=== PATIENT | male | born 1930 | race Caucasian/White ===

== ENCOUNTER 2017-02-18 14:34 | Inpatient (IN) | payer MEDICARE, OTHER ==
[2017-02-18] VITALS (7 sets, daily range): BP systolic 105–139; BP diastolic 53–68; PULSE 63–108; RESP 12–18; TEMP 96.6–98.9; O2SAT 97–100
[~2017-02-18] VITALS: Ht 165.1 cm; Wt 69.3 kg
[~2017-02-18 14:34] MED LIST: FURO20 PO; LEVO75TA3 PO; METO25CR OR; OMEP20CA5 PO
--- NOTE | 2017-02-18 15:27 | PD ---
HPI Chief Complaint: Cardiac Complaint Time Seen by Provider: 15:05 Travel History International Travel<30 days: No Contact w/Intl Traveler<30days: No Traveled to known affect area: No History of Present Illness HPI 86-year-old male with history of A. fib and myelodysplastic anemia followed by Dr. Chapman is his scrap iron cutter, as well as Dr. Shoemaker as his hematology oncologist, presents the emergency department with his daughter with significant lower extremity swelling and probable ascites which has gotten worse over the past week. Patient attempted to call his scrap iron cutter, but he is on vacation. Patient scheduled to see Dr. Shoemaker on as she gets weekly transfusions for his wound with dysplastic anemia. He states yesterday his hemoglobin was 7.9. Patient denies pain, fever, but has decreased appetite increased dyspnea with exertion. He states he is on amiodarone for his A. fib. Patient denies liver or renal problems in the past. Patient denies history of CHF. He is currently pain-free. He is allergic to hydrocodone and codeine. PFSH Past Medical History Anemia: Yes (myelodysplastic syndrome) Arthritis: Yes Atrial Fibrillation: Yes Blood Disorders: Yes (myelodysplastic syndrome) Heart Rhythm Problems: Yes (a fib ) Cancer: Yes (PROSTATE/BLADDER CANCER) Cardiac Catheterization: Yes (x2) Cardiovascular Problems: Yes High Cholesterol: Yes Chemotherapy: Yes Chest Pain: Yes Congestive Heart Failure: No Cerebrovascular Accident: No Diabetes: No Diminished Hearing: Yes (bilateral hearing aids) Endocrine: Yes Gastrointestinal Disorders: Yes (bleeding ulcer @ 37yo, GERD) GERD: Yes Genitourinary: Yes (bladder cancer ) Hepatitis: No Hiatal Hernia: No Hypertension: Yes Immune Disorder: No Musculoskeletal: Yes (pelvis fracture 01/2014) Neurologic: Yes (migraines in past ) Psychiatric: No Reproductive: No Respiratory: No Immunizations Current: Yes Radiation Therapy: Yes Thyroid Disease: Yes Ulcer: Yes ?: Not Past Surgical History AICD: No Cardiac Surgery: Yes (HEART CATH X2) Endocrine Surgery: No Eye Surgery: Yes (ZECHARIAH CATARACT IMPLANT) Genitourinary Surgery: Yes (BLADDER, URETHRAL STRICTURE) Joint Replacement: No Pacemaker: No Thoracic Surgery: Yes (PORT PLACEMENT LEFT CHEST) Tonsillectomy: Yes Other Surgery: Yes (TONSILLECTOMY at the age of 4, cataract sx OU ) Social History Alcohol Use: No Tobacco Use: No Substance Use: No Allergies-Medications (Allergen,Severity, Reaction): Coded Allergies: codeine (Unverified Allergy, Severe, Hallucinations, 02/18/17) hydrocodone (Unverified Allergy, Mild, Hallucinations, 02/18/17) Reported Meds & Prescriptions Reported Meds & Active Scripts Active Reported Procrit Inj (Epoetin Caleb) 40,000 Unit/Ml Inj 60,000 Units SQ PRN Given at [facility] Amiodarone (Amiodarone HCl) 200 Mg Tab 100 Mg PO DAILY Levothyroxine (Levothyroxine Sodium) 75 Mcg Tab 75 Mcg PO DAILY Metoprolol Tartrate 25 Mg Tab 12.5 Mg PO BID Lasix (Furosemide) 20 Mg Tab 20 Mg PO DAILY Omeprazole 20 Mg Tab 20 Mg PO BID Artificial Tears Drops (Dextran 70/Hypromellose/Pf) 0.1 %-0.3 % Droperette 1 Drop EACH EYE DAILY PRN Tylenol (Acetaminophen) 325 Mg Tab 325-650 Mg PO Q4H PRN Pepcid Complete Tablet Chew (Famotidine/Ca Carb/Mag Hydrox) 10 Mg-800 Mg-165 Mg Tab.chew 1 Tab PO BID PRN Zzzquil Liq (Diphenhydramine (Sleep) Liq) 50 Mg/30 Ml Liq 25 Mg PO HS PRN Glycerin Adult Supp (Glycerin) 2 Gm Supp 2 Gm RECTAL DAILY PRN Miralax Powder (Polyethylene Glycol 3350 Powder) 17 Gm Powd 17 Gm PO HS Mix and dissolve one measuring cap-ful (17 grams) in water or juice. Metamucil Original Texture (Psyllium Hydrophilic Mucilloid) 3.4 Gram/7 Gram Pow PO HS 1 rounded TEASPOONFUL in 8 oz of water Ibuprofen 200 Mg Cap 400 Mg PO DAILY Fluticasone Nasal Lester 50 Mcg/Act Naspr 2 Lester EACH NARE DAILY 50 mcg/spray Exjade (Deferasirox) 500 Mg Tab 1,000 Mg PO DAILY Dissolve 2 tablets (1,000mg) in 7 ounces of apple juice-wait 30 min before eating or taking other medication [Cranberry] 4,200 Mg PO DAILY Review of Systems Except as stated in HPI: all other systems reviewed are Neg General / Constitutional: No: Fever Eyes: No: Visual changes HENT: No: Headaches Cardiovascular: Positive: Dyspnea on exertion, No: Chest Pain or Discomfort Respiratory: No: Shortness of Breath Gastrointestinal: Positive: Loss of Appetite, Other (feels bloated and distended), No: Nausea, Vomiting, Diarrhea, Abdominal Pain, Hematemesis, Hematochezia, Constipation, Changes in Bowel Habits, Indigestion, Dysphagia Genitourinary: No: Dysuria Musculoskeletal: Positive: Edema, No: Myalgias, Arthralgias, Limited ROM, Pain Skin: No Rash Neurologic: No: Weakness Psychiatric: No: Depression Endocrine: No: Polydipsia Hematologic/Lymphatic: No: Easy Bruising Physical Exam Narrative GENERAL: Patient appears in no acute distress. SKIN: Warm and dry. Decreased pallor. Normal turgor. 3+ bilateral pitting edema extending into the thighs, and possibly abdomen. HEAD: Atraumatic. Normocephalic. EYES: Pupils equal and round. No scleral icterus. No injection or drainage. ENT: No nasal bleeding or discharge. Mucous membranes pink and moist. Pharynx is clear. Airway is patent NECK: Trachea midline. Supple nontender CARDIOVASCULAR: Regular rate and rhythm. RESPIRATORY: No accessory muscle use. Clear to auscultation. No wheezes, crackles, rhonchi, or rales. Breath sounds equal bilaterally. GASTROINTESTINAL: Abdomen soft, non-tender, mildly. Normal bowel sounds quadrants. Hepatic and splenic margins not palpable. MUSCULOSKELETAL: Extremities without clubbing, cyanosis, or edema. No obvious deformities. NEUROLOGICAL: Awake and alert. No obvious cranial nerve deficits. Motor grossly within normal limits. Five out of 5 muscle strength in the arms and legs. Normal speech. PSYCHIATRIC: Appropriate mood and affect; insight and judgment normal. Data Data Last Documented VS Vital Signs Date Time Temp Pulse Resp B/P (MAP) Pulse Ox O2 Delivery O2 Flow Rate FiO2 02/18/17 16:21 65 15 139/64 (89) 100 Room Air 02/18/17 14:36 98.9 Orders Orders Complete Blood Count With Diff (02/18/17 15:18) Comprehensive Metabolic Panel (02/18/17 15:18) B-Type Natriuretic Peptide (02/18/17 15:18) Act Partial Throm Time (Ptt) (02/18/17 15:18) Prothrombin Time / Inr (Pt) (02/18/17 15:18) Magnesium (Mg) (02/18/17 15:18) Ckmb (Isoenzyme) Profile (02/18/17 15:18) Troponin I (02/18/17 15:18) Urinalysis - C+S If Indicated (02/18/17 15:18) Iv Access Insert/Monitor (02/18/17 15:18) Electrocardiogram (02/18/17 15:18) Ecg Monitoring (02/18/17 15:18) Oximetry (02/18/17 15:18) Oxygen Administration (02/18/17 15:18) Chest, Single Ap (02/18/17 15:18) Sodium Chloride 0.9% Flush (Ns Flush) (02/18/17 15:30) Furosemide Inj (Lasix Inj) (02/18/17 15:30) Us Leg Venous Doppler Bilat (02/18/17 15:18) Type And Screen (02/18/17 15:18) Us Abdomen Lower Limited (02/18/17 ) Ceftriaxone Inj (Rocephin Inj) (02/18/17 16:45) Azithromycin (Zithromax) (02/18/17 16:45) Red Blood Cells (Rbc) (02/18/17 17:12) Blood Product Administration (02/18/17 17:12) Sodium Chlor 0.9% 250 Ml Inj (Ns 250 Ml (02/18/17 17:15) Diphenhydramine (Benadryl) (02/18/17 17:15) Acetaminophen (Tylenol) (02/18/17 17:15) Furosemide Inj (Lasix Inj) (02/18/17 17:15) Admit Order (Ed Use Only) (02/18/17 ) Literacy Education Professor / Telemetry SILVIA.Q8H (02/18/17 17:47) Vital Signs (Adult) Q4H (02/18/17 17:47) Diet Heart Healthy (02/18/17 Dinner) Activity Oob With Assistance (02/18/17 17:47) Notify Dr: Other (02/18/17 17:47) Labs Laboratory Tests Test 02/18/17 16:15 02/18/17 16:50 White Blood Count 5.8 TH/MM3 Red Blood Count 2.32 MIL/MM3 Hemoglobin 7.1 GM/DL Hematocrit 20.7 % Mean Corpuscular Volume 89.2 FL Mean Corpuscular Hemoglobin 30.5 PG Mean Corpuscular Hemoglobin Concent 34.1 % Red Cell Distribution Width 16.8 % Platelet Count 255 TH/MM3 Mean Platelet Volume 9.0 FL Neutrophils (%) (Auto) 67.5 % Lymphocytes (%) (Auto) 19.3 % Monocytes (%) (Auto) 12.8 % Eosinophils (%) (Auto) 0.1 % Basophils (%) (Auto) 0.3 % Neutrophils # (Auto) 3.9 TH/MM3 Lymphocytes # (Auto) 1.1 TH/MM3 Monocytes # (Auto) 0.7 TH/MM3 Eosinophils # (Auto) 0.0 TH/MM3 Basophils # (Auto) 0.0 TH/MM3 CBC Comment DIFF FINAL Differential Comment Prothrombin Time 13.1 SEC Prothromb Time International Ratio 1.2 RATIO Activated Partial Thromboplast Time 27.3 SEC Blood Urea Nitrogen 31 MG/DL Creatinine 1.87 MG/DL Random Glucose 104 MG/DL Total Protein 6.1 GM/DL Albumin 3.6 GM/DL Calcium Level 8.3 MG/DL Magnesium Level 2.2 MG/DL Alkaline Phosphatase 43 U/L Aspartate Amino Transf (AST/SGOT) 3 U/L Alanine Aminotransferase (ALT/SGPT) 15 U/L Total Bilirubin 1.2 MG/DL Sodium Level 131 MEQ/L Potassium Level 4.2 MEQ/L Chloride Level 98 MEQ/L Carbon Dioxide Level 24.1 MEQ/L Anion Gap 9 MEQ/L Estimat Glomerular Filtration Rate 34 ML/MIN Iron Level 212 MCG/DL Total Iron Binding Capacity 176 MCG/DL Percent Iron Saturation % Ferritin 367 NG/ML Total Creatine Kinase 24 U/L Troponin I 0.07 NG/ML B-Type Natriuretic Peptide 201 PG/ML Thyroid Stimulating Hormone 3rd Gen 4.370 uIU/ML Urine Color LIGHT-YELLOW Urine Turbidity CLEAR Urine pH 5.5 Urine Specific [place] 1.009 Urine Protein TRACE mg/dL Urine Glucose (UA) NEG mg/dL Urine Ketones NEG mg/dL Urine Occult Blood NEG Urine Nitrite NEG Urine Bilirubin NEG Urine Urobilinogen LESS THAN 2.0 MG/DL Urine Leukocyte Esterase NEG Urine RBC LESS THAN 1 /hpf Urine WBC 1 /hpf Microscopic Urinalysis Comment CULT NOT INDICATED MDM Medical Decision Making Medical Screen Exam Complete: Yes Emergency Medical Condition: Yes Medical Record Reviewed: Yes Differential Diagnosis Myelodysplastic anemia. Fluid overload. CHF. Low albumin. Ascites. Renal insufficiency. Lower extremity edema. Narrative Course Patient appears medically stable at time of exam. EKG and chest x-ray is ordered. Labs ordered including CBC, CMP, proBNP, cardiac panel, magnesium, and urinalysis. Ultrasound of both lower extremities and abdomen are ordered. EKG shows normal sinus rhythm at [address] changes. Chest x-ray shows new patchy infiltrate and effusion in the right lower lung with suggestion of pneumonia per the radiologist. Lower extremity ultrasound shows no evidence of DVT. Ultrasound abdomen shows no ascites. CBC significant for an RBC of 2.32, hemoglobin of 7.1, hematocrit 20.7. Coagulation studies shows a PT of 13.1, INR 1.2. PTT of 27.3. Chemistry shows sodium 131, normal potassium of 4.2, BUN 31, creatinine 1.87, GFR of 34. Calcium is 8.3, total bili is 1.2, AST 3, ALT 15, alkaline phosphatase is 43. Total creatinine kinase is 24, and troponin is slightly elevated at 0.07. ProBNP is 201. Total protein is 6.1 and albumin is 3.6. Urinalysis is unremarkable. Call was placed to Dr. Shoemaker, and 2 units of RBCs are ordered. Patient is given 1 g Rocephin IV as well as 500 mg az[address]romycin by mouth. Dr. Shoemaker agreed with the plan in regards to the blood replacement. Lasix 20 mg to be given between the 2 bags of RBCs. Call was placed to Dr. Amanda for admission. Diagnosis Primary Impression: Symptomatic anemia Additional Impressions: Bilateral lower extremity edema Right pulmonary infiltrate on CXR Pleural effusion associated with pulmonary infection Admitting Information Admitting Physician Requests: Admit Condition: Stable Shakir Mcclain Feb 18, 2017 15:27
[2017-02-18] MEDS ORDERED: SODIUM CHLORIDE 0.9% FLUSH 10 ML FLUSH IVF PRN (15:30)
[2017-02-18] MEDS ORDERED: FUROSEMIDE 40 MG/4 ML VIAL IVP ONE (15:30)
--- NOTE | 2017-02-18 15:43 | RADRPT ---
EXAM DATE/TIME: 02/18/2017 15:22 [facility] COMPARISON: CHEST SINGLE AP, February 08, 2015, 12:16. INDICATIONS : Shortness of breath and bilateral leg swelling. MEDICAL HISTORY : Myelodysplastic syndrome. SURGICAL HISTORY : Infusaport. ENCOUNTER: Initial ACUITY: 1 week PAIN SCORE: 0/10 LOCATION: Bilateral chest FINDINGS: A single view of the chest demonstrates an infiltrate and effusion involving the right lower lung. Th e left lung is grossly clear. Heart size is upper limits of normal. There is a left [id number] in place. There is no pneumothorax. The bony structures are grossly intact and stable.. CONCLUSION: There is a new patchy infiltrate and effusion in the right lower lung. Right lower lung pneumonia wou ld be the primary consideration. Leo Montoya MD on February 18, 2017 at 15:40 Board Certified Radiologist. This report was verified electronically.
--- NOTE | 2017-02-18 16:12 | RADRPT ---
EXAM DATE/TIME: 02/18/2017 15:43 [facility] COMPARISON: No previous studies available for comparison. INDICATIONS : Bilateral lower extremity edema. MEDICAL HISTORY : Hypertension. Hypercholesterolemia. Gastroesophageal reflux disease. Thyroid disease. Migraine. Atria l fibrillation. Bladder cancer. Urethral stricture. Myelodysplastic syndrome. Prostate cancer. Chemot herapy. SURGICAL HISTORY : Tonsillectomy. Cardiac catheterization. ENCOUNTER: Initial ACUITY: 1 week PAIN SCORE: 0/10 LOCATION: Bilateral legs. TECHNIQUE: Venous ultrasound of the left and right leg was performed from the inguinal ligament to the proximal calf. Real-time, color Doppler and spectral tracing, compression and augmentation techniques were us ed. FINDINGS: RIGHT LEG: There is normal compressibility of the deep venous system from the inguinal region to the proximal ca lf. No echogenic clot is seen in the lumen of the common femoral, femoral, popliteal, and posterior tibial veins. There is a normal response of the venous system to proximal and distal augmentation an d respiration. There is edema in the subcutaneous soft tissues. LEFT LEG: There is normal compressibility of the deep venous system from the inguinal region to the proximal ca lf. No echogenic clot is seen in the lumen of the common femoral, femoral, popliteal, and posterior tibial veins. There is a normal response of the venous system to proximal and distal augmentation an d respiration. There is edema in the subcutaneous soft tissues. CONCLUSION: No evidence of DVT. Leo Montoya MD on February 18, 2017 at 16:10 Board Certified Radiologist. This report was verified electronically.
--- NOTE | 2017-02-18 16:23 | RADRPT ---
EXAM DATE/TIME: 02/18/2017 15:36 [facility] COMPARISON: No previous studies available for comparison. INDICATIONS : Abdominal distension. MEDICAL HISTORY : Hypertension. Hypercholesterolemia. Gastroesophageal reflux disease. Thyroid disease. Migraine. Atria l fibrillation. Bladder cancer. Urethral stricture. Myelodysplastic syndrome. Prostate cancer. Chemot herapy. SURGICAL HISTORY : Tonsillectomy. Cardiac catheterization. ENCOUNTER: Initial ACUITY: 1 day PAIN SCORE: 0/10 LOCATION: Abdomen. AREA EVALUATED: Abdominal quadrants. FINDINGS: Imaging of the abdomen and pelvis was performed to evaluate for ascites for possible paracentesis. No ascites observed. Visceral evaluation not performed at this time. CONCLUSION: No ascites. George Arellano Jr., MD on February 18, 2017 at 16:21 Board Certified Radiologist. This report was verified electronically.
[2017-02-18 16:36] LABS: AUTOMATED NEUTROPHIL # 3.9 TH/MM3 (1.8-7.7); BASOPHIL % 0.3 % (0.0-2.0); EOSINOPHIL % 0.1 % (0.0-4.0); LYMPH % 19.3 % (9.0-44.0); LYMPHOCYTE # 1.1 TH/MM3 (1.0-4.8); MEAN CELL VOLUME 89.2 FL (80.0-100.0); MEAN CORPUSCULAR HEMOGLOBIN 30.5 PG (27.0-34.0); MEAN CORPUSCULAR HGB CONC 34.1 % (32.0-36.0); MONO % 12.8 % (0.0-8.0); NEUT % 67.5 % (16.0-70.0); PLATELET COUNT 255 TH/MM3 (150-450); RED BLOOD COUNT 2.32 MIL/MM3 (4.50-5.90); RED CELL DISTRIBUTION WIDTH 16.8 % (11.6-17.2); WHITE BLOOD COUNT 5.8 TH/MM3 (4.0-11.0)
[2017-02-18 16:38] LABS: HEMO FLAGS DIFF FINAL
[2017-02-18 16:42] LABS: HEMATOCRIT 20.7 % (39.0-51.0)
[2017-02-18] MEDS ORDERED: cefTRIAXone INJ 1,000 MG in SODIUM CHLORIDE 0.9% INJ 100 ML IV ONE (16:45)
[2017-02-18] MEDS ORDERED: AZITHROMYCIN 250 MG TAB PO ONE (16:45)
[2017-02-18 16:46] LABS: APTT (PATIENT) 27.3 SEC (24.3-30.1); INTERNATIONAL NORMALIZED RATIO 1.2 RATIO; PROTHROMBIN TIME - PATIENT 13.1 SEC (9.8-11.6)
[2017-02-18 16:59] LABS: ANION GAP 9 MEQ/L (5-15); AST (GOT) 3 U/L (15-37); BICARBONATE 24.1 MEQ/L (21.0-32.0); BLOOD UREA NITROGEN 31 MG/DL (7-18); CHLORIDE 98 MEQ/L (98-107); GLOMERULAR FILTRATION RATE 34 ML/MIN (>89); MAGNESIUM 2.2 MG/DL (1.5-2.5); POTASSIUM 4.2 MEQ/L (3.5-5.1); SODIUM (NA) 131 MEQ/L (136-145)
[2017-02-18 17:00] LABS: ALT (GPT) 15 U/L (12-78)
[2017-02-18 17:02] LABS: BLOOD, URINE NEG (NEG); COMMENT (UR) CULT NOT INDICATED; CULTURE IF INDICATED CULT NOT INDICATED; GLUCOSE,URINE NEG (NEG); KETONE, URINE NEG (NEG); NITRITE,URINE NEG (NEG); PH, URINE 5.5 (5.0-8.5); URINE COLOR LIGHT-YELLOW (YELLW/STRAW)
[2017-02-18 17:04] LABS: ALKALINE PHOSPHATASE 43 U/L (45-117); TOTAL BILIRUBIN ADULT 1.2 MG/DL (0.2-1.0)
[2017-02-18 17:06] LABS: CREATINE KINASE 24 U/L (39-308)
[2017-02-18] MEDS ORDERED: ACETAMINOPHEN 325 MG TAB PO ONE (17:15)
[2017-02-18] MEDS ORDERED: diphenhydrAMINE HCL 25 MG CAP PO ONE (17:15)
[2017-02-18] MEDS ORDERED: SODIUM CHLOR 0.9% 250 ML INJ 250 ML IV ONE (17:15)
[2017-02-18] MEDS ORDERED: CRANPOW2 PO (17:19)
[2017-02-18] MEDS ORDERED: PEPCCHW8 PO (17:19)
[2017-02-18] MEDS ORDERED: GLYC2SUP RECTAL (17:19)
[2017-02-18] MEDS ORDERED: META48.53 PO (17:19)
[2017-02-18] MEDS ORDERED: DIPH50LI PO (17:19)
[2017-02-18] MEDS ORDERED: METO25TA3 PO (17:19)
[2017-02-18] MEDS ORDERED: FURO1TAB62 PO (17:19)
[2017-02-18] MEDS ORDERED: ARTISOL EACH EYE (17:19)
[2017-02-18] MEDS ORDERED: EXJA500T PO (17:19)
[2017-02-18] MEDS ORDERED: [UNRECOGNIZED DRUG - CODE] SQ (17:19)
[2017-02-18] MEDS ORDERED: MIRA3350 PO (17:19)
[2017-02-18] MEDS ORDERED: FLUT50SP EACH NARE (17:19)
[2017-02-18] MEDS ORDERED: TYLE325T PO (17:19)
[2017-02-18] MEDS ORDERED: OMEP20TA PO (17:19)
[2017-02-18] MEDS ORDERED: IBUP200C PO (17:19)
[2017-02-18] MEDS ORDERED: LEVO75TA3 PO (17:19)
[2017-02-18] MEDS ORDERED: AMIO200T PO (17:19)
--- NOTE | 2017-02-18 18:56 | HHI.HP ---
HPI Service [facility] Hospitalists Primary Care Physician Jovan Vora M.D. Admission Diagnosis Anemia/Pnuemonia/Edema/Effusion Chief Complaint: Increased Swelling in lower extremities, mild shortness of breath Travel History International Travel<30 Days: No Contact w/Intl Traveler <30 Da: No Traveled to Known Affected Are: No History of Present Illness 86-year-old male with history of A. fib and myelodysplastic disorder with refractory anemia followed Dr. Kohler as his hematology oncologist, presents the emergency department with his daughter with significant lower extremity swelling and which has gotten worse over the past week. Patient reports he has chronic lower extremity edema particularly in the right leg but over the last 4-5 days it has worsened even being noted up to his lower back and abdomen. Patient scheduled to see Dr. Kohler on as he gets weekly transfusions of red blood cells regarding his dysplastic anemia. Patient denies pain, fever, but has decreased appetite and slight increased dyspnea with exertion. He states he is on amiodarone for his A. fib. Patient denies liver or renal problems in the past. Patient denies history of CHF. He is currently pain-free. He denies any new medications of late but takes Exjade due to recurrent iron overload secondary to packed red blood cell transfusions. He denies any hemoptysis or hematemesis. Denies any fevers. Has had no recent foreign travel. He has minimal cough and notes that his shortness of breath although he appreciated if he tries to take a deep breath or overexert himself. Review of Systems Constitutional: COMPLAINS OF: Fatigue, Change in appetite, DENIES: Diaphoretic episodes, Fever, Weight gain, Weight loss, Chills, Dizziness, Night Sweats Endocrine: DENIES: Heat/cold intolerance, Polydipsia, Polyuria, Polyphagia Eyes: DENIES: Blurred vision, Diplopia, Eye inflammation, Eye pain, Vision loss , Photosensitivity, Double Vision Ears, nose, mouth, throat: DENIES: Tinnitus, Hearing loss, Vertigo, Nasal discharge, Oral lesions, Throat pain, Hoarseness, Ear Pain, Running Nose, Epistaxis, Sinus Pain, Toothache, Odynophagia Respiratory: COMPLAINS OF: Cough, Shortness of breath, DENIES: Apneas, Snoring , Wheezing, Hemoptysis, Sputum production Cardiovascular: COMPLAINS OF: Lower Extremity Edema, DENIES: Chest pain, Palpitations, Syncope, Dyspnea on Exertion, PND, Orthopnea, Claudication Gastrointestinal: COMPLAINS OF: Abdominal pain Musculoskeletal: COMPLAINS OF: Joint pain Integumentary: DENIES: Abnormal pigmentation, Nail changes, Pruritus, Rash Hematologic/lymphatic: DENIES: Bruising, Lymphadenopathy Immunologic/allergic: DENIES: Eczema, Urticaria Neurologic: COMPLAINS OF: Abnormal gait, DENIES: Headache, Localized weakness, Paresthesias, Seizures, Speech Problems, Tremor, Poor Balance Psychiatric: DENIES: Anxiety, Confusion, Mood changes, Depression, Hallucinations, Agitation, Suicidal Ideation, Homicidal Ideation, Delusions, History of Bipolar, History of Schizophrenia Past Family Social History Past Medical History Hx of pelvic fx AAA Paroxysmal atrial fibrillation Myelodysplasia with refractory anemia Hx of bladder cancer 6 years ago Hx of prostate cancer 5 years ago COPD GERD HTN Hyperlipidemia Hypothyroidism Past Surgical History Multiple cystoscopies with tumor removal Cataract surgery Bone Marrow Bx T&A Cardiac cath x 2 Reported Medications Procrit Inj (Epoetin Caleb) 40,000 Unit/Ml Inj 60,000 Units SQ PRN Given at [facility] Amiodarone (Amiodarone HCl) 200 Mg Tab 100 Mg PO DAILY Levothyroxine (Levothyroxine Sodium) 75 Mcg Tab 75 Mcg PO DAILY Metoprolol Tartrate 25 Mg Tab 12.5 Mg PO BID Lasix (Furosemide) 20 Mg Tab 20 Mg PO DAILY Omeprazole 20 Mg Tab 20 Mg PO BID Artificial Tears Drops (Dextran 70/Hypromellose/Pf) 0.1 %-0.3 % Droperette 1 Drop EACH EYE DAILY PRN Tylenol (Acetaminophen) 325 Mg Tab 325-650 Mg PO Q4H PRN Pepcid Complete Tablet Chew (Famotidine/Ca Carb/Mag Hydrox) 10 Mg-800 Mg-165 Mg Tab.chew 1 Tab PO BID PRN Zzzquil Liq (Diphenhydramine (Sleep) Liq) 50 Mg/30 Ml Liq 25 Mg PO HS PRN Glycerin Adult Supp (Glycerin) 2 Gm Supp 2 Gm RECTAL DAILY PRN Miralax Powder (Polyethylene Glycol 3350 Powder) 17 Gm Powd 17 Gm PO HS Mix and dissolve one measuring cap-ful (17 grams) in water or juice. Metamucil Original Texture (Psyllium Hydrophilic Mucilloid) 3.4 Gram/7 Gram Pow PO HS 1 rounded TEASPOONFUL in 8 oz of water Ibuprofen 200 Mg Cap 400 Mg PO DAILY Fluticasone Nasal [place] 50 Mcg/Act Naspr 2 [place] EACH NARE DAILY 50 mcg/spray Exjade (Deferasirox) 500 Mg Tab 1,000 Mg PO DAILY Dissolve 2 tablets (1,000mg) in 7 ounces of apple juice-wait 30 min before eating or taking other medication [Cranberry] 4,200 Mg PO DAILY Allergies: Coded Allergies: codeine (Unverified Allergy, Severe, Hallucinations, 02/18/17) hydrocodone (Unverified Allergy, Mild, Hallucinations, 02/18/17) Family History N/C Social History No tobacco in 25 years but prior to that smoked 2-3 packs per day for probably 40 years No alcohol in several years and did not drink heavily in the past Previous he worked as a construction scheduler Born and raised locally now for 4-5 years and was for 64 years prior. Physical Exam Vital Signs Vital Signs Date Time Temp Pulse Resp B/P (MAP) Pulse Ox O2 Delivery O2 Flow Rate FiO2 02/18/17 16:21 65 15 139/64 (89) 100 Room Air 02/18/17 16:20 100 Room Air 02/18/17 15:01 68 100 Room Air 02/18/17 14:36 98.9 67 16 126/62 (83) 99 Room Air Physical Exam GENERAL: This is a well-nourished, well-developed patient, in no apparent distress. Alert and oriented. SKIN: No rashes, ecchymoses or lesions. Cool and dry. HEAD: Atraumatic. Normocephalic. No temporal or scalp tenderness. EYES: Pupils equal round and reactive. Extraocular motions intact. No scleral icterus. No injection or drainage. ENT: Nose without bleeding, purulent drainage or septal hematoma. Airway patent. NECK: Trachea midline. No JVD or lymphadenopathy. Supple, nontender, no meningeal signs. CARDIOVASCULAR: Regular rate and rhythm without gallops or rubs. Distant heart sounds. Slight flow murmur 2/6 systolic in aortic space. RESPIRATORY: Clear to auscultation. Slight decreased breath sounds in right base but no fine crackles. Overall fair air movement. No wheezes, rales, or rhonchi. GASTROINTESTINAL: Abdomen soft, minimally distended. Slight tenderness to palpation in left lower quadrant with slight fullness in the inguinal area. No guarding. MUSCULOSKELETAL: Extremities without clubbing or cyanosis. 2-3+ edema bilateral lower extremities up to lower thigh and 2+ edema up to groin bilaterally. No joint tenderness, effusion, or edema noted. No calf tenderness. NEUROLOGICAL: Awake and alert. Cranial nerves II through XII intact. Motor and sensory grossly within normal limits. Five out of 5 muscle strength in all muscle groups. Normal speech. Laboratory Laboratory Tests Test 02/18/17 16:15 02/18/17 16:50 White Blood Count 5.8 Red Blood Count 2.32 Hemoglobin 7.1 Hematocrit 20.7 Mean Corpuscular Volume 89.2 Mean Corpuscular Hemoglobin 30.5 Mean Corpuscular Hemoglobin Concent 34.1 Red Cell Distribution Width 16.8 Platelet Count 255 Mean Platelet Volume 9.0 Neutrophils (%) (Auto) 67.5 Lymphocytes (%) (Auto) 19.3 Monocytes (%) (Auto) 12.8 Eosinophils (%) (Auto) 0.1 Basophils (%) (Auto) 0.3 Neutrophils # (Auto) 3.9 Lymphocytes # (Auto) 1.1 Monocytes # (Auto) 0.7 Eosinophils # (Auto) 0.0 Basophils # (Auto) 0.0 CBC Comment DIFF FINAL Differential Comment Prothrombin Time 13.1 Prothromb Time International Ratio 1.2 Activated Partial Thromboplast Time 27.3 Blood Urea Nitrogen 31 Creatinine 1.87 Random Glucose 104 Total Protein 6.1 Albumin 3.6 Calcium Level 8.3 Magnesium Level 2.2 Alkaline Phosphatase 43 Aspartate Amino Transf (AST/SGOT) 3 Alanine Aminotransferase (ALT/SGPT) 15 Total Bilirubin 1.2 Sodium Level 131 Potassium Level 4.2 Chloride Level 98 Carbon Dioxide Level 24.1 Anion Gap 9 Estimat Glomerular Filtration Rate 34 Total Creatine Kinase 24 Troponin I 0.07 B-Type Natriuretic Peptide 201 Urine Color LIGHT-YELLOW Urine Turbidity CLEAR Urine pH 5.5 Urine Specific [place] 1.009 Urine Protein TRACE Urine Glucose (UA) NEG Urine Ketones NEG Urine Occult Blood NEG Urine Nitrite NEG Urine Bilirubin NEG Urine Urobilinogen LESS THAN 2.0 Urine Leukocyte Esterase NEG Urine RBC LESS THAN 1 Urine WBC 1 Microscopic Urinalysis Comment CULT NOT INDICATED Result Diagram: 02/18/17 1615 02/18/17 1615 Imaging Last 72 hours Impressions Lower Extremity Ultrasound 02/18/17 1518 Signed Impressions: Service Date/Time: Saturday, February 18, 2017 15:43 - CONCLUSION: No evidence of DVT. Leo Montoya MD Chest X-Ray 02/18/17 1518 Signed Impressions: Service Date/Time: Saturday, February 18, 2017 15:22 - CONCLUSION: There is a new patchy infiltrate and effusion in the right lower lung. Right lower lung pneumonia would be the primary consideration. Leo Montoya MD Abdomen Ultrasound 02/18/17 0000 Signed Impressions: Service Date/Time: Saturday, February 18, 2017 15:36 - CONCLUSION: No ascites. George Arellano Jr., MD Caprinmarcos VTE Risk Assessment Caprini VTE Risk Assessment: Mod/High Risk (score >= 2) Caprini Risk Assessment Model Point Value = 1 Point Value = 2 Point Value = 3 Point Value = 5 Age 41-60 Minor surgery BMI > 25 kg/m2 Swollen legs Varicose veins or History of unexplained or recurrent spontaneous Oral contraceptives or hormone replacement Sepsis (< 1 month) Serious lung disease, including pneumonia (< 1 month) Abnormal pulmonary function Acute myocardial infarction Congestive heart failure (< 1 month) History of inflammatory bowel disease Medical patient at bed rest Age 61-74 Arthroscopic surgery Major open surgery (> 45 min) Laparoscopic surgery (> 45 min) Malignancy Confined to bed (> 72 hours) Immobilizing plaster cast Central venous access Age >= 75 History of VTE Family history of VTE Factor V Leiden Prothrombin [id number] Lupus anticoagulant Anticardiolipin antibodies Elevated serum homocysteine Heparin-induced thrombocytopenia Other congenital or acquired thrombophilia Stroke (< 1 month) Elective arthroplasty Hip, pelvis, or leg fracture Acute spinal cord injury (< 1 month) Prophylaxis Regimen Total Risk Factor Score Risk Level Prophylaxis Regimen 0-1 Low Early ambulation 2 Moderate Order ONE of the following: *Sequential Compression Device (SCD) *Heparin 5000 units SQ BID 3-4 Higher Order ONE of the following medications: *Heparin 5000 units SQ TID *Enoxaparin/Lovenox 40 mg SQ daily (WT < 150 kg, CrCl > 30 mL/min) *Enoxaparin/Lovenox 30 mg SQ daily (WT < 150 kg, CrCl > 10-29 mL/min) *Enoxaparin/Lovenox 30 mg SQ BID (WT < 150 kg, CrCl > 30 mL/min) AND/OR *Sequential Compression Device (SCD) 5 or more Highest Order ONE of the following medications: *Heparin 5000 units SQ TID (Preferred with Epidurals) *Enoxaparin/Lovenox 40 mg SQ daily (WT < 150 kg, CrCl > 30 mL/min) *Enoxaparin/Lovenox 30 mg SQ daily (WT < 150 kg, CrCl > 10-29 mL/min) *Enoxaparin/Lovenox 30 mg SQ BID (WT < 150 kg, CrCl > 30 mL/min) AND *Sequential Compression Device (SCD) Assessment and Plan Problem List: (1) Right pulmonary infiltrate on CXR ICD Codes: R91.8 - Other nonspecific abnormal finding of lung field Status: Acute Plan: Doubt significant infectious etiology given lack of symptoms, lack of fever and normal white count. He has been given 1 dose of IV antibiotics. We'll hold off on additional antibiotics at this point and monitor. May need thoracentesis depending on effusion and symptomatology. Ental diuresis will be employed. (2) Bilateral lower extremity edema ICD Codes: R60.0 - Localized edema; J91.8 - Pleural effusion in other conditions classified elsewhere Status: Chronic Plan: Chronic issue which is worse of late. Gentle diuresis. TEMO hose. Elevate lower extremities. BNP is relatively low. (3) Myelodysplastic syndrome ICD Codes: D46.9 - Myelodysplastic syndrome Status: Chronic Plan: We'll have oncology see the patient. Would provide packed red blood cells. Check iron levels. May need to resume Exjade. Check an echocardiogram Given his history of elevated transfusions iron levels and recurrent PRBC transfusions. (4) Anemia ICD Codes: D64.9 - Anemia Status: Chronic Plan: Chronic issue. As noted above. Hematology will see the patient. PRBCs will be transfused. (5) Hypertension ICD Codes: I10 - Hypertension Status: Chronic (6) Paroxysmal atrial fibrillation ICD Codes: I48.0 - Paroxysmal atrial fibrillation Status: Chronic Plan: Rate is controlled. (7) Hypothyroidism ICD Codes: E03.9 - Hypothyroidism Status: Chronic Plan: Check TSH. Code Status Full Discussed Condition With Pt, his daughter, ER provider and nurse Physician Certification 2 Midnight Certification Type: Admission for Inpatient Services Order for Inpatient Services The services are ordered in accordance with Medicare regulations or non- Medicare payer requirements, as applicable. In the case of services not specified as inpatient-only, they are appropriately provided as inpatient services in accordance with the 2-midnight benchmark. Estimated LOS (days): 2 days is the estimated time the patient will need to remain in the hospital, assuming treatment plan goals are met and no additional complications. Post-Hospital Plan: Home Problem Qualifiers (1) Anemia: (2) Hypertension: Qualified Codes: I10 - Essential (primary) hypertension Edinson Amanda MD PhD Feb 18, 2017 18:56
[2017-02-18] MEDS ORDERED: DIPHENHYDRAMINE 25 MG PO PRN (20:45)
[2017-02-18] MEDS ORDERED: ACETAMINOPHEN 325 MG TAB PO PRN (20:45)
[2017-02-18] MEDS ORDERED: DEXTRAN EACH EYE PRN (20:45)
[2017-02-18] MEDS ORDERED: HYPROMELLOSE EACH EYE PRN (20:45)
[2017-02-18] MEDS: POLYETHYLENE GLYCOL 17 GM PKG PO SCH (20:54)
[2017-02-18] MEDS: METOPROLOL TARTRATE 25 MG TAB PO SCH (20:57)
[2017-02-18] MEDS ORDERED: ARTIFICIAL TEARS OPTH SOLN 15 ML BTL EACH EYE PRN ×2 (21:00)
[2017-02-18] MEDS ORDERED: NON-FORMULARY DRUG (Omeprazole 20 MG) PO SCH (21:00)
[2017-02-18] MEDS ORDERED: PILL SPLITTER OTHER PRN (21:00)
[2017-02-18] MEDS ORDERED: diphenhydrAMINE HCL ELIXIR 12.5 MG/5 ML CUP PO PRN (21:00)
[2017-02-18] MEDS: PANTOPRAZOLE SOD 20 MG DELAYED RELEASE TAB PO SCH (21:52)
[2017-02-18 22:03] LABS: TRANSFERRIN IRON PROFILE 126 MG/DL (200-360)
[2017-02-18 22:12] LABS: FERRITIN 367 NG/ML (26-388)
[2017-02-19] VITALS (11 sets, daily range): BP systolic 89–117; BP diastolic 50–61; PULSE 85–111; RESP 12–18; TEMP 96.7–98.4; O2SAT 93–99
[2017-02-19] MEDS: FUROSEMIDE 20 MG/2 ML VIAL IV PUSH SCH ×2 (00:41→10:25)
[2017-02-19] MEDS: LEVOTHYROXINE SODIUM 75 MCG TAB PO SCH (06:13)
[2017-02-19] MEDS: AMIODARONE 200 MG TAB PO SCH (08:13)
[2017-02-19] MEDS: FLUTICASONE PROPIONATE 50 MCG/ACT 16 GM NASAL SPRAY EACH NARE SCH (08:13)
[2017-02-19] MEDS: PANTOPRAZOLE SOD 20 MG DELAYED RELEASE TAB PO SCH ×2 (08:13→21:18)
[2017-02-19] MEDS: METOPROLOL TARTRATE 25 MG TAB PO SCH ×2 (08:16→21:18)
--- NOTE | 2017-02-19 09:40 | RADRPT ---
EXAM DATE/TIME: 02/19/2017 08:33 [place] COMPARISON: CT ABDOMEN & PELVIS W/O CONTRAST, February 08, 2015, 13:20. INDICATIONS : Swelling to lower abdomen and back, left lower quadrant pain. ORAL CONTRAST: No oral contrast ingested. RADIATION DOSE: 6.64 CTDIvol (mGy) MEDICAL HISTORY : Gastroesophageal reflux disease. Ulcers. Carcinoma, bladder.Prostate cancer, hypertension. SURGICAL HISTORY : None. ENCOUNTER: Initial ACUITY: 2 days PAIN SCALE: 4/10 LOCATION: Left lower quadrant TECHNIQUE: Volumetric scanning of the abdomen and pelvis was performed. Using automated exposure control and ad justment of the mA and/or kV according to patient size, radiation dose was kept as low as reasonably achievable to obtain optimal diagnostic quality images. DICOM format image data is available electro nically for review and comparison. FINDINGS: LOWER LUNGS: Mild cardiomegaly with moderate sized pericardial effusion. A moderate size right pleural effusion wi th associated consolidation involving the right lower lobe. Tiny left effusion. LIVER: Homogeneous density without lesion. There is no dilation of the biliary tree. No calcified gallston es. A trace amount of fluid is seen adjacent to the right lobe of the liver. SPLEEN: Normal size without lesion. PANCREAS: Within normal limits. KIDNEYS: Normal in size and shape. There is no mass, stone, or hydronephrosis. A sub-1 cm hyperdense cyst is long-term stable involving the lateral margin of the midpole the right kidney. ADRENAL GLANDS: A 2 cm lipid rich adenoma is seen involving the left adrenal gland. On this unenhanced study the Houn sfield units are -18. It is stable. Right adrenal gland is normal. VASCULAR: There is no aortic aneurysm. BOWEL/MESENTERY: The stomach, small bowel, and colon demonstrate no acute abnormality. There is no free intraperitone al air or fluid. ABDOMINAL WALL: Within normal limits. RETROPERITONEUM: There is no lymphadenopathy. BLADDER: No wall thickening or mass. REPRODUCTIVE: Within normal limits. INGUINAL: There is no lymphadenopathy or hernia. MUSCULOSKELETAL: Diffuse osteopenia. Old trauma involving the superior and inferior pubic rami on the right. CONCLUSION: 1. No acute abnormality involving the abdomen or pelvis. 2. Moderate size right pleural effusion with consolidation of the right lower lobe. Tiny left pleural effusion. 3. Moderate sized pericardial effusion. 4. Trace amount of ascites. 5. 2 cm lipid rich adenoma involving the left adrenal gland. George Green Jr., MD on February 19, 2017 at 9:32 Board Certified Radiologist. This report was verified electronically.
--- NOTE | 2017-02-19 10:40 | HHI.PR ---
Subjective Remarks pt doing ok. concerned about leg swelling. Objective Vitals heart reg lung cta abd s/nt ext edema zachary LE Vital Signs Date Time Temp Pulse Resp B/P (MAP) Pulse Ox O2 Delivery O2 Flow Rate FiO2 02/19/17 08:40 98.4 111 18 95/54 (68) 93 02/19/17 04:12 97.6 86 12 95/58 95 02/19/17 04:00 97.6 100 18 117/57 (77) 93 02/19/17 03:06 97.1 88 12 89/51 96 02/19/17 02:27 97.1 85 12 99/50 96 02/19/17 01:20 96.7 97 12 101/59 99 02/19/17 00:27 96.9 89 12 97/61 96 02/19/17 00:00 97.4 88 18 99/55 (70) 96 02/19/17 00:00 97.6 100 18 117/57 (77) 93 02/18/17 21:30 96.9 97 12 105/58 97 02/18/17 21:02 96.6 108 12 137/68 100 02/18/17 20:45 96.9 63 12 112/53 98 02/18/17 20:26 97.5 68 14 116/53 02/18/17 20:00 97.4 65 18 138/68 (91) 97 02/18/17 16:21 65 15 139/64 (89) 100 Room Air 02/18/17 16:20 100 Room Air 02/18/17 15:01 68 100 Room Air 02/18/17 14:36 98.9 67 16 126/62 (83) 99 Room Air 02/19/17 02/19/17 02/20/17 15:00 23:00 07:00 # Voids 4 Result Diagram: 02/18/175 02/18/171614 Imaging Last 72 hours Impressions Lower Extremity Ultrasound 02/18/171517 Signed Impressions: Service Date/Time: Saturday, February 18, 2017 15:43 - CONCLUSION: No evidence of DVT. Leo Montoya MD Chest X-Ray 02/18/171517 Signed Impressions: Service Date/Time: Saturday, February 18, 2017 15:22 - CONCLUSION: There is a new patchy infiltrate and effusion in the right lower lung. Right lower lung pneumonia would be the primary consideration. Leo Montoya MD Abdomen Ultrasound 02/18/17 0000 Signed Impressions: Service Date/Time: Saturday, February 18, 2017 15:36 - CONCLUSION: No ascites. George Arellano Jr., MD A/P Problem List: (1) Myelodysplastic syndrome ICD Codes: D46.9 - Myelodysplastic syndrome Status: Acute Plan: 1. MDS with refractory anemia. acute worsening. 2. volume overload concerning for chf mod right pleural effusion/consolidation. mod pericardial effusion noted on CT. 3. ckd 3 given 2 units prbc iv lasix overnight......continue lasix as bp allows echo pending monitor cr, na discussed with Dr Kohler. Pt and his friend. (2) Volume overload ICD Codes: E87.70 - Fluid overload, unspecified Status: Acute (3) Anemia ICD Codes: D64.9 - Anemia Status: Chronic Plan: as above (4) Hypertension ICD Codes: I10 - Hypertension Status: Chronic (5) Paroxysmal atrial fibrillation ICD Codes: I48.0 - Paroxysmal atrial fibrillation Status: Chronic Plan: Rate is controlled. (6) Hypothyroidism ICD Codes: E03.9 - Hypothyroidism Status: Chronic Problem Qualifiers (1) Anemia: (2) Hypertension: Qualified Codes: I10 - Essential (primary) hypertension Clarke Cheng MD Feb 19, 2017 10:40
[2017-02-19] MEDS ORDERED: FUROSEMIDE 20 MG TAB PO ONE (11:15)
[2017-02-19 12:54] LABS: BICARBONATE 27.3 MEQ/L (21.0-32.0); POTASSIUM 3.8 MEQ/L (3.5-5.1)
[2017-02-19 13:25] LABS: AUTOMATED NEUTROPHIL # 3.7 TH/MM3 (1.8-7.7); BASOPHIL % 0.5 % (0.0-2.0); EOSINOPHIL % 0.2 % (0.0-4.0); HEMATOCRIT 29.2 % (39.0-51.0); HEMO FLAGS DIFF FINAL; LYMPH % 20.4 % (9.0-44.0); LYMPHOCYTE # 1.2 TH/MM3 (1.0-4.8); MEAN CELL VOLUME 86.4 FL (80.0-100.0); MEAN CORPUSCULAR HEMOGLOBIN 29.5 PG (27.0-34.0); MEAN CORPUSCULAR HGB CONC 34.2 % (32.0-36.0); MONO % 13.7 % (0.0-8.0); NEUT % 65.2 % (16.0-70.0); PLATELET COUNT 288 TH/MM3 (150-450); RED BLOOD COUNT 3.38 MIL/MM3 (4.50-5.90); RED CELL DISTRIBUTION WIDTH 16.7 % (11.6-17.2); WHITE BLOOD COUNT 5.6 TH/MM3 (4.0-11.0)
--- NOTE | 2017-02-19 14:16 | EKG ---
Date Performed: 02/18/2017 Time Performed: 16:42:50 PTAGE: 86 years EKG: Sinus rhythm NORMAL ECG PREVIOUS TRACING : 02/08/2015 11.34 DOCTOR: Gilbert Robins Interpretating Date/Time 02/19/2017 14:13:41
--- NOTE | 2017-02-19 14:18 | EKG ---
Date Performed: 02/18/2017 Time Performed: 15:19:11 PTAGE: 86 years EKG: SUPRAVENTRICULAR RHYTHM LOW QRS VOLTAGE IN EXTREMITY LEADS ABNORMAL QRS-T ANGLE ABNORMAL EC G NO PREVIOUS TRACING DOCTOR: Gilbert Robins Interpretating Date/Time 02/19/2017 14:15:14
--- NOTE | 2017-02-19 17:30 | ECHRPT ---
Indication: SHORTNESS OF BREATH CONCLUSIONS Normal left ventricular size and wall thickness. The left ventricular systolic function is normal wi th an estimated ejection fraction in the range of 60-65%. No definite regional wall motion abnormalities. There is mild tricuspid valve regurgitation. The estimated pulmonary arterial pressure is 50 mmHg. BP: 95 / 58 HR: 86 Rhythm: Sinus MEASUREMENTS (Male / Female) Normal Values Technical Quality:Fair 2D ECHO LV Diastolic Diameter PLAX 4.7 cm 4.2 - 5.9 / 3.9 - 5.3 cm LV Systolic Diameter PLAX 3.2 cm IVS Diastolic Thickness 0.9 cm 0.6 - 1.0 / 0.6 - 0.9 cm LVPW Diastolic Thickness 0.8 cm 0.6 - 1.0 / 0.6 - 0.9 cm LV Relative Wall Thickness 0.4 LVOT Diameter 1.6 cm Aortic Root Diameter 2.8 cm LA Systolic Diameter LX 3.4 cm 3.0 - 4.0 / 2.7 - 3.8 cm M-MODE AV Cusp Separation MM 1.7 cm DOPPLER AV Peak Velocity 163.0 cm/s AV Peak Gradient 10.6 mmHg AV Mean Gradient 5.7 mmHg AV Velocity Time Integral 24.6 cm LVOT Peak Velocity 99.4 cm/s LVOT Peak Gradient 4.0 mmHg LVOT Velocity Time Integral 16.8 cm LVOT Cardiac Index 1552.8 cm/minm AV Area Cont Eq vti 1.4 cm AV Area Cont Eq pk 1.2 cm Mitral E Point Velocity 98.9 cm/s LV E' Lateral Velocity 9.0 cm/s Mitral E to LV E' Lateral Ratio 11.0 LV E' Septal Velocity 9.6 cm/s Mitral E to LV E' Septal Ratio 10.3 TR Peak Velocity 322.0 cm/s TR Peak Gradient 41.5 mmHg Right Atrial Pressure 10.0 mmHg Pulmonary Artery Systolic Pressu 51.5 mmHg Right Ventricular Systolic Press 51.5 mmHg PV Peak Velocity 69.2 cm/s PV Peak Gradient 1.9 mmHg FINDINGS LEFT VENTRICLE Normal left ventricular size and wall thickness. The left ventricular systolic function is normal wi th an estimated ejection fraction in the range of 60-65%. Left ventricular diastolic function parameters a re normal. RIGHT VENTRICLE Normal right ventricular size and systolic function. LEFT ATRIUM The left atrial size is normal. RIGHT ATRIUM The right atrial size is normal. ATRIAL SEPTUM Normal atrial septal thickness without atrial level shunting by limited color doppler interrogation. AORTA The aortic root and proximal ascending aorta are normal in size on limited imaging. MITRAL VALVE Structurally normal mitral valve. No mitral valve stenosis or regurgitation. TRICUSPID VALVE There is mild tricuspid valve regurgitation. The estimated pulmonary arterial pressure is 50 mmHg. PULMONARY VALVE No pulmonary valve regurgitation or stenosis. VESSELS The inferior vena cava is normal in size. PERICARDIUM There is a small pericardial effusion present. Austin Hicks MD (Electronically Signed) Final Date:19 February 2017 17:28
[2017-02-19] MEDS ORDERED: FUROSEMIDE 20 MG TAB PO SCH (18:00)
[2017-02-19] MEDS: FUROSEMIDE 20 MG TAB PO SCH (18:06)
[2017-02-19] MEDS: POLYETHYLENE GLYCOL 17 GM PKG PO SCH (21:17)
[2017-02-20] VITALS (10 sets, daily range): BP systolic 96–125; BP diastolic 52–63; PULSE 82–130; RESP 16–18; TEMP 97.6–98.6; O2SAT 95–96
[2017-02-20] MEDS: LEVOTHYROXINE SODIUM 75 MCG TAB PO SCH (05:43)
[2017-02-20 07:17] LABS: BICARBONATE 27.6 MEQ/L (21.0-32.0); POTASSIUM 3.8 MEQ/L (3.5-5.1)
--- NOTE | 2017-02-20 08:21 | HHI.PR ---
Subjective Remarks on edge bed eating breakfast. Objective Vitals heart reg lung cta abd s/nt ext pitting edema feet/legs mikayla hose Vital Signs Date Time Temp Pulse Resp B/P (MAP) Pulse Ox O2 Delivery O2 Flow Rate FiO2 02/20/17 06:00 97.8 86 16 96/55 (69) 95 02/20/17 00:58 107 02/20/17 00:32 97.6 87 16 100/58 (72) 95 02/19/17 20:30 97.4 89 18 104/58 (73) 95 02/19/17 16:34 97.6 96 17 108/58 (75) 96 02/19/17 12:48 98.2 96 18 101/57 (72) 95 02/19/17 08:40 98.4 111 18 95/54 (68) 93 Result Diagram: 02/19/17 1215 02/20/17 0555 Imaging Last 72 hours Impressions Lower Extremity Ultrasound 02/18/17 1518 Signed Impressions: Service Date/Time: Saturday, February 18, 2017 15:43 - CONCLUSION: No evidence of DVT. Leo Montoya MD Chest X-Ray 02/18/178 Signed Impressions: Service Date/Time: Saturday, February 18, 2017 15:22 - CONCLUSION: There is a new patchy infiltrate and effusion in the right lower lung. Right lower lung pneumonia would be the primary consideration. Leo Montoya MD Abdomen Ultrasound 02/18/17 0000 Signed Impressions: Service Date/Time: Saturday, February 18, 2017 15:36 - CONCLUSION: No ascites. George Arellano Jr., MD A/P Problem List: (1) Myelodysplastic syndrome ICD Codes: D46.9 - Myelodysplastic syndrome Status: Acute Plan: 1. MDS with refractory anemia. acute worsening. 2. volume overload mod right pleural effusion/consolidation. mod pericardial effusion noted on CT. but mild on echo echo neg for systolic or diastolic dysfunction 3. ckd 3 given 2 units prbc discussed with Dr Kohler. Pt and his friend. cont lasix and monitor his cr elevate legs. mikayla hose (2) Volume overload ICD Codes: E87.70 - Fluid overload, unspecified Status: Acute (3) Anemia ICD Codes: D64.9 - Anemia Status: Chronic Plan: as above (4) Hypertension ICD Codes: I10 - Hypertension Status: Chronic (5) Paroxysmal atrial fibrillation ICD Codes: I48.0 - Paroxysmal atrial fibrillation Status: Chronic Plan: Rate is controlled. (6) Hypothyroidism ICD Codes: E03.9 - Hypothyroidism Status: Chronic Problem Qualifiers (1) Anemia: (2) Hypertension: Qualified Codes: I10 - Essential (primary) hypertension Clarke Cheng MD Feb 20, 2017 08:21
[2017-02-20] MEDS: FUROSEMIDE 20 MG TAB PO SCH ×2 (08:25→17:02)
[2017-02-20] MEDS: AMIODARONE 200 MG TAB PO SCH (08:25)
[2017-02-20] MEDS: METOPROLOL TARTRATE 25 MG TAB PO SCH ×2 (08:25→21:00)
[2017-02-20] MEDS: PANTOPRAZOLE SOD 20 MG DELAYED RELEASE TAB PO SCH ×2 (08:25→21:19)
[2017-02-20] MEDS: FLUTICASONE PROPIONATE 50 MCG/ACT 16 GM NASAL SPRAY EACH NARE SCH (08:26)
[2017-02-20] MEDS ORDERED: INFLUENZA VIRUS VACCINE (QUADRIVALENT) 0.5 ML SYR IM ONE (10:00)
[2017-02-20] MEDS: POLYETHYLENE GLYCOL 17 GM PKG PO SCH (21:19)
[2017-02-21] VITALS (9 sets, daily range): BP systolic 95–142; BP diastolic 54–70; PULSE 67–131; RESP 16–18; TEMP 97.9–98.4; O2SAT 95–99
[2017-02-21] MEDS: LEVOTHYROXINE SODIUM 75 MCG TAB PO SCH (05:35)
[2017-02-21] MEDS: FLUTICASONE PROPIONATE 50 MCG/ACT 16 GM NASAL SPRAY EACH NARE SCH (09:00)
[2017-02-21] MEDS: AMIODARONE 200 MG TAB PO SCH (09:00)
[2017-02-21] MEDS: PANTOPRAZOLE SOD 20 MG DELAYED RELEASE TAB PO SCH ×2 (09:01→22:06)
[2017-02-21] MEDS: FUROSEMIDE 20 MG TAB PO SCH ×2 (09:01→17:29)
[2017-02-21] MEDS: METOPROLOL TARTRATE 25 MG TAB PO SCH ×3 (09:25→22:00)
--- NOTE | 2017-02-21 09:46 | HHI.PR ---
Subjective Remarks alot of palpitations. he has these at home also. thinks the swelling is better. Objective Vitals heart irreg lung cta abd s/nt ext 1 plus edema/mikayla hose Vital Signs Date Time Temp Pulse Resp B/P (MAP) Pulse Ox O2 Delivery O2 Flow Rate FiO2 02/21/17 09:25 142/69 (93) 02/21/17 09:06 131 02/21/17 09:01 98.2 117 18 99/62 (74) 97 02/21/17 05:47 98.4 124 18 108/60 (76) 95 02/21/17 00:53 98.3 125 16 95/59 (71) 95 02/20/17 20:51 98.2 105 16 103/63 (76) 96 02/20/17 18:00 130 02/20/17 16:26 97.9 124 18 125/62 (83) 95 02/20/17 12:00 98.6 82 18 96/52 (67) 96 Result Diagram: 02/19/17 1215 02/20/17 0555 Imaging Last 72 hours Impressions Lower Extremity Ultrasound 02/18/178 Signed Impressions: Service Date/Time: Saturday, February 18, 2017 15:43 - CONCLUSION: No evidence of DVT. Leo Montoya MD Chest X-Ray 02/18/171517 Signed Impressions: Service Date/Time: Saturday, February 18, 2017 15:22 - CONCLUSION: There is a new patchy infiltrate and effusion in the right lower lung. Right lower lung pneumonia would be the primary consideration. Leo Montoya MD Abdomen Ultrasound 02/18/17 0000 Signed Impressions: Service Date/Time: Saturday, February 18, 2017 15:36 - CONCLUSION: No ascites. George Arellano Jr., MD A/P Problem List: (1) Myelodysplastic syndrome ICD Codes: D46.9 - Myelodysplastic syndrome Status: Acute Plan: 1. MDS with refractory anemia. acute worsening. 2. volume overload mod right pleural effusion/consolidation. mod pericardial effusion noted on CT. but mild on echo echo neg for systolic or diastolic dysfunction 3. ckd 3 4. afib/rvr. I wonder if this is uncontrolled at home and reponsible for his fluid retention. pt admits to lowering his amiodarone w/out consulting his doctor given 2 units prbc discussed with Dr Kohler. Pt and his friend. cont lasix and monitor his cr elevate legs. mikayla hose increase bb as tolerated. and amio back to original dose. (2) Volume overload ICD Codes: E87.70 - Fluid overload, unspecified Status: Acute (3) Anemia ICD Codes: D64.9 - Anemia Status: Chronic Plan: as above (4) Hypertension ICD Codes: I10 - Hypertension Status: Chronic (5) Paroxysmal atrial fibrillation ICD Codes: I48.0 - Paroxysmal atrial fibrillation Status: Chronic Plan: Rate is controlled. (6) Hypothyroidism ICD Codes: E03.9 - Hypothyroidism Status: Chronic Problem Qualifiers (1) Anemia: (2) Hypertension: Qualified Codes: I10 - Essential (primary) hypertension Clarke Cheng MD Feb 21, 2017 09:46
[2017-02-21 14:41] LABS: BICARBONATE 26.1 MEQ/L (21.0-32.0); POTASSIUM 3.6 MEQ/L (3.5-5.1)
[2017-02-21] MEDS: POLYETHYLENE GLYCOL 17 GM PKG PO SCH (22:06)
[2017-02-22] VITALS (8 sets, daily range): BP systolic 108–138; BP diastolic 55–63; PULSE 57–70; RESP 17–20; TEMP 97.4–98.4; O2SAT 95–98
[2017-02-22] MEDS: METOPROLOL TARTRATE 25 MG TAB PO SCH ×3 (05:28→20:32)
[2017-02-22] MEDS: LEVOTHYROXINE SODIUM 75 MCG TAB PO SCH (05:28)
[2017-02-22 07:08] LABS: BICARBONATE 29.3 MEQ/L (21.0-32.0); POTASSIUM 3.8 MEQ/L (3.5-5.1)
[2017-02-22] MEDS: AMIODARONE 200 MG TAB PO SCH (08:31)
[2017-02-22] MEDS: PANTOPRAZOLE SOD 20 MG DELAYED RELEASE TAB PO SCH ×2 (08:31→20:32)
[2017-02-22] MEDS: FLUTICASONE PROPIONATE 50 MCG/ACT 16 GM NASAL SPRAY EACH NARE SCH (09:00)
--- NOTE | 2017-02-22 10:05 | HHI.PR ---
Subjective Remarks doing well. Objective Vitals heart irreg lung cta abd s/nt ext trace pedal edema Vital Signs Date Time Temp Pulse Resp B/P (MAP) Pulse Ox O2 Delivery O2 Flow Rate FiO2 02/22/17 08:00 97.4 58 20 122/57 (78) 97 02/22/17 04:43 98.0 65 18 120/56 (77) 96 02/22/17 00:00 98.1 66 17 119/56 (77) 96 02/21/17 20:00 98.1 68 17 107/54 (71) 97 02/21/17 18:00 67 02/21/17 17:12 97.9 71 16 120/58 (78) 98 02/21/17 12:51 98.2 108 16 107/70 (82) 99 Result Diagram: 02/19/17 1215 02/22/17 0550 Imaging Last 72 hours Impressions Lower Extremity Ultrasound 02/18/17 1518 Signed Impressions: Service Date/Time: Saturday, February 18, 2017 15:43 - CONCLUSION: No evidence of DVT. Leo Montoya MD Chest X-Ray 02/18/17 1518 Signed Impressions: Service Date/Time: Saturday, February 18, 2017 15:22 - CONCLUSION: There is a new patchy infiltrate and effusion in the right lower lung. Right lower lung pneumonia would be the primary consideration. Leo Montoya MD Abdomen Ultrasound 02/18/17 0000 Signed Impressions: Service Date/Time: Saturday, February 18, 2017 15:36 - CONCLUSION: No ascites. George Arellano Jr., MD A/P Problem List: (1) Myelodysplastic syndrome ICD Codes: D46.9 - Myelodysplastic syndrome Status: Acute Plan: 1. MDS with refractory anemia. acute worsening. 2. volume overload mod right pleural effusion/consolidation. mod pericardial effusion noted on CT. but mild on echo echo neg for systolic or diastolic dysfunction 3. ckd 3 4. afib/rvr. I wonder if this is uncontrolled at home and reponsible for his fluid retention. pt admits to lowering his amiodarone w/out consulting his doctor given 2 units prbc discussed with Dr Kohler. Pt and his friend. hold lasix today. pt has diuresed 15 pounds elevate legs. mikayla hose increased bb and amio back to 200mg daily. HR tightly controlled. If doing well then d/c in AM (2) Volume overload ICD Codes: E87.70 - Fluid overload, unspecified Status: Acute (3) Anemia ICD Codes: D64.9 - Anemia Status: Chronic Plan: as above (4) Hypertension ICD Codes: I10 - Hypertension Status: Chronic (5) Paroxysmal atrial fibrillation ICD Codes: I48.0 - Paroxysmal atrial fibrillation Status: Chronic Plan: Rate is controlled. (6) Hypothyroidism ICD Codes: E03.9 - Hypothyroidism Status: Chronic Problem Qualifiers (1) Anemia: (2) Hypertension: Qualified Codes: I10 - Essential (primary) hypertension Clarke Cheng MD Feb 22, 2017 10:05
[2017-02-22] MEDS: POLYETHYLENE GLYCOL 17 GM PKG PO SCH (20:32)
[2017-02-23 04:00] VITALS: BP 107/53; PULSE 60; RESP 20; TEMP 97.5; O2SAT 96
[2017-02-23] MEDS: LEVOTHYROXINE SODIUM 75 MCG TAB PO SCH (05:30)
[2017-02-23] MEDS: METOPROLOL TARTRATE 25 MG TAB PO SCH ×2 (05:30→13:37)
[2017-02-23 07:52] VITALS: BP 133/63; PULSE 53; RESP 18; TEMP 97.8; O2SAT 98
[2017-02-23] MEDS: PANTOPRAZOLE SOD 20 MG DELAYED RELEASE TAB PO SCH (08:11)
[2017-02-23] MEDS: AMIODARONE 200 MG TAB PO SCH (08:11)
[2017-02-23] MEDS: FLUTICASONE PROPIONATE 50 MCG/ACT 16 GM NASAL SPRAY EACH NARE SCH (08:11)
[2017-02-23 09:49] VITALS: PULSE 60
[2017-02-23 09:51] VITALS: PULSE 60
[2017-02-23] MEDS ORDERED: AMIO200T PO ×2 (11:13→11:18)
[2017-02-23] MEDS ORDERED: METO25TA3 PO ×2 (11:13→11:18)
--- NOTE | 2017-02-23 11:14 | HHI.DCPOC ---
Discharge Care Plan Diagnosis: (1) Atrial fibrillation with RVR (2) Myelodysplastic syndrome (3) Symptomatic anemia (4) Bilateral lower extremity edema Goals to Promote Your Health * To prevent worsening of your condition and complications * To maintain your health at the optimal level Directions to Meet Your Goals Take your medications as prescribed Follow your dietary instruction Follow activity as directed Keep your appointments as scheduled Take your immunizations and boosters as scheduled If your symptoms worsen call your PCP, if no PCP go to Urgent Care Center or Emergency Room Smoking is Dangerous to Your Health. Avoid second hand smoke Call the 24-hour hour crisis hotline for domestic abuse at Clarke Cheng MD Feb 23, 2017 11:14
--- NOTE | 2017-02-23 11:28 | HHI.DS ---
Discharge Summary Admission Date Feb 18, 2017 at 17:50 Discharge Date: Feb 23, 2017 Admitting Diagnosis Anemia/Pnuemonia/Edema/Effusion (1) Atrial fibrillation with RVR Diagnosis: Principal ICD Codes: I48.91 - Unspecified atrial fibrillation (2) Myelodysplastic syndrome Diagnosis: Principal ICD Codes: D46.9 - Myelodysplastic syndrome Status: Acute (3) Volume overload Diagnosis: Principal ICD Codes: E87.70 - Fluid overload, unspecified Status: Acute (4) Anemia Diagnosis: Principal ICD Codes: D64.9 - Anemia Status: Chronic (5) Hypertension Diagnosis: Secondary ICD Codes: I10 - Hypertension Status: Chronic (6) Hypothyroidism Diagnosis: Secondary ICD Codes: E03.9 - Hypothyroidism Status: Chronic Brief History 86-year-old male with history of A. fib and myelodysplastic disorder with refractory anemia followed Dr. Kohler as his hematology oncologist, presents the emergency department with his daughter with significant lower extremity swelling and which has gotten worse over the past week. Patient reports he has chronic lower extremity edema particularly in the right leg but over the last 4-5 days it has worsened even being noted up to his lower back and abdomen. Patient scheduled to see Dr. Kohler on as he gets weekly transfusions of red blood cells regarding his dysplastic anemia. Patient denies pain, fever, but has decreased appetite and slight increased dyspnea with exertion. He states he is on amiodarone for his A. fib. Patient denies liver or renal problems in the past. Patient denies history of CHF. He is currently pain-free. He denies any new medications of late but takes Exjade due to recurrent iron overload secondary to packed red blood cell transfusions. He denies any hemoptysis or hematemesis. Denies any fevers. Has had no recent foreign travel. He has minimal cough and notes that his shortness of breath although he appreciated if he tries to take a deep breath or overexert himself. CBC/BMP: 02/19/17 1215 02/22/17 0550 Significant Findings Laboratory Tests Test 02/21/17 13:35 02/22/17 05:50 Blood Urea Nitrogen 34 MG/DL (7-18) 42 MG/DL (7-18) Creatinine 1.58 MG/DL (0.60-1.30) 1.78 MG/DL (0.60-1.30) Random Glucose 161 MG/DL (74-106) Calcium Level 8.4 MG/DL (8.5-10.1) Sodium Level 131 MEQ/L (136-145) 132 MEQ/L (136-145) Chloride Level 96 MEQ/L (98-107) 96 MEQ/L (98-107) Estimat Glomerular Filtration Rate 42 ML/MIN (>89) 36 ML/MIN (>89) Hospital Course (1) Myelodysplastic syndrome 1. MDS with refractory anemia. acute worsening. 2. volume overload mod right pleural effusion/consolidation. mod pericardial effusion noted on CT. but mild on echo echo neg for systolic or diastolic dysfunction 3. ckd 3 4. afib/rvr. I wonder if this is uncontrolled at home and reponsible for his fluid retention. pt admits to lowering his amiodarone w/out consulting his doctor given 2 units prbc discussed with Dr Kohler. Pt and his friend. pt has diuresed 15 pounds elevate legs. mikayla hose increased bb and amio back to 200mg daily. HR tightly controlled. has f/u this week with cardiology and hem/onc (2) Volume overload ICD Codes: E87.70 - Fluid overload, unspecified Status: Acute (3) Anemia ICD Codes: D64.9 - Anemia Status: Chronic Plan: as above (4) Hypertension ICD Codes: I10 - Hypertension Status: Chronic (5) Paroxysmal atrial fibrillation ICD Codes: I48.0 - Paroxysmal atrial fibrillation Status: Chronic Plan: Rate is controlled. (6) Hypothyroidism ICD Codes: E03.9 - Hypothyroidism Status: Chronic Pt Condition on Discharge: Stable Discharge Disposition: Discharge Home Discharge Instructions DIET: Follow Instructions for: Heart Healthy Diet Activities you can perform: Regular-No Restrictions Follow up Referrals: Cardiology - 02/26/[address] arredondo Oncology/Hematology - 02/27/17 with Jorge Kohler MD New Medications: Amiodarone (Amiodarone) 200 Mg Tab 200 MG PO DAILY for afib, #30 TAB 3 Refills Metoprolol Tartrate (Metoprolol Tartrate) 25 Mg Tab 12.5 MG PO Q8HR for afib for 30 Days, TAB 3 Refills Continued Medications: Acetaminophen (Tylenol) 325 Mg Tab 325-650 MG PO Q4H PRN for MILD PAIN/ELEVATED TEMP, TAB 0 Refills Deferasirox (Exjade) 500 Mg Tab 1000 MG PO DAILY Dissolve 2 tablets (1,000mg) in 7 ounces of apple juice-wait 30 min before eating or taking other medication Dextran 70/Hypromellose/Pf (Artificial Tears Drops) 0.1 %-0.3 % Droperette 1 DROP EACH EYE DAILY PRN for DRY EYE Diphenhydramine (Sleep) Liq (Zzzquil Liq) 50 Mg/30 Ml Liq 25 MG PO HS PRN for SLEEP, #1 BOTTLE Epoetin Inj (Procrit Inj) 40,000 Unit/Ml Inj 32882 UNITS SQ PRN for IF HGB LESS THAN 10, #12 VIAL 0 Refills Given at [facility] Famotidine/Ca Carb/Mag Hydrox (Pepcid Complete Tablet Chew) 10 Mg-800 Mg-165 Mg Tab.chew 1 TAB PO BID PRN for HEARTBURN Fluticasone Nasal Portal (Fluticasone Nasal Portal) 50 Mcg/Act Naspr 2 SPRAY EACH NARE DAILY for Allergy Management, #1 BOTTLE 0 Refills 50 mcg/spray Furosemide (Lasix) 20 Mg Tab 20 MG PO DAILY, #30 TAB 0 Refills Glycerin Adult Supp (Glycerin Adult Supp) 2 Gm Supp 2 GM RECTAL DAILY PRN for CONSTIPATION, SUPP 0 Refills Ibuprofen (Ibuprofen) 200 Mg Cap 400 MG PO DAILY, CAP 0 Refills Levothyroxine (Levothyroxine) 75 Mcg Tab 75 MCG PO DAILY for Thyroid, #30 TAB 0 Refills Omeprazole (Omeprazole) 20 Mg Tab 20 MG PO BID for Reflux, #30 TAB 0 Refills Polyethylene Glycol 3350 Powder (Miralax Powder) 17 Gm Powd 17 GM PO HS for Constipation, #1 CAN 0 Refills Mix and dissolve one measuring cap-ful (17 grams) in water or juice. Psyllium Powder (Metamucil Original Texture) 3.4 Gram/7 Gram Pow PO HS, CONTAINER 0 Refills 1 rounded TEASPOONFUL in 8 oz of water [Cranberry] () 4200 MG PO DAILY Discontinued Medications: Amiodarone (Amiodarone) 200 Mg Tab 100 MG PO DAILY for Regulate Heart Beat, #30 TAB 0 Refills Metoprolol Tartrate (Metoprolol Tartrate) 25 Mg Tab 12.5 MG PO BID, #60 TAB 0 Refills Clarke Cheng MD Feb 23, 2017 11:28
[2017-02-23] MEDS ORDERED: SODIUM CHLORIDE 0.9% FLUSH 10 ML FLUSH IV FLUSH PRN (12:15)
== END 2017-02-23 14:02 | DRG 812 ==
LOC: NEPC 14:34 → NEDA 17:50 → N05A 18:57
PROVIDERS: ADMIT Hospitalist; ATTEND Hospitalist
PROC: 30233N1 Transfusion of Nonautologous Red Blood Cells into Peripheral Vein, Percutaneous Approach (ICD-10-PCS; principal; 2017-02-18)
DX: D46.4 Refractory anemia, unspecified (principal); J90 Pleural effusion, not elsewhere classified; I31.3 Pericardial effusion (noninflammatory); E87.70 Fluid overload, unspecified; I48.0 Paroxysmal atrial fibrillation; R60.0 Localized edema; N18.3 Chronic kidney disease, stage 3 (moderate); E03.9 Hypothyroidism, unspecified; I12.9 Hypertensive chronic kidney disease with stage 1 through stage 4 chronic kidney disease, or unspecified chronic kidney disease; E78.5 Hyperlipidemia, unspecified; K21.9 Gastro-esophageal reflux disease without esophagitis; J44.9 Chronic obstructive pulmonary disease, unspecified; Z85.46 Personal history of malignant neoplasm of prostate; Z85.51 Personal history of malignant neoplasm of bladder; Z87.891 Personal history of nicotine dependence; Z88.5 Allergy status to narcotic agent
CPT/HCPCS: 36430; 36591; 71010; 74176; 76705; 80048; 80053; 81001; 82550; 82728; 83540; 83550; 83735; 83880; 84443; 84484; 85025; 85610; 85730; 86850; 86900; 86901; 86920; 93005; 93306; 93970; 96372; 96374; 96375; J0696; J0885; J1940; J7050; P9016

== ENCOUNTER 2017-03-06 16:12 | Inpatient (IN) | payer MEDICARE ==
[~2017-03-06] VITALS: Ht 165.1 cm; Wt 71.3 kg
[~2017-03-06 16:12] MED LIST changes: +AMIO200T PO; +ARTISOL EACH EYE; +CRANPOW2 PO; +DIPH50LI PO; +EXJA500T PO; +FLUT50SP EACH NARE; +FURO1TAB62 PO; -FURO20 PO; +GLYC2SUP RECTAL; +IBUP200C PO; +META48.53 PO; -METO25CR OR; +METO25TA3 PO; +MIRA3350 PO; -OMEP20CA5 PO; +OMEP20TA93 PO; +PEPCCHW8 PO; +TYLE325T PO; +[UNRECOGNIZED DRUG - CODE] SQ
[2017-03-06 16:13] VITALS: BP 129/60; PULSE 60; RESP 14; TEMP 97.9; O2SAT 95
[2017-03-06 17:18] VITALS: BP 112/54; PULSE 60; RESP 18; O2SAT 100
[2017-03-06] MEDS ORDERED: ONDA8TAB7 PO (17:27)
[2017-03-06 17:53] VITALS: BP 131/63; PULSE 94; RESP 18; O2SAT 98
[2017-03-06 18:06] LABS: AUTOMATED NEUTROPHIL # 3.1 TH/MM3 (1.8-7.7); BASOPHIL % 0.4 % (0.0-2.0); EOSINOPHIL % 0.3 % (0.0-4.0); HEMATOCRIT 22.4 % (39.0-51.0); HEMOGLOBIN 7.7 GM/DL (13.0-17.0); LYMPH % 24.1 % (9.0-44.0); LYMPHOCYTE # 1.2 TH/MM3 (1.0-4.8); MEAN CELL VOLUME 87.7 FL (80.0-100.0); MEAN CORPUSCULAR HEMOGLOBIN 30.1 PG (27.0-34.0); MEAN CORPUSCULAR HGB CONC 34.3 % (32.0-36.0); MEAN PLATELET VOLUME 9.5 FL (7.0-11.0); MONO % 11.2 % (0.0-8.0); MONOCYTE # 0.5 TH/MM3 (0-0.9); PLATELET COUNT 237 TH/MM3 (150-450); RED BLOOD COUNT 2.56 MIL/MM3 (4.50-5.90); RED CELL DISTRIBUTION WIDTH 16.4 % (11.6-17.2); WHITE BLOOD COUNT 4.9 TH/MM3 (4.0-11.0)
--- NOTE | 2017-03-06 18:17 | RADRPT ---
EXAM DATE/TIME: 03/06/2017 17:59 [facility] COMPARISON: CHEST SINGLE AP, February 18, 2017, 15:22. INDICATIONS : Short of breath since this morning. MEDICAL HISTORY : Hypertension. Hypercholesterolemia. Gastroesophageal reflux disease. Thy roiddisease. Migraine. Atrial fibrillation. Bladder cancer. Urethral stricture. Myelodysplastic syndr ome.Prostate cancer. Chemotherapy SURGICAL HISTORY : Tonsillectomy. Cardiac catheterization ENCOUNTER: Initial ACUITY: 1 day PAIN SCORE: 0/10 LOCATION: Bilateral chest FINDINGS: A single AP erect portable view of the chest was obtained and again demonstrates dense consolidation in the right lung base with blunting of the right costophrenic angle. The left lung remains clear. Th e heart size is enlarged. The left internal jugular central venous line remains in place. The bony th orax is intact with overlying electrocardiogram leads. CONCLUSION: Stable appearance with dense consolidation of the right lung base and apparent effusi on. Jovan Boudreaux MD on March 06, 2017 at 18:14 Board Certified Radiologist. This report was verified electronically.
[2017-03-06 18:21] LABS: ALBUMIN 3.5 GM/DL (3.4-5.0); ALT (GPT) 11 U/L (12-78); AST (GOT) 7 U/L (15-37); BLOOD UREA NITROGEN 36 MG/DL (7-18); CALCIUM 8.1 MG/DL (8.5-10.1); CHLORIDE 98 MEQ/L (98-107); CREATININE 1.92 MG/DL (0.60-1.30); GLOMERULAR FILTRATION RATE 33 ML/MIN (>89); GLUCOSE,RANDOM 95 MG/DL (74-106); SODIUM (NA) 133 MEQ/L (136-145)
[2017-03-06 18:22] LABS: INTERNATIONAL NORMALIZED RATIO 1.2 RATIO; PROTHROMBIN TIME - PATIENT 13.2 SEC (9.8-11.6)
[2017-03-06 18:25] LABS: ALKALINE PHOSPHATASE 47 U/L (45-117); TOTAL BILIRUBIN ADULT 1.1 MG/DL (0.2-1.0); TOTAL PROTEIN 6.3 GM/DL (6.4-8.2); TROPONIN I 0.09 NG/ML (0.02-0.05)
--- NOTE | 2017-03-06 18:39 | PD ---
HPI Chief Complaint: Respiratory Symptoms Time Seen by Provider: 17:40 Travel History International Travel<30 days: No Contact w/Intl Traveler<30days: No Traveled to known affect area: No History of Present Illness HPI Our patient is a 86 yo M with a hx of Afib, Myelodysplasia and Pneumonia successfully treated with antibiotics 2-3 weeks ago presenting with dyspnea that began this morning upon waking up. He scheduled an appointment with Dr. Chapman who noted a possible fluid collection in his right abdominal area. Afterwards, he sent him to the ED. He does not note any inciting or alleviating factors. He has noticed his dyspnea is worse with deep breaths. He has associated weakness, palpitations and swelling in both of his legs. However, he denies associated pain, nausea, vomiting, chest pain, or change in urine/bowel habits. He says his dyspnea is non-worsening but constant since it's onset. He further notes this has not happened to him before. Denies alcohol, smoking and illicit drug use. He is not on any blood thinners as is has a history of GI ulcers, but takes amiodarone and a beta kala for A Fib. Allergic to codeine and hydrocodone. He has a port in his left upper chest and receives EPO injections weekly. The patient states he is not on any other treatment for myelodysplasia. This condition is being managed by Dr. Kohler. History Social History Alcohol Use: No Tobacco Use: No Allergies-Medications (Allergen,Severity, Reaction): Coded Allergies: codeine (Unverified Allergy, Severe, Hallucinations, 03/06/17) hydrocodone (Unverified Allergy, Mild, Hallucinations, 03/06/17) Reported Meds & Prescriptions Reported Meds & Active Scripts Active Metoprolol Tartrate 25 Mg Tab 12.5 Mg PO Q8HR 30 Days Amiodarone (Amiodarone HCl) 200 Mg Tab 200 Mg PO DAILY Reported Ondansetron (Ondansetron HCl) 8 Mg Tab 8 Mg PO TID Procrit Inj (Epoetin Caleb) 40,000 Unit/Ml Inj 60,000 Units SQ PRN Given at [facility] Levothyroxine (Levothyroxine Sodium) 75 Mcg Tab 75 Mcg PO DAILY Lasix (Furosemide) 20 Mg Tab 20 Mg PO DAILY Omeprazole 20 Mg Tab 20 Mg PO BID Artificial Tears Drops (Dextran 70/Hypromellose/Pf) 0.1 %-0.3 % Droperette 1 Drop EACH EYE DAILY PRN Tylenol (Acetaminophen) 325 Mg Tab 325-650 Mg PO Q4H PRN Pepcid Complete Tablet Chew (Famotidine/Ca Carb/Mag Hydrox) 10 Mg-800 Mg-165 Mg Tab.chew 1 Tab PO BID PRN Zzzquil Liq (Diphenhydramine (Sleep) Liq) 50 Mg/30 Ml Liq 25 Mg PO HS PRN Glycerin Adult Supp (Glycerin) 2 Gm Supp 2 Gm RECTAL DAILY PRN Miralax Powder (Polyethylene Glycol 3350 Powder) 17 Gm Powd 17 Gm PO HS Mix and dissolve one measuring cap-ful (17 grams) in water or juice. Metamucil Original Texture (Psyllium Hydrophilic Mucilloid) 3.4 Gram/7 Gram Pow PO HS 1 rounded TEASPOONFUL in 8 oz of water Ibuprofen 200 Mg Cap 400 Mg PO DAILY Fluticasone Nasal [place] 50 Mcg/Act Naspr 2 [place] EACH NARE DAILY 50 mcg/spray Exjade (Deferasirox) 500 Mg Tab 1,000 Mg PO DAILY Dissolve 2 tablets (1,000mg) in 7 ounces of apple juice-wait 30 min before eating or taking other medication [Cranberry] 4,200 Mg PO DAILY Review of Systems Except as stated in HPI: all other systems reviewed are Neg Physical Exam Narrative GENERAL: Alert and oriented, in no acute distress. Speaks in full sentences and is cooperative during exam. SKIN: Warm and dry. HEAD: Atraumatic. Normocephalic. EYES: Pupils equal and round. No scleral icterus. No injection or drainage. ENT: No nasal bleeding or discharge. Mucous membranes pink and moist. NECK: Trachea midline. No JVD. CARDIOVASCULAR: Regular rate and rhythm. No rubs, murmurs or gallops. RESPIRATORY: No accessory muscle use. Breath sounds diminished at right lung base. GASTROINTESTINAL: Abdomen soft, mildly tender and distended RUQ > epigastric region. Hepatic and splenic margins not palpable. MUSCULOSKELETAL: Extremities without clubbing, cyanosis, or edema. No obvious deformities. NEUROLOGICAL: Awake and alert. No obvious cranial nerve deficits. Motor grossly within normal limits. Five out of 5 muscle strength in the arms and legs. Normal speech. PSYCHIATRIC: Appropriate mood and affect; insight and judgment normal. Data Data Last Documented VS Vital Signs Date Time Temp Pulse Resp B/P (MAP) Pulse Ox O2 Delivery O2 Flow Rate FiO2 03/06/17 19:21 88 17 110/58 (75) 98 Room Air 03/06/17 16:13 97.9 Orders Orders Electrocardiogram (03/06/17 ) Complete Blood Count With Diff (03/06/17 17:40) Comprehensive Metabolic Panel (03/06/17 17:40) Ckmb (Isoenzyme) Profile (03/06/17 17:40) Troponin I (03/06/17 17:40) B-Type Natriuretic Peptide (03/06/17 17:40) Prothrombin Time / Inr (Pt) (03/06/17 17:40) Act Partial Throm Time (Ptt) (03/06/17 17:40) Chest, Single Ap (03/06/17 17:40) Iv Access Insert/Monitor (03/06/17 17:40) Ecg Monitoring (03/06/17 17:40) Oximetry (03/06/17 17:40) Type And Screen (03/06/17 18:56) Red Blood Cells (Rbc) (03/06/17 18:56) Admit Order (Ed Use Only) (03/06/17 19:22) Labs Laboratory Tests Test 03/06/17 17:47 White Blood Count 4.9 TH/MM3 Red Blood Count 2.56 MIL/MM3 Hemoglobin 7.7 GM/DL Hematocrit 22.4 % Mean Corpuscular Volume 87.7 FL Mean Corpuscular Hemoglobin 30.1 PG Mean Corpuscular Hemoglobin Concent 34.3 % Red Cell Distribution Width 16.4 % Platelet Count 237 TH/MM3 Mean Platelet Volume 9.5 FL Neutrophils (%) (Auto) 64.0 % Lymphocytes (%) (Auto) 24.1 % Monocytes (%) (Auto) 11.2 % Eosinophils (%) (Auto) 0.3 % Basophils (%) (Auto) 0.4 % Neutrophils # (Auto) 3.1 TH/MM3 Lymphocytes # (Auto) 1.2 TH/MM3 Monocytes # (Auto) 0.5 TH/MM3 Eosinophils # (Auto) 0.0 TH/MM3 Basophils # (Auto) 0.0 TH/MM3 CBC Comment DIFF FINAL Differential Comment Prothrombin Time 13.2 SEC Prothromb Time International Ratio 1.2 RATIO Activated Partial Thromboplast Time 28.3 SEC Blood Urea Nitrogen 36 MG/DL Creatinine 1.92 MG/DL Random Glucose 95 MG/DL Total Protein 6.3 GM/DL Albumin 3.5 GM/DL Calcium Level 8.1 MG/DL Alkaline Phosphatase 47 U/L Aspartate Amino Transf (AST/SGOT) 7 U/L Alanine Aminotransferase (ALT/SGPT) 11 U/L Total Bilirubin 1.1 MG/DL Sodium Level 133 MEQ/L Potassium Level 4.3 MEQ/L Chloride Level 98 MEQ/L Carbon Dioxide Level 26.0 MEQ/L Anion Gap 9 MEQ/L Estimat Glomerular Filtration Rate 33 ML/MIN Total Creatine Kinase 17 U/L Troponin I 0.09 NG/ML B-Type Natriuretic Peptide 389 PG/ML MDM Medical Decision Making Medical Screen Exam Complete: Yes Emergency Medical Condition: Yes Differential Diagnosis Pleural effusion vs Pneumonia vs Ascites vs CHF Narrative Course Our patient presents with a hx of AFib, myelodysplasia and dyspnea that started this morning. He was seen by Dr. Chapman who directed him to the ER. He says was treated for pneumonia a few weeks ago. He is well appearing, stable and non- toxic. PE notable for diminished breath sounds at the right lower lung base, tenderness/fullness in the RUQ > epigastric region and 2+ edema that extends to the knee bilaterally. These findings are suspicious for pleural effusion/ anasarca. Plan is to order blood work and CXR to for possible IR referral to drain the fluid. Patient was discussed with Dr. Edinson Amanda, who will admit the patient for Dr. Clarke Cheng. The patient has been typed and screened for 1 unit of packed red blood cells. Dr. Amanda will place a consults in for interventional radiology to drain the pleural effusion. Diagnosis Primary Impression: Respiratory distress Additional Impressions: Pleural effusion, right Myelodysplasia (myelodysplastic syndrome) Anemia Peripheral edema Admitting Information Admitting Physician Requests: Admit Derek Kincaid MD Mar 06, 2017 18:39
[2017-03-06 19:21] VITALS: BP 110/58; PULSE 88; RESP 17; O2SAT 98
[2017-03-06] MEDS ORDERED: cefTRIAXone INJ 1,000 MG in SODIUM CHLORIDE 0.9% INJ 100 ML IV ONE (20:00)
[2017-03-06] MEDS ORDERED: FUROSEMIDE 20 MG/2 ML VIAL IV PUSH ONE (20:00)
[2017-03-06] MEDS ORDERED: methylPREDNISolone SOD SUCC 40 MG/1 ML VIAL IV PUSH ONE (20:15)
[2017-03-06] MEDS ORDERED: PILL SPLITTER OTHER PRN (20:30)
[2017-03-06] MEDS ORDERED: FAMOTIDINE 20 MG TAB PO PRN (20:30)
--- NOTE | 2017-03-06 20:35 | HHI.HP ---
HPI Service [facility] Hospitalists Primary Care Physician Jovan Vora M.D. Admission Diagnosis respiratory distress, right pleural effusion, myelodyspasia, anemia Chief Complaint: Shortness of breath, sent here by his artist mannequin coloring Travel History International Travel<30 Days: No Contact w/Intl Traveler <30 Da: No Traveled to Known Affected Are: No Sepsis Criteria SIRS Criteria (2 or more): Heart rate over 90 History of Present Illness 86 yo WM known to me from previous admission with a hx of Afib, Myelodysplasia and Pneumonia successfully treated with antibiotics 2-3 weeks ago presenting with dyspnea that began yesterday but worsened this morning. He actually saw his artist mannequin coloring Dr. Chapman yesterday and Dr. Chapman apparently ordered chest x-ray. When he contacted Dr. Chapman office today he was directed to the ER based on apparently the abnormal chest x-ray demonstrating a fluid collection in the right lung. With that he has had an effusion in his right lung before but the shortness of breath was worse according to the patient. He has noticed his dyspnea is worse with deep breaths. He has associated weakness, palpitations and swelling in both of his legs which is chronic. He has noted some increase in abdominal girth as well but not as "tight as last time". He denies associated pain, nausea, vomiting, chest pain, or change in urine/bowel habits. He notes that he has had similar dyspnea before but not as prolonged. Denies alcohol, smoking and illicit drug use. He is not on any blood thinners as he has a history of recurrent bleeding GI ulcers, but takes amiodarone and a beta kala for A Fib. He has a port in his left upper chest and receives EPO injections weekly. The patient states he is not on any other treatment for myelodysplasia. He typically receives packed red blood cell transfusion each Friday and attempts to keep his hemoglobin above 8. This condition is being managed by Dr. Kohler. Review of Systems Constitutional: COMPLAINS OF: Fatigue, Weight gain Endocrine: DENIES: Heat/cold intolerance, Polydipsia, Polyuria, Polyphagia Eyes: DENIES: Blurred vision, Diplopia, Eye inflammation, Eye pain, Vision loss , Photosensitivity, Double Vision Ears, nose, mouth, throat: DENIES: Tinnitus, Hearing loss, Vertigo, Nasal discharge, Oral lesions, Throat pain, Hoarseness, Ear Pain, Running Nose, Epistaxis, Sinus Pain, Toothache, Odynophagia Respiratory: COMPLAINS OF: Shortness of breath, DENIES: Apneas, Cough, Snoring , Wheezing, Hemoptysis, Sputum production Cardiovascular: COMPLAINS OF: Palpitations, Lower Extremity Edema, DENIES: Chest pain, Syncope, Dyspnea on Exertion, PND, Orthopnea, Claudication Gastrointestinal: COMPLAINS OF: GERD Musculoskeletal: COMPLAINS OF: Joint pain, Back pain Hematologic/lymphatic: COMPLAINS OF: Bruising Immunologic/allergic: DENIES: Eczema, Urticaria Psychiatric: DENIES: Anxiety, Confusion, Mood changes, Depression, Hallucinations, Agitation, Suicidal Ideation, Homicidal Ideation, Delusions, History of Bipolar, History of Schizophrenia Past Family Social History Past Medical History Hx of pelvic fx AAA Paroxysmal atrial fibrillation Myelodysplasia with refractory anemia Hx of bladder cancer 6 years ago Hx of prostate cancer 5 years ago COPD GERD HTN Hyperlipidemia Hypothyroidism Past Surgical History Multiple cystoscopies with tumor removal Cataract surgery Bone Marrow Bx T&A Cardiac cath x 2 Reported Medications Metoprolol Tartrate 25 Mg twice a day. Amiodarone (Amiodarone HCl) 200 Mg Tab 200 Mg PO DAILY Ondansetron (Ondansetron HCl) 8 Mg Tab 8 Mg PO TID Procrit Inj (Epoetin Caleb) 40,000 Unit/Ml Inj 60,000 Units SQ PRN Given at [facility] Levothyroxine (Levothyroxine Sodium) 75 Mcg Tab 75 Mcg PO DAILY Lasix (Furosemide) 40 Mg PO DAILY Omeprazole 20 Mg Tab 20 Mg PO BID Artificial Tears Drops (Dextran 70/Hypromellose/Pf) 0.1 %-0.3 % Droperette 1 Drop EACH EYE DAILY PRN Tylenol (Acetaminophen) 325 Mg Tab 325-650 Mg PO Q4H PRN Pepcid Complete Tablet Chew (Famotidine/Ca Carb/Mag Hydrox) 10 Mg-800 Mg-165 Mg Tab.chew 1 Tab PO BID PRN Zzzquil Liq (Diphenhydramine (Sleep) Liq) 50 Mg/30 Ml Liq 25 Mg PO HS PRN Glycerin Adult Supp (Glycerin) 2 Gm Supp 2 Gm RECTAL DAILY PRN Miralax Powder (Polyethylene Glycol 3350 Powder) 17 Gm Powd 17 Gm PO HS Mix and dissolve one measuring cap-ful (17 grams) in water or juice. Metamucil Original Texture (Psyllium Hydrophilic Mucilloid) 3.4 Gram/7 Gram Pow PO HS 1 rounded TEASPOONFUL in 8 oz of water Ibuprofen 200 Mg Cap 400 Mg PO DAILY Fluticasone Nasal [place] 50 Mcg/Act Naspr 2 [place] EACH NARE DAILY 50 mcg/spray Exjade (Deferasirox) 500 Mg Tab 1,000 Mg PO DAILY Dissolve 2 tablets (1,000mg) in 7 ounces of apple juice-wait 30 min before eating or taking other medication [Cranberry] 4,200 Mg PO DAILY Allergies: Coded Allergies: codeine (Unverified Allergy, Severe, Hallucinations, 03/06/17) hydrocodone (Unverified Allergy, Mild, Hallucinations, 03/06/17) Family History nc Social History No tobacco in 25 years but prior to that smoked 2-3 packs per day for probably 40 years No alcohol in several years and reportedly never drank heavily in the past Previous he worked as a director construction services Born and raised locally now for 4-5 years and was for 64 years prior. Currently living in an [facility] facility. Physical Exam Vital Signs Vital Signs Date Time Temp Pulse Resp B/P (MAP) Pulse Ox O2 Delivery O2 Flow Rate FiO2 03/06/17 19:22 96 18 98 Room Air 03/06/17 19:21 88 17 110/58 (75) 98 Room Air 03/06/17 17:53 94 18 131/63 (85) 98 Room Air 03/06/17 17:28 100 03/06/17 17:18 60 18 112/54 (73) 100 Room Air 03/06/17 16:13 97.9 60 14 129/60 (83) 95 Physical Exam GENERAL: This is a well-nourished, well-developed patient, in no apparent distress. Alert and oriented. He recognizes me from previous visit. SKIN: Somewhat xerotic. Few purpuric lesions on forearms. HEAD: Atraumatic. Normocephalic. No temporal or scalp tenderness. EYES: Pupils equal round and reactive. Extraocular motions intact. No scleral icterus. No injection or drainage. ENT: Nose without bleeding, purulent drainage or septal hematoma. Airway patent. NECK: Trachea midline. No JVD or lymphadenopathy. Supple, nontender, no meningeal signs. CARDIOVASCULAR: Irregularly irregular with rate in 90s on my exam. Distant heart sounds. No significant appreciated murmur on exam. RESPIRATORY: Decreased breath sounds in right mid and lower lung otherwise relatively good air movement bilaterally. No wheezes, rales, or rhonchi. GASTROINTESTINAL: Abdomen soft, non-tender, mildly distended. No hepato- splenomegaly, or palpable masses. No guarding or rebound. Bowel sounds normal. MUSCULOSKELETAL: Extremities noted for 2+ edema up to medial thigh bilaterally. He also has some apparent subcutaneous edema and left lower back which she says is chronic. No joint tenderness, effusion, or edema noted. No calf tenderness. NEUROLOGICAL: Awake and alert. Cranial nerves II through XII intact. Motor and sensory grossly within normal limits. Five out of 5 muscle strength in all muscle groups. Normal speech. Laboratory Laboratory Tests Test 03/06/17 17:47 White Blood Count 4.9 Red Blood Count 2.56 Hemoglobin 7.7 Hematocrit 22.4 Mean Corpuscular Volume 87.7 Mean Corpuscular Hemoglobin 30.1 Mean Corpuscular Hemoglobin Concent 34.3 Red Cell Distribution Width 16.4 Platelet Count 237 Mean Platelet Volume 9.5 Neutrophils (%) (Auto) 64.0 Lymphocytes (%) (Auto) 24.1 Monocytes (%) (Auto) 11.2 Eosinophils (%) (Auto) 0.3 Basophils (%) (Auto) 0.4 Neutrophils # (Auto) 3.1 Lymphocytes # (Auto) 1.2 Monocytes # (Auto) 0.5 Eosinophils # (Auto) 0.0 Basophils # (Auto) 0.0 CBC Comment DIFF FINAL Differential Comment Prothrombin Time 13.2 Prothromb Time International Ratio 1.2 Activated Partial Thromboplast Time 28.3 Blood Urea Nitrogen 36 Creatinine 1.92 Random Glucose 95 Total Protein 6.3 Albumin 3.5 Calcium Level 8.1 Alkaline Phosphatase 47 Aspartate Amino Transf (AST/SGOT) 7 Alanine Aminotransferase (ALT/SGPT) 11 Total Bilirubin 1.1 Sodium Level 133 Potassium Level 4.3 Chloride Level 98 Carbon Dioxide Level 26.0 Anion Gap 9 Estimat Glomerular Filtration Rate 33 Total Creatine Kinase 17 Troponin I 0.09 B-Type Natriuretic Peptide 389 Result Diagram: 03/06/17174603/06/171746 Imaging Last Impressions Chest X-Ray 03/06/171739 Signed Impressions: Service Date/Time: Thursday, March 06, 2017 17:59 - CONCLUSION: Stable appearance with dense consolidation of the right lung base and apparent effusion. MD Mary Mercer VTE Risk Assessment Caprinmarcos VTE Risk Assessment: Mod/High Risk (score >= 2) VTE Pharm Contraindication: High risk for bleeding Caprini Risk Assessment Model Point Value = 1 Point Value = 2 Point Value = 3 Point Value = 5 Age 41-60 Minor surgery BMI > 25 kg/m2 Swollen legs Varicose veins or History of unexplained or recurrent spontaneous Oral contraceptives or hormone replacement Sepsis (< 1 month) Serious lung disease, including pneumonia (< 1 month) Abnormal pulmonary function Acute myocardial infarction Congestive heart failure (< 1 month) History of inflammatory bowel disease Medical patient at bed rest Age 61-74 Arthroscopic surgery Major open surgery (> 45 min) Laparoscopic surgery (> 45 min) Malignancy Confined to bed (> 72 hours) Immobilizing plaster cast Central venous access Age >= 75 History of VTE Family history of VTE Factor V Leiden Prothrombin [id number] Lupus anticoagulant Anticardiolipin antibodies Elevated serum homocysteine Heparin-induced thrombocytopenia Other congenital or acquired thrombophilia Stroke (< 1 month) Elective arthroplasty Hip, pelvis, or leg fracture Acute spinal cord injury (< 1 month) Prophylaxis Regimen Total Risk Factor Score Risk Level Prophylaxis Regimen 0-1 Low Early ambulation 2 Moderate Order ONE of the following: *Sequential Compression Device (SCD) *Heparin 5000 units SQ BID 3-4 Higher Order ONE of the following medications: *Heparin 5000 units SQ TID *Enoxaparin/Lovenox 40 mg SQ daily (WT < 150 kg, CrCl > 30 mL/min) *Enoxaparin/Lovenox 30 mg SQ daily (WT < 150 kg, CrCl > 10-29 mL/min) *Enoxaparin/Lovenox 30 mg SQ BID (WT < 150 kg, CrCl > 30 mL/min) AND/OR *Sequential Compression Device (SCD) 5 or more Highest Order ONE of the following medications: *Heparin 5000 units SQ TID (Preferred with Epidurals) *Enoxaparin/Lovenox 40 mg SQ daily (WT < 150 kg, CrCl > 30 mL/min) *Enoxaparin/Lovenox 30 mg SQ daily (WT < 150 kg, CrCl > 10-29 mL/min) *Enoxaparin/Lovenox 30 mg SQ BID (WT < 150 kg, CrCl > 30 mL/min) AND *Sequential Compression Device (SCD) Assessment and Plan Problem List: (1) Pleural effusion, right ICD Codes: J90 - Pleural effusion, not elsewhere classified Status: Acute Plan: Patient appears to be mildly symptomatic but had reported moderate symptoms this morning. This is a recurrent issue. Will involve interventional radiology for likely thoracentesis. Continue diuretics. I'll give one-time dose of ceftriaxone although I do not strongly suspect infectious etiology, it is more of a prophylaxis for the planned intervention. (2) Elevated troponin ICD Codes: R77.8 - Other specified abnormalities of plasma proteins Status: Acute Plan: Actually lower than some previous values. Likely demand mediated associated with some elevated heart rates as well as chronic renal insufficiency. Would not be overly aggressive at this point. No overt signs of acute coronary syndrome. (3) Myelodysplastic syndrome ICD Codes: D46.9 - Myelodysplastic syndrome Status: Acute Plan: Interview outpatient management with Dr. Kohler. We'll quit and give 1 unit of packed red cells here in attempts to keep his hemoglobin above 8. (4) Paroxysmal atrial fibrillation ICD Codes: I48.0 - Paroxysmal atrial fibrillation Status: Chronic Plan: Patient is not on any anticoagulant agents given his history of multiple gastric ulcers and bleeding. He is also quite anemic much of the time and doesn't have much reserve. We'll continue rate control efforts. Follow outpatient by cardiology. (5) Anemia ICD Codes: D64.9 - Anemia Status: Chronic Plan: As noted above. (6) Hyperlipidemia ICD Codes: E78.5 - Hyperlipidemia Status: Acute Plan: Continue outpatient therapy. Would not be overly aggressive. (7) Hypertension ICD Codes: I10 - Hypertension Status: Chronic Plan: Good control presently. Continue medication as tolerated. (8) Hypothyroidism ICD Codes: E03.9 - Hypothyroidism Status: Chronic Plan: Continue medication. TSH was 4.3 a few weeks ago. Outpatient management. Code Status DNR Discussed Condition With Patient and ER physician. Physician Certification 2 Midnight Certification Type: Admission for Inpatient Services Order for Inpatient Services The services are ordered in accordance with Medicare regulations or non- Medicare payer requirements, as applicable. In the case of services not specified as inpatient-only, they are appropriately provided as inpatient services in accordance with the 2-midnight benchmark. Estimated LOS (days): 2 days is the estimated time the patient will need to remain in the hospital, assuming treatment plan goals are met and no additional complications. Post-Hospital Plan: Detention/[facility] Problem Qualifiers (1) Anemia: Qualified Codes: D61.89 - Other specified aplastic anemias and other bone marrow failure syndromes (2) Hyperlipidemia: Qualified Codes: E78.00 - Pure hypercholesterolemia, unspecified (3) Hypertension: Qualified Codes: I10 - Essential (primary) hypertension Edinson Amanda MD PhD Mar 06, 2017 20:35
[2017-03-06] MEDS ORDERED: TEMAZEPAM 7.5 MG CAP PO PRN (20:45)
[2017-03-06 21:00] VITALS: BP 116/62; PULSE 100; RESP 16; TEMP 97.9; O2SAT 95
[2017-03-06] MEDS: METOPROLOL TARTRATE 25 MG TAB PO SCH (22:57)
[2017-03-06] MEDS: PANTOPRAZOLE SOD 20 MG DELAYED RELEASE TAB PO SCH (22:57)
[2017-03-06] MEDS: POLYETHYLENE GLYCOL 17 GM PKG PO SCH (22:58)
[2017-03-06] MEDS ORDERED: LACTATED RINGER'S 1000 ML IV PRN (23:45)
[2017-03-06] MEDS ORDERED: INSULIN HUMAN REGULAR 1,000 UNITS/10 ML VIAL SQ PRN (23:45)
[2017-03-06] MEDS ORDERED: POVIDONE IODINE 5% (ANTISEPSIS KIT) 4 APPLICATIONS EACH NARE PRN (23:45)
[2017-03-06] MEDS ORDERED: CHLORHEXIDINE GLUCONATE 2 % 1 PACK (2 CLOTHS) TOPICAL PRN (23:45)
[2017-03-06] MEDS ORDERED: METOPROLOL TARTRATE 25 MG TAB PO PRN (23:45)
[2017-03-06] MEDS ORDERED: SODIUM CHLORID 0.9% 500 ML IV PRN (23:45)
[2017-03-07] VITALS (9 sets, daily range): BP systolic 97–149; BP diastolic 47–73; PULSE 53–114; RESP 15–20; TEMP 96.4–98.1; O2SAT 92–100
[2017-03-07] MEDS: LEVOTHYROXINE SODIUM 75 MCG TAB PO SCH (04:29)
[2017-03-07 06:27] LABS: AUTOMATED NEUTROPHIL # 4.9 TH/MM3 (1.8-7.7); BASOPHIL % 0.3 % (0.0-2.0); HEMATOCRIT 26.6 % (39.0-51.0); LYMPH % 12.9 % (9.0-44.0); LYMPHOCYTE # 0.7 TH/MM3 (1.0-4.8); MEAN CELL VOLUME 87.9 FL (80.0-100.0); MEAN CORPUSCULAR HEMOGLOBIN 29.7 PG (27.0-34.0); MEAN CORPUSCULAR HGB CONC 33.8 % (32.0-36.0); MEAN PLATELET VOLUME 9.6 FL (7.0-11.0); MONOCYTE # 0.1 TH/MM3 (0-0.9); NEUT % 84.8 % (16.0-70.0); PLATELET COUNT 264 TH/MM3 (150-450); RED BLOOD COUNT 3.03 MIL/MM3 (4.50-5.90); RED CELL DISTRIBUTION WIDTH 16.1 % (11.6-17.2); WHITE BLOOD COUNT 5.7 TH/MM3 (4.0-11.0)
[2017-03-07 07:04] LABS: BICARBONATE 27.8 MEQ/L (21.0-32.0); CALCIUM 8.4 MG/DL (8.5-10.1); CREATININE 1.78 MG/DL (0.60-1.30)
[2017-03-07] MEDS: PANTOPRAZOLE SOD 20 MG DELAYED RELEASE TAB PO SCH ×2 (09:00→22:41)
[2017-03-07] MEDS ORDERED: DEFERASIROX PO SCH (09:00)
[2017-03-07] MEDS: AMIODARONE 200 MG TAB PO SCH (09:05)
[2017-03-07] MEDS: ONDANSETRON ODT 4 MG TAB PO SCH ×3 (09:05→17:31)
[2017-03-07] MEDS: METOPROLOL TARTRATE 25 MG TAB PO SCH ×2 (09:05→21:00)
[2017-03-07] MEDS: SODIUM CHLORIDE 0.9% FLUSH 10 ML FLUSH IV FLUSH PRN (09:07)
--- NOTE | 2017-03-07 09:23 | EKG ---
Date Performed: 03/06/2017 Time Performed: 16:43:20 PTAGE: 86 years EKG: SINUS BRADYCARDIA BORDERLINE ECG Compared to prior tracing no significant change PREVIOUS TRACING : 02/18/2017 16.42 DOCTOR: Reid Alvarado Interpretating Date/Time 03/07/2017 09:20:14
--- NOTE | 2017-03-07 09:32 | HHI.PR ---
Subjective Remarks Pt feels that his breathing is much better today and is off supplemental O2 He feels that his LE edema is improving Objective Vitals Vital Signs Date Time Temp Pulse Resp B/P (MAP) Pulse Ox O2 Delivery O2 Flow Rate FiO2 03/07/17 08:49 Nasal Cannula 2.00 03/07/17 08:00 96.4 59 17 149/73 (98) 99 03/07/17 03:05 97.0 59 16 135/61 98 03/07/17 01:12 Nasal Cannula 2.00 03/07/17 00:47 96.7 57 16 98/47 100 03/07/17 00:31 96.4 57 15 98/48 99 03/06/17 21:00 97.9 100 16 116/62 (80) 95 03/06/17 19:22 96 18 98 Room Air 03/06/17 19:21 88 17 110/58 (75) 98 Room Air 03/06/17 17:53 94 18 131/63 (85) 98 Room Air 03/06/17 17:28 100 03/06/17 17:18 60 18 112/54 (73) 100 Room Air 03/06/17 16:13 97.9 60 14 129/60 (83) 95 Result Diagram: 03/07/17 0615 03/07/17 0615 Other Results Laboratory Tests Test 03/06/17 17:47 03/07/17 06:15 White Blood Count 4.9 TH/MM3 5.7 TH/MM3 Red Blood Count 2.56 MIL/MM3 3.03 MIL/MM3 Hemoglobin 7.7 GM/DL 9.0 GM/DL Hematocrit 22.4 % 26.6 % Mean Corpuscular Volume 87.7 FL 87.9 FL Mean Corpuscular Hemoglobin 30.1 PG 29.7 PG Mean Corpuscular Hemoglobin Concent 34.3 % 33.8 % Red Cell Distribution Width 16.4 % 16.1 % Platelet Count 237 TH/MM3 264 TH/MM3 Mean Platelet Volume 9.5 FL 9.6 FL Neutrophils (%) (Auto) 64.0 % 84.8 % Lymphocytes (%) (Auto) 24.1 % 12.9 % Monocytes (%) (Auto) 11.2 % 2.0 % Eosinophils (%) (Auto) 0.3 % 0.0 % Basophils (%) (Auto) 0.4 % 0.3 % Neutrophils # (Auto) 3.1 TH/MM3 4.9 TH/MM3 Lymphocytes # (Auto) 1.2 TH/MM3 0.7 TH/MM3 Monocytes # (Auto) 0.5 TH/MM3 0.1 TH/MM3 Eosinophils # (Auto) 0.0 TH/MM3 0.0 TH/MM3 Basophils # (Auto) 0.0 TH/MM3 0.0 TH/MM3 CBC Comment DIFF FINAL DIFF FINAL Differential Comment Prothrombin Time 13.2 SEC Prothromb Time International Ratio 1.2 RATIO Activated Partial Thromboplast Time 28.3 SEC Blood Urea Nitrogen 36 MG/DL 36 MG/DL Creatinine 1.92 MG/DL 1.78 MG/DL Random Glucose 95 MG/DL 136 MG/DL Total Protein 6.3 GM/DL Albumin 3.5 GM/DL Calcium Level 8.1 MG/DL 8.4 MG/DL Alkaline Phosphatase 47 U/L Aspartate Amino Transf (AST/SGOT) 7 U/L Alanine Aminotransferase (ALT/SGPT) 11 U/L Total Bilirubin 1.1 MG/DL Sodium Level 133 MEQ/L 133 MEQ/L Potassium Level 4.3 MEQ/L 4.2 MEQ/L Chloride Level 98 MEQ/L 99 MEQ/L Carbon Dioxide Level 26.0 MEQ/L 27.8 MEQ/L Anion Gap 9 MEQ/L 6 MEQ/L Estimat Glomerular Filtration Rate 33 ML/MIN 36 ML/MIN Total Creatine Kinase 17 U/L Troponin I 0.09 NG/ML B-Type Natriuretic Peptide 389 PG/ML Imaging Last Impressions Chest X-Ray 03/06/17 1740 Signed Impressions: Service Date/Time: March 17:59 - CONCLUSION: Stable appearance with dense consolidation of the right lung base and apparent effusion. Jovan Boudreaux MD Objective Remarks General: NAD, AAox3 Chest: Improved aeration bilaterally Cardiac: Irregular Abd:+BS, soft ND/NT Ext: Mild bilateral LE pitting edema A/P Problem List: (1) Pleural effusion, right ICD Codes: J90 - Pleural effusion, not elsewhere classified Status: Acute Plan: - Pt is an 86 y/o male with atrial fibrillation, myelodysplastic syndrome, HTN and hypothyroidism. - Pt was recently admitted to 02/18/17-02/23/17 with increased LE edema and was found to be in volume overload with a moderate right pleural effusion on CT, worsening anemia related to MDS and A. fib RVR. 2D echo during that admission noted EF 60-65% and no evidence of diastolic dysfunction. He had symptomatic improvement with diuresis. - Pt was discharged on Amiodarone 200mg daily, Metoprolol 12.5mg Q8H and Lasix 20mg po daily. - He was seen as an outpt for worsening SOB by his Airframe And Powerplant Mechanic, Dr. Chapman, 2 days prior to admission, and his Lasix was increased to 40mg po daily and the Metoprolol was increased to 25mg po BID. He had an outpt CXR which noted fluid collection in the right lung, and was sent to the ED for further evaluation. - Pt was given a dose of IV Lasix 20mg on 03/06 as well as Solu-Medrol 40mg and Ceftriaxone in the ED - Pt has had symptomatic improvement today and states that he did have a good amount of urine output last night. - IR has been consulted for likely thoracentesis today - Fluid studies ordered - Continue diuretics - Monitor HR on telemetry (2) Elevated troponin ICD Codes: R77.8 - Other specified abnormalities of plasma proteins Status: Acute Plan: - Actually lower than some previous values. - Likely demand mediated associated with some elevated heart rates as well as chronic renal insufficiency. - Would not be overly aggressive at this point. No overt signs of acute coronary syndrome. (3) Myelodysplastic syndrome ICD Codes: D46.9 - Myelodysplastic syndrome Status: Acute Plan: - Outpatient management with Dr. Kohler. - Pt was given 1 unit of PRBCs on 03/07 to keep hemoglobin above 8. - Repeat labs today with Hgb 9.0 - Monitor (4) Paroxysmal atrial fibrillation ICD Codes: I48.0 - Paroxysmal atrial fibrillation Status: Chronic Plan: - Patient is not on any anticoagulant agents given his history of multiple gastric ulcers and bleeding. - He is also anemic and doesn't have much reserve. - We'll continue rate control efforts. - Telemetry - Follow outpatient by cardiology. (5) Anemia ICD Codes: D64.9 - Anemia Status: Chronic Plan: - As noted above. (6) Hyperlipidemia ICD Codes: E78.5 - Hyperlipidemia Status: Acute Plan: Continue outpatient therapy. Would not be overly aggressive. (7) Hypertension ICD Codes: I10 - Hypertension Status: Chronic Plan: - Good control presently. - Continue medication as tolerated. (8) Hypothyroidism ICD Codes: E03.9 - Hypothyroidism Status: Chronic Plan: - Continue medication. - TSH was 4.3 a few weeks ago. Outpatient management. Assessment and Plan Patient examined. Assessment and plan formulated with Irasema Young PA-C. I agree with the above. right pleural effusion/consolidation await right thoracentesis. resume bb/amio for afib and lasix. Problem Qualifiers (1) Anemia: Qualified Codes: D61.89 - Other specified aplastic anemias and other bone marrow failure syndromes (2) Hyperlipidemia: Qualified Codes: E78.00 - Pure hypercholesterolemia, unspecified (3) Hypertension: Qualified Codes: I10 - Essential (primary) hypertension Irasema Young Mar 07, 2017 09:32 Clarke Cheng MD Mar 07, 2017 10:17
--- NOTE | 2017-03-07 10:27 | RADRPT ---
EXAM DATE/TIME: 03/07/2017 08:59 [facility] COMPARISON: CHEST SINGLE AP, March 06, 2017, 17:59. INDICATIONS : Short of breath. MEDICAL HISTORY : Gastroesophageal reflux disease. Carcinoma, bladder. Carcinoma, prostatic. ulcers, hypertension SURGICAL HISTORY : None. ENCOUNTER: Initial ACUITY: 2 days PAIN SCORE: 0/10 LOCATION: Bilateral chest FINDINGS: There is a stable right pleural effusion. The heart remains enlarged. A left internal jugular Infus e-A-Port has its tip in the right atrium. There is no pneumothorax. Right basilar consolidation is unchanged. CONCLUSION: 1. Stable right basilar consolidation and pleural effusion. 2. Cardiomegaly. Lamine Bajwa MD on March 07, 2017 at 10:15 Board Certified Radiologist. This report was verified electronically.
--- NOTE | 2017-03-07 11:55 | RADRPT ---
EXAM DATE/TIME: 03/07/2017 11:23 [facility] COMPARISON: No previous studies available for comparison. INDICATIONS : Post right thoracentesis. Evaluate for pneumothorax. MEDICAL HISTORY : Gastroesophageal reflux disease. Carcinoma, bladder. Carcinoma, prostatic. SURGICAL HISTORY : None. ENCOUNTER: Subsequent ACUITY: 1 day PAIN SCORE: 0/10 LOCATION: Right FINDINGS: [id number] in good position. Heart is enlarged. Minimal blunting right costly sulcus. There is no pneumothorax. CONCLUSION: Negative for pneumothorax following thoracentesis. Shiv Cat MD FACR on March 07, 2017 at 11:52 Board Certified Radiologist. This report was verified electronically.
--- NOTE | 2017-03-07 11:55 | RADRPT ---
EXAM DATE/TIME: 03/07/2017 11:23 [facility] COMPARISON: No previous studies available for comparison. INDICATIONS : Post right thoracentesis. Evaluate for pneumothorax. MEDICAL HISTORY : Gastroesophageal reflux disease. Carcinoma, bladder. Carcinoma, prostatic. SURGICAL HISTORY : None. ENCOUNTER: Subsequent ACUITY: 1 day PAIN SCORE: 0/10 LOCATION: Right FINDINGS: [id number] in good position. Heart is enlarged. Minimal blunting right costly sulcus. There is no pneumothorax. CONCLUSION: Negative for pneumothorax following thoracentesis. Shiv Cat MD FACR on March 07, 2017 at 11:52 Board Certified Radiologist. This report was verified electronically.
--- NOTE | 2017-03-07 11:55 | RADRPT ---
EXAM DATE/TIME: 03/07/2017 11:23 [facility] COMPARISON: No previous studies available for comparison. INDICATIONS : Post right thoracentesis. Evaluate for pneumothorax. MEDICAL HISTORY : Gastroesophageal reflux disease. Carcinoma, bladder. Carcinoma, prostatic. SURGICAL HISTORY : None. ENCOUNTER: Subsequent ACUITY: 1 day PAIN SCORE: 0/10 LOCATION: Right FINDINGS: [id number] in good position. Heart is enlarged. Minimal blunting right costly sulcus. There is no pneumothorax. CONCLUSION: Negative for pneumothorax following thoracentesis. Shiv Cat MD FACR on March 07, 2017 at 11:52 Board Certified Radiologist. This report was verified electronically.
[2017-03-07 12:13] LABS: TOTAL PROTEIN,PLEURAL FLUID 3.3 GM/DL
--- NOTE | 2017-03-07 12:43 | RADRPT ---
EXAM DATE/TIME: 03/07/2017 10:05 [facility] COMPARISON: No previous studies available for comparison. INDICATIONS : Right pleural effusion. Vancomycin within 2 hrs of procedure, Ancef (or alternative) within 1 hr of procedure start. MEDICAL HISTORY : Hypercholesterolemia. Hypertension. Gastroesophageal reflux disease. Congestive heart failure. Atria l fibrillation. Arthritis. Carcinoma, bladder and prostate. Chemotherapy. Blood transfusion. Ane radha. SURGICAL HISTORY : Tonsillectomy. Cardiac catheterization. Left chest port placement. ENCOUNTER: Initial ACUITY: 1 day PAIN SCORE: 2/10 LOCATION: Right chest. FLUID: Total volume of 1350 cc of clear, yellow fluid was removed. Fluid was sent to lab for ordered studies. TECHNIQUE: 1. Ultrasound guidance for thoracentesis. 2. Thoracentesis. The risks, benefits, and alternatives to ultrasound guided thoracentesis were explained to the patien t in lay simple terms, including the risk of bleeding and infection. Written and verbal informed con sent was obtained. Appropriate area for thoracentesis was marked under ultrasound guidance with the patient in the uprig ht position. Overlying skin was prepped and draped in the usual sterile fashion and with local anest hetic, a dermatotomy was made with an 11 blade scalpel. A 6 [place] thoracentesis catheter was placed in the pleural space and fluid was removed. Catheter was then removed and a sterile dressing applie d. There were no immediate complications. The patient tolerated the procedure well and the left the ultrasound suite in stable condition. Chest radiograph is to be obtained. CONCLUSION: Uncomplicated ultrasound guided thoracentesis. Lamine Bajwa MD on March 07, 2017 at 12:40 Board Certified Radiologist. This report was verified electronically.
[2017-03-07 13:24] LABS: PLEURAL FLUID HISTIOCYTES 3 %; PLEURAL FLUID LYMPHS 91 %; PLEURAL FLUID MONOS 3 %; PLEURAL FLUID PLASMA CELLS 3 %; PLEURAL FLUID POLYS (SEGS) 0 %; PLEURAL FLUID RBC 30 /MM3 (0-0); PLEURAL FLUID WBC 59 /MM3 (0-10)
[2017-03-07] MEDS: POLYETHYLENE GLYCOL 17 GM PKG PO SCH (22:37)
[2017-03-08] VITALS: BP 110/55; PULSE 55; RESP 16; TEMP 97.2; O2SAT 100
[2017-03-08 03:48] VITALS: BP 117/55; PULSE 59; RESP 16; TEMP 95.8; O2SAT 100
[2017-03-08] MEDS: LEVOTHYROXINE SODIUM 75 MCG TAB PO SCH (06:00)
[2017-03-08 07:49] VITALS: BP 116/58; PULSE 92; RESP 18; TEMP 96; O2SAT 96
[2017-03-08] MEDS: AMIODARONE 200 MG TAB PO SCH (09:17)
[2017-03-08] MEDS: ONDANSETRON ODT 4 MG TAB PO SCH ×2 (09:17→11:52)
[2017-03-08] MEDS: PANTOPRAZOLE SOD 20 MG DELAYED RELEASE TAB PO SCH (09:18)
[2017-03-08] MEDS: METOPROLOL TARTRATE 25 MG TAB PO SCH (09:18)
[2017-03-08 09:30] LABS: AUTOMATED NEUTROPHIL # 2.7 TH/MM3 (1.8-7.7); BASOPHIL % 0.3 % (0.0-2.0); EOSINOPHIL % 0.2 % (0.0-4.0); HEMATOCRIT 26.9 % (39.0-51.0); LYMPH % 23.4 % (9.0-44.0); MEAN CELL VOLUME 86.9 FL (80.0-100.0); MEAN CORPUSCULAR HEMOGLOBIN 29.2 PG (27.0-34.0); MEAN CORPUSCULAR HGB CONC 33.6 % (32.0-36.0); MEAN PLATELET VOLUME 9.6 FL (7.0-11.0); MONO % 11.4 % (0.0-8.0); MONOCYTE # 0.5 TH/MM3 (0-0.9); NEUT % 64.7 % (16.0-70.0); PLATELET COUNT 292 TH/MM3 (150-450); RED CELL DISTRIBUTION WIDTH 15.7 % (11.6-17.2); WHITE BLOOD COUNT 4.2 TH/MM3 (4.0-11.0)
[2017-03-08 09:53] LABS: CALCIUM 8.4 MG/DL (8.5-10.1); CREATININE 1.81 MG/DL (0.60-1.30); MAGNESIUM 2.6 MG/DL (1.5-2.5)
[2017-03-08] MEDS ORDERED: INFLUENZA VIRUS VACCINE (QUADRIVALENT) 0.5 ML SYR IM ONE (10:00)
--- NOTE | 2017-03-08 10:21 | HHI.PR ---
Subjective Remarks doing well. eager for d/c says leg swelling is better. no sob Objective Vitals heart reg lung cta abd s/nt ext 1 plus edema legs. Vital Signs Date Time Temp Pulse Resp B/P (MAP) Pulse Ox O2 Delivery O2 Flow Rate FiO2 03/08/17 07:49 96.0 92 18 116/58 (77) 96 03/08/17 03:48 95.8 59 16 117/55 (75) 100 03/08/17 00:00 97.2 55 16 110/55 (73) 100 03/07/17 20:00 96.9 58 18 125/60 (81) 100 03/07/17 16:00 97.3 114 17 97/55 (69) 100 03/07/17 12:25 95 Nasal Cannula 2.00 03/07/17 11:50 92 18 115/52 (73) 92 03/07/17 11:35 98.1 53 18 114/56 (75) 92 03/07/17 11:18 97.9 53 20 122/67 (85) 95 Result Diagram: 03/08/1715 03/08/17 0815 Imaging Last Impressions Chest X-Ray 03/06/17 1740 Signed Impressions: Service Date/Time: March 17:59 - CONCLUSION: Stable appearance with dense consolidation of the right lung base and apparent effusion. Jovan Boudreaux MD Objective Remarks G A/P Problem List: (1) Pleural effusion, right ICD Codes: J90 - Pleural effusion, not elsewhere classified Status: Acute Plan: - Pt is an 86 y/o male with atrial fibrillation, myelodysplastic syndrome, HTN and hypothyroidism. - Pt was recently admitted to 02/18/17-02/23/17 with increased LE edema and was found to be in volume overload with a moderate right pleural effusion on CT, worsening anemia related to MDS and A. fib RVR. 2D echo during that admission noted EF 60-65% and no evidence of diastolic dysfunction. He had symptomatic improvement with diuresis. - Pt was discharged on Amiodarone 200mg daily, Metoprolol 12.5mg Q8H and Lasix 20mg po daily. - He was seen as an outpt for worsening SOB by his Watch Repair Person, Dr. Chapman, 2 days prior to admission, and his Lasix was increased to 40mg po daily and the Metoprolol was increased to 25mg po BID. He had an outpt CXR which noted fluid collection in the right lung, and was sent to the ED for further evaluation. s/p 1.3L thoracentesis right lung. most likely transudate. E/S prot .52 doubt infection. gs neg and cx pending. path pending. feels well. d/c and f/u in clinic. (2) Elevated troponin ICD Codes: R77.8 - Other specified abnormalities of plasma proteins Status: Acute Plan: - Actually lower than some previous values. - Likely demand mediated associated with some elevated heart rates as well as chronic renal insufficiency. - Would not be overly aggressive at this point. No overt signs of acute coronary syndrome. (3) Myelodysplastic syndrome ICD Codes: D46.9 - Myelodysplastic syndrome Status: Acute Plan: - Outpatient management with Dr. Kohler. - Pt was given 1 unit of PRBCs on 03/07 to keep hemoglobin above 8. - Repeat labs today with Hgb 9.0 - Monitor (4) Paroxysmal atrial fibrillation ICD Codes: I48.0 - Paroxysmal atrial fibrillation Status: Chronic Plan: - Patient is not on any anticoagulant agents given his history of multiple gastric ulcers and bleeding. - He is also anemic and doesn't have much reserve. - We'll continue rate control efforts. - Telemetry - Follow outpatient by cardiology. (5) Anemia ICD Codes: D64.9 - Anemia Status: Chronic Plan: - As noted above. (6) Hyperlipidemia ICD Codes: E78.5 - Hyperlipidemia Status: Acute Plan: Continue outpatient therapy. Would not be overly aggressive. (7) Hypertension ICD Codes: I10 - Hypertension Status: Chronic Plan: - Good control presently. - Continue medication as tolerated. (8) Hypothyroidism ICD Codes: E03.9 - Hypothyroidism Status: Chronic Plan: - Continue medication. - TSH was 4.3 a few weeks ago. Outpatient management. Problem Qualifiers (1) Anemia: Qualified Codes: D61.89 - Other specified aplastic anemias and other bone marrow failure syndromes (2) Hyperlipidemia: Qualified Codes: E78.00 - Pure hypercholesterolemia, unspecified (3) Hypertension: Qualified Codes: I10 - Essential (primary) hypertension Clarke Cheng MD Mar 08, 2017 10:21
[2017-03-08] MEDS ORDERED: FURO1TAB62 PO (10:24)
[2017-03-08] MEDS ORDERED: METO25TA3 PO (10:26)
--- NOTE | 2017-03-08 10:26 | HHI.DCPOC ---
Discharge Care Plan Diagnosis: (1) Pleural effusion, right (2) Atrial fibrillation with RVR Goals to Promote Your Health * To prevent worsening of your condition and complications * To maintain your health at the optimal level Directions to Meet Your Goals Take your medications as prescribed Follow your dietary instruction Follow activity as directed Keep your appointments as scheduled Take your immunizations and boosters as scheduled If your symptoms worsen call your PCP, if no PCP go to Urgent Care Center or Emergency Room Smoking is Dangerous to Your Health. Avoid second hand smoke Call the 24-hour hour crisis hotline for domestic abuse at Clarke Cheng MD Mar 08, 2017 10:26
--- NOTE | 2017-03-08 10:26 | HHI.DCPOC ---
Discharge Care Plan Diagnosis: (1) Pleural effusion, right (2) Atrial fibrillation with RVR Goals to Promote Your Health * To prevent worsening of your condition and complications * To maintain your health at the optimal level Directions to Meet Your Goals Take your medications as prescribed Follow your dietary instruction Follow activity as directed Keep your appointments as scheduled Take your immunizations and boosters as scheduled If your symptoms worsen call your PCP, if no PCP go to Urgent Care Center or Emergency Room Smoking is Dangerous to Your Health. Avoid second hand smoke Call the 24-hour hour crisis hotline for domestic abuse at Clarke Cheng MD Mar 08, 2017 10:26
--- NOTE | 2017-03-08 10:26 | HHI.DCPOC ---
Discharge Care Plan Diagnosis: (1) Pleural effusion, right (2) Atrial fibrillation with RVR Goals to Promote Your Health * To prevent worsening of your condition and complications * To maintain your health at the optimal level Directions to Meet Your Goals Take your medications as prescribed Follow your dietary instruction Follow activity as directed Keep your appointments as scheduled Take your immunizations and boosters as scheduled If your symptoms worsen call your PCP, if no PCP go to Urgent Care Center or Emergency Room Smoking is Dangerous to Your Health. Avoid second hand smoke Call the 24-hour hour crisis hotline for domestic abuse at Clarke Cheng MD Mar 08, 2017 10:26
[2017-03-08] MEDS ORDERED: FUROSEMIDE 20 MG/2 ML VIAL IV PUSH ONE (10:30)
[2017-03-08 11:57] VITALS: BP 104/52; PULSE 52; RESP 18; TEMP 96.3; O2SAT 100
[2017-03-08] MEDS ORDERED: SODIUM CHLORIDE 0.9% FLUSH 10 ML FLUSH IV FLUSH PRN (13:15)
[2017-03-08] MEDS: SODIUM CHLORIDE 0.9% FLUSH 10 ML FLUSH IV FLUSH PRN (13:20)
== END 2017-03-08 14:13 | DRG 187 ==
LOC: NEPC 16:12 → NEDA 19:24 → N06B 20:51
PROVIDERS: ADMIT Hospitalist; ATTEND Hospitalist
PROC: 0W993ZZ Drainage of Right Pleural Cavity, Percutaneous Approach (ICD-10-PCS; principal; 2017-03-07)
PROC: 30253N1 (ICD-10-PCS; 2017-03-07)
DX: J90 Pleural effusion, not elsewhere classified (principal); D61.9 Aplastic anemia, unspecified; I48.0 Paroxysmal atrial fibrillation; J44.9 Chronic obstructive pulmonary disease, unspecified; I12.9 Hypertensive chronic kidney disease with stage 1 through stage 4 chronic kidney disease, or unspecified chronic kidney disease; E03.9 Hypothyroidism, unspecified; D46.9 Myelodysplastic syndrome, unspecified; K21.9 Gastro-esophageal reflux disease without esophagitis; E78.5 Hyperlipidemia, unspecified; N18.9 Chronic kidney disease, unspecified; R74.8 Abnormal levels of other serum enzymes; Z66 Do not resuscitate; Z85.46 Personal history of malignant neoplasm of prostate; Z85.51 Personal history of malignant neoplasm of bladder; Z87.11 Personal history of peptic ulcer disease; Z88.5 Allergy status to narcotic agent
CPT/HCPCS: 32555; 36430; 71010; 80048; 80053; 82550; 82945; 83615; 83735; 83880; 83986; 84157; 84484; 85025; 85610; 85730; 86850; 86900; 86901; 86920; 87070; 87205; 89051; 93005; C1729; J0696; J1642; J1940; J2920; J7120; P9016

== ENCOUNTER 2017-04-01 14:27 | Inpatient (IN) | payer MEDICARE ==
[~2017-04-01] VITALS: Ht 165.1 cm; Wt 66.8 kg
[2017-04-01] VITALS (10 sets, daily range): BP systolic 93–134; BP diastolic 44–64; PULSE 57–63; RESP 12–20; TEMP 98.2–99.6; O2SAT 95–97
[~2017-04-01 14:27] MED LIST changes: +ONDA8TAB7 PO
--- NOTE | 2017-04-01 15:18 | PD ---
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 Ortez, presents to the ER today sent in by him for several days of bilateral leg swelling, shortness of breath, coughing, chest discomfort. He states that he also had a low blood count of hemoglobin 7 today, but was told to come in because his usual transfusion can be done properly because of other respiratory symptoms. He denies any fevers or any other issues. Modifying Factors: Worse with activity Associated Signs & Symptoms: Dyspnea, bilateral leg swelling, coughing, chest discomfort Risk Factors: Chronic anemia PFSH Past Medical History Anemia: Yes (myelodysplastic syndrome) Arthritis: Yes Atrial Fibrillation: Yes Blood Disorders: Yes (myelodysplastic syndrome) Heart Rhythm Problems: Yes Cancer: Yes (PROSTATE/BLADDER CANCER) Cardiac Catheterization: Yes (x2) Cardiovascular Problems: Yes High Cholesterol: Yes Chemotherapy: Yes Chest Pain: Yes Congestive Heart Failure: Yes Cerebrovascular Accident: No Diabetes: No Diminished Hearing: Yes (bilateral hearing aids) Endocrine: Yes Gastrointestinal Disorders: Yes (bleeding ulcer @ 37yo, GERD) GERD: Yes Genitourinary: Yes Hepatitis: No Hiatal Hernia: No Hypertension: Yes Immune Disorder: No Implanted Vascular Access Dvce: Yes Musculoskeletal: Yes Neurologic: No Psychiatric: No Reproductive: No Respiratory: Yes Immunizations Current: Yes Radiation Therapy: Yes Thyroid Disease: Yes Ulcer: Yes Past Surgical History AICD: No Cardiac Surgery: Yes (HEART CATH X2) Endocrine Surgery: No Eye Surgery: Yes (cataracts) Genitourinary Surgery: Yes (BLADDER, URETHRAL STRICTURE) Joint Replacement: No Pacemaker: No Thoracic Surgery: Yes (PORT PLACEMENT LEFT CHEST) Tonsillectomy: Yes Other Surgery: Yes Social History Alcohol Use: No Tobacco Use: No Substance Use: No Allergies-Medications (Allergen,Severity, Reaction): Coded Allergies: codeine (Unverified Allergy, Severe, Hallucinations, 03/06/17) hydrocodone (Unverified Allergy, Mild, Hallucinations, 03/06/17) Reported Meds & Prescriptions Reported Meds & Active Scripts Active Metoprolol Tartrate 25 Mg Tab 25 Mg PO BID 30 Days Lasix (Furosemide) 20 Mg Tab 20 Mg PO BID Amiodarone (Amiodarone HCl) 200 Mg Tab 200 Mg PO DAILY Reported Ondansetron (Ondansetron HCl) 8 Mg Tab 8 Mg PO TID Procrit Inj (Epoetin Caleb) 40,000 Unit/Ml Inj 60,000 Units SQ PRN Given at [facility] Levothyroxine (Levothyroxine Sodium) 75 Mcg Tab 75 Mcg PO DAILY Omeprazole 20 Mg Tab 20 Mg PO BID Artificial Tears Drops (Dextran 70/Hypromellose/Pf) 0.1 %-0.3 % Droperette 1 Drop EACH EYE DAILY PRN Tylenol (Acetaminophen) 325 Mg Tab 325-650 Mg PO Q4H PRN Pepcid Complete Tablet Chew (Famotidine/Ca Carb/Mag Hydrox) 10 Mg-800 Mg-165 Mg Tab.chew 1 Tab PO BID PRN Zzzquil Liq (Diphenhydramine (Sleep) Liq) 50 Mg/30 Ml Liq 25 Mg PO HS PRN Glycerin Adult Supp (Glycerin) 2 Gm Supp 2 Gm RECTAL DAILY PRN Miralax Powder (Polyethylene Glycol 3350 Powder) 17 Gm Powd 17 Gm PO HS Mix and dissolve one measuring cap-ful (17 grams) in water or juice. Metamucil Original Texture (Psyllium Hydrophilic Mucilloid) 3.4 Gram/7 Gram Pow PO HS 1 rounded TEASPOONFUL in 8 oz of water Ibuprofen 200 Mg Cap 400 Mg PO DAILY Fluticasone Nasal [place] 50 Mcg/Act Naspr 2 [place] EACH NARE DAILY 50 mcg/spray Exjade (Deferasirox) 500 Mg Tab 1,000 Mg PO DAILY Dissolve 2 tablets (1,000mg) in 7 ounces of apple juice-wait 30 min before eating or taking other medication [Cranberry] 4,200 Mg PO DAILY Review of Systems Except as stated in HPI: all other systems reviewed are Neg Physical Exam Narrative GENERAL: Well-developed elderly white male patient currently in mild respiratory distress. Awake and oriented 3 SKIN: Focused skin assessment warm/dry. HEAD: Atraumatic. Normocephalic. EYES: Pupils equal and round. No scleral icterus. No injection or drainage. Pale. ENT: No nasal bleeding or discharge. Mucous membranes pink and moist. NECK: Trachea midline. No JVD. CARDIOVASCULAR: Regular rate and rhythm. No murmur appreciated. RESPIRATORY: No accessory muscle use. Decreased breath sounds at the right base. Breath sounds equal bilaterally. GASTROINTESTINAL: Abdomen soft, non-tender, nondistended. Hepatic and splenic margins not palpable. MUSCULOSKELETAL: No obvious deformities. No clubbing. No cyanosis. Bilateral + 3 pitting edema of both legs. NEUROLOGICAL: Awake and alert. No obvious cranial nerve deficits. Motor grossly within normal limits. Normal speech. PSYCHIATRIC: Appropriate mood and affect; insight and judgment normal. Data Data Last Documented VS Vital Signs Date Time Temp Pulse Resp B/P (MAP) Pulse Ox O2 Delivery O2 Flow Rate FiO2 04/01/17 15:30 18 97 Room Air 04/01/17 14:30 98.2 58 Orders Orders Complete Blood Count With Diff (04/01/17 14:45) Comprehensive Metabolic Panel (04/01/17 14:45) B-Type Natriuretic Peptide (04/01/17 14:45) Act Partial Throm Time (Ptt) (04/01/17 14:45) Prothrombin Time / Inr (Pt) (04/01/17 14:45) Ckmb (Isoenzyme) Profile (04/01/17 14:45) Troponin I (04/01/17 14:45) Iv Access Insert/Monitor (04/01/17 14:45) Electrocardiogram (04/01/17 14:45) Ecg Monitoring (04/01/17 14:45) Oximetry (04/01/17 14:45) Oxygen Administration (04/01/17 14:45) Chest, Single Ap (04/01/17 14:45) Sodium Chloride 0.9% Flush (Ns Flush) (04/01/17 14:45) Furosemide Inj (Lasix Inj) (04/01/17 16:15) Red Blood Cells (Rbc) (04/01/17 16:01) Blood Product Administration (04/01/17 16:01) Sodium Chlor 0.9% 250 Ml Inj (Ns 250 Ml (04/01/17 16:15) Red Blood Cells (Rbc) (03/31/17 12:25) Type And Screen (03/31/17 12:25) Admit Order (Ed Use Only) (04/01/17 16:14) Labs Laboratory Tests Test 04/01/17 14:55 White Blood Count 3.9 TH/MM3 Red Blood Count 2.85 MIL/MM3 Hemoglobin 7.8 GM/DL Hematocrit 23.8 % Mean Corpuscular Volume 83.5 FL Mean Corpuscular Hemoglobin 27.6 PG Mean Corpuscular Hemoglobin Concent 33.0 % Red Cell Distribution Width 15.4 % Platelet Count 192 TH/MM3 Mean Platelet Volume 9.4 FL Neutrophils (%) (Auto) 61.3 % Lymphocytes (%) (Auto) 20.9 % Monocytes (%) (Auto) 17.1 % Eosinophils (%) (Auto) 0.2 % Basophils (%) (Auto) 0.5 % Neutrophils # (Auto) 2.4 TH/MM3 Lymphocytes # (Auto) 0.8 TH/MM3 Monocytes # (Auto) 0.7 TH/MM3 Eosinophils # (Auto) 0.0 TH/MM3 Basophils # (Auto) 0.0 TH/MM3 CBC Comment DIFF FINAL Differential Comment Prothrombin Time 13.5 SEC Prothromb Time International Ratio 1.2 RATIO Activated Partial Thromboplast Time 38.7 SEC Blood Urea Nitrogen 37 MG/DL Creatinine 2.07 MG/DL Random Glucose 101 MG/DL Total Protein 6.2 GM/DL Albumin 3.5 GM/DL Calcium Level 8.4 MG/DL Alkaline Phosphatase 44 U/L Aspartate Amino Transf (AST/SGOT) 7 U/L Alanine Aminotransferase (ALT/SGPT) 11 U/L Total Bilirubin 1.1 MG/DL Sodium Level 131 MEQ/L Potassium Level 4.1 MEQ/L Chloride Level 99 MEQ/L Carbon Dioxide Level 24.8 MEQ/L Anion Gap 7 MEQ/L Estimat Glomerular Filtration Rate 30 ML/MIN Total Creatine Kinase 22 U/L Troponin I 0.11 NG/ML B-Type Natriuretic Peptide 552 PG/ML MDM Medical Decision Making Medical Screen Exam Complete: Yes Emergency Medical Condition: Yes Medical Record Reviewed: Yes Interpretation(s) EKG shows sinus bradycardia rate 55 bpm with no signs of acute ST changes. Laboratory Tests Test 04/01/17 14:55 White Blood Count 3.9 TH/MM3 (4.0-11.0) Red Blood Count 2.85 MIL/MM3 (4.50-5.90) Hemoglobin 7.8 GM/DL (13.0-17.0) Hematocrit 23.8 % (39.0-51.0) Monocytes (%) (Auto) 17.1 % (0.0-8.0) Lymphocytes # (Auto) 0.8 TH/MM3 (1.0-4.8) Prothrombin Time 13.5 SEC (9.8-11.6) Activated Partial Thromboplast Time 38.7 SEC (24.3-30.1) Blood Urea Nitrogen 37 MG/DL (7-18) Creatinine 2.07 MG/DL (0.60-1.30) Total Protein 6.2 GM/DL (6.4-8.2) Calcium Level 8.4 MG/DL (8.5-10.1) Alkaline Phosphatase 44 U/L (45-117) Aspartate Amino Transf (AST/SGOT) 7 U/L (15-37) Alanine Aminotransferase (ALT/SGPT) 11 U/L (12-78) Total Bilirubin 1.1 MG/DL (0.2-1.0) Sodium Level 131 MEQ/L (136-145) Estimat Glomerular Filtration Rate 30 ML/MIN (>89) Total Creatine Kinase 22 U/L (39-308) Troponin I 0.11 NG/ML (0.02-0.05) B-Type Natriuretic Peptide 552 PG/ML (0-100) Last 24 hours Impressions Chest X-Ray 04/01/17 1445 Signed Impressions: Service Date/Time: Saturday, April 01, 2017 15:14 - CONCLUSION: 1. Right basilar consolidation/effusion. 2. Prominent heart with mild interstitial prominence possibly representing some degree of vascular congestion or volume overload Carlos Boyd MD Differential Diagnosis Shortness of breath, chest discomfort, leg edema: CHF exacerbation versus lower effusion versus pneumonia versus symptomatic anemia versus COPD Narrative Course Chest x-ray shows right sided pleural effusion. EKG did not show significant ST changes. His hemoglobin is low at 7.8. His BNP is elevated. He looks like he has some underlying fluid overload or CHF. IV Lasix was initiated in the ER. In addition, patient does need blood and transfusion was ordered for the patient. Case was discussed with Dr. Cheng for admission for further treatment. Diagnosis Primary Impression: Anemia Additional Impression: Volume overload Admitting Information Admitting Physician Requests: Admit Brittaney Lewis MD Apr 01, 2017 15:18
[2017-04-01 15:23] LABS: AUTOMATED NEUTROPHIL # 2.4 TH/MM3 (1.8-7.7); BASOPHIL % 0.5 % (0.0-2.0); EOSINOPHIL % 0.2 % (0.0-4.0); HEMATOCRIT 23.8 % (39.0-51.0); HEMO FLAGS DIFF FINAL; LYMPH % 20.9 % (9.0-44.0); LYMPHOCYTE # 0.8 TH/MM3 (1.0-4.8); MEAN CELL VOLUME 83.5 FL (80.0-100.0); MEAN CORPUSCULAR HEMOGLOBIN 27.6 PG (27.0-34.0); MONO % 17.1 % (0.0-8.0); NEUT % 61.3 % (16.0-70.0); PLATELET COUNT 192 TH/MM3 (150-450); RED BLOOD COUNT 2.85 MIL/MM3 (4.50-5.90); RED CELL DISTRIBUTION WIDTH 15.4 % (11.6-17.2); WHITE BLOOD COUNT 3.9 TH/MM3 (4.0-11.0)
[2017-04-01 15:35] LABS: APTT (PATIENT) 38.7 SEC (24.3-30.1); INTERNATIONAL NORMALIZED RATIO 1.2 RATIO; PROTHROMBIN TIME - PATIENT 13.5 SEC (9.8-11.6)
[2017-04-01 15:40] LABS: ANION GAP 7 MEQ/L (5-15); AST (GOT) 7 U/L (15-37); BICARBONATE 24.8 MEQ/L (21.0-32.0); BLOOD UREA NITROGEN 37 MG/DL (7-18); CHLORIDE 99 MEQ/L (98-107); GLOMERULAR FILTRATION RATE 30 ML/MIN (>89); POTASSIUM 4.1 MEQ/L (3.5-5.1); SODIUM (NA) 131 MEQ/L (136-145)
--- NOTE | 2017-04-01 15:40 | RADRPT ---
EXAM DATE/TIME: 04/01/2017 15:14 [facility] COMPARISON: CHEST SINGLE AP, March 07, 2017, 8:59. INDICATIONS : Short of breath, lower extremity edema, history of pleural effusion with thoracentesis MEDICAL HISTORY : Congestive heart failure. Gastroesophageal reflux disease. Hypertension. bladder and prostate ca, A-fib SURGICAL HISTORY : Tonsillectomy. infusaport, cardiac cath, right thoracentesis ENCOUNTER: Initial ACUITY: 1 day PAIN SCORE: 0/10 LOCATION: Bilateral chest FINDINGS: A single view of the chest demonstrates persistent right basilar consolidation/effusion. Left lung is grossly clear. Heart size is prominent with mild interstitial prominence possibly representing some degree of vascular congestion or volume overload. Left IJ [id number] catheter with the tip project ing over the central venous system. Osseous structures are intact. CONCLUSION: 1. Right basilar consolidation/effusion. 2. Prominent heart with mild interstitial prominence possibly representing some degree of vascular co ngestion or volume overload Carlos Boyd MD on April 01, 2017 at 15:36 Board Certified Radiologist. This report was verified electronically.
[2017-04-01 15:44] LABS: ALKALINE PHOSPHATASE 44 U/L (45-117); ALT (GPT) 11 U/L (12-78); TOTAL BILIRUBIN ADULT 1.1 MG/DL (0.2-1.0)
[2017-04-01 15:45] LABS: CREATINE KINASE 22 U/L (39-308)
[2017-04-01] MEDS ORDERED: SODIUM CHLOR 0.9% 250 ML INJ 250 ML IV ONE (16:15)
[2017-04-01] MEDS ORDERED: FUROSEMIDE 20 MG/2 ML VIAL IV PUSH ONE ×2 (16:15→16:30)
--- NOTE | 2017-04-01 16:24 | HHI.HP ---
HPI Service [facility] Hospitalists Primary Care Physician Jovan Vora M.D. Admission Diagnosis CHF exacerbation/symptomatic anemia/ right pleural effusion Chief Complaint: sob, edema Travel History International Travel<30 Days: No Contact w/Intl Traveler <30 Da: No Traveled to Known Affected Are: No History of Present Illness Pt is an 86 y/o male with atrial fibrillation, myelodysplastic syndrome, recurrent symptomatic anemia and volume overload with preserved EF on echo noted EF 60-65% and no evidence of diastolic dysfunction. S/p 1.3L thoracentesis right lung on recent admission.Pt was sent to ED on by oncology for symptomatic anemia and again volume overload/weight gain of about 15-20pounds..with some sob again as well. ED has begun to transfuse with 2 units blood and iv lasix. Denies any cp and has been compliant with his cardiac meds. He is transfusion dependent and has received about 90 units blood. 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 recurrent admission for volume overload/chf preserved ef Hx of bladder cancer 6 years ago Hx of prostate cancer 5 years ago. S/P XRT COPD GERD HTN Hyperlipidemia Hypothyroidism Multiple cystoscopies with tumor removal Cataract surgery Reported Medications Amiodarone (Amiodarone HCl) 200 Mg Tab 200 Mg PO SANDRA Lasix (Furosemide) 40 Mg Tab 40 Mg PO DAILY Tylenol Arthritis (Acetaminophen) 650 Mg Tablet.er 1,300 Mg PO BID Metoprolol Succinate ER 24 HR (Metoprolol Succinate) 25 Mg Tab 25 Mg PO DAILY Loperamide (Loperamide HCl) 2 Mg Tablet 2 Mg PO PRN Ondansetron (Ondansetron HCl) 8 Mg Tab 8 Mg PO TID Procrit Inj (Epoetin Caleb) 40,000 Unit/Ml Inj 60,000 Units SQ PRN Given at [facility] Levothyroxine (Levothyroxine Sodium) 75 Mcg Tab 75 Mcg PO DAILY Omeprazole 20 Mg Tab 20 Mg PO BID Artificial Tears Drops (Dextran 70/Hypromellose/Pf) 0.1 %-0.3 % Droperette 1 Drop EACH EYE DAILY PRN Pepcid Complete Tablet Chew (Famotidine/Ca Carb/Mag Hydrox) 10 Mg-800 Mg-165 Mg Tab.chew 1 Tab PO BID PRN Zzzquil Liq (Diphenhydramine (Sleep) Liq) 50 Mg/30 Ml Liq 25 Mg PO HS PRN Glycerin Adult Supp (Glycerin) 2 Gm Supp 2 Gm RECTAL DAILY PRN Miralax Powder (Polyethylene Glycol 3350 Powder) 17 Gm Powd 17 Gm PO HS Mix and dissolve one measuring cap-ful (17 grams) in water or juice. Metamucil Original Texture (Psyllium Hydrophilic Mucilloid) 3.4 Gram/7 Gram Pow PO HS 1 rounded TEASPOONFUL in 8 oz of water Fluticasone Nasal [place] 50 Mcg/Act Naspr 2 [place] EACH NARE DAILY 50 mcg/spray Exjade (Deferasirox) 500 Mg Tab 1,000 Mg PO DAILY Dissolve 2 tablets (1,000mg) in 7 ounces of apple juice-wait 30 min before eating or taking other medication [Cranberry] 4,200 Mg PO DAILY Allergies: Coded Allergies: codeine (Verified Allergy, Severe, Hallucinations, 04/02/17) hydrocodone (Verified Allergy, Mild, Hallucinations, 04/02/17) Family History nc Social History no current etoh/tob Physical Exam Vital Signs heart reg lung diminished right base abd s/nt ext 2-3plus edema Vital Signs Date Time Temp Pulse Resp B/P (MAP) Pulse Ox O2 Delivery O2 Flow Rate FiO2 04/01/17 15:30 18 97 Room Air 04/01/17 15:30 97 Room Air 04/01/17 14:30 98.2 58 16 93/44 (60) 96 Room Air Laboratory Laboratory Tests Test 04/01/17 14:55 White Blood Count 3.9 Red Blood Count 2.85 Hemoglobin 7.8 Hematocrit 23.8 Mean Corpuscular Volume 83.5 Mean Corpuscular Hemoglobin 27.6 Mean Corpuscular Hemoglobin Concent 33.0 Red Cell Distribution Width 15.4 Platelet Count 192 Mean Platelet Volume 9.4 Neutrophils (%) (Auto) 61.3 Lymphocytes (%) (Auto) 20.9 Monocytes (%) (Auto) 17.1 Eosinophils (%) (Auto) 0.2 Basophils (%) (Auto) 0.5 Neutrophils # (Auto) 2.4 Lymphocytes # (Auto) 0.8 Monocytes # (Auto) 0.7 Eosinophils # (Auto) 0.0 Basophils # (Auto) 0.0 CBC Comment DIFF FINAL Differential Comment Prothrombin Time 13.5 Prothromb Time International Ratio 1.2 Activated Partial Thromboplast Time 38.7 Blood Urea Nitrogen 37 Creatinine 2.07 Random Glucose 101 Total Protein 6.2 Albumin 3.5 Calcium Level 8.4 Alkaline Phosphatase 44 Aspartate Amino Transf (AST/SGOT) 7 Alanine Aminotransferase (ALT/SGPT) 11 Total Bilirubin 1.1 Sodium Level 131 Potassium Level 4.1 Chloride Level 99 Carbon Dioxide Level 24.8 Anion Gap 7 Estimat Glomerular Filtration Rate 30 Total Creatine Kinase 22 Troponin I 0.11 B-Type Natriuretic Peptide 552 Result Diagram: 04/01/17145404/01/17 145 Caprini VTE Risk Assessment Caprini VTE Risk Assessment: Mod/High Risk (score >= 2) Caprini Risk Assessment Model Point Value = 1 Point Value = 2 Point Value = 3 Point Value = 5 Age 41-60 Minor surgery BMI > 25 kg/m2 Swollen legs Varicose veins or History of unexplained or recurrent spontaneous Oral contraceptives or hormone replacement Sepsis (< 1 month) Serious lung disease, including pneumonia (< 1 month) Abnormal pulmonary function Acute myocardial infarction Congestive heart failure (< 1 month) History of inflammatory bowel disease Medical patient at bed rest Age 61-74 Arthroscopic surgery Major open surgery (> 45 min) Laparoscopic surgery (> 45 min) Malignancy Confined to bed (> 72 hours) Immobilizing plaster cast Central venous access Age >= 75 History of VTE Family history of VTE Factor V Leiden Prothrombin [id number] Lupus anticoagulant Anticardiolipin antibodies Elevated serum homocysteine Heparin-induced thrombocytopenia Other congenital or acquired thrombophilia Stroke (< 1 month) Elective arthroplasty Hip, pelvis, or leg fracture Acute spinal cord injury (< 1 month) Prophylaxis Regimen Total Risk Factor Score Risk Level Prophylaxis Regimen 0-1 Low Early ambulation 2 Moderate Order ONE of the following: *Sequential Compression Device (SCD) *Heparin 5000 units SQ BID 3-4 Higher Order ONE of the following medications: *Heparin 5000 units SQ TID *Enoxaparin/Lovenox 40 mg SQ daily (WT < 150 kg, CrCl > 30 mL/min) *Enoxaparin/Lovenox 30 mg SQ daily (WT < 150 kg, CrCl > 10-29 mL/min) *Enoxaparin/Lovenox 30 mg SQ BID (WT < 150 kg, CrCl > 30 mL/min) AND/OR *Sequential Compression Device (SCD) 5 or more Highest Order ONE of the following medications: *Heparin 5000 units SQ TID (Preferred with Epidurals) *Enoxaparin/Lovenox 40 mg SQ daily (WT < 150 kg, CrCl > 30 mL/min) *Enoxaparin/Lovenox 30 mg SQ daily (WT < 150 kg, CrCl > 10-29 mL/min) *Enoxaparin/Lovenox 30 mg SQ BID (WT < 150 kg, CrCl > 30 mL/min) AND *Sequential Compression Device (SCD) Assessment and Plan Problem List: (1) Symptomatic anemia ICD Codes: D64.9 - Symptomatic anemia Status: Acute Plan: - Pt is an 86 y/o male with atrial fibrillation, myelodysplastic syndrome, recurrent symptomatic anemia and volume overload with preserved EF on echo noted EF 60-65% and no evidence of diastolic dysfunction. s/p 1.3L thoracentesis right lung. on recent admission -Pt was sent to ED on 04/01 by oncology for symptomatic anemia and again volume overload/weight gain of about 15-20pounds..with some sob again as well. 2 units blood ordered by ED cont diuresis iv/po as bp allows daily weight monitor bmp dvt prophylaxis PT elevate legs/..mikayla hose/scd (2) Volume overload ICD Codes: E87.70 - Fluid overload, unspecified Status: Acute (3) Myelodysplastic syndrome ICD Codes: D46.9 - Myelodysplastic syndrome Status: Chronic (4) Hypothyroidism ICD Codes: E03.9 - Hypothyroidism Status: Chronic Physician Certification 2 Midnight Certification Type: Admission for Inpatient Services Order for Inpatient Services 3The services are ordered in accordance with Medicare regulations or non- Medicare payer requirements, as applicable. In the case of services not specified as inpatient-only, they are appropriately provided as inpatient services in accordance with the 2-midnight benchmark. Estimated LOS (days): 3 3 days is the estimated time the patient will need to remain in the hospital, assuming treatment plan goals are met and no additional complications. Post-Hospital Plan: Home Clarke Cheng MD Apr 01, 2017 16:24
[2017-04-01] MEDS ORDERED: DEXTRAN EACH EYE PRN (16:30)
[2017-04-01] MEDS ORDERED: HYPROMELLOSE EACH EYE PRN (16:30)
[2017-04-01] MEDS ORDERED: ACETAMINOPHEN 325 MG TAB PO PRN (16:30)
[2017-04-01] MEDS ORDERED: METO1TAB42 PO (17:06)
[2017-04-01] MEDS ORDERED: LOPE2TAB21 PO (17:06)
[2017-04-01] MEDS ORDERED: FURO1TAB60 PO (17:06)
[2017-04-01] MEDS ORDERED: ACET650T67 PO (17:06)
[2017-04-01] MEDS: PANTOPRAZOLE SOD 20 MG DELAYED RELEASE TAB PO SCH (21:20)
[2017-04-01] MEDS: METOPROLOL TARTRATE 25 MG TAB PO SCH (21:20)
[2017-04-01] MEDS: POLYETHYLENE GLYCOL 17 GM PKG PO SCH (21:21)
[2017-04-01] MEDS: SODIUM CHLORIDE 0.9% FLUSH 10 ML FLUSH IVF PRN (21:22)
[2017-04-02] VITALS (10 sets, daily range): BP systolic 94–123; BP diastolic 50–66; PULSE 54–101; RESP 16–19; TEMP 98.1–99.4; O2SAT 92–96
[2017-04-02] MEDS: LEVOTHYROXINE SODIUM 75 MCG TAB PO SCH (05:00)
--- NOTE | 2017-04-02 05:17 | EKG ---
Date Performed: 04/01/2017 Time Performed: 15:10:11 PTAGE: 86 years EKG: SINUS BRADYCARDIA BORDERLINE ECG No significant change from prior electrocardiogram. PREVIOUS TRACING : 03/06/2017 16.43 DOCTOR: Damian Taylor Interpretating Date/Time 04/02/2017 05:16:37
[2017-04-02 06:30] LABS: AUTOMATED NEUTROPHIL # 1.8 TH/MM3 (1.8-7.7); BASOPHIL % 0.7 % (0.0-2.0); EOSINOPHIL % 0.4 % (0.0-4.0); HEMATOCRIT 23.9 % (39.0-51.0); HEMO FLAGS DIFF FINAL; LYMPHOCYTE # 0.8 TH/MM3 (1.0-4.8); MEAN CELL VOLUME 83.2 FL (80.0-100.0); MEAN CORPUSCULAR HEMOGLOBIN 28.6 PG (27.0-34.0); MEAN CORPUSCULAR HGB CONC 34.4 % (32.0-36.0); MONO % 17.3 % (0.0-8.0); NEUT % 55.6 % (16.0-70.0); PLATELET COUNT 177 TH/MM3 (150-450); RED BLOOD COUNT 2.87 MIL/MM3 (4.50-5.90); RED CELL DISTRIBUTION WIDTH 15.2 % (11.6-17.2); WHITE BLOOD COUNT 3.2 TH/MM3 (4.0-11.0)
[2017-04-02 06:59] LABS: BICARBONATE 28.6 MEQ/L (21.0-32.0); MAGNESIUM 2.2 MG/DL (1.5-2.5); POTASSIUM 3.7 MEQ/L (3.5-5.1)
[2017-04-02] MEDS ORDERED: FUROSEMIDE 20 MG/2 ML VIAL IV PUSH ONE (07:45)
[2017-04-02] MEDS: METOPROLOL TARTRATE 25 MG TAB PO SCH ×2 (08:10→20:49)
[2017-04-02] MEDS: PANTOPRAZOLE SOD 20 MG DELAYED RELEASE TAB PO SCH ×2 (08:10→20:49)
[2017-04-02] MEDS: AMIODARONE 200 MG TAB PO SCH (08:10)
[2017-04-02] MEDS: FLUTICASONE PROPIONATE 50 MCG/ACT 16 GM NASAL SPRAY EACH NARE SCH (09:00)
--- NOTE | 2017-04-02 09:27 | HHI.PR ---
Subjective Remarks doing a little better. Objective Vitals heart irreg lung course bs abd s/nt ext 3plus pitting. Vital Signs Date Time Temp Pulse Resp B/P (MAP) Pulse Ox O2 Delivery O2 Flow Rate FiO2 04/02/17 08:00 98.1 67 18 98/50 (66) 96 04/02/17 08:00 Room Air 04/02/17 04:05 62 04/02/17 04:00 Room Air 04/02/17 04:00 99.2 61 18 101/51 (68) 92 04/02/17 00:00 99.4 62 16 102/51 (68) 93 04/02/17 00:00 Room Air 04/01/17 23:45 57 04/01/17 21:28 99.6 62 12 112/55 95 04/01/17 21:26 99.6 62 12 112/55 95 04/01/17 20:00 99.3 63 16 118/56 (76) 97 04/01/17 20:00 Room Air 04/01/17 19:54 63 04/01/17 18:35 98.5 60 20 134/64 (87) 95 04/01/17 17:38 04/01/17 17:35 98.4 61 16 119/56 97 04/01/17 17:12 98.4 58 16 129/61 97 04/01/17 15:30 18 97 Room Air 04/01/17 15:30 97 Room Air 04/01/17 14:30 98.2 58 16 93/44 (60) 96 Room Air Result Diagram: 04/02/17 0615 04/02/17 0615 A/P Problem List: (1) Symptomatic anemia ICD Codes: D64.9 - Symptomatic anemia Status: Acute Plan: - Pt is an 86 y/o male with atrial fibrillation, myelodysplastic syndrome, recurrent symptomatic anemia and volume overload with preserved EF on echo noted EF 60-65% and no evidence of diastolic dysfunction. s/p 1.3L thoracentesis right lung. on recent admission -Pt was sent to ED on 04/01 by oncology for symptomatic anemia and again volume overload/weight gain of about 15-20pounds..with some sob again as well. -s/p 2 units prbc on 04/01 will continue diuresis as bp allows mikayla hose/scd's monitor renal function. PT (2) Volume overload ICD Codes: E87.70 - Fluid overload, unspecified Status: Acute (3) Myelodysplastic syndrome ICD Codes: D46.9 - Myelodysplastic syndrome Status: Chronic (4) Paroxysmal atrial fibrillation ICD Codes: I48.0 - Paroxysmal atrial fibrillation Status: Chronic Clarke Cheng MD Apr 02, 2017 09:27
[2017-04-02] MEDS: FUROSEMIDE 40 MG TAB PO SCH (18:00)
[2017-04-02] MEDS: POLYETHYLENE GLYCOL 17 GM PKG PO SCH (20:49)
[2017-04-02] MEDS: SODIUM CHLORIDE 0.9% FLUSH 10 ML FLUSH IVF PRN (20:49)
[2017-04-03] VITALS (9 sets, daily range): BP systolic 96–124; BP diastolic 53–62; PULSE 58–88; RESP 18–21; TEMP 98.1–98.5; O2SAT 92–99
[2017-04-03] MEDS: TEMAZEPAM 15 MG CAP PO PRN (01:05)
[2017-04-03] MEDS: LEVOTHYROXINE SODIUM 75 MCG TAB PO SCH (05:31)
[2017-04-03 06:14] LABS: BICARBONATE 29.8 MEQ/L (21.0-32.0); POTASSIUM 3.5 MEQ/L (3.5-5.1)
[2017-04-03] MEDS: METOPROLOL TARTRATE 25 MG TAB PO SCH ×2 (08:53→20:16)
[2017-04-03] MEDS: FUROSEMIDE 40 MG TAB PO SCH (08:53)
[2017-04-03] MEDS: PANTOPRAZOLE SOD 20 MG DELAYED RELEASE TAB PO SCH ×2 (08:53→20:15)
[2017-04-03] MEDS: AMIODARONE 200 MG TAB PO SCH (08:53)
[2017-04-03] MEDS: FLUTICASONE PROPIONATE 50 MCG/ACT 16 GM NASAL SPRAY EACH NARE SCH (09:00)
--- NOTE | 2017-04-03 10:12 | HHI.PR ---
Subjective Remarks still swollen. maybe a little better Objective Vitals heart reg lung course bs abd s/nt ext 2 plus pitting edema to above the knees Vital Signs Date Time Temp Pulse Resp B/P (MAP) Pulse Ox O2 Delivery O2 Flow Rate FiO2 04/03/17 08:16 98.5 65 18 109/54 (72) 92 04/03/17 04:49 98.4 59 18 96/53 (67) 93 04/03/17 04:00 59 04/03/17 00:00 78 04/03/17 00:00 Room Air 04/02/17 23:24 98.6 84 18 94/55 (68) 94 04/02/17 20:05 98.8 66 19 106/51 (69) 95 04/02/17 20:00 60 04/02/17 20:00 Room Air 04/02/17 16:00 98.1 101 18 123/66 (85) 95 04/02/17 12:30 54 04/02/17 12:00 98.6 93 18 113/59 (77) 92 Result Diagram: 04/02/17 0615 04/03/17 0530 A/P Problem List: (1) Symptomatic anemia ICD Codes: D64.9 - Symptomatic anemia Status: Acute Plan: - Pt is an 86 y/o male with atrial fibrillation, myelodysplastic syndrome, recurrent symptomatic anemia and volume overload with preserved EF on echo noted EF 60-65% and no evidence of diastolic dysfunction. s/p 1.3L thoracentesis right lung. on recent admission -Pt was sent to ED on 04/01 by oncology for symptomatic anemia and again volume overload/weight gain of about 15-20pounds..with some sob again as well. -s/p 2 units prbc on 04/01 cont diuresis cautiously given his lower bp. try iv this evening. monitor bmp replace kcl consider iv albumen if unable to get more volume off. hose and scd's ordered (2) Volume overload ICD Codes: E87.70 - Fluid overload, unspecified Status: Acute (3) Myelodysplastic syndrome ICD Codes: D46.9 - Myelodysplastic syndrome Status: Chronic (4) Paroxysmal atrial fibrillation ICD Codes: I48.0 - Paroxysmal atrial fibrillation Status: Chronic Clarke Cheng MD Apr 03, 2017 10:12
[2017-04-03] MEDS ORDERED: POTASSIUM CHLORIDE 20 MEQ CONTROLLED RELEASE TAB PO ONE (10:30)
[2017-04-03] MEDS: FUROSEMIDE 20 MG/2 ML VIAL IV PUSH SCH (18:09)
[2017-04-03] MEDS: POTASSIUM CHLORIDE 20 MEQ CONTROLLED RELEASE TAB PO SCH (20:16)
[2017-04-03] MEDS: POLYETHYLENE GLYCOL 17 GM PKG PO SCH (20:16)
[2017-04-04] VITALS (9 sets, daily range): BP systolic 93–131; BP diastolic 55–66; PULSE 51–86; RESP 18–20; TEMP 97.3–98.6; O2SAT 93–100
[2017-04-04] MEDS: LEVOTHYROXINE SODIUM 75 MCG TAB PO SCH (06:00)
[2017-04-04] MEDS: FUROSEMIDE 20 MG/2 ML VIAL IV PUSH SCH (09:00)
[2017-04-04] MEDS: FLUTICASONE PROPIONATE 50 MCG/ACT 16 GM NASAL SPRAY EACH NARE SCH (09:00)
[2017-04-04 09:06] LABS: BICARBONATE 26.8 MEQ/L (21.0-32.0); POTASSIUM 4.2 MEQ/L (3.5-5.1)
--- NOTE | 2017-04-04 09:20 | HHI.PR ---
Subjective Remarks abdomen distends after meals and gets sob. Objective Vitals haert reg lung course bs abd distended. bs ext 2 plus pitting to knees Vital Signs Date Time Temp Pulse Resp B/P (MAP) Pulse Ox O2 Delivery O2 Flow Rate FiO2 04/04/17 05:14 55 04/04/17 04:00 98.4 62 20 93/56 (68) 96 04/04/17 00:01 51 04/04/17 00:00 98.6 82 19 102/66 (78) 94 04/03/17 20:20 61 04/03/17 20:00 98.3 88 21 98/62 (74) 98 04/03/17 19:15 96 Nasal Cannula 2.50 04/03/17 16:11 98.3 58 19 124/60 (81) 99 04/03/17 12:26 98.1 63 18 115/55 (75) 97 Result Diagram: 04/02/17 0615 04/04/17 0815 A/P Problem List: (1) Symptomatic anemia ICD Codes: D64.9 - Symptomatic anemia Status: Acute Plan: - Pt is an 86 y/o male with atrial fibrillation, myelodysplastic syndrome, recurrent symptomatic anemia and volume overload with preserved EF on echo noted EF 60-65% and no evidence of diastolic dysfunction. s/p 1.3L thoracentesis right lung. on recent admission -Pt was sent to ED on 04/01 by oncology for symptomatic anemia and again volume overload/weight gain of about 15-20pounds..with some sob again as well. -s/p 2 units prbc on 04/01 diuresing as bp allows. not dropping the pounds as before. na trending down. cont po lasix cautiously. kub and then abd u/s as needed. (2) Volume overload ICD Codes: E87.70 - Fluid overload, unspecified Status: Acute (3) Myelodysplastic syndrome ICD Codes: D46.9 - Myelodysplastic syndrome Status: Chronic (4) Paroxysmal atrial fibrillation ICD Codes: I48.0 - Paroxysmal atrial fibrillation Status: Chronic Clarke Cheng MD Apr 04, 2017 09:20
[2017-04-04] MEDS: METOPROLOL TARTRATE 25 MG TAB PO SCH ×2 (09:26→20:08)
[2017-04-04] MEDS: PANTOPRAZOLE SOD 20 MG DELAYED RELEASE TAB PO SCH ×2 (09:26→20:08)
[2017-04-04] MEDS: POTASSIUM CHLORIDE 20 MEQ CONTROLLED RELEASE TAB PO SCH ×2 (09:26→20:09)
[2017-04-04] MEDS: AMIODARONE 200 MG TAB PO SCH (09:27)
--- NOTE | 2017-04-04 10:44 | RADRPT ---
EXAM DATE/TIME: 04/04/2017 10:09 [facility] COMPARISON: CHEST SINGLE AP, April 01, 2017, 15:14. INDICATIONS : Abdominal pain and distention. MEDICAL HISTORY : Congestive heart failure. Gastroesophageal reflux disease. Hypertension. bladder and prostate ca, A-f ib SURGICAL HISTORY : Tonsillectomy. infusaport, cardiac cath, right thoracentesis. ENCOUNTER: Subsequent ACUITY: 1 day PAIN SCORE: 1/10 LOCATION: abdomen FINDINGS: There is an unusual triangular shaped lucency seen over the visualized lowermost chest and right uppe r quadrant of the abdomen which is of undetermined origin. This may be related to orientation of the soft tissues of the body wall. Thin linear lucencies in a more medial location roughly correlating wi th the liver dome and diaphragm level are also noted. I cannot entirely exclude pneumoperitoneum and or pneumothorax or retroperitoneal air. Further evaluation with CT examination would be suggested. El sewhere, the bowel structures appear grossly nondilated. There are fiducials noted of the prostate be d. Degenerative changes are present in the spine and hips. Consolidative changes in the right lung ba se and effusion is present. CONCLUSION: Abnormal KUB appearance. Further evaluation with CT examination of the abdomen suggested Dino Davis MD on April 04, 2017 at 10:35 Board Certified Radiologist. This report was verified electronically.
[2017-04-04] MEDS ORDERED: DIATRIZOATE MEGLUM/DIATRIZOATE SOD 9 ML CUP PO ONE (11:15)
--- NOTE | 2017-04-04 16:44 | RADRPT ---
EXAM DATE/TIME: 04/04/2017 15:05 [facility] COMPARISON: CT ABDOMEN & PELVIS W/O CONTRAST, February 19, 2017, 8:33. INDICATIONS : Abdominal pain ORAL CONTRAST: Partial prescribed oral contrast ingested. RADIATION DOSE: 7.85 CTDIvol (mGy) MEDICAL HISTORY : Cardiovascular disease. Congestive heart failure. Hypertension.Afib, GERD, prostate ca, ca bladder, r ad therapy SURGICAL HISTORY : None. ENCOUNTER: Initial ACUITY: 2 days PAIN SCALE: 7/10 LOCATION: Bilateral middle abdomen TECHNIQUE: Volumetric scanning of the abdomen and pelvis was performed. Using automated exposure control and ad justment of the mA and/or kV according to patient size, radiation dose was kept as low as reasonably achievable to obtain optimal diagnostic quality images. DICOM format image data is available electro nically for review and comparison. FINDINGS: Consolidation changes in the right lung base with air bronchograms with moderate right pleural effus ion. Small left pleural effusion is evident. Liver, spleen, pancreas are unremarkable. Prominent g allbladder Low-density 2 cm left adrenal mass Normal right adrenal 1 cm high density cyst right kidney Left kidney unremarkable Trace ascites is evident There is no free air In the pelvis trace ascites is present. Prostate seeds are evident. Review of bone windows reveals degenerative changes in the lumbar spine with an old right pubic ramus fracture. CONCLUSION: 1. Consolidative changes left lower lobe with moderate left pleural effusion 2. Trace ascites 3. Negative for free air or obstruction 4. Prominent gallbladder Shiv Cat MD FACR on April 04, 2017 at 16:39 Board Certified Radiologist. This report was verified electronically.
[2017-04-04] MEDS: FUROSEMIDE 40 MG TAB PO SCH (17:17)
[2017-04-04] MEDS: POLYETHYLENE GLYCOL 17 GM PKG PO SCH (20:09)
[2017-04-04] MEDS: TEMAZEPAM 15 MG CAP PO PRN (22:15)
[2017-04-05] VITALS (7 sets, daily range): BP systolic 106–134; BP diastolic 56–85; PULSE 50–63; RESP 18–22; TEMP 98–98.3; O2SAT 95–100
[2017-04-05] MEDS: LEVOTHYROXINE SODIUM 75 MCG TAB PO SCH (05:28)
[2017-04-05 06:38] LABS: BICARBONATE 27.8 MEQ/L (21.0-32.0); POTASSIUM 4.3 MEQ/L (3.5-5.1)
[2017-04-05] MEDS: FLUTICASONE PROPIONATE 50 MCG/ACT 16 GM NASAL SPRAY EACH NARE SCH (09:00)
[2017-04-05] MEDS: PANTOPRAZOLE SOD 20 MG DELAYED RELEASE TAB PO SCH ×2 (09:50→22:27)
[2017-04-05] MEDS: AMIODARONE 200 MG TAB PO SCH (09:50)
[2017-04-05] MEDS: POTASSIUM CHLORIDE 20 MEQ CONTROLLED RELEASE TAB PO SCH ×2 (09:50→22:27)
[2017-04-05] MEDS: FUROSEMIDE 40 MG TAB PO SCH (09:50)
[2017-04-05] MEDS: METOPROLOL TARTRATE 25 MG TAB PO SCH ×2 (09:51→22:27)
--- NOTE | 2017-04-05 15:01 | HHI.PR ---
Subjective Remarks No new complaints. No chest pain. No palpitations. Pt denies fever, chills, sweats, or cough. No dysuria. Objective Vitals Vital Signs Date Time Temp Pulse Resp B/P (MAP) Pulse Ox O2 Delivery O2 Flow Rate FiO2 04/05/17 12:00 98.2 59 20 129/85 (100) 96 04/05/17 08:00 98.3 60 20 134/62 (86) 98 04/05/17 04:00 Nasal Cannula 2.00 04/05/17 04:00 98.0 58 20 119/58 (78) 95 04/05/17 00:00 98.2 54 22 117/57 (77) 98 04/05/17 00:00 Nasal Cannula 2.00 04/04/17 20:00 Nasal Cannula 2.00 04/04/17 20:00 54 04/04/17 20:00 97.6 60 20 131/59 (83) 100 04/04/17 17:04 57 04/04/17 16:00 98.3 86 18 116/56 (76) 98 Result Diagram: 04/02/17 0615 04/05/17 0534 Imaging Last Impressions Abdomen/Pelvis CT 04/04/17 0000 Signed Impressions: Service Date/Time: Tuesday, April 04, 2017 15:05 - CONCLUSION: 1. Consolidative changes left lower lobe with moderate left pleural effusion 2. Trace ascites 3. Negative for free air or obstruction 4. Prominent gallbladder Shiv Cat MD FACR Abdomen X-Ray 04/04/17 0000 Signed Impressions: Service Date/Time: Tuesday, April 04, 2017 10:09 - CONCLUSION: Abnormal KUB appearance. Further evaluation with CT examination of the abdomen suggested Dino Davis MD Chest X-Ray 04/01/17 1445 Signed Impressions: Service Date/Time: Saturday, April 01, 2017 15:14 - CONCLUSION: 1. Right basilar consolidation/effusion. 2. Prominent heart with mild interstitial prominence possibly representing some degree of vascular congestion or volume overload Carlos Boyd MD Objective Remarks GENERAL: This is a well-nourished, well-developed patient, in no apparent distress. CARDIOVASCULAR: Regular rate and rhythm without murmurs, gallops, or rubs. RESPIRATORY: Clear to auscultation. Breath sounds equal bilaterally. No wheezes , rales, or rhonchi. GASTROINTESTINAL: Abdomen soft, non-tender, nondistended. Normal active bowel sounds MUSCULOSKELETAL: Extremities without clubbing, cyanosis, or edema. NEURO: Alert & Oriented x4 to person, place, time, situation. Moves all ext x4 A/P Problem List: (1) Symptomatic anemia ICD Codes: D64.9 - Symptomatic anemia Status: Acute Plan: - Pt is an 86 y/o male with atrial fibrillation, myelodysplastic syndrome, recurrent symptomatic anemia and volume overload with preserved EF on echo noted EF 60-65% and no evidence of diastolic dysfunction. s/p 1.3L thoracentesis right lung. on recent admission -Pt was sent to ED on 04/01 by oncology for symptomatic anemia and again volume overload/weight gain of about 15-20pounds..with some sob again as well. - s/p 2 PRBC transfusion - weight gain, increased oxygen requirements - change lasix to IV/PO KCL - DVT prophylaxis - elevate legs/..mikayla hose/scd - anticipate d/c to home in next 2-3 days (2) Volume overload ICD Codes: E87.70 - Fluid overload, unspecified Status: Acute Plan: - see above (3) Myelodysplastic syndrome ICD Codes: D46.9 - Myelodysplastic syndrome Status: Chronic Plan: - see above (4) Hypothyroidism ICD Codes: E03.9 - Hypothyroidism Status: Chronic Plan: - levothyroxine Kevin Gill DO Apr 05, 2017 15:01
[2017-04-05] MEDS: FUROSEMIDE 40 MG/4 ML VIAL IV PUSH SCH (16:20)
[2017-04-05] MEDS: POLYETHYLENE GLYCOL 17 GM PKG PO SCH (22:27)
[2017-04-06] VITALS (12 sets, daily range): BP systolic 97–138; BP diastolic 51–74; PULSE 48–90; RESP 16–20; TEMP 97.5–98.2; O2SAT 94–100
[2017-04-06] MEDS: TEMAZEPAM 15 MG CAP PO PRN (00:52)
[2017-04-06] MEDS: LEVOTHYROXINE SODIUM 75 MCG TAB PO SCH (06:28)
[2017-04-06 08:05] LABS: AUTOMATED NEUTROPHIL # 1.7 TH/MM3 (1.8-7.7); BASOPHIL % 0.3 % (0.0-2.0); EOSINOPHIL % 0.2 % (0.0-4.0); HEMATOCRIT 22.6 % (39.0-51.0); HEMO FLAGS DIFF FINAL; LYMPH % 30.2 % (9.0-44.0); LYMPHOCYTE # 0.9 TH/MM3 (1.0-4.8); MEAN CELL VOLUME 82.5 FL (80.0-100.0); MEAN CORPUSCULAR HEMOGLOBIN 28.7 PG (27.0-34.0); MEAN CORPUSCULAR HGB CONC 34.7 % (32.0-36.0); MONO % 11.8 % (0.0-8.0); NEUT % 57.5 % (16.0-70.0); PLATELET COUNT 136 TH/MM3 (150-450); RED BLOOD COUNT 2.74 MIL/MM3 (4.50-5.90); RED CELL DISTRIBUTION WIDTH 15.4 % (11.6-17.2)
[2017-04-06 08:30] LABS: BICARBONATE 29.6 MEQ/L (21.0-32.0); POTASSIUM 4.2 MEQ/L (3.5-5.1)
[2017-04-06] MEDS: PANTOPRAZOLE SOD 20 MG DELAYED RELEASE TAB PO SCH ×2 (08:42→20:59)
[2017-04-06] MEDS: POTASSIUM CHLORIDE 20 MEQ CONTROLLED RELEASE TAB PO SCH ×2 (08:42→20:59)
[2017-04-06] MEDS: AMIODARONE 200 MG TAB PO SCH (08:42)
[2017-04-06] MEDS: METOPROLOL TARTRATE 25 MG TAB PO SCH ×2 (08:42→20:59)
[2017-04-06] MEDS: FUROSEMIDE 40 MG/4 ML VIAL IV PUSH SCH ×2 (08:43→18:24)
[2017-04-06] MEDS: DEFERASIROX PO SCH (08:44)
[2017-04-06] MEDS: FLUTICASONE PROPIONATE 50 MCG/ACT 16 GM NASAL SPRAY EACH NARE SCH (09:36)
[2017-04-06] MEDS ORDERED: SODIUM CHLOR 0.9% 250 ML INJ 250 ML IV ONE (13:00)
[2017-04-06] MEDS ORDERED: FUROSEMIDE 20 MG/2 ML VIAL IV PUSH ONE (13:30)
[2017-04-06] MEDS: POLYETHYLENE GLYCOL 17 GM PKG PO SCH (21:00)
[2017-04-07] VITALS (12 sets, daily range): BP systolic 118–155; BP diastolic 53–73; PULSE 50–88; RESP 16–20; TEMP 97.3–98.6; O2SAT 92–98
[2017-04-07] MEDS: LEVOTHYROXINE SODIUM 75 MCG TAB PO SCH (05:30)
[2017-04-07 06:07] LABS: AUTOMATED NEUTROPHIL # 2.3 TH/MM3 (1.8-7.7); BASOPHIL % 0.7 % (0.0-2.0); EOSINOPHIL % 0.4 % (0.0-4.0); HEMATOCRIT 29.8 % (39.0-51.0); LYMPH % 30.8 % (9.0-44.0); LYMPHOCYTE # 1.2 TH/MM3 (1.0-4.8); MEAN CELL VOLUME 82.4 FL (80.0-100.0); MEAN CORPUSCULAR HEMOGLOBIN 28.4 PG (27.0-34.0); MEAN CORPUSCULAR HGB CONC 34.5 % (32.0-36.0); MONO % 9.3 % (0.0-8.0); NEUT % 58.8 % (16.0-70.0); PLATELET COUNT 139 TH/MM3 (150-450); RED BLOOD COUNT 3.61 MIL/MM3 (4.50-5.90); WHITE BLOOD COUNT 3.9 TH/MM3 (4.0-11.0)
[2017-04-07 06:09] LABS: HEMO FLAGS AUTO DIFF
[2017-04-07 06:27] LABS: BICARBONATE 31.3 MEQ/L (21.0-32.0); MAGNESIUM 2.1 MG/DL (1.5-2.5)
[2017-04-07 07:04] LABS: BANDS 11 % (0-6); CORRECTED NUCLEATED RBC 1 /100 WBC (0-0); EOSINOPHILS 1 % (0-4); NEUTROPHIL # MANUAL DIFF 2.8 TH/MM3 (1.8-7.7); PLATELET ESTIMATE SMEAR LOW (NORMAL); PLATELET MORPHOLOGY NORMAL (NORMAL); POLYS (SEG NEUTROPHILS) 61 % (16-70); SCAN/DIFF FINAL DIFF MANUAL; WBC DIFF SAMPLE 100
[2017-04-07 07:05] LABS: ACANTHOCYTES OCC (NORMAL)
[2017-04-07] MEDS: DEFERASIROX PO SCH (07:42)
[2017-04-07] MEDS: PANTOPRAZOLE SOD 20 MG DELAYED RELEASE TAB PO SCH ×2 (07:44→21:34)
[2017-04-07] MEDS: AMIODARONE 200 MG TAB PO SCH (07:44)
[2017-04-07] MEDS: FUROSEMIDE 40 MG/4 ML VIAL IV PUSH SCH ×2 (07:44→17:35)
[2017-04-07] MEDS: FLUTICASONE PROPIONATE 50 MCG/ACT 16 GM NASAL SPRAY EACH NARE SCH (07:44)
[2017-04-07] MEDS: POTASSIUM CHLORIDE 20 MEQ CONTROLLED RELEASE TAB PO SCH ×2 (07:44→21:34)
[2017-04-07] MEDS: METOPROLOL TARTRATE 25 MG TAB PO SCH ×2 (07:44→21:33)
--- NOTE | 2017-04-07 15:24 | RADRPT ---
EXAM DATE/TIME: 04/07/2017 15:03 [facility] COMPARISON: CHEST SINGLE AP, April 01, 2017, 15:14. CHEST EXPIRATION ONLY, March 07, 2017, 11:23. INDICATIONS : Post right side thoracentesis. MEDICAL HISTORY : Congestive heart failure. Gastroesophageal reflux disease. Hypertension. bladder and prostate ca, A-f ib. SURGICAL HISTORY : Tonsillectomy. infusaport, cardiac cath, right thoracentesis. ENCOUNTER: Initial ACUITY: 1 day PAIN SCORE: 0/10 LOCATION: Right chest FINDINGS: A single frontal expiratory view of the chest was performed. Previous right-sided effusion shows pat ed interval improvement post thoracentesis. No pneumothorax. Heart size is prominent. Bibasilar atele ctatic changes. Left IJ [id number] catheter with the tip projecting over the central venous system . Osseous structures are intact. CONCLUSION: 1. Marked improvement in the right-sided pleural effusion seen previously. No pneumothorax post thora centesis. 2. Cardiomegaly with bibasilar atelectatic changes. No overt failure. 3. Stable position of left IJ Uifwha-i-Cmir catheter with the tip projecting over the central venous system. Carlos Boyd MD on April 07, 2017 at 15:17 Board Certified Radiologist. This report was verified electronically.
--- NOTE | 2017-04-07 15:39 | HHI.PR ---
Subjective Remarks Less SOB today. Objective Vitals Vital Signs Date Time Temp Pulse Resp B/P (MAP) Pulse Ox O2 Delivery O2 Flow Rate FiO2 04/07/17 15:20 98.3 71 18 125/71 (89) 92 04/07/17 14:08 97.7 56 20 138/65 (89) 95 04/07/17 12:00 53 04/07/17 12:00 98.4 53 20 138/64 (88) 95 04/07/17 08:00 97.6 52 20 155/70 (98) 98 04/07/17 08:00 61 04/07/17 04:00 Room Air 04/07/17 04:00 97.8 53 19 125/58 (80) 93 04/07/17 03:43 51 04/07/17 01:05 97.7 54 16 134/62 93 04/07/17 00:50 97.3 53 16 133/63 93 04/07/17 00:00 Room Air 04/07/17 00:00 97.6 50 19 118/53 (74) 93 04/06/17 23:56 55 04/06/17 22:27 97.6 48 20 132/63 100 04/06/17 22:12 97.5 73 17 114/55 96 04/06/17 21:23 97.9 78 16 119/56 95 04/06/17 20:00 Room Air 04/06/17 20:00 97.6 89 20 107/55 (72) 96 04/06/17 19:59 75 04/06/17 18:46 97.6 90 18 128/58 94 04/06/17 16:00 61 04/06/17 16:00 98.2 57 20 138/60 (86) 99 04/07/17 04/07/17 04/08/17 15:00 23:00 07:00 Intake Total 620 ml Output Total 250 ml Balance 370 ml Intake Oral 620 ml Output Urine Total 250 ml # Voids 3 # Bowel Movements 1 Result Diagram: 04/07/17 0555 04/07/17 0555 Imaging Last Impressions Abdomen/Pelvis CT 04/04/17 0000 Signed Impressions: Service Date/Time: Tuesday, April 04, 2017 15:05 - CONCLUSION: 1. Consolidative changes left lower lobe with moderate left pleural effusion 2. Trace ascites 3. Negative for free air or obstruction 4. Prominent gallbladder Shiv Cat MD FACR Abdomen X-Ray 04/04/17 0000 Signed Impressions: Service Date/Time: Tuesday, April 04, 2017 10:09 - CONCLUSION: Abnormal KUB appearance. Further evaluation with CT examination of the abdomen suggested Dino Davis MD Chest X-Ray 04/01/17 1445 Signed Impressions: Service Date/Time: Saturday, April 01, 2017 15:14 - CONCLUSION: 1. Right basilar consolidation/effusion. 2. Prominent heart with mild interstitial prominence possibly representing some degree of vascular congestion or volume overload Carlos Boyd MD Objective Remarks GENERAL: This is a well-nourished, well-developed patient, in no apparent distress. CARDIOVASCULAR: Regular rate and rhythm without murmurs, gallops, or rubs. RESPIRATORY: Clear to auscultation. Breath sounds equal bilaterally. No wheezes , rales, or rhonchi. GASTROINTESTINAL: Abdomen soft, non-tender, nondistended. Normal active bowel sounds MUSCULOSKELETAL: Extremities without clubbing, cyanosis, or edema. NEURO: Alert & Oriented x4 to person, place, time, situation. Moves all ext x4 A/P Problem List: (1) Symptomatic anemia ICD Codes: D64.9 - Symptomatic anemia Status: Acute Plan: - Pt is an 86 y/o male with atrial fibrillation, myelodysplastic syndrome, recurrent symptomatic anemia and volume overload with preserved EF on echo noted EF 60-65% and no evidence of diastolic dysfunction. s/p 1.3L thoracentesis right lung. on recent admission -Pt was sent to ED on 04/01 by oncology for symptomatic anemia and again volume overload/weight gain of about 15-20pounds..with some sob again as well. - s/p 1 PRBC transfusion - repeat transfusion 2 units PRBCs (04/06/17) - Hg 7.8 (04/01), 7.8 (04/06), 10.3 (04/07) - weight gain, increased oxygen requirements - change lasix to IV/PO KCL - Pt underwent right thoracentesis (04/07/17) with removal of 1,600ml fluid - DVT prophylaxis - elevate legs/..mikayla hose/scd - repeat labs in AM - anticipate d/c to home in next 2-3 days (2) Volume overload ICD Codes: E87.70 - Fluid overload, unspecified Status: Acute Plan: - see above (3) Myelodysplastic syndrome ICD Codes: D46.9 - Myelodysplastic syndrome Status: Chronic Plan: - see above (4) Hypothyroidism ICD Codes: E03.9 - Hypothyroidism Status: Chronic Plan: - levothyroxine Kevin Gill DO Apr 07, 2017 15:39
--- NOTE | 2017-04-07 15:45 | HHI.PR ---
Subjective Remarks LATE ENTRY NOTE FROM 04/06 FAILED TO SAVE IN [employer]. Pt less SOB since starting IV lasix Objective Vitals Vital Signs Date Time Temp Pulse Resp B/P (MAP) Pulse Ox O2 Delivery O2 Flow Rate FiO2 04/07/17 15:20 98.3 71 18 125/71 (89) 92 04/07/17 14:08 97.7 56 20 138/65 (89) 95 04/07/17 12:00 53 04/07/17 12:00 98.4 53 20 138/64 (88) 95 04/07/17 08:00 97.6 52 20 155/70 (98) 98 04/07/17 08:00 61 04/07/17 04:00 Room Air 04/07/17 04:00 97.8 53 19 125/58 (80) 93 04/07/17 03:43 51 04/07/17 01:05 97.7 54 16 134/62 93 04/07/17 00:50 97.3 53 16 133/63 93 04/07/17 00:00 Room Air 04/07/17 00:00 97.6 50 19 118/53 (74) 93 04/06/17 23:56 55 04/06/17 22:27 97.6 48 20 132/63 100 04/06/17 22:12 97.5 73 17 114/55 96 04/06/17 21:23 97.9 78 16 119/56 95 04/06/17 20:00 Room Air 04/06/17 20:00 97.6 89 20 107/55 (72) 96 04/06/17 19:59 75 04/06/17 18:46 97.6 90 18 128/58 94 04/06/17 16:00 61 04/06/17 16:00 98.2 57 20 138/60 (86) 99 04/07/17 04/07/17 04/08/17 15:00 23:00 07:00 Intake Total 620 ml Output Total 250 ml Balance 370 ml Intake Oral 620 ml Output Urine Total 250 ml # Voids 3 # Bowel Movements 1 Result Diagram: 04/07/17 0555 04/07/17 0555 Imaging Last Impressions Abdomen/Pelvis CT 04/04/17 0000 Signed Impressions: Service Date/Time: Tuesday, April 04, 2017 15:05 - CONCLUSION: 1. Consolidative changes left lower lobe with moderate left pleural effusion 2. Trace ascites 3. Negative for free air or obstruction 4. Prominent gallbladder Shiv Cat MD FACR Abdomen X-Ray 04/04/17 0000 Signed Impressions: Service Date/Time: Tuesday, April 04, 2017 10:09 - CONCLUSION: Abnormal KUB appearance. Further evaluation with CT examination of the abdomen suggested Dino Davis MD Chest X-Ray 04/01/17 1445 Signed Impressions: Service Date/Time: Saturday, April 01, 2017 15:14 - CONCLUSION: 1. Right basilar consolidation/effusion. 2. Prominent heart with mild interstitial prominence possibly representing some degree of vascular congestion or volume overload Carlos Boyd MD Objective Remarks GENERAL: This is a well-nourished, well-developed patient, in no apparent distress. CARDIOVASCULAR: Regular rate and rhythm without murmurs, gallops, or rubs. RESPIRATORY: Clear to auscultation. Breath sounds equal bilaterally. No wheezes , rales, or rhonchi. GASTROINTESTINAL: Abdomen soft, non-tender, nondistended. Normal active bowel sounds MUSCULOSKELETAL: Extremities without clubbing, cyanosis, or edema. NEURO: Alert & Oriented x4 to person, place, time, situation. Moves all ext x4 A/P Problem List: (1) Symptomatic anemia ICD Codes: D64.9 - Symptomatic anemia Status: Acute Plan: - Pt is an 86 y/o male with atrial fibrillation, myelodysplastic syndrome, recurrent symptomatic anemia and volume overload with preserved EF on echo noted EF 60-65% and no evidence of diastolic dysfunction. s/p 1.3L thoracentesis right lung. on recent admission -Pt was sent to ED on 04/01 by oncology for symptomatic anemia and again volume overload/weight gain of about 15-20pounds..with some sob again as well. - s/p 1 PRBC transfusion - will need additional 2 units PRBCs - Hg 7.8 (04/01), 7.8 (04/06) - weight gain, increased oxygen requirements - change lasix to IV/PO KCL - Pt will require thoracentesis - DVT prophylaxis - elevate legs/..mikayla hose/scd - repeat labs in AM - anticipate d/c to home in next 2-3 days (2) Volume overload ICD Codes: E87.70 - Fluid overload, unspecified Status: Acute Plan: - see above (3) Myelodysplastic syndrome ICD Codes: D46.9 - Myelodysplastic syndrome Status: Chronic Plan: - see above (4) Hypothyroidism ICD Codes: E03.9 - Hypothyroidism Status: Chronic Plan: - levothyroxine Kevin Gill DO Apr 07, 2017 15:45
--- NOTE | 2017-04-07 16:36 | RADRPT ---
EXAM DATE/TIME: 04/07/2017 13:56 [facility] COMPARISON: US GUIDED THORACENTESIS RIGHT, March 07, 2017, 10:05. INDICATIONS : Right pleural effusion. MEDICAL HISTORY : Gastroesophageal reflux disease. Congestive heart failure. Bladder and prostate cancer. Radiation t herapy. Atrial fibrillation. SURGICAL HISTORY : Tonsillectomy. Cardiac catheterization. Port placement, left chest. Right thoracentesis. ENCOUNTER: Subsequent ACUITY: 1 month PAIN SCORE: 0/10 LOCATION: Right chest FLUID: Total volume of 1,600 cc of clear, yellow fluid was removed. Fluid was sent to lab for ordered studies. TECHNIQUE: 1. Ultrasound guidance for thoracentesis. 2. Thoracentesis. The risks, benefits, and alternatives to ultrasound guided thoracentesis were explained to the patien t in lay simple terms, including the risk of bleeding and infection. Written and verbal informed con sent was obtained. Appropriate area for thoracentesis was marked under ultrasound guidance with the patient in the uprig ht position. Overlying skin was prepped and draped in the usual sterile fashion and with local anest hetic, a dermatotomy was made with an 11 blade scalpel. A 6 [place] thoracentesis catheter was placed in the pleural space and fluid was removed. Catheter was then removed and a sterile dressing applie d. There were no immediate complications. The patient tolerated the procedure well and the left the ultrasound suite in stable condition. Chest radiograph is to be obtained. CONCLUSION: Uncomplicated ultrasound guided thoracentesis. Carlos Boyd MD on April 07, 2017 at 16:34 Board Certified Radiologist. This report was verified electronically.
[2017-04-07 17:17] LABS: TOTAL PROTEIN,PLEURAL FLUID 3.3 GM/DL
[2017-04-07 18:26] LABS: PLEURAL FLUID LYMPHS 78 %
[2017-04-07] MEDS: POLYETHYLENE GLYCOL 17 GM PKG PO SCH (21:00)
[2017-04-08] VITALS (8 sets, daily range): BP systolic 109–148; BP diastolic 55–69; PULSE 46–90; RESP 16–20; TEMP 97.5–98.2; O2SAT 94–97
[2017-04-08] MEDS: LEVOTHYROXINE SODIUM 75 MCG TAB PO SCH (05:48)
[2017-04-08] MEDS: POTASSIUM CHLORIDE 20 MEQ CONTROLLED RELEASE TAB PO SCH ×2 (08:01→20:58)
[2017-04-08] MEDS: PANTOPRAZOLE SOD 20 MG DELAYED RELEASE TAB PO SCH ×2 (08:02→20:58)
[2017-04-08] MEDS: FUROSEMIDE 40 MG/4 ML VIAL IV PUSH SCH (08:02)
[2017-04-08] MEDS: DEFERASIROX PO SCH (08:02)
[2017-04-08] MEDS: AMIODARONE 200 MG TAB PO SCH (08:02)
[2017-04-08] MEDS: METOPROLOL TARTRATE 25 MG TAB PO SCH ×2 (08:03→20:59)
[2017-04-08] MEDS: FLUTICASONE PROPIONATE 50 MCG/ACT 16 GM NASAL SPRAY EACH NARE SCH (08:03)
--- NOTE | 2017-04-08 14:38 | HHI.PR ---
Subjective Remarks Pt feeling much better from admission. Pt ambulating in the room Objective Vitals Vital Signs Date Time Temp Pulse Resp B/P (MAP) Pulse Ox O2 Delivery O2 Flow Rate FiO2 04/08/17 12:00 97.7 49 20 133/69 (90) 96 04/08/17 12:00 96 Room Air 04/08/17 08:00 98.2 51 20 135/63 (87) 97 04/08/17 08:00 98.2 51 20 135/63 (87) 97 04/08/17 08:00 97 Room Air 04/08/17 07:58 49 04/08/17 04:00 48 04/08/17 04:00 97.5 51 16 148/65 (92) 95 04/08/17 00:00 46 04/08/17 00:00 97.5 50 18 109/55 (73) 94 04/07/17 20:00 Nasal Cannula 2.00 04/07/17 20:00 98.6 88 18 132/73 (92) 96 04/07/17 20:00 83 04/07/17 16:00 84 04/07/17 16:00 98.0 53 20 154/73 (100) 98 04/07/17 15:35 74 19 124/72 (89) 98 04/07/17 15:20 98.3 71 18 125/71 (89) 92 Result Diagram: 04/07/17 0555 04/07/17 0555 Imaging Last Impressions Abdomen/Pelvis CT 04/04/17 0000 Signed Impressions: Service Date/Time: Tuesday, April 04, 2017 15:05 - CONCLUSION: 1. Consolidative changes left lower lobe with moderate left pleural effusion 2. Trace ascites 3. Negative for free air or obstruction 4. Prominent gallbladder Shiv Cat MD FACR Abdomen X-Ray 04/04/17 0000 Signed Impressions: Service Date/Time: Tuesday, April 04, 2017 10:09 - CONCLUSION: Abnormal KUB appearance. Further evaluation with CT examination of the abdomen suggested Dino Davis MD Chest X-Ray 04/01/17 1445 Signed Impressions: Service Date/Time: Saturday, April 01, 2017 15:14 - CONCLUSION: 1. Right basilar consolidation/effusion. 2. Prominent heart with mild interstitial prominence possibly representing some degree of vascular congestion or volume overload Carlos Boyd MD Objective Remarks GENERAL: This is a well-nourished, well-developed patient, in no apparent distress. CARDIOVASCULAR: Regular rate and rhythm without murmurs, gallops, or rubs. RESPIRATORY: Clear to auscultation. Breath sounds equal bilaterally. No wheezes , rales, or rhonchi. GASTROINTESTINAL: Abdomen soft, non-tender, nondistended. Normal active bowel sounds MUSCULOSKELETAL: Extremities without clubbing, cyanosis, or edema. NEURO: Alert & Oriented x4 to person, place, time, situation. Moves all ext x4 A/P Problem List: (1) Symptomatic anemia ICD Codes: D64.9 - Symptomatic anemia Status: Acute Plan: - Pt is an 86 y/o male with atrial fibrillation, myelodysplastic syndrome, recurrent symptomatic anemia and volume overload with preserved EF on echo noted EF 60-65% and no evidence of diastolic dysfunction. s/p 1.3L thoracentesis right lung. on recent admission -Pt was sent to ED on 04/01 by oncology for symptomatic anemia and again volume overload/weight gain of about 15-20pounds..with some sob again as well. - s/p 1 PRBC transfusion - additional 2 units PRBCs - Hg 7.8 (04/01), 7.8 (04/06), 10.3 (04/07) - s/p thoracentesis (04/07) with removal of 1.6 liters - change lasix back to PO/KCL - DVT prophylaxis - elevate legs/..mikayla hose/scd - repeat labs in AM - anticipate d/c to home 04/09 with C (2) Volume overload ICD Codes: E87.70 - Fluid overload, unspecified Status: Acute Plan: - see above (3) Myelodysplastic syndrome ICD Codes: D46.9 - Myelodysplastic syndrome Status: Chronic Plan: - see above (4) Hypothyroidism ICD Codes: E03.9 - Hypothyroidism Status: Chronic Plan: - levothyroxine Kevin Gill DO Apr 08, 2017 14:38
--- NOTE | 2017-04-08 14:44 | HHI.FF ---
Face to Face Verification Diagnosis: (1) Volume overload (2) Myelodysplastic syndrome (3) Anemia Physical Therapy Order: Evaluate and Treat, Improve ambulation, Strength and gait training Home Health Nursing Order: Medical education Signs/symptoms of disease process CHF education Medication education-adverse effect Nursing assessment with vital signs I have seen patient Lamine Peck on 04/08/17. My clinical findings support the need for the requested home health care services because: Patient has SOB Deconditioned w/ increased weakness Med compliance is questionable Limited ability to care for self Need for psychosocial assistance I certify that my clinical findings support that this patient is homebound because: Impaired cognitive ability/safety Unsafe to leave home unassisted Need for psychosocial assistance Unable to use public transportation Kevin Gill DO Apr 08, 2017 14:44
--- NOTE | 2017-04-08 15:54 | RADRPT ---
EXAM DATE/TIME: 04/08/2017 15:15 [facility] COMPARISON: CHEST EXPIRATION ONLY, April 07, 2017, 15:03. CHEST SINGLE AP, April 01, 2017, 15:14. INDICATIONS : Shortness of breath. MEDICAL HISTORY : Congestive heart failure. Gastroesophageal reflux disease. Hypertension. SURGICAL HISTORY : Tonsillectomy. infusaport, cardiac cath, right thoracentesis. ENCOUNTER: Subsequent ACUITY: 2 days PAIN SCORE: 0/10 LOCATION: Bilateral chest FINDINGS: Stable left IJ [id number]. There is a small right-sided pleural effusion with minimal right basila r airspace disease. No significant pneumothorax. Cardiomediastinal contours are stable. Remainder of exam is unchanged. CONCLUSION: 1. Small right-sided pleural effusion with minimal associated basilar atelectasis. Maverick Rico MD on April 08, 2017 at 15:50 Board Certified Radiologist. This report was verified electronically.
[2017-04-08] MEDS: FUROSEMIDE 40 MG TAB PO SCH (17:16)
[2017-04-08] MEDS: TEMAZEPAM 15 MG CAP PO PRN (20:58)
[2017-04-08] MEDS: POLYETHYLENE GLYCOL 17 GM PKG PO SCH (20:58)
[2017-04-09] VITALS: BP 97/55; PULSE 81; PULSE 91; RESP 16; TEMP 97.9; O2SAT 93
[2017-04-09 04:00] VITALS: BP 109/59; PULSE 48; PULSE 51; RESP 17; TEMP 97.4; O2SAT 93
[2017-04-09] MEDS: LEVOTHYROXINE SODIUM 75 MCG TAB PO SCH (05:02)
[2017-04-09 06:27] LABS: AUTOMATED NEUTROPHIL # 1.9 TH/MM3 (1.8-7.7); BASOPHIL % 0.2 % (0.0-2.0); EOSINOPHIL % 0.6 % (0.0-4.0); HEMATOCRIT 30.6 % (39.0-51.0); HEMO FLAGS DIFF FINAL; LYMPH % 28.9 % (9.0-44.0); MEAN CELL VOLUME 83.6 FL (80.0-100.0); MEAN CORPUSCULAR HEMOGLOBIN 28.5 PG (27.0-34.0); MEAN CORPUSCULAR HGB CONC 34.1 % (32.0-36.0); MONO % 11.3 % (0.0-8.0); PLATELET COUNT 149 TH/MM3 (150-450); RED BLOOD COUNT 3.66 MIL/MM3 (4.50-5.90); RED CELL DISTRIBUTION WIDTH 15.9 % (11.6-17.2); WHITE BLOOD COUNT 3.3 TH/MM3 (4.0-11.0)
[2017-04-09 06:51] LABS: BICARBONATE 32.8 MEQ/L (21.0-32.0); MAGNESIUM 2.2 MG/DL (1.5-2.5); POTASSIUM 4.1 MEQ/L (3.5-5.1)
[2017-04-09] MEDS ORDERED: FURO40TA PO (07:16)
[2017-04-09] MEDS ORDERED: POTA20TA5 PO (07:16)
--- NOTE | 2017-04-09 07:19 | HHI.DCPOC ---
Discharge Care Plan Diagnosis: (1) Myelodysplastic syndrome (2) Volume overload (3) Symptomatic anemia (4) Pleural effusion on right Goals to Promote Your Health * To prevent worsening of your condition and complications * To maintain your health at the optimal level Directions to Meet Your Goals Take your medications as prescribed Follow your dietary instruction Follow activity as directed Keep your appointments as scheduled Take your immunizations and boosters as scheduled If your symptoms worsen call your PCP, if no PCP go to Urgent Care Center or Emergency Room Smoking is Dangerous to Your Health. Avoid second hand smoke Call the 24-hour hour crisis hotline for domestic abuse at Alexandrea Ortiz Apr 09, 2017 07:19 Kevin Gill DO Apr 09, 2017 23:35
--- NOTE | 2017-04-09 07:22 | HHI.DS ---
Discharge Summary Admission Date Apr 01, 2017 at 16:27 Discharge Date: Apr 09, 2017 Admitting Diagnosis CHF exacerbation/symptomatic anemia/ right pleural effusion (1) Symptomatic anemia Diagnosis: Principal ICD Codes: D64.9 - Symptomatic anemia Status: Acute (2) Volume overload Diagnosis: Principal ICD Codes: E87.70 - Fluid overload, unspecified Status: Acute (3) Myelodysplastic syndrome Diagnosis: Principal ICD Codes: D46.9 - Myelodysplastic syndrome Status: Chronic (4) Hypothyroidism Diagnosis: Secondary ICD Codes: E03.9 - Hypothyroidism Status: Chronic Consultants none Procedures US guided R thoracentesis 04/07 with 1.6L removed by IR Brief History Pt is an 86 y/o male with atrial fibrillation, myelodysplastic syndrome, recurrent symptomatic anemia and volume overload with preserved EF on echo noted EF 60-65% and no evidence of diastolic dysfunction. S/p 1.3L thoracentesis right lung on recent admission.Pt was sent to ED on by oncology for symptomatic anemia and again volume overload/weight gain of about 15-20pounds..with some sob again as well. ED has begun to transfuse with 2 units blood and iv lasix. Denies any cp and has been compliant with his cardiac meds. He is transfusion dependent and has received about 90 units blood. CBC/BMP: 04/09/17 0600 04/09/17 0600 Significant Findings Laboratory Tests Test 04/06/17 07:33 04/07/17 05:55 04/07/17 14:35 04/09/17 06:00 White Blood Count 3.0 TH/MM3 (4.0-11.0) 3.9 TH/MM3 (4.0-11.0) 3.3 TH/MM3 (4.0-11.0) Red Blood Count 2.74 MIL/MM3 (4.50-5.90) 3.61 MIL/MM3 (4.50-5.90) 3.66 MIL/MM3 (4.50-5.90) Hemoglobin 7.8 GM/DL (13.0-17.0) 10.3 GM/DL (13.0-17.0) 10.4 GM/DL (13.0-17.0) Hematocrit 22.6 % (39.0-51.0) 29.8 % (39.0-51.0) 30.6 % (39.0-51.0) Platelet Count 136 TH/MM3 (150-450) 139 TH/MM3 (150-450) 149 TH/MM3 (150-450) Monocytes (%) (Auto) 11.8 % (0.0-8.0) 9.3 % (0.0-8.0) 11.3 % (0.0-8.0) Neutrophils # (Auto) 1.7 TH/MM3 (1.8-7.7) Lymphocytes # (Auto) 0.9 TH/MM3 (1.0-4.8) Blood Urea Nitrogen 35 MG/DL (7-18) 35 MG/DL (7-18) 31 MG/DL (7-18) Creatinine 1.78 MG/DL (0.60-1.30) 1.79 MG/DL (0.60-1.30) 1.69 MG/DL (0.60-1.30) Calcium Level 8.0 MG/DL (8.5-10.1) 8.1 MG/DL (8.5-10.1) 8.4 MG/DL (8.5-10.1) Sodium Level 128 MEQ/L (136-145) 130 MEQ/L (136-145) 133 MEQ/L (136-145) Chloride Level 92 MEQ/L (98-107) 93 MEQ/L (98-107) 96 MEQ/L (98-107) Estimat Glomerular Filtration Rate 36 ML/MIN (>89) 36 ML/MIN (>89) 38 ML/MIN (>89) Band Neutrophils % 11 % (0-6) Nucleated Red Blood Cells 1 /100 WBC (0-0) Platelet Estimate LOW (NORMAL) Pleural Fluid WBC 100 /MM3 (0-10) Pleural Fluid RBC 100 /MM3 (0-0) Carbon Dioxide Level 32.8 MEQ/L (21.0-32.0) Anion Gap 4 MEQ/L (5-15) Imaging Last Impressions Chest X-Ray 04/08/17 Signed Impressions: Service Date/Time: Saturday, April 08, 2017 15:15 - CONCLUSION: 1. Small right-sided pleural effusion with minimal associated basilar atelectasis. Maverick Rico MD Thoracentesis Ultrasound 04/07/17 Signed Impressions: Service Date/Time: Friday, April 07, 2017 13:56 - CONCLUSION: Uncomplicated ultrasound guided thoracentesis. Carlos Boyd MD Abdomen/Pelvis CT 04/04/17 0000 Signed Impressions: Service Date/Time: Tuesday, April 04, 2017 15:05 - CONCLUSION: 1. Consolidative changes left lower lobe with moderate left pleural effusion 2. Trace ascites 3. Negative for free air or obstruction 4. Prominent gallbladder Shiv Cat MD FACR Abdomen X-Ray 04/04/17 0000 Signed Impressions: Service Date/Time: Tuesday, April 04, 2017 10:09 - CONCLUSION: Abnormal KUB appearance. Further evaluation with CT examination of the abdomen suggested Dino Davis MD PE at Discharge GENERAL: This is a well-nourished, well-developed patient, in no apparent distress. CARDIOVASCULAR: Regular rate and rhythm without murmurs, gallops, or rubs. RESPIRATORY: Clear to auscultation. Breath sounds equal bilaterally. No wheezes , rales, or rhonchi. GASTROINTESTINAL: Abdomen soft, non-tender, nondistended. Normal active bowel sounds MUSCULOSKELETAL: Extremities without clubbing, cyanosis, or edema. NEURO: Alert & Oriented x4 to person, place, time, situation. Moves all ext x4 Hospital Course Symptomatic anemia - Pt is an 86 y/o male with atrial fibrillation, myelodysplastic syndrome, recurrent symptomatic anemia and volume overload with preserved EF on echo noted EF 60-65% and no evidence of diastolic dysfunction. s/p 1.3L thoracentesis right lung. on recent admission -Pt was sent to ED on 04/01 by oncology for symptomatic anemia and again volume overload/weight gain of about 15-20pounds..with some sob again as well. - s/p 1 PRBC transfusion - additional 2 units PRBCs - Hg 7.8 (04/01), 7.8 (04/06), 10.3 (04/07) - s/p R thoracentesis (04/07) with removal of 1.6 liters - change lasix back to PO/KCL - DVT prophylaxis - elevate legs/..mikayla hose/scd - repeat labs in AM - anticipate d/c to home 04/09 with [facility] Volume overload Acute see above Myelodysplastic syndrome Chronic see above Hypothyroidism Chronic continue home levothyroxine Pt Condition on Discharge: Stable Discharge Disposition: Disch w/ Home Health Serv Discharge Instructions DIET: Follow Instructions for: As Tolerated, No Restrictions Activities you can perform: Regular-No Restrictions Follow up Referrals: Cardiology - [address] Vimal Chapman PCP Follow-up - [address] Mayo New Orders: BASIC METABOLIC PROF - 3-5 Days New Medications: Furosemide (Furosemide) 40 Mg Tab 40 MG PO BID@09,18 for fluid retention, #60 TAB 0 Refills Potassium Chloride Microencaps (Potassium Chloride Microencaps) 20 Meq Tab 20 MEQ PO Q12HR for potassium supplement, #60 TAB 0 Refills Continued Medications: Acetaminophen (Tylenol Arthritis) 650 Mg Tablet.er 1300 MG PO BID Amiodarone (Amiodarone) 200 Mg Tab 200 MG PO DAILY for afib, #30 TAB 3 Refills Deferasirox (Exjade) 500 Mg Tab 1000 MG PO DAILY Dissolve 2 tablets (1,000mg) in 7 ounces of apple juice-wait 30 min before eating or taking other medication Dextran 70/Hypromellose/Pf (Artificial Tears Drops) 0.1 %-0.3 % Droperette 1 DROP EACH EYE DAILY PRN for DRY EYE Diphenhydramine (Sleep) Liq (Zzzquil Liq) 50 Mg/30 Ml Liq 25 MG PO HS PRN for SLEEP, #1 BOTTLE Epoetin Inj (Procrit Inj) 40,000 Unit/Ml Inj 54689 UNITS SQ PRN for IF HGB LESS THAN 10, #12 VIAL 0 Refills Given at [facility] Famotidine/Ca Carb/Mag Hydrox (Pepcid Complete Tablet Chew) 10 Mg-800 Mg-165 Mg Tab.chew 1 TAB PO BID PRN for HEARTBURN Fluticasone Nasal [place] (Fluticasone Nasal [place]) 50 Mcg/Act Naspr 2 SPRAY EACH NARE DAILY for Allergy Management, #1 BOTTLE 0 Refills 50 mcg/spray Glycerin Adult Supp (Glycerin Adult Supp) 2 Gm Supp 2 GM RECTAL DAILY PRN for CONSTIPATION, SUPP 0 Refills Levothyroxine (Levothyroxine) 75 Mcg Tab 75 MCG PO DAILY for Thyroid, #30 TAB 0 Refills Loperamide HCl (Loperamide) 2 Mg Tablet 2 MG PO PRN for DIARRHEA Metoprolol Succinate ER 24 HR (Metoprolol Succinate ER 24 HR) 25 Mg Tab 25 MG PO DAILY, #30 TAB 0 Refills Omeprazole (Omeprazole) 20 Mg Tab 20 MG PO BID for Reflux, #30 TAB 0 Refills Ondansetron (Ondansetron) 8 Mg Tab 8 MG PO TID for Nausea/Vomiting, TAB 0 Refills Polyethylene Glycol 3350 Powder (Miralax Powder) 17 Gm Powd 17 GM PO HS for Constipation, #1 CAN 0 Refills Mix and dissolve one measuring cap-ful (17 grams) in water or juice. Psyllium Powder (Metamucil Original Texture) 3.4 Gram/7 Gram Pow PO HS, CONTAINER 0 Refills 1 rounded TEASPOONFUL in 8 oz of water [Cranberry] () 4200 MG PO DAILY Discontinued Medications: Furosemide (Lasix) 40 Mg Tab 40 MG PO DAILY, #30 TAB 0 Refills Additional Information Patient examined. Assessment and plan formulated with Alexandrea Ortiz PA-C. I agree with the above. Alexandrea Ortiz Apr 09, 2017 07:22 Kevin Gill DO Apr 09, 2017 23:35
[2017-04-09 08:00] VITALS: BP 139/96; PULSE 55; PULSE 56; RESP 16; TEMP 97.3; O2SAT 96
[2017-04-09] MEDS: DEFERASIROX PO SCH (08:04)
[2017-04-09] MEDS: POTASSIUM CHLORIDE 20 MEQ CONTROLLED RELEASE TAB PO SCH (09:28)
[2017-04-09] MEDS: FUROSEMIDE 40 MG TAB PO SCH (09:28)
[2017-04-09] MEDS: PANTOPRAZOLE SOD 20 MG DELAYED RELEASE TAB PO SCH (09:28)
[2017-04-09] MEDS: AMIODARONE 200 MG TAB PO SCH (09:28)
[2017-04-09] MEDS: METOPROLOL TARTRATE 25 MG TAB PO SCH (09:28)
[2017-04-09] MEDS: FLUTICASONE PROPIONATE 50 MCG/ACT 16 GM NASAL SPRAY EACH NARE SCH (09:29)
[2017-04-09 09:31] VITALS: PULSE 84
[2017-04-09 12:00] VITALS: BP 157/74; PULSE 50; RESP 16; TEMP 97.6; O2SAT 96
== END 2017-04-09 13:48 | DRG 812 ==
LOC: NEPE 14:27 → NEDA 16:17 → OBSVTOIN 16:27 → N04B 17:51
PROVIDERS: ADMIT Hospitalist; ATTEND Hospitalist
PROC: 30233N1 Transfusion of Nonautologous Red Blood Cells into Peripheral Vein, Percutaneous Approach (ICD-10-PCS; 2017-04-01)
PROC: 0W993ZZ Drainage of Right Pleural Cavity, Percutaneous Approach (ICD-10-PCS; principal; 2017-04-07)
DX: D46.9 Myelodysplastic syndrome, unspecified (principal); J90 Pleural effusion, not elsewhere classified; I48.0 Paroxysmal atrial fibrillation; I11.0 Hypertensive heart disease with heart failure; I50.9 Heart failure, unspecified; D46.4 Refractory anemia, unspecified; E03.9 Hypothyroidism, unspecified; H91.90 Unspecified hearing loss, unspecified ear; Z85.51 Personal history of malignant neoplasm of bladder; Z85.46 Personal history of malignant neoplasm of prostate; K21.9 Gastro-esophageal reflux disease without esophagitis
CPT/HCPCS: 32555; 36430; 36591; 71010; 74000; 74176; 80048; 80053; 82150; 82550; 82945; 83615; 83735; 83880; 83986; 84157; 84484; 85007; 85025; 85027; 85610; 85730; 86850; 86900; 86901; 86920; 87015; 87070; 87102; 87116; 87205; 87206; 88112; 88305; 89051; 93005; 96372; 99285; C1729; J0885; J1642; J1940; J7050; P9016; Q9963

== ENCOUNTER 2017-05-19 21:12 | Inpatient (IN) | payer MEDICARE ==
[~2017-05-19] VITALS: Ht 162.6 cm; Wt 65.4 kg
[~2017-05-19 21:12] MED LIST changes: +ACET650T67 PO; -FURO1TAB62 PO; +FURO40TA PO; -IBUP200C PO; +LOPE2TAB21 PO; +METO1TAB42 PO; -METO25TA3 PO; +POTA20TA5 PO; -TYLE325T PO
[2017-05-19 21:19] VITALS: BP 137/63; PULSE 79; RESP 18; TEMP 100.2; O2SAT 98
[2017-05-19 21:24] VITALS: O2SAT 98
[2017-05-19] MEDS ORDERED: PIPERACIL-TAZO 3.375 GM PREMIX 50 ML IV ONE (21:30)
[2017-05-19] MEDS ORDERED: SODIUM CHLORIDE 0.9% FLUSH 10 ML FLUSH IVF PRN (21:30)
--- NOTE | 2017-05-19 21:48 | RADRPT ---
EXAM DATE/TIME: 05/19/2017 21:26 [facility] COMPARISON: CHEST SINGLE AP, April 08, 2017, 15:15. INDICATIONS : Short of breath. MEDICAL HISTORY : Congestive heart failure. Gastroesophageal reflux disease. Hypertension. SURGICAL HISTORY : Tonsillectomy. Infusaport. Cardiac cath. Right thoracentesis. ENCOUNTER: Subsequent ACUITY: 2 days PAIN SCORE: 1/10 LOCATION: Bilateral chest FINDINGS: A single portable frontal view the chest is a small right pleural effusion and right basilar consolid ation. This is more pronounced than the prior study. Left lung is clear. Heart is mildly enlarged. Po rt-A-Cath overlies the left chest. CONCLUSION: Slight enlargement of a right pleural effusion and right lower lobe infiltrate relative to the prior study. George Arellano Jr., MD on May 19, 2017 at 21:44 Board Certified Radiologist. This report was verified electronically.
--- NOTE | 2017-05-19 21:59 | PD ---
HPI . Respiratory symptoms Chief Complaint: Respiratory Symptoms Time Seen by Provider: 21:18 Travel History International Travel<30 days: No Contact w/Intl Traveler<30days: No Traveled to known affect area: No History of Present Illness HPI 86-year-old male complains of orthopnea, associated with fever and shaking chills today. Denies cough or night sweats. Patient had a recent admission to the hospital for pleural effusion with pleurocentesis as per patient. Patient also had a recent transfusion for chronic anemia. Patient states she's never had a fever post transfusion to date. Patient denies any headache, visual changes, stiff neck, rashes, chest pain, abdominal pain, nausea vomiting diarrhea, dysuria frequency frequency, focal weakness numbness or tingling. PFSH Past Medical History Narrative Medical Past medical history reviewed Anemia: Yes (myelodysplastic syndrome) Arthritis: Yes Atrial Fibrillation: Yes Blood Disorders: Yes (myelodysplastic syndrome) Heart Rhythm Problems: Yes Cancer: Yes (PROSTATE/BLADDER CANCER) Cardiac Catheterization: Yes (x2) Cardiovascular Problems: Yes High Cholesterol: Yes Chemotherapy: Yes Chest Pain: Yes Congestive Heart Failure: Yes Cerebrovascular Accident: No Diabetes: No Diminished Hearing: Yes (bilateral hearing aids) Endocrine: Yes Gastrointestinal Disorders: Yes (bleeding ulcer @ 37yo, GERD) GERD: Yes Genitourinary: Yes Hepatitis: No Hiatal Hernia: No Hypertension: Yes Immune Disorder: No Implanted Vascular Access Dvce: Yes Musculoskeletal: Yes Neurologic: No Psychiatric: No Reproductive: No (prostrate abnd bladder ca..radiation 2008) Respiratory: Yes (hx rt thoracentesis feb 2017 =3 weeks ago 1l off) Immunizations Current: Yes Radiation Therapy: Yes (2008) Thyroid Disease: Yes Ulcer: Yes Past Surgical History AICD: No Cardiac Surgery: Yes (HEART CATH X2) Endocrine Surgery: No Eye Surgery: Yes (cataracts) Genitourinary Surgery: Yes (BLADDER, URETHRAL STRICTURE) Joint Replacement: No Pacemaker: No Thoracic Surgery: Yes (PORT PLACEMENT LEFT CHEST) Tonsillectomy: Yes Other Surgery: Yes Social History Alcohol Use: No Tobacco Use: No Substance Use: No Allergies-Medications (Allergen,Severity, Reaction): Coded Allergies: codeine (Verified Allergy, Severe, Hallucinations, 05/19/17) hydrocodone (Verified Allergy, Mild, Hallucinations, 05/19/17) Reported Meds & Prescriptions Reported Meds & Active Scripts Active Potassium Chloride Microencaps 20 Meq Tab 20 Meq PO Q12HR Furosemide 40 Mg Tab 40 Mg PO BID@,18 Amiodarone (Amiodarone HCl) 200 Mg Tab 200 Mg PO DAILY Reported Tylenol Arthritis (Acetaminophen) 650 Mg Tablet.er 1,300 Mg PO BID Metoprolol Succinate ER 24 HR (Metoprolol Succinate) 25 Mg Tab 25 Mg PO DAILY Loperamide (Loperamide HCl) 2 Mg Tablet 2 Mg PO PRN Ondansetron (Ondansetron HCl) 8 Mg Tab 8 Mg PO TID Procrit Inj (Epoetin Caleb) 40,000 Unit/Ml Inj 60,000 Units SQ PRN Given at [facility] Levothyroxine (Levothyroxine Sodium) 75 Mcg Tab 75 Mcg PO DAILY Omeprazole 20 Mg Tab 20 Mg PO BID Artificial Tears Drops (Dextran 70/Hypromellose/Pf) 0.1 %-0.3 % Droperette 1 Drop EACH EYE DAILY PRN Pepcid Complete Tablet Chew (Famotidine/Ca Carb/Mag Hydrox) 10 Mg-800 Mg-165 Mg Tab.chew 1 Tab PO BID PRN Zzzquil Liq (Diphenhydramine (Sleep) Liq) 50 Mg/30 Ml Liq 25 Mg PO HS PRN Glycerin Adult Supp (Glycerin) 2 Gm Supp 2 Gm RECTAL DAILY PRN Miralax Powder (Polyethylene Glycol 3350 Powder) 17 Gm Powd 17 Gm PO HS Mix and dissolve one measuring cap-ful (17 grams) in water or juice. Metamucil Original Texture (Psyllium Hydrophilic Mucilloid) 3.4 Gram/7 Gram Pow PO HS 1 rounded TEASPOONFUL in 8 oz of water Fluticasone Nasal [place] 50 Mcg/Act Naspr 2 [place] EACH NARE DAILY 50 mcg/spray Exjade (Deferasirox) 500 Mg Tab 1,000 Mg PO DAILY Dissolve 2 tablets (1,000mg) in 7 ounces of apple juice-wait 30 min before eating or taking other medication [Cranberry] 4,200 Mg PO DAILY Narrative Medication Allergies and medications reviewed Review of Systems Except as stated in HPI: all other systems reviewed are Neg General / Constitutional: Positive: Fever, Chills Eyes: No: Diploplia, Visual changes HENT: No: Headaches, Sore Throat, Rhinitis, Rhinorrhea, Neck Stiffness, Neck Pain, Earache Cardiovascular: Positive: Dyspnea on exertion, Edema, No: Chest Pain or Discomfort, Palpitations, Irregular Rhythm, Tachycardia, Diaphoresis, Syncope, Varicosities, Varicosities Respiratory: Positive: Shortness of Breath, Orthopnea, No: Cough, Wheezing, Hemoptysis, Stridor, Night Sweats, Pleuritic Pain Gastrointestinal: No: Nausea, Vomiting, Diarrhea, Abdominal Pain, Hematemesis, Hematochezia Genitourinary: No: Urgency, Frequency, Dysuria, Hematuria, Flank Pain Musculoskeletal: No: Myalgias, Arthralgias, Limited ROM, Pain Skin: No Rash Neurologic: No: Weakness Psychiatric: No: Depression Endocrine: No: Polydipsia Hematologic/Lymphatic: No: Easy Bruising Physical Exam Narrative GENERAL: Awake and alert oriented 3 no acute distress. Patient does present with shaking chills. Febrile SKIN: Warm and dry. Color is normal no diaphoresis cyanosis or pallor HEAD: Atraumatic. Normocephalic. EYES: Pupils equal and round. No scleral icterus. No injection or drainage. ENT: No nasal bleeding or discharge. Mucous membranes pink and moist. NECK: Trachea midline. No JVD. Supple for range of motion CARDIOVASCULAR: Regular rate and rhythm. S1-S2 no murmurs rubs or gallops RESPIRATORY: Crackles right base. No audible wheezing or rhonchi. Equal bilateral excursions. No dullness to percussion GASTROINTESTINAL: Abdomen soft, non-tender, nondistended. Hepatic and splenic margins not palpable. MUSCULOSKELETAL: Extremities without clubbing, cyanosis, or edema. No obvious deformities. NEUROLOGICAL: Awake and alert. No obvious cranial nerve deficits. Motor grossly within normal limits. Five out of 5 muscle strength in the arms and legs. Normal speech. PSYCHIATRIC: Appropriate mood and affect; insight and judgment normal. Data Data Last Documented VS Vital Signs Date Time Temp Pulse Resp B/P (MAP) Pulse Ox O2 Delivery O2 Flow Rate FiO2 05/19/17 22:59 71 18 111/55 (73) 95 Nasal Cannula 2.00 05/19/17 21:19 100.2 Orders Orders Complete Blood Count With Diff (05/19/17 21:19) Comprehensive Metabolic Panel (05/19/17 21:19) B-Type Natriuretic Peptide (05/19/17 21:19) Act Partial Throm Time (Ptt) (05/19/17 21:19) Prothrombin Time / Inr (Pt) (05/19/17 21:19) Magnesium (Mg) (05/19/17 21:19) Ckmb (Isoenzyme) Profile (05/19/17 21:19) Troponin I (05/19/17 21:19) Urinalysis - C+S If Indicated (05/19/17 21:19) Influenzae A/B Antigen (05/19/17 21:19) Blood Culture (05/19/17 21:19) Iv Access Insert/Monitor (05/19/17 21:19) Electrocardiogram (05/19/17 21:19) Ecg Monitoring (05/19/17 21:) Oximetry (05/19/17 21:) Oxygen Administration (05/19/17 21:19) Chest, Single Ap (05/19/17 21:19) Sodium Chloride 0.9% Flush (Ns Flush) (05/19/17 21:30) Piperacil-Tazo 3.375 Gm Premix (Zosyn 3. (05/19/17 21:30) Admit Order (Ed Use Only) (05/19/17 23:09) Ns (Bolus) Inj (05/19/17 23:15) Labs Laboratory Tests Test 05/19/17 21:52 White Blood Count 9.0 TH/MM3 Red Blood Count 2.53 MIL/MM3 Hemoglobin 7.7 GM/DL Hematocrit 21.5 % Mean Corpuscular Volume 84.8 FL Mean Corpuscular Hemoglobin 30.4 PG Mean Corpuscular Hemoglobin Concent 35.8 % Red Cell Distribution Width 17.6 % Platelet Count 260 TH/MM3 Mean Platelet Volume 9.9 FL Neutrophils (%) (Auto) 97.5 % Lymphocytes (%) (Auto) 1.3 % Monocytes (%) (Auto) 1.0 % Eosinophils (%) (Auto) 0.0 % Basophils (%) (Auto) 0.2 % Neutrophils # (Auto) 8.7 TH/MM3 Lymphocytes # (Auto) 0.1 TH/MM3 Monocytes # (Auto) 0.1 TH/MM3 Eosinophils # (Auto) 0.0 TH/MM3 Basophils # (Auto) 0.0 TH/MM3 CBC Comment DIFF FINAL Differential Comment Prothrombin Time 12.9 SEC Prothromb Time International Ratio 1.3 RATIO Activated Partial Thromboplast Time 23.3 SEC Urine Color LIGHT-YELLOW Urine Turbidity CLEAR Urine pH 6.0 Urine Specific [place] 1.008 Urine Protein TRACE mg/dL Urine Glucose (UA) NEG mg/dL Urine Ketones NEG mg/dL Urine Occult Blood NEG Urine Nitrite NEG Urine Bilirubin NEG Urine Urobilinogen LESS THAN 2.0 MG/DL Urine Leukocyte Esterase NEG Urine RBC 1 /hpf Urine WBC LESS THAN 1 /hpf Urine Squamous Epithelial Cells <1 /hpf Urine Mucus FEW /lpf Microscopic Urinalysis Comment CULT NOT INDICATED Blood Urea Nitrogen 55 MG/DL Creatinine 2.93 MG/DL Random Glucose 106 MG/DL Total Protein 7.1 GM/DL Albumin 3.8 GM/DL Calcium Level 8.2 MG/DL Magnesium Level 2.0 MG/DL Alkaline Phosphatase 56 U/L Aspartate Amino Transf (AST/SGOT) 13 U/L Alanine Aminotransferase (ALT/SGPT) 14 U/L Total Bilirubin 3.3 MG/DL Sodium Level 133 MEQ/L Potassium Level 4.2 MEQ/L Chloride Level 99 MEQ/L Carbon Dioxide Level 23.6 MEQ/L Anion Gap 10 MEQ/L Estimat Glomerular Filtration Rate 20 ML/MIN Total Creatine Kinase 28 U/L Troponin I 0.09 NG/ML B-Type Natriuretic Peptide 433 PG/ML [facility] Medical Decision Making Medical Screen Exam Complete: Yes Emergency Medical Condition: Yes Medical Record Reviewed: Yes Differential Diagnosis Pneumonia, effusion, CHF Narrative Course Chest x-ray consistent with right-sided pneumonia. Patient was pancultured and broad-spectrum antibiotics ordered and started at presentation. Care plan developed, admission to hospital to continue IV antibiotics All laboratory examinations reviewed, patient has normal white blood cell count 9.0, elevated creatinine of 2.93 which is above his prior in the lower 2's Troponin 0.09. EKG normal sinus rhythm at 80 bpm nonischemic intervals normal. Case discussed with Dr. Luis Alberto nugent for [facility], admitted to Dr. Latrell Gill's service [facility] telemetry Diagnosis Primary Impression: Pneumonia Qualified Codes: J18.1 - Lobar pneumonia, unspecified organism Additional Impressions: Pleural effusion on right Acute renal insufficiency Admitting Information Admitting Physician Requests: Admit Colton Krause MD May 19, 2017 21:59
[2017-05-19 22:22] LABS: AUTOMATED NEUTROPHIL # 8.7 TH/MM3 (1.8-7.7); BASOPHIL % 0.2 % (0.0-2.0); HEMATOCRIT 21.5 % (39.0-51.0); HEMOGLOBIN 7.7 GM/DL (13.0-17.0); LYMPH % 1.3 % (9.0-44.0); LYMPHOCYTE # 0.1 TH/MM3 (1.0-4.8); MEAN CELL VOLUME 84.8 FL (80.0-100.0); MEAN CORPUSCULAR HEMOGLOBIN 30.4 PG (27.0-34.0); MEAN CORPUSCULAR HGB CONC 35.8 % (32.0-36.0); MEAN PLATELET VOLUME 9.9 FL (7.0-11.0); MONOCYTE # 0.1 TH/MM3 (0-0.9); NEUT % 97.5 % (16.0-70.0); PLATELET COUNT 260 TH/MM3 (150-450); RED BLOOD COUNT 2.53 MIL/MM3 (4.50-5.90); RED CELL DISTRIBUTION WIDTH 17.6 % (11.6-17.2)
[2017-05-19 22:27] LABS: BILIRUBIN, URINE NEG (NEG); BLOOD, URINE NEG (NEG); GLUCOSE,URINE NEG (NEG); KETONE, URINE NEG (NEG); MUCUS URINE FEW /lpf (OCC); NITRITE,URINE NEG (NEG); SQUAMOUS EPITHELIAL CELL URINE <1 /hpf (0-5); URINE COLOR LIGHT-YELLOW (YELLW/STRAW); URINE LEUKOCYTE ESTERASE NEG (NEG)
[2017-05-19 22:38] LABS: INTERNATIONAL NORMALIZED RATIO 1.3 RATIO; PROTHROMBIN TIME - PATIENT 12.9 SEC (9.8-11.6)
[2017-05-19 22:44] LABS: ALBUMIN 3.8 GM/DL (3.4-5.0); ALT (GPT) 14 U/L (12-78); AST (GOT) 13 U/L (15-37); BICARBONATE 23.6 MEQ/L (21.0-32.0); BLOOD UREA NITROGEN 55 MG/DL (7-18); CALCIUM 8.2 MG/DL (8.5-10.1); CHLORIDE 99 MEQ/L (98-107); CREATININE 2.93 MG/DL (0.60-1.30); GLOMERULAR FILTRATION RATE 20 ML/MIN (>89); GLUCOSE,RANDOM 106 MG/DL (74-106); SODIUM (NA) 133 MEQ/L (136-145)
[2017-05-19 22:48] LABS: ALKALINE PHOSPHATASE 56 U/L (45-117); TOTAL BILIRUBIN ADULT 3.3 MG/DL (0.2-1.0); TOTAL PROTEIN 7.1 GM/DL (6.4-8.2); TROPONIN I 0.09 NG/ML (0.02-0.05)
[2017-05-19 22:59] VITALS: BP 111/55; PULSE 71; RESP 18; O2SAT 95
[2017-05-19] MEDS ORDERED: SODIUM CHLOR 0.9% 250 ML INJ 250 ML IV ONE (23:15)
[2017-05-19] MEDS ORDERED: PIPERACIL-TAZO 2.25 GM PREMIX 50 ML IV SCH (23:30)
[2017-05-20] VITALS (21 sets, daily range): BP systolic 81–105; BP diastolic 40–53; PULSE 62–115; RESP 15–27; TEMP 97.4–100.8; O2SAT 90–100
[2017-05-20] MEDS: SODIUM CHLOR 0.45% 1000 ML INJ 1,000 ML IV SCH (00:06)
[2017-05-20] MEDS: AZITHROMYCIN INJ 500 MG in SODIUM CHLOR 0.9% 250 ML INJ 250 ML IV SCH ×2 (00:07→22:42)
[2017-05-20] MEDS: PIPERACIL-TAZO 2.25 GM PREMIX 50 ML IV SCH ×3 (06:13→21:33)
[2017-05-20] MEDS ORDERED: FURO20TA PO (06:17)
[2017-05-20] MEDS ORDERED: IBUP1TAB5 PO (06:18)
[2017-05-20 06:40] LABS: BASOPHIL % 0.2 % (0.0-2.0); EOSINOPHIL % 0.1 % (0.0-4.0); LYMPH % 2.5 % (9.0-44.0); LYMPHOCYTE # 0.6 TH/MM3 (1.0-4.8); MEAN CELL VOLUME 86.2 FL (80.0-100.0); MEAN CORPUSCULAR HEMOGLOBIN 28.5 PG (27.0-34.0); MEAN CORPUSCULAR HGB CONC 33.1 % (32.0-36.0); MONO % 5.2 % (0.0-8.0); MONOCYTE # 1.2 TH/MM3 (0-0.9); PLATELET COUNT 209 TH/MM3 (150-450); RED BLOOD COUNT 2.36 MIL/MM3 (4.50-5.90); RED CELL DISTRIBUTION WIDTH 17.6 % (11.6-17.2); WHITE BLOOD COUNT 23.9 TH/MM3 (4.0-11.0)
[2017-05-20 06:56] LABS: BICARBONATE 19.9 MEQ/L (21.0-32.0); CALCIUM 7.9 MG/DL (8.5-10.1); CREATININE 3.04 MG/DL (0.60-1.30)
[2017-05-20 07:00] LABS: TROPONIN I 0.12 NG/ML (0.02-0.05)
[2017-05-20 07:06] LABS: HEMATOCRIT 20.3 % (39.0-51.0); HEMOGLOBIN 6.7 GM/DL (13.0-17.0)
[2017-05-20] MEDS ORDERED: ONDANSETRON HCL 4 MG/2 ML VIAL IV PRN (13:15)
[2017-05-20] MEDS ORDERED: FAMOTIDINE 20 MG TAB PO PRN (13:15)
--- NOTE | 2017-05-20 13:19 | HHI.HP ---
HPI Service [facility] Hospitalists Primary Care Physician Jovan Vora M.D. Admission Diagnosis Pneumonia, Pleural Effusion, Acute Renal Insufficiency Chief Complaint: Fevers Travel History International Travel<30 Days: No Contact w/Intl Traveler <30 Da: No Traveled to Known Affected Are: No History of Present Illness Mr. Peck is a pleasant 86 y/o WM with paroxysmal atrial fibrillation, myelodysplasia with refractory anemia, prostate cancer s/p XRT 5 years ago, bladder cancer s/p tumor resection 6 years ago, HTN, and GERD. Pt had been receiving frequent blood transfusions and has subsequently developed iron overload. Pt has been on iron chelation therapy with Exjade for this. He was started on Vidaza in 2016 for his myelodysplastic syndrome and his transfusion needs have decreased since initiation of that. He follows with Dr. Kohler for this. Pt [place] [facility] [place] with complaints of orthopnea, associated with fever and shaking chills. Denies cough or night sweats. Patient had a few recent admissions in 03/2017 and 04/2017 to the hospital for volume overload and required thoracentesis twice for pleural effusion. 2D echo ( 02/2017) with preserved EF 60-65% and no evidence of diastolic dysfunction. Patient also had a transfusion on the afternoon of 05/19 for chronic anemia. Patient states he's never had a fever post transfusion to date. His max tem in the ED was 100.8 degrees last night. Blood cultures were drawn in the ED and there is now growth x 1 day. He tested negative for influenza. His labs in the ED noted Hgb 7.7/Hct 21.5. Repeat labs this morning noted a decrease in his H/H to 6.7/20.3 and his WBC count increased to 23.9. Pt was started on IVF, Zosyn and Azithromycin last night in the ED. His renal function was worse than baseline with Cr 2.93/BUN 55, GFR 20 and repeat labs this morning with Cr 3.04/ BUN 58, GFR 20. His troponin I is elevated at 0.09 --> 0.12 and BNP is elevated at 433 --> 1233 today. CXR in the ED noted slight enlargement of a right pleural effusion and right lower lobe infiltrate relative to the prior study. He denies any exertional chest pain, SOB, palpitations or diaphoresis. Denies any nausea, vomiting, constipation, melena or BRBPR. No urinary symptoms. This morning in the ED he has had 3 loose BMs and has some left sided tenderness. He is currently getting his second unit of PRBCs Review of Systems Constitutional: COMPLAINS OF: Fever, Chills Respiratory: DENIES: Cough, Shortness of breath Cardiovascular: COMPLAINS OF: Lower Extremity Edema, DENIES: Chest pain, Palpitations Gastrointestinal: COMPLAINS OF: Abdominal pain, Diarrhea Genitourinary: DENIES: Urinary incontinence, Urgency Past Family Social History Past Medical History Hx of pelvic fx AAA Paroxysmal atrial fibrillation Myelodysplasia with refractory anemia Hx of bladder cancer 8 years ago Hx of prostate cancer 7 years ago COPD GERD HTN Hyperlipidemia Hypothyroidism 2D echo (02/19/17) - Estimated EF 60-65% - No evidence of diastolic dysfunction - Mild tricuspid valve regurg - Estimated PA pressure 50mmHg Past Surgical History Multiple cystoscopies with tumor removal Cataract surgery Reported Medications Potassium Chloride Microencaps 20 Meq Tab 20 Meq PO Q12HR Furosemide 40 Mg Tab 40 Mg PO BID@ Amiodarone (Amiodarone HCl) 200 Mg Tab 200 Mg PO DAILY Ibuprofen 400 Mg Tab 400 Mg PO DAILY Furosemide 20 Mg Tab 20 Mg PO DAILY Tylenol Arthritis (Acetaminophen) 650 Mg Tablet.er 1,300 Mg PO BID Metoprolol Succinate ER 24 HR (Metoprolol Succinate) 25 Mg Tab 25 Mg PO DAILY Loperamide (Loperamide HCl) 2 Mg Tablet 2 Mg PO PRN Ondansetron (Ondansetron HCl) 8 Mg Tab 8 Mg PO TID Procrit Inj (Epoetin Caleb) 40,000 Unit/Ml Inj 60,000 Units SQ PRN Given at [facility] Levothyroxine (Levothyroxine Sodium) 75 Mcg Tab 75 Mcg PO DAILY Omeprazole 20 Mg Tab 20 Mg PO BID Artificial Tears Drops (Dextran 70/Hypromellose/Pf) 0.1 %-0.3 % Droperette 1 Drop EACH EYE DAILY PRN Pepcid Complete Tablet Chew (Famotidine/Ca Carb/Mag Hydrox) 10 Mg-800 Mg-165 Mg Tab.chew 1 Tab PO BID PRN Zzzquil Liq (Diphenhydramine (Sleep) Liq) 50 Mg/30 Ml Liq 25 Mg PO HS PRN Glycerin Adult Supp (Glycerin) 2 Gm Supp 2 Gm RECTAL DAILY PRN Miralax Powder (Polyethylene Glycol 3350 Powder) 17 Gm Powd 17 Gm PO HS Mix and dissolve one measuring cap-ful (17 grams) in water or juice. Metamucil Original Texture (Psyllium Hydrophilic Mucilloid) 3.4 Gram/7 Gram Pow PO HS 1 rounded TEASPOONFUL in 8 oz of water Fluticasone Nasal [place] 50 Mcg/Act Naspr 2 [place] EACH NARE DAILY 50 mcg/spray Exjade (Deferasirox) 500 Mg Tab 1,000 Mg PO DAILY Dissolve 2 tablets (1,000mg) in 7 ounces of apple juice-wait 30 min before eating or taking other medication [Cranberry] 4,200 Mg PO DAILY Allergies: Coded Allergies: codeine (Verified Allergy, Severe, Hallucinations, 05/19/17) hydrocodone (Verified Allergy, Mild, Hallucinations, 05/19/17) Family History Noncontributory Social History Denies any alcohol, tobacco or illicit drug use Pt has a hx of tobacco use, quit over 20 years ago. He lives at a local [facility] Pt has 3 children who live locally Physical Exam Vital Signs Vital Signs Date Time Temp Pulse Resp B/P (MAP) Pulse Ox O2 Delivery O2 Flow Rate FiO2 05/20/17 12:30 98.0 66 18 96/48 (64) 97 Nasal Cannula 2.00 05/20/17 12:29 98.0 70 17 96/48 99 05/20/17 12:15 97.8 68 18 81/40 99 05/20/17 11:00 69 24 91/51 (64) 98 Nasal Cannula 2.00 05/20/17 10:00 81 27 97/48 (64) 99 Nasal Cannula 2.00 05/20/17 09:26 97.8 62 18 83/41 99 05/20/17 09:11 97.6 65 18 83/42 98 05/20/17 09:00 72 22 87/42 (57) 99 Nasal Cannula 2.00 05/20/17 08:00 71 22 82/44 (57) 99 Nasal Cannula 2.00 05/20/17 07:00 71 21 85/45 (58) Nasal Cannula 2.00 05/20/17 04:50 99.5 72 16 94/46 (62) 95 Nasal Cannula 2.00 05/20/17 01:04 97.4 05/20/17 00:10 100.8 76 16 92/43 (59) 96 Nasal Cannula 2.00 05/19/17 22:59 71 18 111/55 (73) 95 Nasal Cannula 2.00 05/19/17 22:05 18 98 Nasal Cannula 2.00 05/19/17 21:24 98 Nasal Cannula 2.00 05/19/17 21:24 98 05/19/17 21:19 100.2 79 18 137/63 (87) 98 Physical Exam GENERAL: This is a well-nourished, well-developed patient, in no apparent distress. SKIN: No rashes, ecchymoses or lesions. Cool and dry. HEENT: Atraumatic. Normocephalic. No temporal or scalp tenderness. No scleral icterus. Airway patent. NECK: Trachea midline, supple, nontender. CARDIO: Regular. RESP: Decreased air movement at the right base ABD: +BS, soft, left sided tenderness, nondistended. EXT: Bilateral LE edema. NEURO: Awake and alert. Motor and sensory grossly within normal limits. Normal speech. Laboratory Laboratory Tests Test 05/19/17 21:52 05/20/17 05:58 White Blood Count 9.0 23.9 Red Blood Count 2.53 2.36 Hemoglobin 7.7 6.7 Hematocrit 21.5 20.3 Mean Corpuscular Volume 84.8 86.2 Mean Corpuscular Hemoglobin 30.4 28.5 Mean Corpuscular Hemoglobin Concent 35.8 33.1 Red Cell Distribution Width 17.6 17.6 Platelet Count 260 209 Mean Platelet Volume 9.9 10.0 Neutrophils (%) (Auto) 97.5 92.0 Lymphocytes (%) (Auto) 1.3 2.5 Monocytes (%) (Auto) 1.0 5.2 Eosinophils (%) (Auto) 0.0 0.1 Basophils (%) (Auto) 0.2 0.2 Neutrophils # (Auto) 8.7 22.0 Lymphocytes # (Auto) 0.1 0.6 Monocytes # (Auto) 0.1 1.2 Eosinophils # (Auto) 0.0 0.0 Basophils # (Auto) 0.0 0.0 CBC Comment DIFF FINAL DIFF FINAL Differential Comment Prothrombin Time 12.9 Prothromb Time International Ratio 1.3 Activated Partial Thromboplast Time 23.3 Urine Color LIGHT-YELLOW Urine Turbidity CLEAR Urine pH 6.0 Urine Specific [place] 1.008 Urine Protein TRACE Urine Glucose (UA) NEG Urine Ketones NEG Urine Occult Blood NEG Urine Nitrite NEG Urine Bilirubin NEG Urine Urobilinogen LESS THAN 2.0 Urine Leukocyte Esterase NEG Urine RBC 1 Urine WBC LESS THAN 1 Urine Squamous Epithelial Cells <1 Urine Mucus FEW Microscopic Urinalysis Comment CULT NOT INDICATED Blood Urea Nitrogen 55 58 Creatinine 2.93 3.04 Random Glucose 106 107 Total Protein 7.1 Albumin 3.8 Calcium Level 8.2 7.9 Magnesium Level 2.0 Alkaline Phosphatase 56 Aspartate Amino Transf (AST/SGOT) 13 Alanine Aminotransferase (ALT/SGPT) 14 Total Bilirubin 3.3 Sodium Level 133 134 Potassium Level 4.2 3.9 Chloride Level 99 101 Carbon Dioxide Level 23.6 19.9 Anion Gap 10 13 Estimat Glomerular Filtration Rate 20 20 Total Creatine Kinase 28 Troponin I 0.09 0.12 B-Type Natriuretic Peptide 433 1233 Date/Time Source Procedure Growth Status 05/19/17 21:52 Blood Peripheral Aerobic Blood Culture - Preliminary NO GROWTH IN 1 DAY Resulted 05/19/17 21:52 Blood Peripheral Anaerobic Blood Culture - Preliminary NO GROWTH IN 1 DAY Resulted 05/19/17 21:58 Nasal Washing Influenza Types A,B Antigen (AVERY) - Final NEGATIVE FOR FLU A AND B ANTIGEN.... Complete Result Diagram: 05/20/1758 05/20/1758 Imaging Last Impressions Chest X-Ray 05/19/172118 Signed Impressions: Service Date/Time: Friday, May 19, 2017 21:26 - CONCLUSION: Slight enlargement of a right pleural effusion and right lower lobe infiltrate relative to the prior study. MD Dashawn Munguia Jr.i VTE Risk Assessment Caprini VTE Risk Assessment: Mod/High Risk (score >= 2) Caprini Risk Assessment Model Point Value = 1 Point Value = 2 Point Value = 3 Point Value = 5 Age 41-60 Minor surgery BMI > 25 kg/m2 Swollen legs Varicose veins or History of unexplained or recurrent spontaneous Oral contraceptives or hormone replacement Sepsis (< 1 month) Serious lung disease, including pneumonia (< 1 month) Abnormal pulmonary function Acute myocardial infarction Congestive heart failure (< 1 month) History of inflammatory bowel disease Medical patient at bed rest Age 61-74 Arthroscopic surgery Major open surgery (> 45 min) Laparoscopic surgery (> 45 min) Malignancy Confined to bed (> 72 hours) Immobilizing plaster cast Central venous access Age >= 75 History of VTE Family history of VTE Factor V Leiden Prothrombin [id number] Lupus anticoagulant Anticardiolipin antibodies Elevated serum homocysteine Heparin-induced thrombocytopenia Other congenital or acquired thrombophilia Stroke (< 1 month) Elective arthroplasty Hip, pelvis, or leg fracture Acute spinal cord injury (< 1 month) Prophylaxis Regimen Total Risk Factor Score Risk Level Prophylaxis Regimen 0-1 Low Early ambulation 2 Moderate Order ONE of the following: *Sequential Compression Device (SCD) *Heparin 5000 units SQ BID 3-4 Higher Order ONE of the following medications: *Heparin 5000 units SQ TID *Enoxaparin/Lovenox 40 mg SQ daily (WT < 150 kg, CrCl > 30 mL/min) *Enoxaparin/Lovenox 30 mg SQ daily (WT < 150 kg, CrCl > 10-29 mL/min) *Enoxaparin/Lovenox 30 mg SQ BID (WT < 150 kg, CrCl > 30 mL/min) AND/OR *Sequential Compression Device (SCD) 5 or more Highest Order ONE of the following medications: *Heparin 5000 units SQ TID (Preferred with Epidurals) *Enoxaparin/Lovenox 40 mg SQ daily (WT < 150 kg, CrCl > 30 mL/min) *Enoxaparin/Lovenox 30 mg SQ daily (WT < 150 kg, CrCl > 10-29 mL/min) *Enoxaparin/Lovenox 30 mg SQ BID (WT < 150 kg, CrCl > 30 mL/min) AND *Sequential Compression Device (SCD) Assessment and Plan Problem List: (1) Pleural effusion on right ICD Codes: J90 - Pleural effusion, not elsewhere classified Plan: Pleural effusion Possible pneumonia - Pt is an 86 y/o WM with paroxysmal atrial fibrillation, myelodysplasia with refractory anemia, prostate cancer s/p XRT 5 years ago, bladder cancer s/p tumor resection 6 years ago, HTN, and GERD. Pt had been receiving frequent blood transfusions and has subsequently developed iron overload and is iron chelation therapy with Exjade for this. He was started on Vidaza in 2016 for his myelodysplastic syndrome and his transfusion needs have decreased since initiation of that. He follows with Dr. Kohler for this. - Pt [place] [facility] [place] with complaints of orthopnea, associated with fever and shaking chills. Denies cough or night sweats. - Patient also had a transfusion on the afternoon of 05/19 for chronic anemia. Patient states he's never had a fever post transfusion to date. His max temp in the ED was 100.8 degrees last night. - Blood cultures were drawn in the ED and there is now growth x 1 day. - He tested negative for influenza. - WBC count increased to 23.9 on 05/20. - Pt was started on IVF, Zosyn and Azithromycin last night in the ED and this was continued. - Follow blood cultures - UA was negative - CXR in AM - Check stool studies. No recent antibiotic use. - Check Noncontrasted CT Abd/pelvis - Pt stats that he is a DNR/No code and one of his daughters and son in law was present for this conversation Myelodysplasia with refractory anemia Volume overload - His labs in the ED noted Hgb 7.7/Hct 21.5. Repeat labs this morning noted a decrease in his H/H to 6.7/20.3 - Pt is currently receiving 2 units of PRBCs - Patient had a few recent admissions in 03/2017 and 04/2017 to the hospital for volume overload and required thoracentesis twice for pleural effusion. - 2D echo (02/2017) with preserved EF 60-65% and no evidence of diastolic dysfunction. - His troponin I is elevated at 0.09 --> 0.12 but he has noted elevated troponin in the past - BNP is elevated at 433 --> 1233 today. - CXR in the ED noted slight enlargement of a right pleural effusion and right lower lobe infiltrate relative to the prior study. - Pts BP will not sustain any diuretics at this time - Pt may need a repeat thoracentesis Acute on chronic kidney disease - His renal function was worse than baseline with Cr 2.93/BUN 55, GFR 20 and repeat labs this morning with Cr 3.04/BUN 58, GFR 20. - Check renal US - Consult Nephrology Paroxysmal atrial fibrillation HTN - Pts BP will not sustain his BB - Cont. Amiodarone in AM Hypothyroidism - Cont. home meds (2) Pneumonia ICD Codes: J18.9 - Pneumonia, unspecified organism Status: Acute (3) Volume overload ICD Codes: E87.70 - Fluid overload, unspecified Status: Acute (4) Acute renal insufficiency ICD Codes: N28.9 - Disorder of kidney and ureter, unspecified Status: Acute (5) Myelodysplastic syndrome ICD Codes: D46.9 - Myelodysplastic syndrome Status: Chronic (6) Symptomatic anemia ICD Codes: D64.9 - Symptomatic anemia Status: Acute (7) Hypothyroidism ICD Codes: E03.9 - Hypothyroidism Status: Chronic (8) Paroxysmal atrial fibrillation ICD Codes: I48.0 - Paroxysmal atrial fibrillation Status: Chronic (9) Elevated troponin ICD Codes: R77.8 - Other specified abnormalities of plasma proteins Status: Acute (10) Hypertension ICD Codes: I10 - Hypertension Status: Chronic (11) Hyperlipidemia ICD Codes: E78.5 - Hyperlipidemia Status: Acute Assessment and Plan Patient examined. Assessment and plan formulated with Irasema Young PA-C. I agree with the above. Case d/w pt's Manager Electrical, Dr. Kohler. Both he and I feel that Hospice would be appropriate. Physician Certification 2 Midnight Certification Type: Admission for Inpatient Services Order for Inpatient Services The services are ordered in accordance with Medicare regulations or non- Medicare payer requirements, as applicable. In the case of services not specified as inpatient-only, they are appropriately provided as inpatient services in accordance with the 2-midnight benchmark. Estimated LOS (days): 3 3 days is the estimated time the patient will need to remain in the hospital, assuming treatment plan goals are met and no additional complications. Post-Hospital Plan: Not yet determined Problem Qualifiers (1) Pneumonia: Qualified Codes: J18.1 - Lobar pneumonia, unspecified organism Irasema Young May 20, 2017 13:19 Kevin Gill DO May 21, 2017 10:57
--- NOTE | 2017-05-20 14:38 | EKG ---
Date Performed: 05/19/2017 Time Performed: 21:35:39 PTAGE: 86 years EKG: Sinus rhythm NONSPECIFIC T-WAVE ABNORMALITY BORDERLINE ECG Since PREVIOUS TRACING , no significant change noted PREVIOUS TRACIN04/01/2017 15.10 DOCTOR: Laura Castorena Interpretating Date/Time 05/20/2017 14:38:12
--- NOTE | 2017-05-20 14:48 | RADRPT ---
EXAM DATE/TIME: 05/20/2017 13:35 [facility] COMPARISON: CT ABDOMEN & PELVIS W/O CONTRAST, May 20, 2017, 14:16. INDICATIONS : Abnormal labs. MEDICAL HISTORY : Congestive heart failure. Hypercholesterolemia. Thyroid disease. A.FIB. Hypternsion. Dyspnea. GERD. Ulcer. Prostate and bladder cancer. Arthritis. Myelodysplastic syndrome. SURGICAL HISTORY : Tonsillectomy. Cataracts. Cardiac cath. Port placement. Thoracentesis. ENCOUNTER: Initial ACUITY: 1 day PAIN SCORE: 2/10 LOCATION: Bilateral flank MEASUREMENTS: RIGHT KIDNEY: 9.2 x 5.5 x 5.3 cm LEFT KIDNEY: 10.3 x 4.9 x 4.1 cm FINDINGS: RIGHT KIDNEY: Renal cortex is normal in thickness and echotexture. No hydronephrosis, stone, or mass. There is an anechoic avascular lesion in the right mid kidney measuring up to 10 mm. Correlates with a hyperdens e lesion on recent noncontrast CT density measurements in the 80s. LEFT KIDNEY: Renal cortex is normal in thickness and echotexture. No hydronephrosis, stone, or mass. BLADDER: Within normal limits given the degree of distension. CONCLUSION: 1. There is no hydronephrosis. 2. There is a 10 mm hemorrhagic cyst in the right mid kidney. Dino Esquivel MD on May 20, 2017 at 14:43 Board Certified Radiologist. This report was verified electronically.
--- NOTE | 2017-05-20 15:20 | PD.CONS ---
History of Present Illness Service Nephrology Consult Requested By Attending Reason for Consult JAMES on CKD Primary Care Physician Jovan Vora M.D. Diagnoses: (1) Symptomatic anemia (2) Acute renal insufficiency (3) Volume overload (4) Paroxysmal atrial fibrillation (5) Myelodysplastic syndrome History of Present Illness 86-year-old male presented to ED with orthopnea, associated with fever and shaking chills today. Patient had a recent admission to the hospital for pleural effusion with pleurocentesis as per patient. Patient had a transfusion on the afternoon of 05/19 for chronic anemia. Patient states he's never had a fever post transfusion to date. His max temp in the ED was 100.8 degrees last night. Blood cultures were drawn in the ED and there is no growth x 1 day. Labs in the ED noted Hgb 7.7/Hct 21.5. Repeat labs this morning noted a decrease in his H/H to 6.7/20.3 and his WBC count increased to 23.9. On IVF, Zosyn and Azithromycin last night in the ED. His renal function was worse than baseline with Cr 2.93/BUN 55, GFR 20 and repeat labs this morning with Cr 3.04/BUN 58, GFR 20. (Shawna Piña) Review of Systems Constitutional: COMPLAINS OF: Fever, Chills Cardiovascular: COMPLAINS OF: Orthopnea Gastrointestinal: COMPLAINS OF: Abdominal pain, Diarrhea (Shawna Piña) Past Family Social History Allergies: Coded Allergies: codeine (Verified Allergy, Severe, Hallucinations, 05/19/17) hydrocodone (Verified Allergy, Mild, Hallucinations, 05/19/17) Past Medical History Hx of pelvic fx AAA Paroxysmal atrial fibrillation Myelodysplasia with refractory anemia Hx of bladder cancer 8 years ago Hx of prostate cancer 7 years ago COPD GERD HTN Hyperlipidemia Hypothyroidism Past Surgical History Multiple cystoscopies with tumor removal Cataract surgery Active Ordered Medications Current Medications Medications (Trade) Dose Ordered Sig/Jim Route Start Time Stop Time Status Last Admin (NS Flush) 2 ml UNSCH PRN IVF 05/19/17 21:30 Piperacillin Sod/ Tazobactam Sod 50 ml @ 100 mls/hr Q8HR IV 05/20/17 06:00 05/20/17 06:13 Azithromycin 500 mg/Sodium Chloride 250 ml @ 250 mls/hr DAILY@2300 IV 05/19/17 23:30 05/20/17 00:07 Sodium Chloride 1,000 ml @ 42 mls/hr [id number] IV 05/19/17 23:45 05/20/17 00:06 (Cordarone) 200 mg DAILY PO 05/21/17 09:00 (Flonase Sadiq Spr) 2 spray DAILY EACH NARE 05/21/17 09:00 (Synthroid) 75 mcg DAILY@0600 PO 05/21/17 06:00 (Pepcid) 1 mg BID PRN PO 05/20/17 13:15 (Protonix) 20 mg BID PO 05/20/17 21:00 (Tylenol) 650 mg Q4H PRN PO 05/20/17 13:15 (Zofran Inj) 4 mg Q6H PRN IV 05/20/17 13:15 Family History Noncontributory Social History Pt has a hx of tobacco use, quit over 20 years ago. [facility] Physical Exam Vital Signs Vital Signs Date Time Temp Pulse Resp B/P (MAP) Pulse Ox O2 Delivery O2 Flow Rate FiO2 05/20/17 14:30 65 25 87/44 (58) 100 Nasal Cannula 2.00 05/20/17 13:30 65 15 85/42 (56) 100 Nasal Cannula 2.00 05/20/17 12:44 98.0 62 18 86/47 97 05/20/17 12:30 98.0 66 18 96/48 (64) 97 Nasal Cannula 2.00 05/20/17 12:29 98.0 70 17 96/48 99 05/20/17 12:15 97.8 68 18 81/40 99 05/20/17 11:00 69 24 91/51 (64) 98 Nasal Cannula 2.00 05/20/17 10:00 81 27 97/48 (64) 99 Nasal Cannula 2.00 05/20/17 09:26 97.8 62 18 83/41 99 05/20/17 09:11 97.6 65 18 83/42 98 05/20/17 09:00 72 22 87/42 (57) 99 Nasal Cannula 2.00 05/20/17 08:00 71 22 82/44 (57) 99 Nasal Cannula 2.00 05/20/17 07:00 71 21 85/45 (58) Nasal Cannula 2.00 05/20/17 04:50 99.5 72 16 94/46 (62) 95 Nasal Cannula 2.00 05/20/17 01:04 97.4 05/20/17 00:10 100.8 76 16 92/43 (59) 96 Nasal Cannula 2.00 05/19/17 22:59 71 18 111/55 (73) 95 Nasal Cannula 2.00 05/19/17 22:05 18 98 Nasal Cannula 2.00 05/19/17 21:24 98 Nasal Cannula 2.00 05/19/17 21:24 98 05/19/17 21:19 100.2 79 18 137/63 (87) 98 Physical Exam GENERAL: This is a well-nourished, well-developed patient, in no apparent distress. SKIN: No rashes, ecchymoses or lesions. Cool and dry. HEENT: Atraumatic. Normocephalic. No temporal or scalp tenderness. No scleral icterus. Airway patent. NECK: Trachea midline, supple, nontender. CARDIO: Regular. RESP: Decreased air movement at the right base ABD: +BS, soft, left sided tenderness, nondistended. EXT: Bilateral LE edema. NEURO: Awake and alert. Motor and sensory grossly within normal limits. Normal speech. Laboratory Laboratory Tests Test 05/19/17 21:52 05/20/17 05:58 White Blood Count 9.0 23.9 Red Blood Count 2.53 2.36 Hemoglobin 7.7 6.7 Hematocrit 21.5 20.3 Mean Corpuscular Volume 84.8 86.2 Mean Corpuscular Hemoglobin 30.4 28.5 Mean Corpuscular Hemoglobin Concent 35.8 33.1 Red Cell Distribution Width 17.6 17.6 Platelet Count 260 209 Mean Platelet Volume 9.9 10.0 Neutrophils (%) (Auto) 97.5 92.0 Lymphocytes (%) (Auto) 1.3 2.5 Monocytes (%) (Auto) 1.0 5.2 Eosinophils (%) (Auto) 0.0 0.1 Basophils (%) (Auto) 0.2 0.2 Neutrophils # (Auto) 8.7 22.0 Lymphocytes # (Auto) 0.1 0.6 Monocytes # (Auto) 0.1 1.2 Eosinophils # (Auto) 0.0 0.0 Basophils # (Auto) 0.0 0.0 CBC Comment DIFF FINAL DIFF FINAL Differential Comment Prothrombin Time 12.9 Prothromb Time International Ratio 1.3 Activated Partial Thromboplast Time 23.3 Urine Color LIGHT-YELLOW Urine Turbidity CLEAR Urine pH 6.0 Urine Specific Lind 1.008 Urine Protein TRACE Urine Glucose (UA) NEG Urine Ketones NEG Urine Occult Blood NEG Urine Nitrite NEG Urine Bilirubin NEG Urine Urobilinogen LESS THAN 2.0 Urine Leukocyte Esterase NEG Urine RBC 1 Urine WBC LESS THAN 1 Urine Squamous Epithelial Cells <1 Urine Mucus FEW Microscopic Urinalysis Comment CULT NOT INDICATED Blood Urea Nitrogen 55 58 Creatinine 2.93 3.04 Random Glucose 106 107 Total Protein 7.1 Albumin 3.8 Calcium Level 8.2 7.9 Magnesium Level 2.0 Alkaline Phosphatase 56 Aspartate Amino Transf (AST/SGOT) 13 Alanine Aminotransferase (ALT/SGPT) 14 Total Bilirubin 3.3 Sodium Level 133 134 Potassium Level 4.2 3.9 Chloride Level 99 101 Carbon Dioxide Level 23.6 19.9 Anion Gap 10 13 Estimat Glomerular Filtration Rate 20 20 Total Creatine Kinase 28 Troponin I 0.09 0.12 B-Type Natriuretic Peptide 433 1233 Date/Time Source Procedure Growth Status 05/19/17 21:52 Blood Peripheral Aerobic Blood Culture - Preliminary NO GROWTH IN 1 DAY Resulted 05/19/17 21:52 Blood Peripheral Anaerobic Blood Culture - Preliminary NO GROWTH IN 1 DAY Resulted 05/19/17 21:58 Nasal Washing Influenza Types A,B Antigen (AVERY) - Final NEGATIVE FOR FLU A AND B ANTIGEN.... Complete (Shawna Piña) Result Diagram: 05/20/17 0558 05/20/17 0558 Imaging Last Impressions Renal Ultrasound 05/20/17 0000 Signed Impressions: Service Date/Time: Saturday, May 20, 2017 13:35 - CONCLUSION: 1. There is no hydronephrosis. 2. There is a 10 mm hemorrhagic cyst in the right mid kidney. Dino Esquivel MD Chest X-Ray 05/19/172118 Signed Impressions: Service Date/Time: Friday, May 19, 2017 21:26 - CONCLUSION: Slight enlargement of a right pleural effusion and right lower lobe infiltrate relative to the prior study. George Arellano Jr., MD (Shawna Piña) Assessment and Plan Problem List: (1) Acute renal insufficiency ICD Codes: N28.9 - Disorder of kidney and ureter, unspecified Status: Acute Plan: Noted JAMES on CKD possibly related to ATN from hypotension. Per patient he is not followed by a plant control aide. Transfused 1 unit of PRBC and plan for another unit. His renal indices are worsening with Cr 2.93/BUN 55, GFR 20 and repeat labs in morning with Cr 3.04/BUN 58, GFR 20. Patients GFR 45 in April of 2016. Renal ultrasound and CT of abdomen is pending. Will continue with gentle hydration and avoid nephrotoxins Recheck in AM. (2) Symptomatic anemia ICD Codes: D64.9 - Symptomatic anemia Status: Acute Plan: Patient is treated with blood transfusion as needed for myelodysplasia with refractory anemia. Patient is hypotension. Transfused per note on the and has received 1 unit today and plan for 1 more unit. (3) Volume overload ICD Codes: E87.70 - Fluid overload, unspecified Status: Acute Plan: Elevated BNP and pleural effusions. With fluid overload and JAMES with hydrate cautiously (4) Paroxysmal atrial fibrillation ICD Codes: I48.0 - Paroxysmal atrial fibrillation Status: Chronic Plan: Rate controlled not on anticoagulation (5) Pneumonia ICD Codes: J18.9 - Pneumonia, unspecified organism Status: Acute Plan: Continue azithromycin and zosyn (Shawna Piña) Problem List: (1) Acute renal insufficiency ICD Codes: N28.9 - Disorder of kidney and ureter, unspecified Status: Acute Plan: Noted JAMES on CKD possibly related to ATN from hypotension. Per patient he is not followed by a plant control aide. Transfused 1 unit of PRBC and plan for another unit. His renal indices are worsening with Cr 2.93/BUN 55, GFR 20 and repeat labs in morning with Cr 3.04/BUN 58, GFR 20. Patients GFR 45 in April of 2016. Renal ultrasound and CT of abdomen results noted. Will continue with gentle hydration and avoid nephrotoxins Recheck in AM. Has minimal Proteinuria, the chronic kidney disease is most likely due to Hypertensive or renovascular disease. JAMES is possibly pre renal or ATN from Hypotension. BP is better now, follow the urine out put and BMP. (2) Symptomatic anemia ICD Codes: D64.9 - Symptomatic anemia Status: Acute Plan: Patient is treated with blood transfusion as needed for myelodysplasia with refractory anemia. Patient is hypotension. Transfused per note on the and has received 1 unit today and plan for 1 more unit. (3) Volume overload ICD Codes: E87.70 - Fluid overload, unspecified Status: Acute Plan: Elevated BNP and pleural effusions. With fluid overload and JAMES with hydrate cautiously (4) Paroxysmal atrial fibrillation ICD Codes: I48.0 - Paroxysmal atrial fibrillation Status: Chronic Plan: Rate controlled not on anticoagulation (5) Pneumonia ICD Codes: J18.9 - Pneumonia, unspecified organism Status: Acute Plan: Continue azithromycin and zosyn (Alexsandra Wang MD) Problem Qualifiers (1) Pneumonia: Qualified Codes: J18.1 - Lobar pneumonia, unspecified organism Shawna Piña May 20, 2017 15:20 Alexsandra Wang MD May 20, 2017 19:30
--- NOTE | 2017-05-20 15:31 | RADRPT ---
EXAM DATE/TIME: 05/20/2017 14:16 [facility] COMPARISON: CT ABDOMEN & PELVIS W/O CONTRAST, April 04, 2017, 15:05. INDICATIONS : Frequent blood transfusion with recent pleural effusion. ORAL CONTRAST: No oral contrast ingested. RADIATION DOSE: 6.96 CTDIvol (mGy) MEDICAL HISTORY : Hypertension. Carcinoma, bladder. Carcinoma, prostate. SURGICAL HISTORY : ENCOUNTER: Initial ACUITY: 3 days PAIN SCALE: 0/10 LOCATION: Bilateral Umbilical TECHNIQUE: Volumetric scanning of the abdomen and pelvis was performed. Using automated exposure control and ad justment of the mA and/or kV according to patient size, radiation dose was kept as low as reasonably achievable to obtain optimal diagnostic quality images. DICOM format image data is available electro nically for review and comparison. FINDINGS: LOWER LUNGS: There is a partially visualized moderate size right pleural effusion with associated compressive atel ectasis of the right lower lobe. Hounsfield measurements are consistent with simple fluid. LIVER: Homogeneous density without a concerning lesion. There is a 13 mm cyst in the right lobe. There is n o dilation of the biliary tree. No calcified gallstones. SPLEEN: Normal size without lesion. PANCREAS: Within normal limits. KIDNEYS: Normal in size and shape. There is no mass, stone, or hydronephrosis. There is a hyperdense 11 mm lo w-density lesion in the right mid kidney with Hounsfield measurements of 88. ADRENAL GLANDS: There is a left adrenal gland mass measuring 2.4 x 2.1 cm. It is low in density with negative Hounsfi eld measurements. This lesion previously measured 18 x 18 mm. There is stable thickening of the right adrenal gland body measuring approximately 10 mm. VASCULAR: There is severe atherosclerotic disease. No aneurysm is present. BOWEL/MESENTERY: The stomach, small bowel, and colon demonstrate no acute abnormality. There is no free intraperitone al air. There is trace amount of perihepatic and perisplenic free fluid. ABDOMINAL WALL: Within normal limits. RETROPERITONEUM: There is no lymphadenopathy. BLADDER: No wall thickening or mass. REPRODUCTIVE: Prostate gland is enlarged and contains fiducial markers related to prior radiation therapy. INGUINAL: There are small inguinal hernias bilaterally containing a portion of the small bowel and colon. No ly mphadenopathy is present. MUSCULOSKELETAL: There are degenerative changes of the lumbar spine. CONCLUSION: 1. Partially visualized moderate size right pleural effusion with associated compressive atelectasis of the right lung base. Fluid density measurements suggest simple fluid. There is also trace free flu id in the abdomen. 2. No acute findings include hemorrhagic cyst in the right kidney, severe atherosclerotic disease, an d left adrenal gland mass with features suggesting a cyst or adenoma. Dino Esquivel MD on May 20, 2017 at 15:03 Board Certified Radiologist. This report was verified electronically.
[2017-05-20 18:50] LABS: AUTOMATED NEUTROPHIL # 26.9 TH/MM3 (1.8-7.7); BASOPHIL % 0.1 % (0.0-2.0); HEMATOCRIT 25.6 % (39.0-51.0); HEMOGLOBIN 8.9 GM/DL (13.0-17.0); LYMPH % 2.2 % (9.0-44.0); LYMPHOCYTE # 0.6 TH/MM3 (1.0-4.8); MEAN CELL VOLUME 84.9 FL (80.0-100.0); MEAN CORPUSCULAR HEMOGLOBIN 29.4 PG (27.0-34.0); MEAN CORPUSCULAR HGB CONC 34.6 % (32.0-36.0); MEAN PLATELET VOLUME 10.1 FL (7.0-11.0); MONO % 5.6 % (0.0-8.0); MONOCYTE # 1.6 TH/MM3 (0-0.9); NEUT % 92.1 % (16.0-70.0); PLATELET COUNT 201 TH/MM3 (150-450); RED BLOOD COUNT 3.02 MIL/MM3 (4.50-5.90); RED CELL DISTRIBUTION WIDTH 17.5 % (11.6-17.2); WHITE BLOOD COUNT 29.2 TH/MM3 (4.0-11.0)
[2017-05-20] MEDS: PANTOPRAZOLE SOD 20 MG DELAYED RELEASE TAB PO SCH (21:33)
[2017-05-21] VITALS (9 sets, daily range): BP systolic 100–111; BP diastolic 52–64; PULSE 78–108; RESP 17–24; TEMP 97.5–99.6; O2SAT 95–100
[2017-05-21] MEDS: LEVOTHYROXINE SODIUM 75 MCG TAB PO SCH (05:40)
[2017-05-21] MEDS: PIPERACIL-TAZO 2.25 GM PREMIX 50 ML IV SCH ×3 (05:48→21:40)
[2017-05-21 06:07] LABS: BASOPHIL % 0.2 % (0.0-2.0); HEMATOCRIT 24.5 % (39.0-51.0); HEMOGLOBIN 8.6 GM/DL (13.0-17.0); LYMPH % 4.6 % (9.0-44.0); LYMPHOCYTE # 0.9 TH/MM3 (1.0-4.8); MEAN CELL VOLUME 84.8 FL (80.0-100.0); MEAN CORPUSCULAR HEMOGLOBIN 29.8 PG (27.0-34.0); MEAN CORPUSCULAR HGB CONC 35.2 % (32.0-36.0); MEAN PLATELET VOLUME 9.7 FL (7.0-11.0); MONO % 7.5 % (0.0-8.0); MONOCYTE # 1.4 TH/MM3 (0-0.9); NEUT % 87.7 % (16.0-70.0); PLATELET COUNT 157 TH/MM3 (150-450); RED BLOOD COUNT 2.89 MIL/MM3 (4.50-5.90); RED CELL DISTRIBUTION WIDTH 17.9 % (11.6-17.2); WHITE BLOOD COUNT 19.3 TH/MM3 (4.0-11.0)
[2017-05-21 06:44] LABS: BICARBONATE 20.4 MEQ/L (21.0-32.0); CALCIUM 7.5 MG/DL (8.5-10.1); CREATININE 2.84 MG/DL (0.60-1.30); MAGNESIUM 2.3 MG/DL (1.5-2.5); TROPONIN I 0.19 NG/ML (0.02-0.05)
--- NOTE | 2017-05-21 08:21 | MB ---
cc: ZARINA MYLES M.D. LEONID SUMMERS DATE OF 1930 DATE OF CONSULTATION 05/21/2017. TIME OF CONSULTATION 06:[address] Zarina Myles REQUESTING PHYSICIAN Consultation was requested by the hospitalist service. REASON FOR CONSULTATION Myelodysplastic syndrome with refractory anemia. CURRENT TREATMENT The patient had been on weekly epoetin injections and had also been receiving supportive red cell transfusions on an as-needed basis in my clinic. CHIEF COMPLAINT Mr. Peck presented to the [facility] Emergency Department on an 05/19/2017 with complaints of increasing difficulty breathing, chills and progressive fatigue. Earlier that day he had received packed red blood cell transfusions at my clinic. HISTORY OF PRESENT ILLNESS Mr. Peck is an 86-year-old male with multiple medical comorbid conditions. Mr. Peck is well-known to me from my outpatient practice. Mr. Peck has a history of myelodysplastic syndrome dating back several years. In the summer of 2014 his myelodysplasia progressed to the point he required increasing red cell transfusions. Because of the disease progression, he was initiated on systemic therapy with Vidaza which is a systemic therapeutic agents intended to help decrease the transfusion requirements as well as to help decrease the risk of progression to acute myeloid leukemia. He tolerated and responded to this treatment quite well for about a year and did indeed achieve transfusion in dependence. Unfortunately, by this summer of 2016 he had returned to where he required packed red blood cell transfusion support almost every two weeks. Epogen as a weekly dosing was reintroduced to help support him and to help optimize erythropoiesis. Several months ago Vidaza was discontinued because it seemed no longer to be beneficial. He remained on red cell transfusion support. Over the past several months Mr. Peck has had repeated hospitalizations for various issues including A-fib with RVR, congestive heart failure with volume overload and lower extremity edema. He has become increasingly frail and is no longer able to live independently. Two months ago he was moved from his home to an assisted-living facility. On 05/19/2017 he presented to the emergency department with increasing lower extremity edema, progressive difficulty breathing, orthopnea and was admitted to the hospital for further workup and management. X-ray of the chest performed in the emergency department revealed a right-sided pleural effusion. The hematology service has had been asked to come and see the patient to discuss goals of care. Palliative care has also been asked to see him. PAST MEDICAL HISTORY 1. Myelodysplastic syndrome. 2. 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 3. A. fib with RVR. 4. Congestive heart failure with diastolic failure. 5. Gout. 6. Diverticulitis. 7. History of carcinoma of the bladder currently in remission. 8. Arthritis. 9. Osteoporosis. 10. Frailty. PAST SURGICAL HISTORY 1. Multiple cystoscopies with transurethral bladder resection. 2. Transurethral prostate resection. 3. Tonsillectomy. 4. Upper endoscopy. 5. Colonoscopy. 6. Cataract surgery. 7. Bone marrow biopsies. ALLERGIES No known drug allergies. 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 He has three adult daughters. The patient is . He denies having been a drinker. He did in the past smoke but has not smoked in many years. FAMILY HISTORY No known oncologic diagnoses, family history is otherwise unremarkable. CURRENT INPATIENT MEDICATIONS 1. Azithromycin 500 mg IV daily. 2. Zosyn 2.25 grams IV q.8 hours. 3. Half normal saline 42 mL/hour. 4. Tylenol 650 mg p.o. q.4 hours as needed for pain. 5. Amiodarone 100 mg p.o. daily. 6. Famotidine 1 mg p.o. b.i.d. 7. Fluticasone. 8. Nasal spray 2 sprays in each nostril daily. 9. Levothyroxine 75 mcg p.o. daily. 10. Ondansetron 4 mg IV q.6 hours. 11. Pantoprazole 20 mcg p.o. b.i.d. REVIEW OF SYSTEMS A 13-point review of systems were obtained. The following are the pertinent positives and negatives: CONSTITUTIONAL: The patient reports generalized and progressive fatigue, loss of appetite, weight loss and increasing difficulty with ambulation. HEENT: The patient denies headaches. He denies soreness in the throat. He denies nosebleeds. RESPIRATORY: Difficulty breathing with exertion, difficulty breathing when laying flat. He denies cough or hemoptysis. CARDIOVASCULAR: Denies angina-like chest pain, reports palpitations, reports lower extremity edema and reports orthopnea. GI: Denies nausea, vomiting Has had diarrhea. Denies abdominal distension or abdominal pain. : No complaints. SENIOR STAFF CONSULTANT: Generalized weakness and fatigue. PHYSICAL EXAMINATION VITAL SIGNS: Temperature 99.3 degrees Fahrenheit, heart rate 78 beats per minute, respiratory rate 17, blood pressure 104 x 53, O2 sats 99% on room air. GENERAL PHYSICAL APPEARANCE: Mr. Pcek is an elderly and frail-appearing male, he is laying in bed, he is easily arousable. His eldest daughter and her are at bedside with him. He is not acutely distressed at this time. HEENT: Head atraumatic, normocephalic. Conjunctivae are pale. Sclerae are anicteric. EOMI, PERRLA, status post cataract surgery. Oral Exam; Dry mucous membranes. RESPIRATORY EXAM: Good air movement bilaterally with decreased bibasilar breath sounds. CARDIOVASCULAR EXAM: Irregular rhythm, S1-S2 with a systolic murmur heard over the left lower sternal border. LOWER EXTREMITIES: with pitting edema all the way up to his knees. ABDOMINAL EXAM: Belly is thin, soft. tenderness to palpation. no definite organ enlargement noted. SENIOR STAFF CONSULTANT: He is able to move all four limbs spontaneously. There appears to be no definite Motor deficits. NEUROLOGICALLY: He appears to be intact. LABORATORY FINDINGS Labs dated 05/21/2017: WBC count 19.3, hemoglobin 8.6 gm/dl, hematocrit 24.5%, platelet count 157, absolute neutrophil count 17. Chemistries: Sodium 134, potassium 3.7, chloride 101, bicarbonate 20.4, BUN is 69, creatinine is 2.84, EGFR is 21, calcium 7.5. Troponin-I is 0.1. IMAGING STUDIES Chest x-ray dated 05/19/2017 indicates a right-sided pleural effusion and possible right-sided infiltrate noted. ASSESSMENT Mr. 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 As a consequence to the frequent red cell transfusions over the past three years, Mr. Peck does have hemochromatosis. His myelodysplasia no longer responds to disease modifying treatment such as Vidaza or to high doses of epoetin injections which are also delivered on a weekly basis. Mr. Peck has additional medical comorbid conditions including progressive renal insufficiency, cardiac arrhythmia and diastolic heart failure. He is increasingly frail and is no longer able to live independently due to the multitude of medical comorbid conditions and his treatment hospitalizations. He presented to the hospital with complaints of increasing difficulty breathing and progressive fatigue. The hematology service has been asked to see Mr. Peck to discuss goals of care going forward given his clearly evident decline. I have been specifically asked to talk to the patient about Hospice level of care. On various occasions over the past three or for months I have spoken to Mr. Peck about best supportive care and palliation as opposed to continued aggressive disease-directed therapy. Mr. Peck had consistently endorsed pursuing aggressive disease-directed therapy such as transfusions and Epogen injections as opposed to pursuing more comfort oriented care. At today's visit, however, after speaking to the patient's daughter and son-in-law, it appears that the family is actively considering hospice level of care. I did recommend that we consider this as an appropriate goal given the non-modifiable nature of his myelodysplastic syndrome, the incurable nature of myelodysplastic syndrome and the terminal nature of the myelodysplastic syndrome. We also talked about the patient's overall frailty and the lack of feasibility of continuing weekly transfusions. I did explain that the transfusions in some part may be responsible for his frequent CHF exacerbations due to the volume burden associated to the red cell transfusions. The patient's daughter asks to wait until tomorrow when the patient's youngest daughter, who is a retired intensive care nurse, will come into town from [place]. At that point the family would like to meet to discuss goals of care and eventual disposition. MD CHRISTOPHER Moser/CARLEE /7:09 AM /7:48 AM [place]
--- NOTE | 2017-05-21 08:54 | HHI.NPPN ---
Subjective Complaints: Confused General Problems: Anemia, Edema (Shawna Piña) History of Present Illness 86-year-old male presented to ED with orthopnea, associated with fever and shaking chills. Patient had a recent admission to the hospital for pleural effusion with pleurocentesis as per patient. Patient had a transfusion on 05/19 for chronic anemia. Called to see the patient for elevated BUN and Creatinine. Additional Remarks Patient is alert, better after Thoracentesis. (Alexsandra Wang MD) Review of Systems Respiratory Lungs: SOB Respiratory Remarks Denies SOB (Shawna Piña) Cardiovascular Cardiac Remarks Denies Chest pain (Shawna Piña) Gastrointestinal GI Remarks No Abdominal pain (Shawna Piña) Genitourinary Remarks Denies urinary frequency or dysuria (Shawna Piña) Objective Data Data Vital Signs Date Time Temp Pulse Resp B/P (MAP) Pulse Ox O2 Delivery O2 Flow Rate FiO2 05/21/17 08:05 97.5 103 18 105/58 (74) 99 05/21/17 04:00 99.3 78 17 104/53 (70) 99 05/21/17 03:31 81 05/21/17 00:00 98.4 80 22 100/52 (68) 99 05/20/17 20:00 97.8 115 16 90/48 (62) 90 05/20/17 16:16 98.5 66 20 105/53 (70) 100 05/20/17 15:40 66 24 96/53 (67) 98 05/20/17 15:30 98.6 67 25 96/53 99 05/20/17 15:00 67 26 101/50 (67) 96 Nasal Cannula 2.00 05/20/17 14:30 65 25 87/44 (58) 100 Nasal Cannula 2.00 05/20/17 13:30 65 15 85/42 (56) 100 Nasal Cannula 2.00 05/20/17 12:44 98.0 62 18 86/47 97 05/20/17 12:30 98.0 66 18 96/48 (64) 97 Nasal Cannula 2.00 05/20/17 12:29 98.0 70 17 96/48 99 05/20/17 12:15 97.8 68 18 81/40 99 05/20/17 11:00 69 24 91/51 (64) 98 Nasal Cannula 2.00 05/20/17 10:00 81 27 97/48 (64) 99 Nasal Cannula 2.00 05/20/17 09:26 97.8 62 18 83/41 99 05/20/17 09:11 97.6 65 18 83/42 98 05/20/17 09:00 72 22 87/42 (57) 99 Nasal Cannula 2.00 (Shawna Piña) -: 05/21/17 0545 05/21/17 0545 Microbiology 05/20/17 , Received Pending Imaging Last Impressions Renal Ultrasound 05/20/17 0000 Signed Impressions: Service Date/Time: Saturday, May 20, 2017 13:35 - CONCLUSION: 1. There is no hydronephrosis. 2. There is a 10 mm hemorrhagic cyst in the right mid kidney. Dino Esquivel MD Abdomen/Pelvis CT 05/20/17 0000 Signed Impressions: Service Date/Time: Saturday, May 20, 2017 14:16 - CONCLUSION: 1. Partially visualized moderate size right pleural effusion with associated compressive atelectasis of the right lung base. Fluid density measurements suggest simple fluid. There is also trace free fluid in the abdomen. 2. No acute findings include hemorrhagic cyst in the right kidney, severe atherosclerotic disease, and left adrenal gland mass with features suggesting a cyst or adenoma. Dino Esquivel MD Chest X-Ray 05/19/172118 Signed Impressions: Service Date/Time: Friday, May 19, 2017 21:26 - CONCLUSION: Slight enlargement of a right pleural effusion and right lower lobe infiltrate relative to the prior study. George Arellano Jr., MD (Shawna Piña) Physical Exam General Appearance: No Acute Distress (Shawna Piña) Pulmonary Resp Exam: No Distress, Decreased Bases (Shawna Piña) Resp Exam: Rhonchi, Diminished Breath Sounds (Alexsandra Wang MD) Cardiology CV Exam: Regular, Normal Sinus Rhythm (Alexsandra Wang MD) Gastrointestinal/Abdomen GI Exam: Soft, Non-Tender (Shawna Piña) Genitourinary Exam: Flank Non-Tender, Bladder Non-Palpable (Shawna Piña) Integumentary Skin Exam: Clear, Dry (Shawna Piña) Extremeties Extremities Exam: Moderate Edema (Shawna Piña) Neurologic Neuro Exam: Alert Neuro Remarks not oriented (Shawna Piña) VTE Prophylaxis Device: TEDs (Shawna Piña) Assessment/Plan Discussed Condition With: Sibling Assessment Summary: JAMES/Acute Renal Failure, Anemia of CKD Problem List: (1) Acute renal insufficiency ICD Codes: N28.9 - Disorder of kidney and ureter, unspecified Status: Acute Plan: Creatinine slightly improving at 2.84 and BUN Has minimal Proteinuria, the chronic kidney disease is most likely due to Hypertensive or renovascular disease. JAMES is possibly pre renal or ATN from Hypotension. BP is better now, follow the urine out put and BMP. Will continue gentle hydration Avoid nephrotoxins. (2) Anemia ICD Codes: D64.9 - Anemia Status: Chronic Plan: Patient is treated with blood transfusion as needed for myelodysplasia with refractory anemia. Blood pressure improved. Transfused 2 units of PRBC. HGB 8.6 today (3) Myelodysplastic syndrome ICD Codes: D46.9 - Myelodysplastic syndrome Status: Chronic Plan: Managed per hematology. family may be considering hospice (4) Pneumonia ICD Codes: J18.9 - Pneumonia, unspecified organism Status: Acute Plan: continue antibiotics WBC are improving. No SOB noted (Shawna Piña) Problem List: (1) Acute renal insufficiency ICD Codes: N28.9 - Disorder of kidney and ureter, unspecified Status: Acute Plan: Has minimal Proteinuria, the chronic kidney disease is most likely due to Hypertensive or renovascular disease. JAMES is possibly pre renal or ATN from Hypotension. Creatinine is slightly improving at 2.84 and BUN BP is better now, follow the urine out put and BMP. Will continue gentle hydration Avoid nephrotoxins. (2) Anemia ICD Codes: D64.9 - Anemia Status: Chronic Plan: Patient is treated with blood transfusion as needed for myelodysplasia with refractory anemia. Blood pressure improved. Transfused 2 units of PRBC. HGB 8.6 today (3) Myelodysplastic syndrome ICD Codes: D46.9 - Myelodysplastic syndrome Status: Chronic Plan: Managed per hematology. family may be considering hospice (4) Pneumonia ICD Codes: J18.9 - Pneumonia, unspecified organism Status: Acute Plan: continue antibiotics WBC are improving. No SOB noted (Alexsandra Wang MD) Problem Qualifiers (1) Pneumonia: Qualified Codes: J18.1 - Lobar pneumonia, unspecified organism Shawna Piña May 21, 2017 08:54 Alexsandra Wang MD May 21, 2017 16:30
[2017-05-21] MEDS: SODIUM CHLOR 0.45% 1000 ML INJ 1,000 ML IV SCH ×2 (09:19→23:23)
[2017-05-21] MEDS: FLUTICASONE PROPIONATE 50 MCG/ACT 16 GM NASAL SPRAY EACH NARE SCH (09:21)
[2017-05-21] MEDS: PANTOPRAZOLE SOD 20 MG DELAYED RELEASE TAB PO SCH ×2 (09:21→21:40)
[2017-05-21] MEDS: AMIODARONE 200 MG TAB PO SCH (09:21)
--- NOTE | 2017-05-21 11:03 | HHI.PR ---
Subjective Remarks Pt appears comfortable. Per family, he had difficulty with agitation overnight. Objective Vitals Vital Signs Date Time Temp Pulse Resp B/P (MAP) Pulse Ox O2 Delivery O2 Flow Rate FiO2 05/21/17 08:05 97.5 103 18 105/58 (74) 99 05/21/17 04:00 99.3 78 17 104/53 (70) 99 05/21/17 03:31 81 05/21/17 00:00 98.4 80 22 100/52 (68) 99 05/20/17 20:00 97.8 115 16 90/48 (62) 90 05/20/17 16:16 98.5 66 20 105/53 (70) 100 05/20/17 15:40 66 24 96/53 (67) 98 05/20/17 15:30 98.6 67 25 96/53 99 05/20/17 15:00 67 26 101/50 (67) 96 Nasal Cannula 2.00 05/20/17 14:30 65 25 87/44 (58) 100 Nasal Cannula 2.00 05/20/17 13:30 65 15 85/42 (56) 100 Nasal Cannula 2.00 05/20/17 12:44 98.0 62 18 86/47 97 05/20/17 12:30 98.0 66 18 96/48 (64) 97 Nasal Cannula 2.00 05/20/17 12:29 98.0 70 17 96/48 99 05/20/17 12:15 97.8 68 18 81/40 99 05/20/17 11:00 69 24 91/51 (64) 98 Nasal Cannula 2.00 05/21/17 05/21/17 05/22/17 15:00 23:00 07:00 Intake Total 1000 ml Balance 1000 ml Intake IV Total 1000 ml Result Diagram: 05/21/17 0545 05/21/17 0545 Imaging Last Impressions Renal Ultrasound 05/20/17 0000 Signed Impressions: Service Date/Time: Saturday, May 20, 2017 13:35 - CONCLUSION: 1. There is no hydronephrosis. 2. There is a 10 mm hemorrhagic cyst in the right mid kidney. Dino Esquivel MD Abdomen/Pelvis CT 05/20/17 0000 Signed Impressions: Service Date/Time: Saturday, May 20, 2017 14:16 - CONCLUSION: 1. Partially visualized moderate size right pleural effusion with associated compressive atelectasis of the right lung base. Fluid density measurements suggest simple fluid. There is also trace free fluid in the abdomen. 2. No acute findings include hemorrhagic cyst in the right kidney, severe atherosclerotic disease, and left adrenal gland mass with features suggesting a cyst or adenoma. Dino Esquivel MD Chest X-Ray 05/19/172118 Signed Impressions: Service Date/Time: Friday, May 19, 2017 21:26 - CONCLUSION: Slight enlargement of a right pleural effusion and right lower lobe infiltrate relative to the prior study. George Arellano Jr., MD Objective Remarks GENERAL: NAD, thin CARDIOVASCULAR: Regular rate and rhythm without murmurs, gallops, or rubs. RESPIRATORY: Clear to auscultation. Breath sounds equal bilaterally. No wheezes , rales, or rhonchi. GASTROINTESTINAL: Abdomen soft, non-tender, nondistended. Normal active bowel sounds MUSCULOSKELETAL: Extremities without clubbing, cyanosis, or edema. NEURO: alert, BANKS, expressive aphasia --> worse from yesterday A/P Problem List: (1) Pleural effusion on right ICD Codes: J90 - Pleural effusion, not elsewhere classified Plan: Pleural effusion Possible pneumonia - Pt is an 86 y/o WM with paroxysmal atrial fibrillation, myelodysplasia with refractory anemia, prostate cancer s/p XRT 5 years ago, bladder cancer s/p tumor resection 6 years ago, HTN, and GERD. Pt had been receiving frequent blood transfusions and has subsequently developed iron overload and is iron chelation therapy with Exjade for this. He was started on Vidaza in 2016 for his myelodysplastic syndrome and his transfusion needs have decreased since initiation of that. He follows with Dr. Kohler for this. - Pt presented to the ED at [facility] on 05/19/17 with complaints of orthopnea, associated with fever and shaking chills. Denies cough or night sweats. - Patient also had a transfusion on the afternoon of 05/19 for chronic anemia. Patient states he's never had a fever post transfusion to date. His max temp in the ED was 100.8 degrees last night. - Blood cultures (05/20) --> gram negative ari in 4/4 bottles - suspect port infection - zosyn (05/20 - present) - azithromycin (05/20 - 05/21) - IVFs - WBC 23.9 (05/20), 19.3 (05/21) - UA was negative - CXR in AM - stool studies --> pending - CT abd/pelvis (05/20) --> moderate right pleural effusion - PT - DNR - case discussed at [facility] with pt/daughter/son-in-law/daughter steven (ALESSANDRO of [place]) by phone - Steven is arriving by plane from [place] tomorrow afternoon. Family would like to meet with Hospice tomorrow after Steven arrives - Family would like to transition to the hospice care center if possible. I feel this would be appropriate for control of his symptoms including agitation. Myelodysplasia with refractory anemia Volume overload - His labs in the ED noted Hgb 7.7/Hct 21.5. Repeat labs this morning noted a decrease in his H/H to 6.7/20.3 - Pt is currently receiving 2 units of PRBCs - Patient had a few recent admissions in 03/2017 and 04/2017 to the hospital for volume overload and required thoracentesis twice for pleural effusion. - 2D echo (02/2017) with preserved EF 60-65% and no evidence of diastolic dysfunction. - His troponin I is elevated at 0.09 --> 0.12 but he has noted elevated troponin in the past - BNP is elevated at 433 --> 1233 (05/20) - CXR in the ED noted slight enlargement of a right pleural effusion and right lower lobe infiltrate relative to the prior study. - thoracentesis, right, today for symptom relief Acute on chronic kidney disease - comgmt with Nephrology - His renal function was worse than baseline with Cr 2.93/BUN 55, GFR 20 and repeat labs this morning with Cr 3.04/BUN 58, GFR 20. - Cr 2.84 (05/21) - renal US (05/20) --> hemorrhagic cyst, no obstructive findings Paroxysmal atrial fibrillation HTN - Pts BP will not sustain his BB - Cont. Amiodarone in AM Hypothyroidism - Cont. home meds (2) Pneumonia ICD Codes: J18.9 - Pneumonia, unspecified organism Status: Acute (3) Volume overload ICD Codes: E87.70 - Fluid overload, unspecified Status: Acute (4) Acute renal insufficiency ICD Codes: N28.9 - Disorder of kidney and ureter, unspecified Status: Acute (5) Myelodysplastic syndrome ICD Codes: D46.9 - Myelodysplastic syndrome Status: Chronic (6) Symptomatic anemia ICD Codes: D64.9 - Symptomatic anemia Status: Acute (7) Hypothyroidism ICD Codes: E03.9 - Hypothyroidism Status: Chronic (8) Paroxysmal atrial fibrillation ICD Codes: I48.0 - Paroxysmal atrial fibrillation Status: Chronic (9) Elevated troponin ICD Codes: R77.8 - Other specified abnormalities of plasma proteins Status: Acute (10) Hypertension ICD Codes: I10 - Hypertension Status: Chronic Problem Qualifiers (1) Pneumonia: Qualified Codes: J18.1 - Lobar pneumonia, unspecified organism Kevin Gill DO May 21, 2017 11:03
--- NOTE | 2017-05-21 12:12 | PD.CONS ---
Consult Service Palliative Care Consult Requested By Dr. Bridget MD. Primary Care Physician Jovan Vora M.D. Reason for Consultation a. To assist with evaluation and management of symptoms including: shortness of breath, debility. b. To assist medical decision maker(s) with: better understanding of current medical conditions; weighing benefits/burdens of medical treatment options; making medical treatment decisions. . HPI History of Present Illness Mr. Peck is an 86-year-old male with a medical history significant for myelodysplastic syndrome refractory anemia, COPD, CHF, A. fib with RVR, hypertension and GERD. Patient presented to ED from [facility] on 05/19/17 endorsing or tachypnea, fever and chills. Chest x-ray revealing slight enlargement of a right pleural effusion and right lower lobe infiltrate. Return workup revealing WBC 9.0, Hgb 7.7, platelet count 260. Sodium 133, BUN/creatinine 55/ 2.93. Troponin 0.09. EKG normal sinus rhythm. Hemoglobin dropped to 6.7 on , patient received transfusion of 2 PRBC. Nephrology, Dr. Wang consulted for evaluation and management of acute on chronic renal failure. Worsening renal function with BUN/creatinine 58/3.04. Renal ultrasound negative for hydronephrosis, 10 mm hemorrhagic cyst in the right mid kidney. Abdomen/pelvis CT revealing right pleural effusion with associated compressive atelectasis of the right lung base. Trace of free fluid in the abdomen. Patient was admitted for further management. Palliative care consulted for further clarifications of goals of care. Reviewed patient's past medical history. Patient with history of myelodysplastic syndrome dating back to several years, being followed by Dr. Kohler. As per hem/onc records, patient started on disease modifying therapy with Vidaza in 2014 in order to decrease transfusion requirements as well as help decrease the risk of progression to AML. In December 2016, Vidaza benefits noted as marginal given the increased frequency of red blood cell transfusion requirements. Vidaza was subsequently discontinued and Epogen as a weekly dose was reintroduced. Patient with reported weekly PRBC transfusions, weekly Epogen and daily Exjade for hemochromatosis due to excessive transfusions. Patient with recent multiple hospitalizations and documented progressive decline since February 2017. Most recent hospitalization 04/01 to 04/09/17 secondary to CHF exacerbation, refractory anemia. Patient received 3 transfusions of PRBC. Previous hospitalization 03/06 to 03/08/17 secondary to respiratory distress. Patient was sent from his physician's office secondary to worsening shortness of breath and abnormal chest x-ray revealing pleural effusion. Patient underwent thoracentesis with 1350cc of pleural fluid removed , cytology negative for malignant cells. Previous acute hospitalization from to 02/23/17 secondary to pneumonia, anemia. Echocardiogram 02/19/17 revealing EF of 60-65%. Mild tricuspid valve regurgitation. Patient seen by Dr. Kohler earlier this morning. As per heme/oncology notes, goals of care have been previously discussed with patient over the past 3 months given progressive disease no longer responding to disease modifying treatment, high doses of EPO injections, multiple comorbidities, physical deconditioning and multiple recent hospitalizations. Patient presented with frequent CHF exacerbations, likely secondary to volume burden of transfusions. Patient reported as electing aggressive disease therapy as opposed to comfort- directed care. Patient seen in his room, daughter Rosalinda Loja at bedside. In this first visit, reviewed the role of palliative care in advanced illness in regards to symptom management as well as support surrounding goals of care and advance care planning. Patient and family receptive to visit. Obtained patient 's past medical history and psychosocial history. Daughter Rosalinda Loja tells me that youngest sister Jaye Pepe will be arriving from [facility] tomorrow for further goals of care discussion. Daughter is a nurse and family would like her input in goals of care conversation. Patient alert and oriented x self and situation. Intermittently confused/forgetful. Very hard of hearing , right hearing aid in place. Patient endorsing shortness of breath on exertion , denies pain or abdominal discomfort. Pending US guided thoracenteses. Laboratory workup today revealing stable Hgb at 8.6 status post 2 PRBC. Blood cultures positive for gram-negative rods. Bedside conversation with patient's daughter Rosalinda Loja and her . They report that they are considering transitioning patient to comfort-directed care given his progressive decline and multiple comorbidities. Rsoalinda's daughter is an RN with [facility], daughter familiar with hospice benefits and philosophy. Reviewed prognosis of days once blood transfusions are discontinued. Hospice referral has been made by Dr. Gill, case discussed with stacking machine operator Eliz. Family meeting with palliative care and hospice scheduled for tomorrow 05/22/17 after daughter Marcella Pepe arrives from [facility]. Tentative time around 2 PM. . Function/Cognitive Trajectory Patient residing independently prior to February 2017. Moved to [facility] in February 2017. Ambulates with assistance of walker, alternating with cane. Progressively weaker as per family, requiring some assistance with ADLs such as dressing and bathing. Intermittently confused/ forgetful. . Review of Systems Constitutional: COMPLAINS OF: Fatigue, Chills, Change in appetite, DENIES: Pain Endocrine: DENIES: Heat/cold intolerance Eyes: DENIES: Eye inflammation, Eye pain Ears, nose, mouth, throat: COMPLAINS OF: Hearing loss, DENIES: Nasal discharge , Throat pain, Ear Pain Respiratory: COMPLAINS OF: Shortness of breath, DENIES: Sputum production Cardiovascular: COMPLAINS OF: Dyspnea on Exertion, Lower Extremity Edema, Orthopnea Gastrointestinal: DENIES: Abdominal pain, Diarrhea, Nausea, Vomiting Genitourinary: DENIES: Hematuria Musculoskeletal: DENIES: Stiffness Integumentary: DENIES: Abnormal pigmentation, Rash Hematologic/Lymphatics: DENIES: Bruising Immunologic/Allergic: DENIES: Eczema Neurologic: DENIES: Localized weakness, Seizures, Tremor, Poor Balance Psychiatric: COMPLAINS OF: Confusion, Depression, Agitation, DENIES: Anxiety Past Family Social History Coded Allergies: codeine (Verified Allergy, Severe, Hallucinations, 05/19/17) hydrocodone (Verified Allergy, Mild, Hallucinations, 05/19/17) Past Medical History Myelodysplastic syndrome with refractory anemia Hemochromatosis COPD Congestive heart failure with diastolic failure GERD HTN Hx of pelvic fx AAA Paroxysmal atrial fibrillation Hx of bladder cancer 8 years ago Hx of prostate cancer 7 years ago Hyperlipidemia Hypothyroidism Gout Osteoporosis . Past Surgical History Multiple cystoscopies with tumor removal Transurethral prostate resection Tonsillectomy Cataract surgery . Reported Medications Potassium Chloride Microencaps 20 Meq Tab 20 Meq PO Q12HR Furosemide 40 Mg Tab 40 Mg PO BID@ Amiodarone (Amiodarone HCl) 200 Mg Tab 200 Mg PO DAILY Ibuprofen 400 Mg Tab 400 Mg PO DAILY Furosemide 20 Mg Tab 20 Mg PO DAILY Tylenol Arthritis (Acetaminophen) 650 Mg Tablet.er 1,300 Mg PO BID Metoprolol Succinate ER 24 HR (Metoprolol Succinate) 25 Mg Tab 25 Mg PO DAILY Loperamide (Loperamide HCl) 2 Mg Tablet 2 Mg PO PRN Ondansetron (Ondansetron HCl) 8 Mg Tab 8 Mg PO TID Procrit Inj (Epoetin Caleb) 40,000 Unit/Ml Inj 60,000 Units SQ PRN Levothyroxine (Levothyroxine Sodium) 75 Mcg Tab 75 Mcg PO DAILY Omeprazole 20 Mg Tab 20 Mg PO BID Artificial Tears Drops (Dextran 70/Hypromellose/Pf) 0.1 %-0.3 % Droperette 1 Drop EACH EYE DAILY PRN Pepcid Complete Tablet Chew (Famotidine/Ca Carb/Mag Hydrox) 10 Mg-800 Mg-165 Mg Tab.chew 1 Tab PO BID PRN Zzzquil Liq (Diphenhydramine (Sleep) Liq) 50 Mg/30 Ml Liq 25 Mg PO HS PRN Glycerin Adult Supp (Glycerin) 2 Gm Supp 2 Gm RECTAL DAILY PRN Miralax Powder (Polyethylene Glycol 3350 Powder) 17 Gm Powd 17 Gm PO HS Metamucil Original Texture (Psyllium Hydrophilic Mucilloid) 3.4 Gram/7 Gram Pow PO HS Fluticasone Nasal [place] 50 Mcg/Act Naspr 2 [place] EACH NARE DAILY Exjade (Deferasirox) 500 Mg Tab 1,000 Mg PO DAILY [Cranberry] 4,200 Mg PO DAILY . Current Medications Medications (Trade) Dose Ordered Sig/Jim Route Start Time Stop Time Status Last Admin (NS Flush) 2 ml UNSCH PRN IVF 05/19/17 21:30 Piperacillin Sod/ Tazobactam Sod 50 ml @ 100 mls/hr Q8HR IV 05/20/17 06:00 05/21/17 05:48 Sodium Chloride 1,000 ml @ 42 mls/hr [id number] IV 05/19/17 23:45 05/21/17 09:19 (Cordarone) 200 mg DAILY PO 05/21/17 09:00 05/21/17 09:21 (Flonase Sadiq Spr) 2 spray DAILY EACH NARE 05/21/17 09:00 (Synthroid) 75 mcg DAILY@0600 PO 05/21/17 06:00 05/21/17 05:40 (Pepcid) 1 mg BID PRN PO 05/20/17 13:15 (Protonix) 20 mg BID PO 05/20/17 21:00 05/21/17 09:21 (Tylenol) 650 mg Q4H PRN PO 05/20/17 13:15 (Zofran Inj) 4 mg Q6H PRN IV 05/20/17 13:15 Family History Patient denies any family history of malignancy. Patient has 3 daughters who are alive and well. . Substance Use Tobacco: Former smoker. Alcohol: None reported. Prescription med abuse: None reported. Illicits: None reported. . Psychosocial History Patient originally from [place], [place]. he is a retired contractor. , has 3 adult daughters. Served in the [employer]. . Spiritual/Cultural Factors [facility]. . Living Will: Copy in medical record Health Care Surrogate: Copy in medical record Date completed: 02/15/2014. . Health Care Surrogate(s): HCS is daughter Rosalinda Scott. Alternate surrogate his daughter Jaye Pepe. . Documented care wishes: Living well with a standard verbiage as it pertains to terminal condition or end -stage condition or persistent vegetative state. . Ethical and Legal Issues No ethical legal issues identified. . Physical Exam Vital Signs Date Time Temp Pulse Resp B/P (MAP) Pulse Ox O2 Delivery O2 Flow Rate FiO2 05/21/17 08:05 97.5 103 18 105/58 (74) 99 05/21/17 04:00 99.3 78 17 104/53 (70) 99 05/21/17 03:31 81 05/21/17 00:00 98.4 80 22 100/52 (68) 99 05/20/17 20:00 97.8 115 16 90/48 (62) 90 05/20/17 16:16 98.5 66 20 105/53 (70) 100 05/20/17 15:40 66 24 96/53 (67) 98 05/20/17 15:30 98.6 67 25 96/53 99 05/20/17 15:00 67 26 101/50 (67) 96 Nasal Cannula 2.00 05/20/17 14:30 65 25 87/44 (58) 100 Nasal Cannula 2.00 05/20/17 13:30 65 15 85/42 (56) 100 Nasal Cannula 2.00 05/20/17 12:44 98.0 62 18 86/47 97 05/20/17 12:30 98.0 66 18 96/48 (64) 97 Nasal Cannula 2.00 05/20/17 12:29 98.0 70 17 96/48 99 05/20/17 12:15 97.8 68 18 81/40 99 05/21/17 05/22/17 19:00 07:00 Intake Total 1000 ml Balance 1000 ml Intake IV Total 1000 ml Exam CONSTITUTIONAL/GENERAL: This is an adequately nourished elderly patient in no apparent distress. TUBES/LINES/DRAINS: Mediport left chest, PIV, nasal cannula. SKIN: No jaundice, rashes, or lesions. Pale. Ecchymoses on upper extremities. No wounds seen anteriorly. Skin temperature appropriate. Not diaphoretic. HEAD: Atraumatic. Normocephalic. EYES: Pupils equal and round and reactive. Extraocular motions intact. No scleral icterus. No injection or drainage. ENT: Hearing grossly normal. Nose without bleeding or purulent drainage. Moist oral mucosa. NECK: Trachea midline. Supple, nontender. CARDIOVASCULAR: Irregular rate and rhythm without murmurs. Peripheral pulses symmetric. Pedal/ankle edema to bilateral extremities. RESPIRATORY/CHEST: Symmetric, unlabored respirations. Clear, diminished to auscultation. Breath sounds equal bilaterally. No wheezes, rales, or rhonchi. GASTROINTESTINAL: Abdomen soft, non-tender, nondistended. No hepato-splenomegaly , or palpable masses. No guarding. Bowel sounds present. GENITOURINARY: Without palpable bladder distension. Rodriguez catheter in place. MUSCULOSKELETAL: Extremities without clubbing, cyanosis. No mottling or clubbing. NEUROLOGICAL: Awake and alert x self and situation. Intermittently confused. Very hard of hearing. Following some commands. PSYCHIATRIC: Appears calm. . Diagnostic Tests Laboratory Laboratory Tests Test 05/19/17 21:52 05/20/17 05:58 05/20/17 16:55 05/21/17 05:45 White Blood Count 9.0 TH/MM3 (4.0-11.0) 23.9 TH/MM3 (4.0-11.0) 29.2 TH/MM3 (4.0-11.0) 19.3 TH/MM3 (4.0-11.0) Red Blood Count 2.53 MIL/MM3 (4.50-5.90) 2.36 MIL/MM3 (4.50-5.90) 3.02 MIL/MM3 (4.50-5.90) 2.89 MIL/MM3 (4.50-5.90) Hemoglobin 7.7 GM/DL (13.0-17.0) 6.7 GM/DL (13.0-17.0) 8.9 GM/DL (13.0-17.0) 8.6 GM/DL (13.0-17.0) Hematocrit 21.5 % (39.0-51.0) 20.3 % (39.0-51.0) 25.6 % (39.0-51.0) 24.5 % (39.0-51.0) Mean Corpuscular Volume 84.8 FL (80.0-100.0) 86.2 FL (80.0-100.0) 84.9 FL (80.0-100.0) 84.8 FL (80.0-100.0) Mean Corpuscular Hemoglobin 30.4 PG (27.0-34.0) 28.5 PG (27.0-34.0) 29.4 PG (27.0-34.0) 29.8 PG (27.0-34.0) Mean Corpuscular Hemoglobin Concent 35.8 % (32.0-36.0) 33.1 % (32.0-36.0) 34.6 % (32.0-36.0) 35.2 % (32.0-36.0) Red Cell Distribution Width 17.6 % (11.6-17.2) 17.6 % (11.6-17.2) 17.5 % (11.6-17.2) 17.9 % (11.6-17.2) Platelet Count 260 TH/MM3 (150-450) 209 TH/MM3 (150-450) 201 TH/MM3 (150-450) 157 TH/MM3 (150-450) Mean Platelet Volume 9.9 FL (7.0-11.0) 10.0 FL (7.0-11.0) 10.1 FL (7.0-11.0) 9.7 FL (7.0-11.0) Neutrophils (%) (Auto) 97.5 % (16.0-70.0) 92.0 % (16.0-70.0) 92.1 % (16.0-70.0) 87.7 % (16.0-70.0) Lymphocytes (%) (Auto) 1.3 % (9.0-44.0) 2.5 % (9.0-44.0) 2.2 % (9.0-44.0) 4.6 % (9.0-44.0) Monocytes (%) (Auto) 1.0 % (0.0-8.0) 5.2 % (0.0-8.0) 5.6 % (0.0-8.0) 7.5 % (0.0-8.0) Eosinophils (%) (Auto) 0.0 % (0.0-4.0) 0.1 % (0.0-4.0) 0.0 % (0.0-4.0) 0.0 % (0.0-4.0) Basophils (%) (Auto) 0.2 % (0.0-2.0) 0.2 % (0.0-2.0) 0.1 % (0.0-2.0) 0.2 % (0.0-2.0) Neutrophils # (Auto) 8.7 TH/MM3 (1.8-7.7) 22.0 TH/MM3 (1.8-7.7) 26.9 TH/MM3 (1.8-7.7) 17.0 TH/MM3 (1.8-7.7) Lymphocytes # (Auto) 0.1 TH/MM3 (1.0-4.8) 0.6 TH/MM3 (1.0-4.8) 0.6 TH/MM3 (1.0-4.8) 0.9 TH/MM3 (1.0-4.8) Monocytes # (Auto) 0.1 TH/MM3 (0-0.9) 1.2 TH/MM3 (0-0.9) 1.6 TH/MM3 (0-0.9) 1.4 TH/MM3 (0-0.9) Eosinophils # (Auto) 0.0 TH/MM3 (0-0.4) 0.0 TH/MM3 (0-0.4) 0.0 TH/MM3 (0-0.4) 0.0 TH/MM3 (0-0.4) Basophils # (Auto) 0.0 TH/MM3 (0-0.2) 0.0 TH/MM3 (0-0.2) 0.0 TH/MM3 (0-0.2) 0.0 TH/MM3 (0-0.2) CBC Comment DIFF FINAL DIFF FINAL DIFF FINAL DIFF FINAL Differential Comment Prothrombin Time 12.9 SEC (9.8-11.6) Prothromb Time International Ratio 1.3 RATIO Activated Partial Thromboplast Time 23.3 SEC (24.3-30.1) Urine Color LIGHT-YELLOW (YELLW/STRAW) Urine Turbidity CLEAR (CLEAR) Urine pH 6.0 (5.0-8.5) Urine Specific [place] 1.008 (1.002-1.035) Urine Protein TRACE mg/dL (NEG-TRACE) Urine Glucose (UA) NEG mg/dL (NEG) Urine Ketones NEG mg/dL (NEG) Urine Occult Blood NEG (NEG) Urine Nitrite NEG (NEG) Urine Bilirubin NEG (NEG) Urine Urobilinogen LESS THAN 2.0 MG/DL (LESS Urine Leukocyte Esterase NEG (NEG) Urine RBC 1 /hpf (0-3) Urine WBC LESS THAN 1 /hpf (0-5) Urine Squamous Epithelial Cells <1 /hpf (0-5) Urine Mucus FEW /lpf (OCC) Microscopic Urinalysis Comment CULT NOT INDICATED Blood Urea Nitrogen 55 MG/DL (7-18) 58 MG/DL (7-18) 69 MG/DL (7-18) Creatinine 2.93 MG/DL (0.60-1.30) 3.04 MG/DL (0.60-1.30) 2.84 MG/DL (0.60-1.30) Random Glucose 106 MG/DL (74-106) 107 MG/DL (74-106) 96 MG/DL (74-106) Total Protein 7.1 GM/DL (6.4-8.2) Albumin 3.8 GM/DL (3.4-5.0) Calcium Level 8.2 MG/DL (8.5-10.1) 7.9 MG/DL (8.5-10.1) 7.5 MG/DL (8.5-10.1) Magnesium Level 2.0 MG/DL (1.5-2.5) 2.3 MG/DL (1.5-2.5) Alkaline Phosphatase 56 U/L (45-117) Aspartate Amino Transf (AST/SGOT) 13 U/L (15-37) Alanine Aminotransferase (ALT/SGPT) 14 U/L (12-78) Total Bilirubin 3.3 MG/DL (0.2-1.0) Sodium Level 133 MEQ/L (136-145) 134 MEQ/L (136-145) 134 MEQ/L (136-145) Potassium Level 4.2 MEQ/L (3.5-5.1) 3.9 MEQ/L (3.5-5.1) 3.7 MEQ/L (3.5-5.1) Chloride Level 99 MEQ/L (98-107) 101 MEQ/L (98-107) 101 MEQ/L (98-107) Carbon Dioxide Level 23.6 MEQ/L (21.0-32.0) 19.9 MEQ/L (21.0-32.0) 20.4 MEQ/L (21.0-32.0) Anion Gap 10 MEQ/L (5-15) 13 MEQ/L (5-15) 13 MEQ/L (5-15) Estimat Glomerular Filtration Rate 20 ML/MIN (>89) 20 ML/MIN (>89) 21 ML/MIN (>89) Total Creatine Kinase 28 U/L (39-308) Troponin I 0.09 NG/ML (0.02-0.05) 0.12 NG/ML (0.02-0.05) 0.19 NG/ML (0.02-0.05) B-Type Natriuretic Peptide 433 PG/ML (0-100) 1233 PG/ML (0-100) Result Diagram: 05/21/17 0545 05/21/17 0545 Microbiology Microbiology Date/Time Source Procedure Growth Status 05/19/17 21:52 Blood Peripheral Aerobic Blood Culture - Preliminary Gram Negative Fer Resulted 05/19/17 21:52 Anaerobic Blood Culture - Preliminary Gram Negative Fer Resulted 05/19/17 21:47 Blood Peripheral Aerobic Blood Culture - Preliminary Gram Negative Fer Resulted 05/19/17 21:47 Anaerobic Blood Culture - Preliminary Gram Negative Fer Resulted 05/20/17 13:45 Stool Stool - Final NO ENTERIC PATHOGENS DETECTED BY PCR... Complete 05/19/17 21:58 Nasal Washing Influenza Types A,B Antigen (AVERY) - Final NEGATIVE FOR FLU A AND B ANTIGEN.... Complete Imaging Last Impressions Renal Ultrasound 05/20/17 0000 Signed Impressions: Service Date/Time: Saturday, May 20, 2017 13:35 - CONCLUSION: 1. There is no hydronephrosis. 2. There is a 10 mm hemorrhagic cyst in the right mid kidney. Dino Esquivel MD Abdomen/Pelvis CT 05/20/17 0000 Signed Impressions: Service Date/Time: Saturday, May 20, 2017 14:16 - CONCLUSION: 1. Partially visualized moderate size right pleural effusion with associated compressive atelectasis of the right lung base. Fluid density measurements suggest simple fluid. There is also trace free fluid in the abdomen. 2. No acute findings include hemorrhagic cyst in the right kidney, severe atherosclerotic disease, and left adrenal gland mass with features suggesting a cyst or adenoma. Dino Eqsuivel MD Chest X-Ray 05/19/172118 Signed Impressions: Service Date/Time: Friday, May 19, 2017 21:26 - CONCLUSION: Slight enlargement of a right pleural effusion and right lower lobe infiltrate relative to the prior study. George Arellano Jr., MD Patient/Family Conference Present at Family Conference: Patient and daughter Rosalinda Loja. Family Conference Time (mins): 38 Family Conference Location: Bedside Issues Discussed: * Palliative care role, purpose, approach * Additional medical, psychosocial, and spiritual history * Patients general health, functional status, and cognitive changes in the months leading up to the current hospitalization * Patient/family understanding of the current medical problems * Patient/family understanding of prognosis * Patients goals of care as best understood from advance directives and/or conversations and/or values * Current medical treatment options and benefits/burdens of those options * Likely scenarios comparing ongoing aggressive care with a transition to comfort measures only * Questions answered to the best of my ability * Palliative care contact information provided * Hospice philosophy and benefits . Assessment and Plan Disease Oriented Problem List: (1) Myelodysplastic syndrome (2) Pleural effusion on right (3) Pneumonia (4) Acute renal insufficiency (5) Anemia (6) Physical deconditioning Symptom Scale: (1) Shortness of breath 0-10 Scale: Unable to quantify (2) Debility 0-10 Scale: Unable to quantify Pertinent Non-Medical Issues Psychosocial: Patient originally from [place], [place]. he is a retired contractor. , has 3 adult daughters. Served in the [employer]. Spiritual: [employer] of [employer]. Legal: Advance directives completed. Ethical issues impacting care: No ethical issues identified. . Important Contacts HCS/Daughter Rosalinda Scott . Daughter Ariella Jo . . Prognosis Mr. Peck is an 86-year-old male with a medical history significant for myelodysplastic syndrome refractory anemia, COPD, CHF, A. fib with RVR, hypertension and GERD. Patient with progression of disease while on disease modifying therapy, now requiring weekly red blood cell transfusions. Patient with multiple recent hospitalizations, progressive decline and sepsis secondary to pneumonia. Overall prognosis is very poor for a prolonged survival. Patient is hospice appropriate should he/family elects comfort-directed care. . Code Status: No Code Plan * CODE STATUS: No code. DNR/DNI. This has been confirmed with patient and daughter Rosalinda Loja/HCS. * HEALTHCARE DECISION-MAKING: Patient with limited participation in medical decision-making given intermittent confusion. Advanced directives secure. Patient has designated his daughter Samantha Scott as healthcare surrogate decision-maker, alternating is daughter Jaye Pepe. * GOALS OF CARE: Patient and family considering comfort-directed care with hospice. Family meeting with palliative care and hospice has been scheduled for tomorrow, tentative time after 2 PM once daughter Jaye Pepe arrives from [facility]. Hospice philosophy and benefits reviewed at length. * SYMPTOMS: = Shortness of breath, multifactorial secondary to pleural effusion , anemia, COPD. Pending US guided thoracentesis of right lung. Currently tolerating O2 via nasal cannula. = Debility: Progressive. Worsen since February 2017. Patient with multiple recent acute hospitalizations and multiple comorbidities. Living independently prior to February, now residing in assisted living facility and requiring assistance with ADLs. Likely to continue to worsen given progression of illness. * Palliative care contact information has been provided to patient and family. * Palliative care to follow-up for further clarifications of goals of care as patient's clinical course continues to evolve. Time Spent Total Floor Time (mins): 74 (Total time to include review and summarization of available medical records to include multiple prior hospitalizations, physical exam, goals of care conversation with patient and daughter, case discussion with stacking machine operator.) >50% Counseling/Coord of Care: Yes Thank you for the opportunity to participate in the care of Mr. Peck. Attestation To help prompt me to consider important information that might be impacting today's encounter and assessment, information from prior notes written by myself or my colleagues may have been "brought forward" into today's note. My signature on this note, however, is an attestation that I personally performed the exam, history, and/or decision-making noted today, and, unless otherwise indicated, the interactions with patient, family, and staff as well as the review of records all occurred today. I also attest that the listed assessment and stated plan reflect my best clinical judgment today based on the combination of historical information, prior notes, and today's exam/ interactions. When time spent is documented, it refers only to time spent today by the signer, or if indicated, combined time spent today by collaborating physician/nurse practitioner. Gina Guidry May 21, 2017 12:12
--- NOTE | 2017-05-21 12:22 | PD.RAD ---
Post US Procedure Prog Note Pre Procedure Diagnosis: (1) Pleural effusion on right Post Procedure Diagnosis: (1) Pleural effusion on right Procedure Date: May 21, 2017 Supervising Radiologist: Dino Esquivel Estimated blood loss: none Anesthesia: Local Plan of Activity Patient to Unit: Other Patient Condition: Fair See PACS Report for procedural detail/treatment Drainage Procedure Procedure 1 Imaging Guidance: Ultrasound Side: Right Procedure Type: Thoracentesis Fluid Removal (CCs): 1200 Fluid Description: Clear, Yellow Plan CXR then return to floor. Dino Esquivel MD May 21, 2017 12:22
[2017-05-21] MEDS ORDERED: LIDOCAINE HCL 1% 20 ML VIAL ONE (12:56)
[2017-05-21 13:09] LABS: TOTAL PROTEIN,PLEURAL FLUID 3.4 GM/DL
--- NOTE | 2017-05-21 13:14 | RADRPT ---
EXAM DATE/TIME: 05/21/2017 12:42 [facility] COMPARISON: CHEST SINGLE AP, May 19, 2017, 21:26. CHEST EXPIRATION ONLY, April 07, 2017, 15:03. INDICATIONS : Status post Thoracentesis. MEDICAL HISTORY : Hypertension. Carcinoma, bladder. Carcinoma, prostate SURGICAL HISTORY : Tonsillectomy. infusaport, cardiac cath, right thoracentesis ENCOUNTER: Subsequent ACUITY: 3 days PAIN SCORE: 0/10 LOCATION: Right chest FINDINGS: Portable upright expiratory view of the chest demonstrate stable mild enlargement of the cardiac silh ouette. Left chest wall Poqikn-r-Agzy remains present. There is no pneumothorax following recent thor acentesis. There is atelectasis at the left lung base. CONCLUSION: No pneumothorax is visualized following thoracentesis. Dino Esquivel MD on May 21, 2017 at 13:10 Board Certified Radiologist. This report was verified electronically.
--- NOTE | 2017-05-21 13:19 | RADRPT ---
EXAM DATE/TIME: 05/21/2017 11:41 [facility] COMPARISON: US GUIDED THORACENTESIS RIGHT, April 07, 2017, 13:56. INDICATIONS : Right pleural effusion. MEDICAL HISTORY : Gastroesophageal reflux disease. Congestive heart failure. Bladder and prostate cancer. Radiation the rapy. Atrial fibrillation. SURGICAL HISTORY : Tonsillectomy. Cardiac catheterization. Port placement, left chest. Right thoracentesis. ENCOUNTER: Subsequent ACUITY: 1 day PAIN SCORE: 3/10 LOCATION: Right chest FLUID: Total volume of 1200 cc of clear, yellow fluid was removed. Fluid was sent to lab for ordered studies. TECHNIQUE: 1. Ultrasound guidance for thoracentesis. 2. Thoracentesis. The risks, benefits, and alternatives to ultrasound guided thoracentesis were explained to the patien t in lay simple terms, including the risk of bleeding and infection. Written and verbal informed con sent was obtained. Appropriate area for thoracentesis was marked under ultrasound guidance with the patient in the uprig ht position. Overlying skin was prepped and draped in the usual sterile fashion and with local anest hetic, a dermatotomy was made with an 11 blade scalpel. A 6 Persian thoracentesis catheter was placed in the pleural space and fluid was removed. Catheter was then removed and a sterile dressing applie d. There were no immediate complications. The patient tolerated the procedure well and the left the ultrasound suite in stable condition. Chest radiograph is to be obtained. CONCLUSION: Uncomplicated ultrasound guided right thoracentesis. Dino Esquivel MD on May 21, 2017 at 13:15 Board Certified Radiologist. This report was verified electronically.
[2017-05-21 13:45] LABS: PLEURAL FLUID RBC 60 /MM3 (0-0); PLEURAL FLUID WBC 20 /MM3 (0-10)
[2017-05-21 13:51] LABS: PLEURAL FLUID POLYS (SEGS) 100 %
[2017-05-22] VITALS (9 sets, daily range): BP systolic 101–126; BP diastolic 58–67; PULSE 99–120; RESP 16–18; TEMP 97.5–98.5; O2SAT 96–100
[2017-05-22] MEDS: LEVOTHYROXINE SODIUM 75 MCG TAB PO SCH (06:38)
[2017-05-22] MEDS: PIPERACIL-TAZO 2.25 GM PREMIX 50 ML IV SCH ×3 (06:38→21:20)
--- NOTE | 2017-05-22 08:46 | PD.ONC.PN ---
Subjective Subjective Remarks Patient seen and examined, vital signs, labs, medications and microbiology; specifically blood cultures which are now positive for gram-negative rods 2 were reviewed. Subjectively; the patient reports feeling a little better this morning. He reports having a frontal headache and lower back pain from laying in the bed. He has remained afebrile. His daughter and son-in-law at bedside summary the patient has been generally frail and other than taking a few spoonfuls of applesauce he has not ate or drank anything substance active since he's been in the hospital. The family scheduled to meet with the hospice intake nurse is at 3 PM today. The family is also expecting additional members to fly an later today. Objective Data Date Time Temp Pulse Resp B/P (MAP) Pulse Ox O2 Delivery O2 Flow Rate FiO2 05/22/17 01:10 98.5 99 18 126/60 (82) 96 05/21/17 21:00 99.2 107 18 104/60 (75) 96 05/21/17 16:00 98.6 102 18 100/57 (71) 95 05/21/17 13:14 94 17 106/64 (78) 98 05/21/17 12:59 99.0 99 18 111/57 (75) 98 05/21/17 11:28 99.6 108 24 111/62 (78) 100 Result Diagram: 05/21/17 0545 05/21/17 0545 Laboratory Results Laboratory Tests Test 05/21/17 12:10 Pleural Fluid WBC 20 /MM3 Pleural Fluid RBC 60 /MM3 Pleural Fluid Neutrophils 100 % Pleural Fluid Comment Pleural Fluid Total Protein 3.4 GM/DL Pleural Fluid LDH 70 U/L Culture Results Microbiology Date/Time Source Procedure Growth Status 05/19/17 21:52 Blood Peripheral Aerobic Blood Culture - Preliminary Gram Negative Fer Resulted 05/19/17 21:52 Anaerobic Blood Culture - Preliminary Gram Negative Fer Resulted 05/19/17 21:47 Blood Peripheral Aerobic Blood Culture - Preliminary Gram Negative Fer Resulted 05/19/17 21:47 Anaerobic Blood Culture - Preliminary Gram Negative Fer Resulted 05/21/17 12:10 Fluid Pleural Fluid Fungal Smear - Final NO FUNGAL ELEMENTS SEEN. Resulted 05/21/17 12:10 Fluid Pleural Fluid Fungal Culture Pending Resulted 05/21/17 12:10 Fluid Pleural Fluid Acid Fast Stain Pending Received 05/21/17 12:10 Fluid Pleural Fluid Mycobacterial Culture Pending Received 05/21/17 12:10 Fluid Pleural Fluid Gram Stain - Final Resulted 05/21/17 12:10 Fluid Pleural Fluid Body Fluid Culture Pending Resulted 05/20/17 13:45 Stool Stool - Final NO ENTERIC PATHOGENS DETECTED BY PCR... Complete 05/19/17 21:58 Nasal Washing Influenza Types A,B Antigen (AVERY) - Final NEGATIVE FOR FLU A AND B ANTIGEN.... Complete Administered Medications Medications (Trade) Dose Ordered Sig/Jim Route PRN Reason Start Time Stop Time Status Last Admin Dose Admin Piperacillin Sod/ Tazobactam Sod 50 ml @ 100 mls/hr Q8HR IV 05/20/17 06:00 05/22/17 06:38 Sodium Chloride 1,000 ml @ 42 mls/hr [id number] IV 05/19/17 23:45 05/21/17 09:19 Amiodarone HCl (Cordarone) 200 mg DAILY PO 05/21/17 09:00 05/21/17 09:21 Levothyroxine Sodium (Synthroid) 75 mcg DAILY@0600 PO 05/21/17 06:00 05/22/17 06:38 Pantoprazole Sodium (Protonix) 20 mg BID PO 05/20/17 21:00 05/21/17 21:40 Objective Remarks GENERAL PHYSICAL APPEARANCE: Mr. Peck is an elderly and frail-appearing male, he is laying in bed, he is easily arousable. He is hard of hearing. He tries to speak in full sentences. His speech is more coherent and comprehensible today. HEENT: Head atraumatic, normocephalic. Conjunctivae are pale. Sclerae are anicteric. EOMI, PERRLA, status post cataract surgery. Oral Exam; Dry mucous membranes. RESPIRATORY EXAM: Good air movement bilaterally with decreased bibasilar breath sounds. CARDIOVASCULAR EXAM: Irregular rhythm, S1-S2 with a systolic murmur heard over the left lower sternal border. LOWER EXTREMITIES: with pitting edema all the way up to his knees. ABDOMINAL EXAM: Belly is thin, soft. tenderness to palpation. no definite organ enlargement noted. CHIEF METER READER: He is able to move all four limbs spontaneously. There appears to be no definite Motor deficits. NEUROLOGICALLY: He appears to be intact. Assessment/Plan Assessment Mr. 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 As a consequence to the frequent red cell transfusions over the past three years, Mr. Peck does have hemochromatosis. His myelodysplasia no longer responds to disease modifying treatment such as Vidaza or to high doses of epoetin injections which are also delivered on a weekly basis. Mr. Peck has additional medical comorbid conditions including progressive renal insufficiency, cardiac arrhythmia and diastolic heart failure. He is increasingly frail and is no longer able to live independently due to the multitude of medical comorbid conditions and his treatment hospitalizations. He presented to the hospital with complaints of increasing difficulty breathing and progressive fatigue. Blood cultures 2 were positive for gram negative rods. He has been initiated on empiric antibiotic coverage with Zosyn. Plan 1. Myelodysplastic syndrome: He had been on weekly Neupogen injections and almost weekly Red cell transfusions for supportive care. His MDS seems to to be progressing given the increase in transfusional requirements over the past 6 months. His disease is also now refractory to Vidaza therapy. 2. Gram-negative fer bacteremia: On Zosyn. 3. Congestive heart failure with atrial fibrillation: On rate control medications and diuresis. Disposition: Family to meet with hospice intake nurses later this afternoon. Mr. Peck is hospice appropriate, should the family and patient except this. Jorge Kohler MD May 22, 2017 08:46
[2017-05-22] MEDS: FLUTICASONE PROPIONATE 50 MCG/ACT 16 GM NASAL SPRAY EACH NARE SCH (09:00)
--- NOTE | 2017-05-22 09:30 | HHI.NPPN ---
Subjective Complaints: Confused General Problems: Anemia, Edema History of Present Illness 86-year-old male presented to ED with orthopnea, associated with fever and shaking chills. Patient had a recent admission to the hospital for pleural effusion with pleurocentesis as per patient. Patient had a transfusion on 05/19 for chronic anemia. Called to see the patient for elevated BUN and Creatinine. Additional Remarks Patient is alert speaking more coherently. No SOB noted. Poor appetite. Plan to meet with Hospice today (Shawna Piña) Review of Systems Respiratory Respiratory Remarks Denies SOB (Shawna Piña) Cardiovascular Cardiac: Edema Cardiac Remarks Denies Chest pain (Shawna Piña) Gastrointestinal GI Remarks No Abdominal pain (Shawna Piña) Genitourinary Remarks Denies urinary frequency or dysuria (Shawna Piña) Objective Data Data Vital Signs Date Time Temp Pulse Resp B/P (MAP) Pulse Ox O2 Delivery O2 Flow Rate FiO2 05/22/17 01:10 98.5 99 18 126/60 (82) 96 05/21/17 21:00 99.2 107 18 104/60 (75) 96 05/21/17 16:00 98.6 102 18 100/57 (71) 95 05/21/17 13:14 94 17 106/64 (78) 98 05/21/17 12:59 99.0 99 18 111/57 (75) 98 05/21/17 11:28 99.6 108 24 111/62 (78) 100 (Shawna Piña) -: 05/21/17 0545 05/21/17 0545 Microbiology 05/21/17 Fungal Smear - Final, Resulted NO FUNGAL ELEMENTS SEEN. 05/21/17 Fungal Culture, Resulted Pending 05/21/17 Acid Fast Stain, Received Pending 05/21/17 Mycobacterial Culture, Received Pending 05/21/17 Gram Stain - Final, Resulted 05/21/17 Body Fluid Culture, Resulted Pending Imaging Last Impressions Thoracentesis Ultrasound 05/21/17 0000 Signed Impressions: Service Date/Time: Sunday, May 21, 2017 11:41 - CONCLUSION: Uncomplicated ultrasound guided right thoracentesis. Dino Esquivel MD Chest X-Ray 05/21/17 0000 Signed Impressions: Service Date/Time: Sunday, May 21, 2017 12:42 - CONCLUSION: No pneumothorax is visualized following thoracentesis. Dino Esquivel MD Renal Ultrasound 05/20/17 0000 Signed Impressions: Service Date/Time: Saturday, May 20, 2017 13:35 - CONCLUSION: 1. There is no hydronephrosis. 2. There is a 10 mm hemorrhagic cyst in the right mid kidney. Dino Esquivel MD Abdomen/Pelvis CT 05/20/17 0000 Signed Impressions: Service Date/Time: Saturday, May 20, 2017 14:16 - CONCLUSION: 1. Partially visualized moderate size right pleural effusion with associated compressive atelectasis of the right lung base. Fluid density measurements suggest simple fluid. There is also trace free fluid in the abdomen. 2. No acute findings include hemorrhagic cyst in the right kidney, severe atherosclerotic disease, and left adrenal gland mass with features suggesting a cyst or adenoma. Dino Esqiuvel MD (Shawna Piña) Physical Exam General Appearance: No Acute Distress (Shawna Piña) Eyes Eye Exam: Pupils Equal (Shawna Piña) Pulmonary Resp Exam: Diminished Breath Sounds (Shawna Piña) Cardiology CV Exam: Regular, Normal Sinus Rhythm (Shawna PiñaP) Gastrointestinal/Abdomen GI Exam: Soft, Non-Tender (Shawna PiñaP) Genitourinary Exam: Flank Non-Tender, Bladder Non-Palpable (Shawna Piña) Integumentary Skin Exam: Clear, Dry (Shawna PiñaP) Extremeties Extremities Exam: Moderate Edema (Shawna PiñaP) Neurologic Neuro Exam: Alert Neuro Remarks not oriented (Shawna Piña) VTE Prophylaxis Device: TEDs (Shawna Piña) Assessment/Plan Discussed Condition With: Sibling Assessment Summary: JAMES/Acute Renal Failure, Anemia of CKD Problem List: (1) Acute renal insufficiency ICD Codes: N28.9 - Disorder of kidney and ureter, unspecified Status: Acute Plan: Has minimal Proteinuria, the chronic kidney disease is most likely due to Hypertensive or renovascular disease. JAMES is possibly pre renal or ATN from Hypotension. Creatinine is slightly improved yesterday at 2.84 and BUN BP WNL Will continue gentle hydration with IVF and encourage increased PO intake Avoid nephrotoxins. (2) Anemia ICD Codes: D64.9 - Anemia Status: Chronic Plan: Patient is treated with blood transfusion as needed for myelodysplasia with refractory anemia. Transfused 2 units of PRBC on admission . HGB 8.6 yesterday Blood pressure stable (3) Myelodysplastic syndrome ICD Codes: D46.9 - Myelodysplastic syndrome Status: Chronic Plan: Managed per hematology. Family may be considering hospice plan to have meeting today (4) Pneumonia ICD Codes: J18.9 - Pneumonia, unspecified organism Status: Acute Plan: Possible pneumonia On antibiotics No SOB noted (5) Bacteremia ICD Codes: R78.81 - Bacteremia Plan: Blood cultures positive gram negative rods ID consulted. (Shawna Piña) Problem List: (1) Acute renal insufficiency ICD Codes: N28.9 - Disorder of kidney and ureter, unspecified Status: Acute Plan: Has minimal Proteinuria, the chronic kidney disease is most likely due to Hypertensive or renovascular disease. JAMES is possibly pre renal or ATN from Hypotension. Creatinine is slightly improved yesterday at 2.84 and BUN BP WNL Will continue gentle hydration with IVF and encourage increased PO intake Avoid nephrotoxins. (2) Anemia ICD Codes: D64.9 - Anemia Status: Chronic Plan: Patient is treated with blood transfusion as needed for myelodysplasia with refractory anemia. Transfused 2 units of PRBC on admission . HGB 8.6 yesterday Blood pressure stable (3) Myelodysplastic syndrome ICD Codes: D46.9 - Myelodysplastic syndrome Status: Chronic Plan: Managed per hematology. Family may be considering hospice plan to have meeting today (4) Pneumonia ICD Codes: J18.9 - Pneumonia, unspecified organism Status: Acute Plan: Possible pneumonia On antibiotics No SOB noted (5) Bacteremia ICD Codes: R78.81 - Bacteremia Plan: Blood cultures positive gram negative rods ID consulted. Plan Patient examined, agree with above. (Alexsandra Wang MD) Problem Qualifiers (1) Pneumonia: Qualified Codes: J18.1 - Lobar pneumonia, unspecified organism Shawna Piña May 22, 2017 09:30 Alexsandra Wang MD May 22, 2017 20:52
[2017-05-22] MEDS: AMIODARONE 200 MG TAB PO SCH (09:33)
[2017-05-22] MEDS: PANTOPRAZOLE SOD 20 MG DELAYED RELEASE TAB PO SCH ×2 (09:33→21:19)
--- NOTE | 2017-05-22 09:43 | RADRPT ---
EXAM DATE/TIME: 05/22/2017 09:13 [facility] COMPARISON: CHEST EXPIRATION ONLY, May 21, 2017, 12:42. INDICATIONS : Evaluate for pneumonia MEDICAL HISTORY : Hypertension. Carcinoma, bladder. Carcinoma, prostate SURGICAL HISTORY : Tonsillectomy. infusaport, cardiac cath, right thoracentesis ENCOUNTER: Subsequent ACUITY: 4 - 6 days PAIN SCORE: 0/10 LOCATION: Bilateral chest FINDINGS: Frontal and lateral views of the chest demonstrate stable mild enlargement of the cardiac silhouette. The chest wall the patient remains present. Lungs are underinflated. There are small bilateral pleur al effusions. Mild interstitial prominence is present in both lung bases. No pneumothorax is visualiz ed. Bones and soft tissues demonstrate no acute finding. CONCLUSION: Stable chest x-ray. Small bilateral pleural effusions. Dino Esquivel MD on May 22, 2017 at 9:33 Board Certified Radiologist. This report was verified electronically.
[2017-05-22] MEDS: SODIUM CHLOR 0.45% 1000 ML INJ 1,000 ML IV SCH ×2 (10:29→23:12)
--- NOTE | 2017-05-22 13:28 | MB ---
cc: ADALID VU MD DATE OF CONSULTATION 05/22/[address] Gill REASON FOR CONSULTATION Bacteremia, questionable port infection. HISTORY OF PRESENT ILLNESS This is an 86-year-old white male who was brought to the emergency department on 05/19 from an assisted living facility. The patient reportedly developed fever and shaking chills and had orthopnea. The patient's daughter is in the room and was able to give me some information. She reports that before the patient was brought to the emergency department, someone at the assisted living facility checked on him and reported that his lips were blue. He has a history of chronic anemia. He was evaluated in the emergency department and at this time he had a temperature of 100.2 degrees. The white count was 9.0. Chest x-ray was performed and it was consistent with right-sided pneumonia with infiltrate on chest x-ray and later on an effusion was noted on the chest x-ray. He underwent ultrasound-guided thoracentesis of the right-sided effusion. Blood cultures taken on admission have gram-negative rods in all four bottles. His white count climbed to 23.9 the following day after he presented to the emergency department. He was started on antibiotics in the emergency department and continued to receive antibiotics. The patient's daughter notes that the day before he was brought to the emergency department, he was able to drive to [place]. Currently, she notes that his speech, which was difficult, but improving, but he is having problems with word-finding. She states that his speech was very difficult two days ago where he had difficulty getting words out. The patient appears awake and alert, although he looks somewhat lethargic. While I was in the room after examining him, his two grandsons and son-in-law walked into the room and he recognized them immediately and he introduced me to his grandson telling me that they are his grandsons. His only complaint is having headache. He is on oxygen via nasal cannula and does not appear to be dyspneic. The white count is down to 19.3 after having risen up to 29.2. The patient also has stage IV kidney disease and his creatinine today is 2.84. Looking back on the computerized lab data, he has had some degree of kidney disease and his estimated GFR was 36 as far back as November 2014. The patient has an Rjfrlk-S-Kgjl in place via which he gets blood transfusion. He has chronic anemia and myelodysplastic syndrome. PAST MEDICAL HISTORY 1. Myelodysplastic syndrome 2. Chronic anemia 3. Paroxysmal atrial fibrillation 4. History of bladder cancer. 5. History of prostate cancer. 6. COPD 7. Gastroesophageal reflux disease 8. Hypertension 9. Hyperlipidemia 10. Hypothyroidism 11. Cataract surgery ALLERGIES CODEINE, HYDROCODONE MEDICATIONS 1. Cordarone 2. Flonase 3. Synthroid 4. Protonix 5. Pepcid 6. Zofran 7. Piperacillin/tazobactam SOCIAL HISTORY No alcohol. No tobacco. No illicit drugs. FAMILY HISTORY Noncontributory REVIEW OF SYSTEMS Difficult to obtain, but blood negative except for headache. PHYSICAL EXAMINATION This is a well-developed slender male in no acute distress. He is awake. He is oriented to person. VITAL SIGNS: Temperature 98.5, BP 111/58, heart rate 110, respirations 17. HEENT: Head is atraumatic. Extraocular movements intact. No icterus. Oropharynx moist mucosa without lesions. NECK: Supple without adenopathy. LUNGS: Clear decreased breath sounds bilateral. HEART: Irregular rate and rhythm. No murmurs audible. ABDOMEN: Bowel sounds present, soft, no tenderness appreciated. RECTAL: Not performed. EXTREMITIES: No clubbing, cyanosis or edema. SKIN: No rash. NEUROLOGIC: No gross focal findings. PSYCHIATRIC: The patient calm and cooperative. IMPRESSION 1. Sepsis due to gram-negative bacteria. The patient has an Umhyfb-E-Zoen in place, however gram-negative bacteria may not have originated from the Eattrj-K-Eyjz. 2. Right lower lobe infiltrate and effusion suggesting possible pneumonia. 3. Leukocytosis secondary to sepsis appears to be trending down. RECOMMENDATIONS As far as the patient's treatment for gram-negative bacteria is concerned, it seems that he is beginning to show some improvement with his mental status getting better and also his white blood cell count is lower than previous and it seems to be to be clinically stable without acute sign of sepsis. Currently his speech may be improving. The Iumxoz-K-Wxjn site does not appear to have cellulitis and therefore there is no clear output signs of infection of the Irfgbg-Q-Tzej. Continue to treat the patient with the piperacillin/Tazobactam and monitor the blood cultures for identity and sensitivity of the gram-negative bacteria in the blood and follow his response. He may respond well to treatment of the sepsis. I have notified his daughter of that plan. I would, however, repeat the blood culture to make sure that the bacteremia is cleared and if it is, it can be given a course of antibiotics for the sepsis with 10-14 days of IV antibiotic treatment with an Sjsgzk-S-Urfi in place if the bacteremia is cleared on the repeat blood culture. At this time, I do not think the Tqtopy-C-Uslz needs to be removed. Thank you for this consultation. The patient's progress will be followed depending on the decisions made as far as treatment of the infection is concerned. Adalid Vu MD FD/ASTER /11:18 AM /1:01 PM
[2017-05-22] MEDS: ACETAMINOPHEN 325 MG TAB PO PRN (13:59)
--- NOTE | 2017-05-22 16:19 | HHI.PR ---
Subjective Remarks Pt more alert today. No new complaints. Objective Vitals Vital Signs Date Time Temp Pulse Resp B/P (MAP) Pulse Ox O2 Delivery O2 Flow Rate FiO2 05/22/17 13:41 120 05/22/17 12:00 98.2 102 16 110/67 (81) 99 05/22/17 10:01 110 05/22/17 08:15 98.5 104 17 111/58 (75) 99 05/22/17 01:10 98.5 99 18 126/60 (82) 96 05/21/17 21:00 99.2 107 18 104/60 (75) 96 Result Diagram: 05/21/17 0545 05/21/17 0545 Imaging Last Impressions Renal Ultrasound 05/20/17 0000 Signed Impressions: Service Date/Time: Saturday, May 20, 2017 13:35 - CONCLUSION: 1. There is no hydronephrosis. 2. There is a 10 mm hemorrhagic cyst in the right mid kidney. Dino Esquivel MD Abdomen/Pelvis CT 05/20/17 0000 Signed Impressions: Service Date/Time: Saturday, May 20, 2017 14:16 - CONCLUSION: 1. Partially visualized moderate size right pleural effusion with associated compressive atelectasis of the right lung base. Fluid density measurements suggest simple fluid. There is also trace free fluid in the abdomen. 2. No acute findings include hemorrhagic cyst in the right kidney, severe atherosclerotic disease, and left adrenal gland mass with features suggesting a cyst or adenoma. Dino Esquivel MD Chest X-Ray 05/19/172118 Signed Impressions: Service Date/Time: Friday, May 19, 2017 21:26 - CONCLUSION: Slight enlargement of a right pleural effusion and right lower lobe infiltrate relative to the prior study. George Arellano Jr., MD Objective Remarks GENERAL: NAD, thin CARDIOVASCULAR: Regular rate and rhythm without murmurs, gallops, or rubs. RESPIRATORY: Clear to auscultation. Breath sounds equal bilaterally. No wheezes , rales, or rhonchi. GASTROINTESTINAL: Abdomen soft, non-tender, nondistended. Normal active bowel sounds MUSCULOSKELETAL: Extremities without clubbing, cyanosis, or edema. NEURO: alert, BANKS, expressive aphasia --> improved from admission A/P Problem List: (1) Pleural effusion on right ICD Codes: J90 - Pleural effusion, not elsewhere classified Plan: Pleural effusion Possible pneumonia - Pt is an 86 y/o WM with paroxysmal atrial fibrillation, myelodysplasia with refractory anemia, prostate cancer s/p XRT 5 years ago, bladder cancer s/p tumor resection 6 years ago, HTN, and GERD. Pt had been receiving frequent blood transfusions and has subsequently developed iron overload and is iron chelation therapy with Exjade for this. He was started on Vidaza in 2016 for his myelodysplastic syndrome and his transfusion needs have decreased since initiation of that. He follows with Dr. Kohler for this. - Pt presented to the ED at [facility] on 05/19/17 with complaints of orthopnea, associated with fever and shaking chills. Denies cough or night sweats. - Patient also had a transfusion on the afternoon of 05/19 for chronic anemia. Patient states he's never had a fever post transfusion to date. His max temp in the ED was 100.8 degrees last night. - Blood cultures (05/20) --> gram negative ari in 4/4 bottles - suspect port infection - zosyn (05/20 - present) - azithromycin (05/20) - IVFs - WBC 23.9 (05/20), 19.3 (05/21) - UA was negative - CXR (05/22) --> stable, small b/l pleural effusions - stool studies --> C. Dif Negative - CT abd/pelvis (05/20) --> moderate right pleural effusion - Pt underwent right thoracentesis with removal of 1.2 liters of fluid - PT - DNR - Case d/w ID, Dr. Lockett (05/22) - will obtain repeat blood cultures 05/23 - Anticipate D/C to SNF May 26 - family will consider Hospice following SNF if no significant improvement Myelodysplasia with refractory anemia Volume overload - His labs in the ED noted Hgb 7.7/Hct 21.5. Repeat labs this morning noted a decrease in his H/H to 6.7/20.3 - Pt is currently receiving 2 units of PRBCs - Patient had a few recent admissions in 03/2017 and 04/2017 to the hospital for volume overload and required thoracentesis twice for pleural effusion. - 2D echo (02/2017) with preserved EF 60-65% and no evidence of diastolic dysfunction. - His troponin I is elevated at 0.09 --> 0.12 but he has noted elevated troponin in the past - BNP is elevated at 433 --> 1233 (05/20) - CXR in the ED noted slight enlargement of a right pleural effusion and right lower lobe infiltrate relative to the prior study. - thoracentesis, right, today for symptom relief Acute on chronic kidney disease - comgmt with Nephrology - His renal function was worse than baseline with Cr 2.93/BUN 55, GFR 20 and repeat labs this morning with Cr 3.04/BUN 58, GFR 20. - Cr 2.84 (05/21) - renal US (05/20) --> hemorrhagic cyst, no obstructive findings Paroxysmal atrial fibrillation HTN - Pts BP will not sustain his BB - Cont. Amiodarone in AM Hypothyroidism - Cont. home meds (2) Pneumonia ICD Codes: J18.9 - Pneumonia, unspecified organism Status: Acute (3) Volume overload ICD Codes: E87.70 - Fluid overload, unspecified Status: Acute (4) Acute renal insufficiency ICD Codes: N28.9 - Disorder of kidney and ureter, unspecified Status: Acute (5) Myelodysplastic syndrome ICD Codes: D46.9 - Myelodysplastic syndrome Status: Chronic (6) Symptomatic anemia ICD Codes: D64.9 - Symptomatic anemia Status: Acute (7) Hypothyroidism ICD Codes: E03.9 - Hypothyroidism Status: Chronic (8) Paroxysmal atrial fibrillation ICD Codes: I48.0 - Paroxysmal atrial fibrillation Status: Chronic (9) Elevated troponin ICD Codes: R77.8 - Other specified abnormalities of plasma proteins Status: Acute (10) Hypertension ICD Codes: I10 - Hypertension Status: Chronic Problem Qualifiers (1) Pneumonia: Qualified Codes: J18.1 - Lobar pneumonia, unspecified organism Kevin Gill DO May 22, 2017 16:19
--- NOTE | 2017-05-22 16:50 | HHI.HCPN ---
Reason for visit a. To assist with evaluation and management of symptoms including: shortness of breath, debility. b. To assist medical decision maker(s) with: better understanding of current medical conditions; weighing benefits/burdens of medical treatment options; making medical treatment decisions. . Subjective/Interval History Palliative care follow-up for further clarifications of goals of care. Patient was seen in his room, resting in bed in no acute distress. Pale, more interactive than the day before. Patient is very hard of hearing, verbal but not always able to communicate given intermittent confusion. Patient remains afebrile, tachycardic with heart rate in the 110s to 120s. O2 via nasal cannula 2 L. Patient underwent a right-sided thoracentesis yesterday, 1.2 L of fluid out. ID, Dr. Man consulted for evaluation and management of sepsis bacteremia. Patient to be continued on IV antibiotics. workup today revealing improvement in leukocytosis 19.3, stable Hgb 8.6, platelet count 157. BUN/creatinine 69/2.84. BNP 1233. Family meeting. In attendance all of patient's 3 daughters to include Rosalinda Loja, Marcella and Ariella as well as additional family members. Hospice admission nurses Laura and Rohini present. Reviewed patient's past medical history, events leading to this hospitalization, clinical course and current medical management. Reviewed patient's overall very poor progressive given disease no longer responding to disease modifying treatment/high doses of EPO injections, multiple comorbidities, physical deconditioning and multiple recent hospitalizations. Shared concerns of patient's continue ability to receive transfusions given worsening CHF symptoms. Reviewed continuation of current management to include IV antibiotics for sepsis, transfusions as necessary vs transitioning patient to comfort-directed care with hospice. Hospice philosophy and benefits reviewed in detail. Family wishing to allow an additional 24 hours in order to make the final decision regarding goals of care. Family actively considering hospice. . Family/friend interactions See interval note. . Advance Directives Living Will: Copy in medical record Health Care Surrogate: Copy in medical record Advance Directive Specifics Date completed: 02/15/2014. . Health Care Surrogate(s): HCS is daughter Rosalinda Scott. Alternate surrogate his daughter Jaye Pepe. . Documented care wishes: Living well with a standard verbiage as it pertains to terminal condition or end -stage condition or persistent vegetative state. . Significant change in goals: Family considering hospice services. . Objective Vital Signs Date Time Temp Pulse Resp B/P (MAP) Pulse Ox O2 Delivery O2 Flow Rate FiO2 05/22/17 13:41 120 05/22/17 12:00 98.2 102 16 110/67 (81) 99 05/22/17 10:01 110 05/22/17 08:15 98.5 104 17 111/58 (75) 99 05/22/17 01:10 98.5 99 18 126/60 (82) 96 05/21/17 21:00 99.2 107 18 104/60 (75) 96 Intake & Output 05/22/17 05/22/17 07:00 19:00 # Voids 4 Physical Exam CONSTITUTIONAL/GENERAL: This is an adequately nourished elderly patient in no apparent distress. TUBES/LINES/DRAINS: Mediport left chest, PIV, nasal cannula. SKIN: No jaundice, rashes, or lesions. Pale. Ecchymoses on upper extremities. No wounds seen anteriorly. Skin temperature appropriate. Not diaphoretic. HEAD: Atraumatic. Normocephalic. EYES: Pupils equal and round and reactive. Extraocular motions intact. No scleral icterus. No injection or drainage. ENT: Hearing grossly normal. Nose without bleeding or purulent drainage. Moist oral mucosa. NECK: Trachea midline. Supple, nontender. CARDIOVASCULAR: Irregular rate and rhythm without murmurs. Peripheral pulses symmetric. Pedal/ankle edema to bilateral extremities. RESPIRATORY/CHEST: Symmetric, unlabored respirations. Clear, diminished to auscultation. Breath sounds equal bilaterally. No wheezes, rales, or rhonchi. GASTROINTESTINAL: Abdomen soft, non-tender, nondistended. No hepato-splenomegaly , or palpable masses. No guarding. Bowel sounds present. GENITOURINARY: Without palpable bladder distension. Rodriguez catheter in place. MUSCULOSKELETAL: Extremities without clubbing, cyanosis. No mottling or clubbing. NEUROLOGICAL: Awake and alert x self and situation. Intermittently confused. Very hard of hearing. Following some commands. PSYCHIATRIC: Appears calm. . Diagnostic Tests Laboratory Laboratory Tests Test 05/19/17 21:52 05/20/17 05:58 05/20/17 13:45 05/20/17 16:55 White Blood Count 9.0 TH/MM3 (4.0-11.0) 23.9 TH/MM3 (4.0-11.0) 29.2 TH/MM3 (4.0-11.0) Red Blood Count 2.53 MIL/MM3 (4.50-5.90) 2.36 MIL/MM3 (4.50-5.90) 3.02 MIL/MM3 (4.50-5.90) Hemoglobin 7.7 GM/DL (13.0-17.0) 6.7 GM/DL (13.0-17.0) 8.9 GM/DL (13.0-17.0) Hematocrit 21.5 % (39.0-51.0) 20.3 % (39.0-51.0) 25.6 % (39.0-51.0) Mean Corpuscular Volume 84.8 FL (80.0-100.0) 86.2 FL (80.0-100.0) 84.9 FL (80.0-100.0) Mean Corpuscular Hemoglobin 30.4 PG (27.0-34.0) 28.5 PG (27.0-34.0) 29.4 PG (27.0-34.0) Mean Corpuscular Hemoglobin Concent 35.8 % (32.0-36.0) 33.1 % (32.0-36.0) 34.6 % (32.0-36.0) Red Cell Distribution Width 17.6 % (11.6-17.2) 17.6 % (11.6-17.2) 17.5 % (11.6-17.2) Platelet Count 260 TH/MM3 (150-450) 209 TH/MM3 (150-450) 201 TH/MM3 (150-450) Mean Platelet Volume 9.9 FL (7.0-11.0) 10.0 FL (7.0-11.0) 10.1 FL (7.0-11.0) Neutrophils (%) (Auto) 97.5 % (16.0-70.0) 92.0 % (16.0-70.0) 92.1 % (16.0-70.0) Lymphocytes (%) (Auto) 1.3 % (9.0-44.0) 2.5 % (9.0-44.0) 2.2 % (9.0-44.0) Monocytes (%) (Auto) 1.0 % (0.0-8.0) 5.2 % (0.0-8.0) 5.6 % (0.0-8.0) Eosinophils (%) (Auto) 0.0 % (0.0-4.0) 0.1 % (0.0-4.0) 0.0 % (0.0-4.0) Basophils (%) (Auto) 0.2 % (0.0-2.0) 0.2 % (0.0-2.0) 0.1 % (0.0-2.0) Neutrophils # (Auto) 8.7 TH/MM3 (1.8-7.7) 22.0 TH/MM3 (1.8-7.7) 26.9 TH/MM3 (1.8-7.7) Lymphocytes # (Auto) 0.1 TH/MM3 (1.0-4.8) 0.6 TH/MM3 (1.0-4.8) 0.6 TH/MM3 (1.0-4.8) Monocytes # (Auto) 0.1 TH/MM3 (0-0.9) 1.2 TH/MM3 (0-0.9) 1.6 TH/MM3 (0-0.9) Eosinophils # (Auto) 0.0 TH/MM3 (0-0.4) 0.0 TH/MM3 (0-0.4) 0.0 TH/MM3 (0-0.4) Basophils # (Auto) 0.0 TH/MM3 (0-0.2) 0.0 TH/MM3 (0-0.2) 0.0 TH/MM3 (0-0.2) CBC Comment DIFF FINAL DIFF FINAL DIFF FINAL Differential Comment Prothrombin Time 12.9 SEC (9.8-11.6) Prothromb Time International Ratio 1.3 RATIO Activated Partial Thromboplast Time 23.3 SEC (24.3-30.1) Urine Color LIGHT-YELLOW (YELLW/STRAW) Urine Turbidity CLEAR (CLEAR) Urine pH 6.0 (5.0-8.5) Urine Specific Mcleod 1.008 (1.002-1.035) Urine Protein TRACE mg/dL (NEG-TRACE) Urine Glucose (UA) NEG mg/dL (NEG) Urine Ketones NEG mg/dL (NEG) Urine Occult Blood NEG (NEG) Urine Nitrite NEG (NEG) Urine Bilirubin NEG (NEG) Urine Urobilinogen LESS THAN 2.0 MG/DL (LESS Urine Leukocyte Esterase NEG (NEG) Urine RBC 1 /hpf (0-3) Urine WBC LESS THAN 1 /hpf (0-5) Urine Squamous Epithelial Cells <1 /hpf (0-5) Urine Mucus FEW /lpf (OCC) Microscopic Urinalysis Comment CULT NOT INDICATED Blood Urea Nitrogen 55 MG/DL (7-18) 58 MG/DL (7-18) Creatinine 2.93 MG/DL (0.60-1.30) 3.04 MG/DL (0.60-1.30) Random Glucose 106 MG/DL (74-106) 107 MG/DL (74-106) Total Protein 7.1 GM/DL (6.4-8.2) Albumin 3.8 GM/DL (3.4-5.0) Calcium Level 8.2 MG/DL (8.5-10.1) 7.9 MG/DL (8.5-10.1) Magnesium Level 2.0 MG/DL (1.5-2.5) Alkaline Phosphatase 56 U/L (45-117) Aspartate Amino Transf (AST/SGOT) 13 U/L (15-37) Alanine Aminotransferase (ALT/SGPT) 14 U/L (12-78) Total Bilirubin 3.3 MG/DL (0.2-1.0) Sodium Level 133 MEQ/L (136-145) 134 MEQ/L (136-145) Potassium Level 4.2 MEQ/L (3.5-5.1) 3.9 MEQ/L (3.5-5.1) Chloride Level 99 MEQ/L (98-107) 101 MEQ/L (98-107) Carbon Dioxide Level 23.6 MEQ/L (21.0-32.0) 19.9 MEQ/L (21.0-32.0) Anion Gap 10 MEQ/L (5-15) 13 MEQ/L (5-15) Estimat Glomerular Filtration Rate 20 ML/MIN (>89) 20 ML/MIN (>89) Total Creatine Kinase 28 U/L (39-308) Troponin I 0.09 NG/ML (0.02-0.05) 0.12 NG/ML (0.02-0.05) B-Type Natriuretic Peptide 433 PG/ML (0-100) 1233 PG/ML (0-100) Stool C. difficile Toxin (PCR) NEGATIVE (NEGATIVE) Stl C. difficile Toxin Epiderm 027 PRESUMPTIVE NEGATIVE Test 05/21/17 05:45 05/21/17 12:10 White Blood Count 19.3 TH/MM3 (4.0-11.0) Red Blood Count 2.89 MIL/MM3 (4.50-5.90) Hemoglobin 8.6 GM/DL (13.0-17.0) Hematocrit 24.5 % (39.0-51.0) Mean Corpuscular Volume 84.8 FL (80.0-100.0) Mean Corpuscular Hemoglobin 29.8 PG (27.0-34.0) Mean Corpuscular Hemoglobin Concent 35.2 % (32.0-36.0) Red Cell Distribution Width 17.9 % (11.6-17.2) Platelet Count 157 TH/MM3 (150-450) Mean Platelet Volume 9.7 FL (7.0-11.0) Neutrophils (%) (Auto) 87.7 % (16.0-70.0) Lymphocytes (%) (Auto) 4.6 % (9.0-44.0) Monocytes (%) (Auto) 7.5 % (0.0-8.0) Eosinophils (%) (Auto) 0.0 % (0.0-4.0) Basophils (%) (Auto) 0.2 % (0.0-2.0) Neutrophils # (Auto) 17.0 TH/MM3 (1.8-7.7) Lymphocytes # (Auto) 0.9 TH/MM3 (1.0-4.8) Monocytes # (Auto) 1.4 TH/MM3 (0-0.9) Eosinophils # (Auto) 0.0 TH/MM3 (0-0.4) Basophils # (Auto) 0.0 TH/MM3 (0-0.2) CBC Comment DIFF FINAL Differential Comment Blood Urea Nitrogen 69 MG/DL (7-18) Creatinine 2.84 MG/DL (0.60-1.30) Random Glucose 96 MG/DL (74-106) Calcium Level 7.5 MG/DL (8.5-10.1) Magnesium Level 2.3 MG/DL (1.5-2.5) Sodium Level 134 MEQ/L (136-145) Potassium Level 3.7 MEQ/L (3.5-5.1) Chloride Level 101 MEQ/L (98-107) Carbon Dioxide Level 20.4 MEQ/L (21.0-32.0) Anion Gap 13 MEQ/L (5-15) Estimat Glomerular Filtration Rate 21 ML/MIN (>89) Troponin I 0.19 NG/ML (0.02-0.05) Pleural Fluid WBC 20 /MM3 (0-10) Pleural Fluid RBC 60 /MM3 (0-0) Pleural Fluid Neutrophils 100 % Pleural Fluid Comment Pleural Fluid Total Protein 3.4 GM/DL Pleural Fluid LDH 70 U/L Result Diagram: 05/21/17 0545 05/21/17 0545 Microbiology Microbiology Date/Time Source Procedure Growth Status 05/19/17 21:52 Blood Peripheral Aerobic Blood Culture - Preliminary Gram Negative Fer Resulted 05/19/17 21:52 Anaerobic Blood Culture - Preliminary Gram Negative Fer Resulted 05/19/17 21:47 Blood Peripheral Aerobic Blood Culture - Preliminary Gram Negative Fer Resulted 05/19/17 21:47 Anaerobic Blood Culture - Preliminary Gram Negative Fer Resulted 05/21/17 12:10 Fluid Pleural Fluid Fungal Smear - Final NO FUNGAL ELEMENTS SEEN. Resulted 05/21/17 12:10 Fluid Pleural Fluid Fungal Culture Pending Resulted 05/21/17 12:10 Fluid Pleural Fluid Acid Fast Stain - Final NO ACID FAST BACILLI SEEN Resulted 05/21/17 12:10 Fluid Pleural Fluid Mycobacterial Culture Pending Resulted 05/21/17 12:10 Fluid Pleural Fluid Gram Stain - Final Resulted 05/21/17 12:10 Fluid Pleural Fluid Body Fluid Culture - Preliminary NO GROWTH IN 24 HOURS. Resulted 05/20/17 13:45 Stool Stool - Final NO ENTERIC PATHOGENS DETECTED BY PCR... Complete 05/19/17 21:58 Nasal Washing Influenza Types A,B Antigen (AVERY) - Final NEGATIVE FOR FLU A AND B ANTIGEN.... Complete Imaging Last 24 hours Impressions Chest X-Ray 05/22/17 0800 Signed Impressions: Service Date/Time: May 09:13 - CONCLUSION: Stable chest x-ray. Small bilateral pleural effusions. Dino Esquivel MD Procedures * 05/21/17 -right-sided thoracentesis. . Assessment and Plan Disease Oriented Problem List: (1) Myelodysplastic syndrome (2) Pleural effusion on right (3) Pneumonia (4) Acute renal insufficiency (5) Anemia (6) Physical deconditioning Symptom Scale: (1) Shortness of breath 0-10 Scale: Unable to quantify (2) Debility 0-10 Scale: Unable to quantify Pertinent Non-Medical Issues Psychosocial: Patient originally from [place], [place]. he is a retired contractor. , has 3 adult daughters. Served in the [employer]. Spiritual: Robert Applebaum MD. Legal: Advance directives completed. Ethical issues impacting care: No ethical issues identified. . Important Contacts HCS/Daughter Rosalinda Scott . Daughter Ariella Jo . . Prognosis Mr. Peck is an 86-year-old male with a medical history significant for myelodysplastic syndrome refractory anemia, COPD, CHF, A. fib with RVR, hypertension and GERD. Patient with progression of disease while on disease modifying therapy, now requiring weekly red blood cell transfusions. Patient with multiple recent hospitalizations, progressive decline and sepsis secondary to pneumonia. Overall prognosis is very poor for a prolonged survival. Patient is hospice appropriate should he/family elects comfort-directed care. . Code Status: No Code Plan * CODE STATUS: No code. DNR/DNI. This has been confirmed with patient and daughter Rosalinda Purvi/[facility]. * HEALTHCARE DECISION-MAKING: Patient with limited participation in medical decision-making given intermittent confusion/agitation. Advanced directives secure. Patient has designated his daughter Samantah Scott as healthcare surrogate decision-maker, alternating is daughter Jaye Pepe. Palliative care recommends shared decision-making given intermittent confusion/agitation. * GOALS OF CARE: Patient and family considering comfort-directed care with hospice. Family meeting held 05/22/17 with palliative care and hospice. Family wishing to allow an additional 24 hours in order to make a final decision regarding goals of care. Family actively considering hospice care center for symptom management and end-of-life care. * SYMPTOMS: = Shortness of breath, multifactorial secondary to pleural effusion , anemia, COPD. status post US guided thoracentesis of right lung 05/21/17. Currently tolerating O2 via nasal cannula. = Debility: Progressive. Worsen since February 2017. Patient with multiple recent acute hospitalizations and multiple comorbidities. Living independently prior to February, now residing in assisted living facility and requiring assistance with ADLs. Likely to continue to worsen given progression of illness. * Palliative care contact information has been provided to patient and family. * Palliative care to follow-up for further clarifications of goals of care as patient's clinical course continues to evolve. . Time Spent Total Floor Time (mins): 48 (Total time to include review and summarization of available medical records, physical exam, meeting to discuss goals of care with patient and family, case discussion with hospice admission nurse.) >50% Counseling/Coord of Care: Yes Attestation To help prompt me to consider important information that might be impacting today's encounter and assessment, information from prior notes written by myself or my colleagues may have been "brought forward" into today's note. My signature on this note, however, is an attestation that I personally performed the exam, history, and/or decision-making noted today, and, unless otherwise indicated, the interactions with patient, family, and staff as well as the review of records all occurred today. I also attest that the listed assessment and stated plan reflect my best clinical judgment today based on the combination of historical information, prior notes, and today's exam/ interactions. When time spent is documented, it refers only to time spent today by the signer, or if indicated, combined time spent today by collaborating physician/nurse practitioner. Gina Guidry May 22, 2017 16:50
[2017-05-23] VITALS: BP 130/79; PULSE 83; RESP 18; TEMP 97; O2SAT 98
[2017-05-23] MEDS: LEVOTHYROXINE SODIUM 75 MCG TAB PO SCH (05:20)
[2017-05-23] MEDS: PIPERACIL-TAZO 2.25 GM PREMIX 50 ML IV SCH ×3 (05:20→21:17)
[2017-05-23] MEDS: ACETAMINOPHEN 325 MG TAB PO PRN ×5 (05:20→23:12)
[2017-05-23 06:05] VITALS: BP 97/55; PULSE 107; RESP 20; TEMP 97.1; O2SAT 95
[2017-05-23 08:00] VITALS: BP 113/69; PULSE 101; RESP 17; TEMP 98; O2SAT 100
[2017-05-23] MEDS: AMIODARONE 200 MG TAB PO SCH (09:36)
[2017-05-23] MEDS: PANTOPRAZOLE SOD 20 MG DELAYED RELEASE TAB PO SCH ×2 (09:36→21:07)
[2017-05-23] MEDS: FLUTICASONE PROPIONATE 50 MCG/ACT 16 GM NASAL SPRAY EACH NARE SCH (09:37)
--- NOTE | 2017-05-23 10:53 | HHI.PR ---
Subjective Remarks No new complaints. Pt is tolerating PO intake. Pt denies n/v/d. Objective Vitals Vital Signs Date Time Temp Pulse Resp B/P (MAP) Pulse Ox O2 Delivery O2 Flow Rate FiO2 05/23/17 06:05 97.1 107 20 97/55 (69) 95 05/23/17 00:00 97.0 83 18 130/79 (96) 98 05/22/17 23:00 115 05/22/17 20:00 98.2 115 18 124/60 (81) 100 05/22/17 17:18 112 05/22/17 16:00 97.5 104 18 101/58 (72) 98 05/22/17 13:41 120 05/22/17 12:00 98.2 102 16 110/67 (81) 99 Result Diagram: 05/21/17 0545 05/21/17 0545 Imaging Last Impressions Renal Ultrasound 05/20/17 0000 Signed Impressions: Service Date/Time: Saturday, May 20, 2017 13:35 - CONCLUSION: 1. There is no hydronephrosis. 2. There is a 10 mm hemorrhagic cyst in the right mid kidney. Dino Esquivel MD Abdomen/Pelvis CT 05/20/17 0000 Signed Impressions: Service Date/Time: Saturday, May 20, 2017 14:16 - CONCLUSION: 1. Partially visualized moderate size right pleural effusion with associated compressive atelectasis of the right lung base. Fluid density measurements suggest simple fluid. There is also trace free fluid in the abdomen. 2. No acute findings include hemorrhagic cyst in the right kidney, severe atherosclerotic disease, and left adrenal gland mass with features suggesting a cyst or adenoma. Dino Esquivel MD Chest X-Ray 05/19/[id number] Signed Impressions: Service Date/Time: Friday, May 19, 2017 21:26 - CONCLUSION: Slight enlargement of a right pleural effusion and right lower lobe infiltrate relative to the prior study. George Arellano Jr., MD Objective Remarks GENERAL: NAD, thin CARDIOVASCULAR: Regular rate and rhythm without murmurs, gallops, or rubs. RESPIRATORY: Clear to auscultation. Breath sounds equal bilaterally. No wheezes , rales, or rhonchi. GASTROINTESTINAL: Abdomen soft, non-tender, nondistended. Normal active bowel sounds MUSCULOSKELETAL: Extremities without clubbing, cyanosis, or edema. NEURO: alert, BANKS, expressive aphasia --> improved from admission A/P Problem List: (1) Pleural effusion on right ICD Codes: J90 - Pleural effusion, not elsewhere classified Plan: Pleural effusion Possible pneumonia - Pt is an 86 y/o WM with paroxysmal atrial fibrillation, myelodysplasia with refractory anemia, prostate cancer s/p XRT 5 years ago, bladder cancer s/p tumor resection 6 years ago, HTN, and GERD. Pt had been receiving frequent blood transfusions and has subsequently developed iron overload and is iron chelation therapy with Exjade for this. He was started on Vidaza in 2016 for his myelodysplastic syndrome and his transfusion needs have decreased since initiation of that. He follows with Dr. Kohler for this. - [place] [facility] [place] with complaints of orthopnea, associated with fever and shaking chills. Denies cough or night sweats. - Patient also had a transfusion on the afternoon of 05/19 for chronic anemia. Patient states he's never had a fever post transfusion to date. His max temp in the ED was 100.8 degrees last night. - Blood cultures (05/20) --> Enterobacter Cloacae - suspect port infection - zosyn (05/20 - present). - Repeat Blood Cx ordered (05/23) - azithromycin (05/20) - WBC 23.9 (05/20), 19.3 (05/21) - repeat CBC in AM - UA was negative - CXR (05/22) --> stable, small b/l pleural effusions - stool studies --> C. Dif Negative - CT abd/pelvis (05/20) --> moderate right pleural effusion - Pt underwent right thoracentesis with removal of 1.2 liters of fluid - PT - DNR - Case d/w ID, Dr. Lockett (05/22) - Anticipate D/C to SNF May 26 - family will consider Hospice following SNF if no significant improvement Myelodysplasia with refractory anemia Volume overload - His labs in the ED noted Hgb 7.7/Hct 21.5. Repeat labs this morning noted a decrease in his H/H to 6.7/20.3 - Pt is currently receiving 2 units of PRBCs - Patient had a few recent admissions in 03/2017 and 04/2017 to the hospital for volume overload and required thoracentesis twice for pleural effusion. - 2D echo (02/2017) with preserved EF 60-65% and no evidence of diastolic dysfunction. - His troponin I is elevated at 0.09 --> 0.12 but he has noted elevated troponin in the past - BNP is elevated at 433 --> 1233 (05/20) - repeat BNP and CXR (05/24) - CXR in the ED noted slight enlargement of a right pleural effusion and right lower lobe infiltrate relative to the prior study. - thoracentesis, right, today for symptom relief Acute on chronic kidney disease - comgmt with Nephrology - His renal function was worse than baseline with Cr 2.93/BUN 55, GFR 20 and repeat labs this morning with Cr 3.04/BUN 58, GFR 20. - Cr 2.84 (05/21) - repeat BMP in AM - renal US (05/20) --> hemorrhagic cyst, no obstructive findings Paroxysmal atrial fibrillation HTN - Pts BP will not sustain his BB - Cont. Amiodarone in AM Hypothyroidism - Cont. home meds (2) Pneumonia ICD Codes: J18.9 - Pneumonia, unspecified organism Status: Acute (3) Volume overload ICD Codes: E87.70 - Fluid overload, unspecified Status: Acute (4) Acute renal insufficiency ICD Codes: N28.9 - Disorder of kidney and ureter, unspecified Status: Acute (5) Myelodysplastic syndrome ICD Codes: D46.9 - Myelodysplastic syndrome Status: Chronic (6) Symptomatic anemia ICD Codes: D64.9 - Symptomatic anemia Status: Acute (7) Hypothyroidism ICD Codes: E03.9 - Hypothyroidism Status: Chronic (8) Paroxysmal atrial fibrillation ICD Codes: I48.0 - Paroxysmal atrial fibrillation Status: Chronic (9) Elevated troponin ICD Codes: R77.8 - Other specified abnormalities of plasma proteins Status: Acute (10) Hypertension ICD Codes: I10 - Hypertension Status: Chronic Problem Qualifiers (1) Pneumonia: Qualified Codes: J18.1 - Lobar pneumonia, unspecified organism Kevin Gill DO May 23, 2017 10:53
[2017-05-23 12:00] VITALS: BP 103/58; PULSE 99; RESP 17; TEMP 97.2; O2SAT 100
--- NOTE | 2017-05-23 12:34 | HHI.NPPN ---
Subjective Complaints: Confused General Problems: Anemia, Edema History of Present Illness 86-year-old male presented to ED with orthopnea, associated with fever and shaking chills. Patient had a recent admission to the hospital for pleural effusion with pleurocentesis as per patient. Patient had a transfusion on 05/19 for chronic anemia. Called to see the patient for elevated BUN and Creatinine. Additional Remarks Patient is sleepy , arousable, not in distress, started eating better. Review of Systems Respiratory Respiratory Remarks Denies SOB Cardiovascular Cardiac: Edema Cardiac Remarks Denies Chest pain Gastrointestinal GI Remarks No Abdominal pain Genitourinary Remarks Denies urinary frequency or dysuria Objective Data Data Vital Signs Date Time Temp Pulse Resp B/P (MAP) Pulse Ox O2 Delivery O2 Flow Rate FiO2 05/23/17 08:00 98.0 101 17 113/69 (84) 100 05/23/17 06:05 97.1 107 20 97/55 (69) 95 05/23/17 00:00 97.0 83 18 130/79 (96) 98 05/22/17 23:00 115 05/22/17 20:00 98.2 115 18 124/60 (81) 100 05/22/17 17:18 112 05/22/17 16:00 97.5 104 18 101/58 (72) 98 05/22/17 13:41 120 -: 05/21/17 0545 05/21/17 0545 Physical Exam General Appearance: No Acute Distress Eyes Eye Exam: Pupils Equal Pulmonary Resp Exam: Diminished Breath Sounds Cardiology CV Exam: Regular, Normal Sinus Rhythm Gastrointestinal/Abdomen GI Exam: Soft, Non-Tender Genitourinary Exam: Flank Non-Tender, Bladder Non-Palpable Integumentary Skin Exam: Clear, Dry Extremeties Extremities Exam: Moderate Edema Neurologic Neuro Exam: Alert VTE Prophylaxis Device: TEDs Assessment/Plan Discussed Condition With: Sibling Assessment Summary: JAMES/Acute Renal Failure, Anemia of CKD Problem List: (1) Acute renal insufficiency ICD Codes: N28.9 - Disorder of kidney and ureter, unspecified Status: Acute Plan: Has minimal Proteinuria, the chronic kidney disease is most likely due to Hypertensive or renovascular disease. JAMES is possibly pre renal or ATN from Hypotension. No new BMP, will get in AM. Encourage oral intake. Avoid nephrotoxins. Follow the urine out put and BMP. (2) Anemia ICD Codes: D64.9 - Anemia Status: Chronic Plan: Patient is treated with blood transfusion as needed for myelodysplasia with refractory anemia. Transfused 2 units of PRBC on admission . HGB 8.6 yesterday Blood pressure stable (3) Myelodysplastic syndrome ICD Codes: D46.9 - Myelodysplastic syndrome Status: Chronic Plan: Managed per hematology. Family may be considering hospice plan to have meeting today (4) Pneumonia ICD Codes: J18.9 - Pneumonia, unspecified organism Status: Acute Plan: Possible pneumonia On antibiotics No SOB noted (5) Bacteremia ICD Codes: R78.81 - Bacteremia Plan: Blood cultures positive gram negative rods ID consulted. Plan Patient examined, agree with above. Problem Qualifiers (1) Pneumonia: Qualified Codes: J18.1 - Lobar pneumonia, unspecified organism Alexsandra Wang MD May 23, 2017 12:34
--- NOTE | 2017-05-23 13:16 | HHI.IDPN ---
Note Infectious Disease Note Patient is awake and alert. Multiple family members in room. They think his mentation is better. Afebrile. He has no complaints. Blood culture has Enterobacter cloacae. The patient has an Plziye-G-Fcqh in place via which he gets blood transfusion. He has chronic anemia and myelodysplastic syndrome. PAST MEDICAL HISTORY 1. Myelodysplastic syndrome 2. Chronic anemia 3. Paroxysmal atrial fibrillation 4. History of bladder cancer. 5. History of prostate cancer. 6. COPD 7. Gastroesophageal reflux disease 8. Hypertension 9. Hyperlipidemia 10. Hypothyroidism 11. Cataract surgery ALLERGIES CODEINE, HYDROCODONE ANTIBIOTICS: Piperacillin/tazobactam OBJECTIVE: Vital Signs Date Time Temp Pulse Resp B/P (MAP) Pulse Ox O2 Delivery O2 Flow Rate FiO2 05/23/17 08:00 98.0 101 17 113/69 (84) 100 05/23/17 06:05 97.1 107 20 97/55 (69) 95 05/23/17 00:00 97.0 83 18 130/79 (96) 98 05/22/17 23:00 115 05/22/17 20:00 98.2 115 18 124/60 (81) 100 05/22/17 17:18 112 05/22/17 16:00 97.5 104 18 101/58 (72) 98 05/22/17 13:41 120 Microbiology Date/Time Source Procedure Growth Status 05/21/17 12:10 Fluid Pleural Fluid Fungal Smear - Final NO FUNGAL ELEMENTS SEEN. Resulted 05/21/17 12:10 Fluid Pleural Fluid Fungal Culture Pending Resulted 05/21/17 12:10 Fluid Pleural Fluid Acid Fast Stain - Final NO ACID FAST BACILLI SEEN Resulted 05/21/17 12:10 Fluid Pleural Fluid Mycobacterial Culture Pending Resulted 05/21/17 12:10 Fluid Pleural Fluid Gram Stain - Final Resulted 05/21/17 12:10 Fluid Pleural Fluid Body Fluid Culture - Preliminary NO GROWTH IN 48 HOURS. Resulted 05/20/17 13:45 Stool Stool - Final NO ENTERIC PATHOGENS DETECTED BY PCR... Complete PHYSICAL EXAMINATION GENERAL: No acute distress. HEENT: Head is atraumatic. Extraocular movements intact. No icterus. Oropharynx moist mucosa without lesions. NECK: Supple without adenopathy. LUNGS: Clear decreased breath sounds. HEART: Irregular rate and rhythm. No murmurs audible. ABDOMEN: Bowel sounds present, soft, no tenderness appreciated. EXTREMITIES: No clubbing, cyanosis or edema. SKIN: No rash. NEUROLOGIC: No gross focal findings. PSYCHIATRIC: Calm and cooperative. IMPRESSION 1. Sepsis due to gram-negative bacteria. The patient has an Ixvpuk-H-Ccwb in place, however the gram-negative bacteria may not have originated from the Xcyemy-G-Slzn. 2. Right lower lobe infiltrate and effusion suggesting possible pneumonia. 3. Leukocytosis secondary to sepsis appears to be trending down. RECOMMENDATIONS 1. Continue Zosyn. 2. Monitor repeat blood culture. Plan on 10 days of IV antibiotic from today if today's blood culture is negative. I do not think the Iktflv-O-Xuzj needs to be removed at this time. I will be off next couple of days. Please call ID personal care worker if needed. Hany Man MD May 23, 2017 13:16
--- NOTE | 2017-05-23 13:47 | HHI.HCPN ---
Reason for visit a. To assist with evaluation and management of symptoms including: shortness of breath, debility. b. To assist medical decision maker(s) with: better understanding of current medical conditions; weighing benefits/burdens of medical treatment options; making medical treatment decisions. . Subjective/Interval History Palliative care follow-up for further clarifications of goals of care. Patient was seen in his room, resting in bed in no acute distress. Patient alert and oriented x self, place and situation. More interactive than the day before. Patient is very hard of hearing, verbal. Patient remains afebrile, tachycardic with heart rate in the low 100's. O2 via nasal cannula 2 L. denies shortness of breath, pain, nausea or vomiting. Patient verbalized wishing to go home. Laboratory workup for review. Infectious diseases and nephrology following. Goals of care conversation follow-up with patient and additional family members. In attendance, patient's daughters Marcella and Ariella as well as additional family members. Family reports that after extensive discussion, patient and family has elected to continue aggressive management short of no code to include continuation of IV antibiotics and blood transfusions as necessary. Family receptive to hospice services should patient's clinical condition worsen or additional decline/symptom burden. Case discussed with magnetic resonance technologist Maggie. . Family/friend interactions See interval note. . Advance Directives Living Will: Copy in medical record Health Care Surrogate: Copy in medical record Advance Directive Specifics Date completed: 02/15/2014. . Health Care Surrogate(s): HCS is daughter Rosalinda Scott. Alternate surrogate his daughter Jaye Pepe. . Documented care wishes: Living well with a standard verbiage as it pertains to terminal condition or end -stage condition or persistent vegetative state. . Significant change in goals: Patient and family electing aggressive management short of no code. . Objective Vital Signs Date Time Temp Pulse Resp B/P (MAP) Pulse Ox O2 Delivery O2 Flow Rate FiO2 05/23/17 12:00 97.2 99 17 103/58 (73) 100 05/23/17 08:00 98.0 101 17 113/69 (84) 100 05/23/17 06:05 97.1 107 20 97/55 (69) 95 05/23/17 00:00 97.0 83 18 130/79 (96) 98 05/22/17 23:00 115 05/22/17 20:00 98.2 115 18 124/60 (81) 100 05/22/17 17:18 112 05/22/17 16:00 97.5 104 18 101/58 (72) 98 05/22/17 13:41 120 Intake & Output 05/23/17 05/23/17 07:00 19:00 Output Total 900 ml Balance -900 ml Output Urine Total 900 ml # Bowel Movements 1 Physical Exam CONSTITUTIONAL/GENERAL: This is an adequately nourished elderly patient in no apparent distress. TUBES/LINES/DRAINS: Mediport left chest, PIV, nasal cannula. SKIN: No jaundice, rashes, or lesions. Pale. Ecchymoses on upper extremities. No wounds seen anteriorly. Skin temperature appropriate. Not diaphoretic. HEAD: Atraumatic. Normocephalic. EYES: Pupils equal and round and reactive. Extraocular motions intact. No scleral icterus. No injection or drainage. ENT: Hearing grossly normal. Nose without bleeding or purulent drainage. Moist oral mucosa. NECK: Trachea midline. Supple, nontender. CARDIOVASCULAR: Irregular rate and rhythm without murmurs. Peripheral pulses symmetric. Pedal/ankle edema to bilateral extremities. RESPIRATORY/CHEST: Symmetric, unlabored respirations. Clear, diminished to auscultation. Breath sounds equal bilaterally. No wheezes, rales, or rhonchi. GASTROINTESTINAL: Abdomen soft, non-tender, nondistended. No hepato-splenomegaly , or palpable masses. No guarding. Bowel sounds present. GENITOURINARY: Without palpable bladder distension. Rodriguez catheter in place. MUSCULOSKELETAL: Extremities without clubbing, cyanosis. No mottling or clubbing. NEUROLOGICAL: Awake and alert x self and situation. Intermittently confused. Very hard of hearing. Following commands. PSYCHIATRIC: Appears calm. . Diagnostic Tests Laboratory Laboratory Tests Test 05/20/17 13:45 05/20/17 16:55 05/21/17 05:45 05/21/17 12:10 Stool C. difficile Toxin (PCR) NEGATIVE (NEGATIVE) Stl C. difficile Toxin Epiderm 027 PRESUMPTIVE NEGATIVE White Blood Count 29.2 TH/MM3 (4.0-11.0) 19.3 TH/MM3 (4.0-11.0) Red Blood Count 3.02 MIL/MM3 (4.50-5.90) 2.89 MIL/MM3 (4.50-5.90) Hemoglobin 8.9 GM/DL (13.0-17.0) 8.6 GM/DL (13.0-17.0) Hematocrit 25.6 % (39.0-51.0) 24.5 % (39.0-51.0) Mean Corpuscular Volume 84.9 FL (80.0-100.0) 84.8 FL (80.0-100.0) Mean Corpuscular Hemoglobin 29.4 PG (27.0-34.0) 29.8 PG (27.0-34.0) Mean Corpuscular Hemoglobin Concent 34.6 % (32.0-36.0) 35.2 % (32.0-36.0) Red Cell Distribution Width 17.5 % (11.6-17.2) 17.9 % (11.6-17.2) Platelet Count 201 TH/MM3 (150-450) 157 TH/MM3 (150-450) Mean Platelet Volume 10.1 FL (7.0-11.0) 9.7 FL (7.0-11.0) Neutrophils (%) (Auto) 92.1 % (16.0-70.0) 87.7 % (16.0-70.0) Lymphocytes (%) (Auto) 2.2 % (9.0-44.0) 4.6 % (9.0-44.0) Monocytes (%) (Auto) 5.6 % (0.0-8.0) 7.5 % (0.0-8.0) Eosinophils (%) (Auto) 0.0 % (0.0-4.0) 0.0 % (0.0-4.0) Basophils (%) (Auto) 0.1 % (0.0-2.0) 0.2 % (0.0-2.0) Neutrophils # (Auto) 26.9 TH/MM3 (1.8-7.7) 17.0 TH/MM3 (1.8-7.7) Lymphocytes # (Auto) 0.6 TH/MM3 (1.0-4.8) 0.9 TH/MM3 (1.0-4.8) Monocytes # (Auto) 1.6 TH/MM3 (0-0.9) 1.4 TH/MM3 (0-0.9) Eosinophils # (Auto) 0.0 TH/MM3 (0-0.4) 0.0 TH/MM3 (0-0.4) Basophils # (Auto) 0.0 TH/MM3 (0-0.2) 0.0 TH/MM3 (0-0.2) CBC Comment DIFF FINAL DIFF FINAL Differential Comment Blood Urea Nitrogen 69 MG/DL (7-18) Creatinine 2.84 MG/DL (0.60-1.30) Random Glucose 96 MG/DL (74-106) Calcium Level 7.5 MG/DL (8.5-10.1) Magnesium Level 2.3 MG/DL (1.5-2.5) Sodium Level 134 MEQ/L (136-145) Potassium Level 3.7 MEQ/L (3.5-5.1) Chloride Level 101 MEQ/L (98-107) Carbon Dioxide Level 20.4 MEQ/L (21.0-32.0) Anion Gap 13 MEQ/L (5-15) Estimat Glomerular Filtration Rate 21 ML/MIN (>89) Troponin I 0.19 NG/ML (0.02-0.05) Pleural Fluid WBC 20 /MM3 (0-10) Pleural Fluid RBC 60 /MM3 (0-0) Pleural Fluid Neutrophils 100 % Pleural Fluid Comment Pleural Fluid Total Protein 3.4 GM/DL Pleural Fluid LDH 70 U/L Result Diagram: 05/21/17 0545 05/21/17 0545 Microbiology Microbiology Date/Time Source Procedure Growth Status 05/21/17 12:10 Fluid Pleural Fluid Fungal Smear - Final NO FUNGAL ELEMENTS SEEN. Resulted 05/21/17 12:10 Fluid Pleural Fluid Fungal Culture Pending Resulted 05/21/17 12:10 Fluid Pleural Fluid Acid Fast Stain - Final NO ACID FAST BACILLI SEEN Resulted 05/21/17 12:10 Fluid Pleural Fluid Mycobacterial Culture Pending Resulted 05/21/17 12:10 Fluid Pleural Fluid Gram Stain - Final Resulted 05/21/17 12:10 Fluid Pleural Fluid Body Fluid Culture - Preliminary NO GROWTH IN 48 HOURS. Resulted 05/20/17 13:45 Stool Stool - Final NO ENTERIC PATHOGENS DETECTED BY PCR... Complete Procedures * 05/21/17 -right-sided thoracentesis. . Assessment and Plan Disease Oriented Problem List: (1) Myelodysplastic syndrome (2) Pleural effusion on right (3) Pneumonia (4) Acute renal insufficiency (5) Anemia (6) Physical deconditioning Symptom Scale: (1) Shortness of breath 0-10 Scale: Unable to quantify (2) Debility 0-10 Scale: Unable to quantify Pertinent Non-Medical Issues Psychosocial: Patient originally from [place], [place]. he is a retired contractor. , has 3 adult daughters. Served in the [employer]. Spiritual: [employer]. Legal: Advance directives completed. Ethical issues impacting care: No ethical issues identified. . Important Contacts HCS/Daughter Rosalinda Scott . Daughter Ariella Jo . . Prognosis Mr. Peck is an 86-year-old male with a medical history significant for myelodysplastic syndrome refractory anemia, COPD, CHF, A. fib with RVR, hypertension and GERD. Patient with progression of disease while on disease modifying therapy, now requiring weekly red blood cell transfusions. Patient with multiple recent hospitalizations, progressive decline and sepsis secondary to pneumonia. Overall prognosis is very poor for a prolonged survival. Patient is hospice appropriate should he/family elects comfort-directed care. . Code Status: No Code Plan * CODE STATUS: No code. DNR/DNI. Community DNR left in room. * HEALTHCARE DECISION-MAKING: Patient with limited participation in medical decision-making given intermittent confusion/agitation. Advanced directives secure. Patient has designated his daughter Samantha Scott as healthcare surrogate decision-maker, alternating is daughter Jaye Pepe. Palliative care recommends shared decision-making given intermittent confusion. * GOALS OF CARE: Family reports that after extensive discussion, patient and family has elected to continue aggressive management short of NO code to include continuation of IV antibiotics and blood transfusions as necessary/ tolerated. Goal is to discharge to rehabilitation for physical strengthening. Patient/family receptive to comfort-directed care with hospice should patient's clinical condition worsen or additional decline/symptom burden. * SYMPTOMS: = Shortness of breath, multifactorial secondary to pleural effusion , anemia, COPD. status post US guided thoracentesis of right lung 05/21/17. Currently tolerating O2 via nasal cannula. = Debility: Progressive. Worsen since February 2017. Patient with multiple recent acute hospitalizations and multiple comorbidities. Living independently prior to February, now residing in assisted living facility and requiring assistance with ADLs. Likely to continue to worsen given progression of illness. Family electing for rehabilitation for physical strengthening. PT consultation recommended. * Case discussed with magnetic resonance technologist Maggie. * Palliative care contact information has been provided to patient and family. * Palliative care to follow-up as needed for further clarifications of goals of care as patient's clinical course continues to evolve. . Time Spent Total Floor Time (mins): 32 (Total time to include review medical records, physical exam, goals of care conversation with patient and additional family members, assistance with completion of community DNR, case discussion with magnetic resonance technologist.) >50% Counseling/Coord of Care: Yes Attestation To help prompt me to consider important information that might be impacting today's encounter and assessment, information from prior notes written by myself or my colleagues may have been "brought forward" into today's note. My signature on this note, however, is an attestation that I personally performed the exam, history, and/or decision-making noted today, and, unless otherwise indicated, the interactions with patient, family, and staff as well as the review of records all occurred today. I also attest that the listed assessment and stated plan reflect my best clinical judgment today based on the combination of historical information, prior notes, and today's exam/ interactions. When time spent is documented, it refers only to time spent today by the signer, or if indicated, combined time spent today by collaborating physician/nurse practitioner. Gina Guidry May 23, 2017 13:47
[2017-05-23 14:00] VITALS: PULSE 101
[2017-05-23 20:00] VITALS: BP 112/56; PULSE 106; RESP 18; TEMP 98.3; O2SAT 100
[2017-05-23] MEDS: diphenhydrAMINE HCL 25 MG CAP PO PRN (21:07)
[2017-05-24] VITALS: BP 125/68; PULSE 90; RESP 18; TEMP 97.6; O2SAT 98
[2017-05-24 04:00] VITALS: BP 98/56; PULSE 113; RESP 20; TEMP 97.6; O2SAT 94
[2017-05-24] MEDS: PIPERACIL-TAZO 2.25 GM PREMIX 50 ML IV SCH ×2 (05:38→15:44)
[2017-05-24] MEDS: LEVOTHYROXINE SODIUM 75 MCG TAB PO SCH (05:38)
[2017-05-24 08:08] LABS: BASOPHIL % 0.1 % (0.0-2.0); EOSINOPHIL % 0.2 % (0.0-4.0); HEMATOCRIT 24.9 % (39.0-51.0); HEMOGLOBIN 8.6 GM/DL (13.0-17.0); LYMPH % 7.4 % (9.0-44.0); LYMPHOCYTE # 0.7 TH/MM3 (1.0-4.8); MEAN CELL VOLUME 86.6 FL (80.0-100.0); MEAN CORPUSCULAR HEMOGLOBIN 29.9 PG (27.0-34.0); MEAN CORPUSCULAR HGB CONC 34.5 % (32.0-36.0); MEAN PLATELET VOLUME 10.1 FL (7.0-11.0); MONO % 9.4 % (0.0-8.0); MONOCYTE # 0.9 TH/MM3 (0-0.9); NEUT % 82.9 % (16.0-70.0); PLATELET COUNT 161 TH/MM3 (150-450); RED BLOOD COUNT 2.88 MIL/MM3 (4.50-5.90); RED CELL DISTRIBUTION WIDTH 18.1 % (11.6-17.2); WHITE BLOOD COUNT 9.6 TH/MM3 (4.0-11.0)
[2017-05-24 08:16] VITALS: BP 116/59; PULSE 112; RESP 20; TEMP 97.4; O2SAT 99
[2017-05-24 08:52] LABS: BICARBONATE 20.2 MEQ/L (21.0-32.0); CALCIUM 8.3 MG/DL (8.5-10.1); CREATININE 2.37 MG/DL (0.60-1.30); MAGNESIUM 2.6 MG/DL (1.5-2.5)
[2017-05-24] MEDS: FLUTICASONE PROPIONATE 50 MCG/ACT 16 GM NASAL SPRAY EACH NARE SCH (09:00)
[2017-05-24 09:19] LABS: BANDS 10 % (0-6); LYMPHOCYTES 4 % (9-44); METAMYELOCYTES 2 % (0-1); MONOCYTES 8 % (0-8); MYELOCYTES 1 % (0-0); NEUTROPHIL # MANUAL DIFF 8.4 TH/MM3 (1.8-7.7); POLYS (SEG NEUTROPHILS) 75 % (16-70)
[2017-05-24 09:20] LABS: ACANTHOCYTES 1+ (NORMAL); BURR CELLS 1+ (NORMAL); KERATOCYTES OCC (NORMAL); OVALOCYTES 1+ (NORMAL)
[2017-05-24] MEDS: PANTOPRAZOLE SOD 20 MG DELAYED RELEASE TAB PO SCH ×2 (10:57→21:16)
[2017-05-24] MEDS: AMIODARONE 200 MG TAB PO SCH (10:57)
[2017-05-24 12:02] VITALS: BP 112/58; PULSE 115; RESP 20; TEMP 97.8; O2SAT 100
--- NOTE | 2017-05-24 14:04 | HHI.PR ---
Subjective Remarks Pt c/o LBP. Poor appetite. Pt able to speak in complete sentences, but less talkative today. Objective Vitals Vital Signs Date Time Temp Pulse Resp B/P (MAP) Pulse Ox O2 Delivery O2 Flow Rate FiO2 05/24/17 12:02 97.8 115 20 112/58 (76) 100 05/24/17 08:16 97.4 112 20 116/59 (78) 99 05/24/17 04:00 97.6 113 20 98/56 (70) 94 05/24/17 00:00 97.6 90 18 125/68 (87) 98 05/23/17 20:00 98.3 106 18 112/56 (74) 100 05/23/17 14:00 101 Result Diagram: 05/24/17 0600 05/24/17 0600 Imaging Last Impressions Renal Ultrasound 05/20/17 0000 Signed Impressions: Service Date/Time: Saturday, May 20, 2017 13:35 - CONCLUSION: 1. There is no hydronephrosis. 2. There is a 10 mm hemorrhagic cyst in the right mid kidney. Dino Esquivel MD Abdomen/Pelvis CT 05/20/17 0000 Signed Impressions: Service Date/Time: Saturday, May 20, 2017 14:16 - CONCLUSION: 1. Partially visualized moderate size right pleural effusion with associated compressive atelectasis of the right lung base. Fluid density measurements suggest simple fluid. There is also trace free fluid in the abdomen. 2. No acute findings include hemorrhagic cyst in the right kidney, severe atherosclerotic disease, and left adrenal gland mass with features suggesting a cyst or adenoma. Dino Esquivel MD Chest X-Ray 05/19/172118 Signed Impressions: Service Date/Time: Friday, May 19, 2017 21:26 - CONCLUSION: Slight enlargement of a right pleural effusion and right lower lobe infiltrate relative to the prior study. George Arellano Jr., MD Objective Remarks GENERAL: NAD, thin CARDIOVASCULAR: Regular rate and rhythm without murmurs, gallops, or rubs. RESPIRATORY: Clear to auscultation. Breath sounds equal bilaterally. No wheezes , rales, or rhonchi. GASTROINTESTINAL: Abdomen soft, non-tender, nondistended. Normal active bowel sounds MUSCULOSKELETAL: Extremities without clubbing, cyanosis, or edema. NEURO: alert, BANKS, expressive aphasia --> improved from admission A/P Problem List: (1) Pleural effusion on right ICD Codes: J90 - Pleural effusion, not elsewhere classified Plan: Pleural effusion Possible pneumonia - Pt is an 86 y/o WM with paroxysmal atrial fibrillation, myelodysplasia with refractory anemia, prostate cancer s/p XRT 5 years ago, bladder cancer s/p tumor resection 6 years ago, HTN, and GERD. Pt had been receiving frequent blood transfusions and has subsequently developed iron overload and is iron chelation therapy with Exjade for this. He was started on Vidaza in 2015 for his myelodysplastic syndrome and his transfusion needs have decreased since initiation of that. He follows with Dr. Kohler for this. - Pt [place] [facility] [place] with complaints of orthopnea, associated with fever and shaking chills. Denies cough or night sweats. - Patient also had a transfusion on the afternoon of 05/19 for chronic anemia. Patient states he's never had a fever post transfusion to date. His max temp in the ED was 100.8 degrees last night. - Blood cultures (05/20) --> Enterobacter Cloacae - suspect port infection - zosyn (05/20 - present). - Repeat Blood Cx (05/23) --> NGTD - azithromycin (05/20) - WBC 23.9 (05/20), 19.3 (05/21), 9.6 (05/24) - UA was negative - CXR (05/22) --> stable, small b/l pleural effusions - stool studies --> C. Dif Negative - CT abd/pelvis (05/20) --> moderate right pleural effusion - Pt underwent right thoracentesis with removal of 1.2 liters of fluid - PT - DNR - Case d/w ID, Dr. Lockett (05/22) - Will review case with ID on Friday, May 26 - Anticipate D/C to SNF May 26 - family will consider Hospice following SNF if no significant improvement Myelodysplasia with refractory anemia Volume overload - His labs in the ED noted Hgb 7.7/Hct 21.5. Repeat labs this morning noted a decrease in his H/H to 6.7/20.3 - Pt is currently receiving 2 units of PRBCs - Patient had a few recent admissions in 03/2017 and 04/2017 to the hospital for volume overload and required thoracentesis twice for pleural effusion. - 2D echo (02/2017) with preserved EF 60-65% and no evidence of diastolic dysfunction. - His troponin I is elevated at 0.09 --> 0.12 but he has noted elevated troponin in the past - BNP is elevated at 433 --> 1233 (05/20) - repeat BNP and CXR (05/24) - CXR in the ED noted slight enlargement of a right pleural effusion and right lower lobe infiltrate relative to the prior study. - thoracentesis, right, today for symptom relief Acute on chronic kidney disease - comgmt with Nephrology - His renal function was worse than baseline with Cr 2.93/BUN 55, GFR 20 and repeat labs this morning with Cr 3.04/BUN 58, GFR 20. - Cr 2.84 (05/21), Cr 2.37 (05/24) - repeat BMP in AM - renal US (05/20) --> hemorrhagic cyst, no obstructive findings Paroxysmal atrial fibrillation HTN - Pts BP will not sustain his BB - Cont. Amiodarone in AM Hypothyroidism - Cont. home meds (2) Pneumonia ICD Codes: J18.9 - Pneumonia, unspecified organism Status: Acute (3) Volume overload ICD Codes: E87.70 - Fluid overload, unspecified Status: Acute (4) Acute renal insufficiency ICD Codes: N28.9 - Disorder of kidney and ureter, unspecified Status: Acute (5) Myelodysplastic syndrome ICD Codes: D46.9 - Myelodysplastic syndrome Status: Chronic (6) Symptomatic anemia ICD Codes: D64.9 - Symptomatic anemia Status: Acute (7) Hypothyroidism ICD Codes: E03.9 - Hypothyroidism Status: Chronic (8) Paroxysmal atrial fibrillation ICD Codes: I48.0 - Paroxysmal atrial fibrillation Status: Chronic (9) Elevated troponin ICD Codes: R77.8 - Other specified abnormalities of plasma proteins Status: Acute (10) Hypertension ICD Codes: I10 - Hypertension Status: Chronic Assessment and Plan Per patient family request Ayon stopped. Family would like to move toward comfort care. Family meeting with Dr. Gill tomorrow at 1300. Problem Qualifiers (1) Pneumonia: Qualified Codes: J18.1 - Lobar pneumonia, unspecified organism Kevin Gill DO May 24, 2017 14:04 Alexandrea Ortiz May 24, 2017 16:42
[2017-05-24] MEDS ORDERED: MORPHINE SULFATE 4 MG/ML INJ IV PUSH PRN (14:45)
[2017-05-24] MEDS: ACETAMINOPHEN 325 MG TAB PO PRN ×2 (15:47→21:16)
[2017-05-24 15:49] VITALS: BP 111/58; PULSE 118; RESP 20; TEMP 98.1; O2SAT 99
--- NOTE | 2017-05-24 17:02 | HHI.NPPN ---
Subjective Complaints: Confused General Problems: Anemia, Edema History of Present Illness 86-year-old male presented to ED with orthopnea, associated with fever and shaking chills. Patient had a recent admission to the hospital for pleural effusion with pleurocentesis as per patient. Patient had a transfusion on 05/19 for chronic anemia. Called to see the patient for elevated BUN and Creatinine. Additional Remarks Patient is more alert, still not eating much, seen in AM, not in distress. Review of Systems Respiratory Respiratory Remarks Denies SOB Cardiovascular Cardiac: Edema Cardiac Remarks Denies Chest pain Gastrointestinal GI Remarks No Abdominal pain Genitourinary Remarks Denies urinary frequency or dysuria Objective Data Data Vital Signs Date Time Temp Pulse Resp B/P (MAP) Pulse Ox O2 Delivery O2 Flow Rate FiO2 05/24/17 15:49 98.1 118 20 111/58 (75) 99 05/24/17 12:02 97.8 115 20 112/58 (76) 100 05/24/17 08:16 97.4 112 20 116/59 (78) 99 05/24/17 04:00 97.6 113 20 98/56 (70) 94 05/24/17 00:00 97.6 90 18 125/68 (87) 98 05/23/17 20:00 98.3 106 18 112/56 (74) 100 -: 05/24/17 0600 05/24/17 0600 Physical Exam General Appearance: No Acute Distress Eyes Eye Exam: Pupils Equal Pulmonary Resp Exam: Diminished Breath Sounds Cardiology CV Exam: Regular, Normal Sinus Rhythm Gastrointestinal/Abdomen GI Exam: Soft, Non-Tender Genitourinary Exam: Flank Non-Tender, Bladder Non-Palpable Integumentary Skin Exam: Clear, Dry Extremeties Extremities Exam: Moderate Edema Neurologic Neuro Exam: Alert VTE Prophylaxis Device: TEDs Assessment/Plan Discussed Condition With: Sibling Assessment Summary: JAMES/Acute Renal Failure, Anemia of CKD Problem List: (1) Acute renal insufficiency ICD Codes: N28.9 - Disorder of kidney and ureter, unspecified Status: Acute Plan: Has minimal Proteinuria, the chronic kidney disease is most likely due to Hypertensive or renovascular disease. JAMES is possibly pre renal or ATN from Hypotension. Encourage oral intake. Avoid nephrotoxins. Creatinine is improving. Follow the urine out put and BMP. Following by Palliative care, possible Hospice as per daughter. (2) Anemia ICD Codes: D64.9 - Anemia Status: Chronic Plan: Patient is treated with blood transfusion as needed for myelodysplasia with refractory anemia. Transfused 2 units of PRBC on admission . HGB 8.6 yesterday Blood pressure stable (3) Myelodysplastic syndrome ICD Codes: D46.9 - Myelodysplastic syndrome Status: Chronic Plan: Managed per hematology. Family may be considering hospice plan to have meeting today (4) Pneumonia ICD Codes: J18.9 - Pneumonia, unspecified organism Status: Acute Plan: Possible pneumonia On antibiotics No SOB noted (5) Bacteremia ICD Codes: R78.81 - Bacteremia Plan: Blood cultures positive gram negative rods ID consulted. Plan Patient examined, agree with above. Problem Qualifiers (1) Pneumonia: Qualified Codes: J18.1 - Lobar pneumonia, unspecified organism Alexsandra Wang MD May 24, 2017 17:02
[2017-05-24 20:00] VITALS: BP 105/59; PULSE 117; RESP 20; TEMP 98.3; O2SAT 99
[2017-05-24] MEDS: OPTH LEFT EAR SCH (21:15)
[2017-05-24] MEDS: CIPROFLOXACIN 0.3% LEFT EAR SCH (21:15)
[2017-05-24] MEDS: diphenhydrAMINE HCL 25 MG CAP PO PRN (21:16)
[2017-05-25 00:37] VITALS: BP 102/60; PULSE 87; RESP 18; TEMP 97.4; O2SAT 99
[2017-05-25] MEDS: ACETAMINOPHEN 325 MG TAB PO PRN (03:24)
[2017-05-25 04:49] VITALS: BP 109/65; PULSE 107; RESP 18; TEMP 98.7; O2SAT 100
[2017-05-25] MEDS: LEVOTHYROXINE SODIUM 75 MCG TAB PO SCH (06:43)
[2017-05-25 08:33] VITALS: BP 105/58; PULSE 98; RESP 20; TEMP 98.2; O2SAT 100
[2017-05-25] MEDS: AMIODARONE 200 MG TAB PO SCH (08:59)
[2017-05-25] MEDS: FLUTICASONE PROPIONATE 50 MCG/ACT 16 GM NASAL SPRAY EACH NARE SCH (08:59)
[2017-05-25] MEDS: CIPROFLOXACIN 0.3% LEFT EAR SCH (08:59)
[2017-05-25] MEDS: PANTOPRAZOLE SOD 20 MG DELAYED RELEASE TAB PO SCH (08:59)
[2017-05-25] MEDS: OPTH LEFT EAR SCH (08:59)
[2017-05-25 09:05] VITALS: RESP 18
[2017-05-25] MEDS ORDERED: LORazepam 2 MG/ML VIAL IV PUSH PRN (13:30)
[2017-05-25] MEDS ORDERED: Non-Formulary Drug LEFT EAR (13:37)
[2017-05-25] MEDS ORDERED: MORP4INJ3 IV PUSH (13:37)
[2017-05-25] MEDS ORDERED: ACET325T15 PO (13:37)
--- NOTE | 2017-05-25 13:39 | HHI.DCPOC ---
Discharge Care Plan Diagnosis: (1) Bacteremia (2) Anemia (3) Myelodysplastic syndrome Goals to Promote Your Health * To prevent worsening of your condition and complications * To maintain your health at the optimal level Directions to Meet Your Goals Take your medications as prescribed Follow your dietary instruction Follow activity as directed Keep your appointments as scheduled Take your immunizations and boosters as scheduled If your symptoms worsen call your PCP, if no PCP go to Urgent Care Center or Emergency Room Smoking is Dangerous to Your Health. Avoid second hand smoke Call the 24-hour hour crisis hotline for domestic abuse at Kevin Gill DO May 25, 2017 13:39
--- NOTE | 2017-05-25 13:50 | HHI.DS ---
Discharge Summary Admission Date May 19, 2017 at 23:10 Discharge Date: May 25, 2017 Admitting Diagnosis Pneumonia, Pleural Effusion, Acute Renal Insufficiency (1) Pleural effusion on right Diagnosis: Principal ICD Codes: J90 - Pleural effusion, not elsewhere classified (2) Acute renal insufficiency Diagnosis: Principal ICD Codes: N28.9 - Disorder of kidney and ureter, unspecified Status: Acute (3) Myelodysplastic syndrome Diagnosis: Principal ICD Codes: D46.9 - Myelodysplastic syndrome Status: Chronic (4) Symptomatic anemia Diagnosis: Principal ICD Codes: D64.9 - Symptomatic anemia Status: Acute (5) Hypothyroidism Diagnosis: Secondary ICD Codes: E03.9 - Hypothyroidism Status: Chronic (6) Paroxysmal atrial fibrillation Diagnosis: Secondary ICD Codes: I48.0 - Paroxysmal atrial fibrillation Status: Chronic (7) Elevated troponin Diagnosis: Secondary ICD Codes: R77.8 - Other specified abnormalities of plasma proteins Status: Acute (8) Hypertension Diagnosis: Secondary ICD Codes: I10 - Hypertension Status: Chronic Consultants Dr. Hany Lockett, Infectious Disease Dr. Madalyn Leos, Palliative Medicine Dr. Jorge Kohler, Hematology Dr. Tih Wang, Nephrology Procedures - Pt underwent right thoracentesis with removal of 1.2 liters of fluid Brief History Mr. Peck is a pleasant 86 y/o WM with paroxysmal atrial fibrillation, myelodysplasia with refractory anemia, prostate cancer s/p XRT 5 years ago, bladder cancer s/p tumor resection 6 years ago, HTN, and GERD. Pt had been receiving frequent blood transfusions and has subsequently developed iron overload. Pt has been on iron chelation therapy with Exjade for this. He was started on Vidaza in 2016 for his myelodysplastic syndrome and his transfusion needs have decreased since initiation of that. He follows with Dr. Kohler for this. Pt presented to the ED at [facility] [place] on 05/19/17 with complaints of orthopnea, associated with fever and shaking chills. Denies cough or night sweats. Patient had a few recent admissions in 03/2017 and 04/2017 to the hospital for volume overload and required thoracentesis twice for pleural effusion. 2D echo ( 02/2017) with preserved EF 60-65% and no evidence of diastolic dysfunction. Patient also had a transfusion on the afternoon of 05/19 for chronic anemia. Patient states he's never had a fever post transfusion to date. His max tem in the ED was 100.8 degrees last night. Blood cultures were drawn in the ED and there is now growth x 1 day. He tested negative for influenza. His labs in the ED noted Hgb 7.7/Hct 21.5. Repeat labs this morning noted a decrease in his H/H to 6.7/20.3 and his WBC count increased to 23.9. Pt was started on IVF, Zosyn and Azithromycin last night in the ED. His renal function was worse than baseline with Cr 2.93/BUN 55, GFR 20 and repeat labs this morning with Cr 3.04/ BUN 58, GFR 20. His troponin I is elevated at 0.09 --> 0.12 and BNP is elevated at 433 --> 1233 today. CXR in the ED noted slight enlargement of a right pleural effusion and right lower lobe infiltrate relative to the prior study. He denies any exertional chest pain, SOB, palpitations or diaphoresis. Denies any nausea, vomiting, constipation, melena or BRBPR. No urinary symptoms. This morning in the ED he has had 3 loose BMs and has some left sided tenderness. He is currently getting his second unit of PRBCs CBC/BMP: 05/24/17 0600 05/24/17 0600 Significant Findings Laboratory Tests Test 05/24/17 06:00 Red Blood Count 2.88 MIL/MM3 (4.50-5.90) Hemoglobin 8.6 GM/DL (13.0-17.0) Hematocrit 24.9 % (39.0-51.0) Red Cell Distribution Width 18.1 % (11.6-17.2) Neutrophils (%) (Auto) 82.9 % (16.0-70.0) Lymphocytes (%) (Auto) 7.4 % (9.0-44.0) Monocytes (%) (Auto) 9.4 % (0.0-8.0) Neutrophils # (Auto) 8.0 TH/MM3 (1.8-7.7) Lymphocytes # (Auto) 0.7 TH/MM3 (1.0-4.8) Neutrophils % (Manual) 75 % (16-70) Band Neutrophils % 10 % (0-6) Lymphocytes % 4 % (9-44) Neutrophils # (Manual) 8.4 TH/MM3 (1.8-7.7) Metamyelocytes 2 % (0-1) Myelocytes 1 % (0-0) Platelet Morphology Comment ENLARGED (NORMAL) Ovalocytes 1+ (NORMAL) [place] Cells 1+ (NORMAL) Acanthocytes 1+ (NORMAL) Blood Urea Nitrogen 50 MG/DL (7-18) Creatinine 2.37 MG/DL (0.60-1.30) Calcium Level 8.3 MG/DL (8.5-10.1) Magnesium Level 2.6 MG/DL (1.5-2.5) Sodium Level 133 MEQ/L (136-145) Carbon Dioxide Level 20.2 MEQ/L (21.0-32.0) Estimat Glomerular Filtration Rate 26 ML/MIN (>89) B-Type Natriuretic Peptide 407 PG/ML (0-100) Imaging Last Impressions Chest X-Ray 05/22/17 0800 Signed Impressions: Service Date/Time: May 09:13 - CONCLUSION: Stable chest x-ray. Small bilateral pleural effusions. Dino Esquivel MD Thoracentesis Ultrasound 05/21/17 0000 Signed Impressions: Service Date/Time: Sunday, May 21, 2017 11:41 - CONCLUSION: Uncomplicated ultrasound guided right thoracentesis. Dino Esquivel MD Renal Ultrasound 05/20/17 0000 Signed Impressions: Service Date/Time: Saturday, May 20, 2017 13:35 - CONCLUSION: 1. There is no hydronephrosis. 2. There is a 10 mm hemorrhagic cyst in the right mid kidney. Dino Esquivel MD Abdomen/Pelvis CT 05/20/17 0000 Signed Impressions: Service Date/Time: Saturday, May 20, 2017 14:16 - CONCLUSION: 1. Partially visualized moderate size right pleural effusion with associated compressive atelectasis of the right lung base. Fluid density measurements suggest simple fluid. There is also trace free fluid in the abdomen. 2. No acute findings include hemorrhagic cyst in the right kidney, severe atherosclerotic disease, and left adrenal gland mass with features suggesting a cyst or adenoma. Dino Esquivel MD PE at Discharge GENERAL: NAD, thin CARDIOVASCULAR: Regular rate and rhythm without murmurs, gallops, or rubs. RESPIRATORY: Clear to auscultation. Breath sounds equal bilaterally. No wheezes , rales, or rhonchi. GASTROINTESTINAL: Abdomen soft, non-tender, nondistended. Normal active bowel sounds MUSCULOSKELETAL: Extremities without clubbing, cyanosis, or edema. NEURO: alert, BANKS, expressive aphasia --> improved from admission Hospital Course Pleural effusion Possible pneumonia - Pt is an 86 y/o WM with paroxysmal atrial fibrillation, myelodysplasia with refractory anemia, prostate cancer s/p XRT 5 years ago, bladder cancer s/p tumor resection 6 years ago, HTN, and GERD. Pt had been receiving frequent blood transfusions and has subsequently developed iron overload and is iron chelation therapy with Exjade for this. He was started on Vidaza in 2016 for his myelodysplastic syndrome and his transfusion needs have decreased since initiation of that. He follows with Dr. Kohler for this. - Pt presented to the ED at [facility] [place] on 05/19/17 with complaints of orthopnea, associated with fever and shaking chills. Denies cough or night sweats. - Patient also had a transfusion on the afternoon of 05/19 for chronic anemia. Patient states he's never had a fever post transfusion to date. His max temp in the ED was 100.8 degrees last night. - Blood cultures (05/20) --> Enterobacter Cloacae - suspect port infection - zosyn (05/20 - 05/24). - ID recommended 10 day course of zosyn. Pt requested zosyn be stopped 05/24 - Repeat Blood Cx (05/23) --> NGTD - azithromycin (05/20) - WBC 23.9 (05/20), 19.3 (05/21), 9.6 (05/24) - UA was negative - CXR (05/22) --> stable, small b/l pleural effusions - stool studies --> C. Dif Negative - CT abd/pelvis (05/20) --> moderate right pleural effusion - Pt underwent right thoracentesis with removal of 1.2 liters of fluid - PT - DNR - Case d/w ID, Dr. Lockett (05/22) - met with family (05/25/17). - [facility] - Pt is agitated at times and pt will benefit from [facility] for control of symptoms. Myelodysplasia with refractory anemia Volume overload - His labs in the ED noted Hgb 7.7/Hct 21.5. Repeat labs this morning noted a decrease in his H/H to 6.7/20.3 - Pt is currently receiving 2 units of PRBCs - Patient had a few recent admissions in 03/2017 and 04/2017 to the hospital for volume overload and required thoracentesis twice for pleural effusion. - 2D echo (02/2017) with preserved EF 60-65% and no evidence of diastolic dysfunction. - His troponin I is elevated at 0.09 --> 0.12 but he has noted elevated troponin in the past - BNP is elevated at 433 --> 1233 (05/20) - CXR in the ED noted slight enlargement of a right pleural effusion and right lower lobe infiltrate relative to the prior study. - thoracentesis, right, symptom relief Acute on chronic kidney disease - comgmt with Nephrology - His renal function was worse than baseline with Cr 2.93/BUN 55, GFR 20 and repeat labs this morning with Cr 3.04/BUN 58, GFR 20. - Cr 2.84 (05/21), Cr 2.37 (05/24) - renal US (05/20) --> hemorrhagic cyst, no obstructive findings Paroxysmal atrial fibrillation HTN - Pts BP will not sustain his BB - Cont. Amiodarone in AM Hypothyroidism - Cont. home meds Pt Condition on Discharge: Deteriorating Discharge Disposition: Hospice/ Home Discharge Instructions DIET: Follow Instructions for: As Tolerated, No Restrictions Activities you can perform: Weight Bearing as Ngh[place] New Medications: Acetaminophen (Eq Acetaminophen) 325 Mg Tab 650 MG PO Q4H PRN for fever or pain 1-10 for 3 Days, #36 TAB Morphine Sulfate (Morphine Sulfate) 4 Mg/Ml Inj 4 MG IV PUSH Q2H PRN for PAIN 1-10 for 3 Days, INJECTION [Non-Formulary Drug] () 1 EA EA 0 EA LEFT EAR BID for otalgia Continued Medications: Amiodarone (Amiodarone) 200 Mg Tab 200 MG PO DAILY for afib, #30 TAB 3 Refills Dextran 70/Hypromellose/Pf (Artificial Tears Drops) 0.1 %-0.3 % Droperette 1 DROP EACH EYE DAILY PRN for DRY EYE Diphenhydramine (Sleep) Liq (Zzzquil Liq) 50 Mg/30 Ml Liq 25 MG PO HS PRN for SLEEP, #1 BOTTLE Metoprolol Succinate ER 24 HR (Metoprolol Succinate ER 24 HR) 25 Mg Tab 25 MG PO DAILY, #30 TAB 0 Refills Ondansetron (Ondansetron) 8 Mg Tab 8 MG PO TID for Nausea/Vomiting, TAB 0 Refills Discontinued Medications: Acetaminophen (Tylenol Arthritis) 650 Mg Tablet.er 1300 MG PO BID Deferasirox (Exjade) 500 Mg Tab 1000 MG PO DAILY Dissolve 2 tablets (1,000mg) in 7 ounces of apple juice-wait 30 min before eating or taking other medication Epoetin Inj (Procrit Inj) 40,000 Unit/Ml Inj 72228 UNITS SQ PRN for IF HGB LESS THAN 10, #12 VIAL 0 Refills Given at [facility] Famotidine/Ca Carb/Mag Hydrox (Pepcid Complete Tablet Chew) 10 Mg-800 Mg-165 Mg Tab.chew 1 TAB PO BID PRN for HEARTBURN Fluticasone Nasal [place] (Fluticasone Nasal [place]) 50 Mcg/Act Naspr 2 SPRAY EACH NARE DAILY for Allergy Management, #1 BOTTLE 0 Refills 50 mcg/spray Furosemide (Furosemide) 40 Mg Tab 40 MG PO BID@09,18 for fluid retention, #60 TAB 0 Refills Furosemide (Furosemide) 20 Mg Tab 20 MG PO DAILY, #30 TAB 0 Refills Glycerin Adult Supp (Glycerin Adult Supp) 2 Gm Supp 2 GM RECTAL DAILY PRN for CONSTIPATION, SUPP 0 Refills Ibuprofen (Ibuprofen) 400 Mg Tab 400 MG PO DAILY, TAB 0 Refills Levothyroxine (Levothyroxine) 75 Mcg Tab 75 MCG PO DAILY for Thyroid, #30 TAB 0 Refills Loperamide HCl (Loperamide) 2 Mg Tablet 2 MG PO PRN for DIARRHEA Omeprazole (Omeprazole) 20 Mg Tab 20 MG PO BID for Reflux, #30 TAB 0 Refills Polyethylene Glycol 3350 Powder (Miralax Powder) 17 Gm Powd 17 GM PO HS for Constipation, #1 CAN 0 Refills Mix and dissolve one measuring cap-ful (17 grams) in water or juice. Potassium Chloride Microencaps (Potassium Chloride Microencaps) 20 Meq Tab 20 MEQ PO Q12HR for potassium supplement, #60 TAB 0 Refills Psyllium Powder (Metamucil Original Texture) 3.4 Gram/7 Gram Pow PO HS, CONTAINER 0 Refills 1 rounded TEASPOONFUL in 8 oz of water [Cranberry] () 4200 MG PO DAILY Kevin Gill DO May 25, 2017 13:50
== END 2017-05-25 16:05 | disposition hospice, inpatient (51) | DRG 871 ==
LOC: NEPE 21:12 → NEDA 23:10 → NEDH 05-20 05:14 → N05B 05-20 16:04 → N05A 05-21 04:36
PROVIDERS: ADMIT Hospitalist; ATTEND Hospitalist
PROC: 30233N1 Transfusion of Nonautologous Red Blood Cells into Peripheral Vein, Percutaneous Approach (ICD-10-PCS; 2017-05-20)
PROC: 0W993ZZ Drainage of Right Pleural Cavity, Percutaneous Approach (ICD-10-PCS; principal; 2017-05-21)
DX: A41.50 Gram-negative sepsis, unspecified (principal); J18.9 Pneumonia, unspecified organism; N17.0 Acute kidney failure with tubular necrosis; I13.0 Hypertensive heart and chronic kidney disease with heart failure and stage 1 through stage 4 chronic kidney disease, or unspecified chronic kidney disease; J44.0 Chronic obstructive pulmonary disease with (acute) lower respiratory infection; I95.9 Hypotension, unspecified; J91.8 Pleural effusion in other conditions classified elsewhere; I50.32 Chronic diastolic (congestive) heart failure; D46.9 Myelodysplastic syndrome, unspecified; J98.11 Atelectasis; I48.0 Paroxysmal atrial fibrillation; K21.9 Gastro-esophageal reflux disease without esophagitis; I71.4 Abdominal aortic aneurysm, without rupture; E03.9 Hypothyroidism, unspecified; E78.5 Hyperlipidemia, unspecified; I07.1 Rheumatic tricuspid insufficiency; Z66 Do not resuscitate; D63.1 Anemia in chronic kidney disease; H91.90 Unspecified hearing loss, unspecified ear; M81.0 Age-related osteoporosis without current pathological fracture; N18.9 Chronic kidney disease, unspecified; M10.9 Gout, unspecified; M19.90 Unspecified osteoarthritis, unspecified site; R06.82 Tachypnea, not elsewhere classified; R45.1 Restlessness and agitation; Z92.3 Personal history of irradiation; Z87.891 Personal history of nicotine dependence; Z85.51 Personal history of malignant neoplasm of bladder; Z85.46 Personal history of malignant neoplasm of prostate
CPT/HCPCS: 32555; 36430; 36591; 71045; 71046; 74176; 76775; 80048; 80053; 81001; 82550; 83615; 83735; 83880; 84157; 84484; 85007; 85025; 85027; 85610; 85730; 86850; 86900; 86901; 86920; 87015; 87040; 87070; 87077; 87102; 87116; 87186; 87205; 87206; 87493; 87506; 87804; 88112; 88305; 89051; 93005; 96365; 96372; C1729; J0456; J0885; J1642; J2270; J2405; J2543; J7050; P9016